=== PATIENT | male | born 1965 | race Hispanic/Latino ===

== ENCOUNTER 2025-08-20 17:27 | Inpatient (IN) | payer MEDICARE, MEDICAID ==
[~2025-08-20] VITALS: Ht 167.6 cm; Wt 106.0 kg
[2025-08-20 23:45] VITALS: O2SAT 98
[2025-08-21] VITALS (8 sets, daily range): BP systolic 117–151; BP diastolic 58–76; PULSE 69–84; RESP 18–20; TEMP 98–99.2; O2SAT 97–98
[2025-08-21] MEDS ORDERED: NIFE60TA5 PO (00:10)
[2025-08-21] MEDS ORDERED: CYCL10TA16 PO (00:10)
[2025-08-21] MEDS ORDERED: CARV3.1262 PO (00:10)
[2025-08-21] MEDS ORDERED: ASPI-1197 PO (00:10)
[2025-08-21] MEDS ORDERED: LIDO700A30 TP (00:10)
[2025-08-21] MEDS ORDERED: ATOR40TA69 PO ×2 (00:10)
[2025-08-21] MEDS ORDERED: SEVE800T7 PO (00:10)
[2025-08-21] MEDS ORDERED: HYDR-4060 PO (00:17)
[2025-08-21] MEDS ORDERED: FURO80TA87 IV (00:17)
[2025-08-21] MEDS ORDERED: PANT40TA IV (00:17)
[2025-08-21] MEDS ORDERED: HEPAR25KIV IV (00:19)
[2025-08-21] MEDS ORDERED: ONDA22I IV (00:23)
[2025-08-21] MEDS ORDERED: ACET-2247 PO (00:23)
--- NOTE | 2025-08-21 00:32 | HP ---
History of Present Illness Reason for Visit: chest pain History of Present Illness Mr. Yi is a 60-year-old male that was seen and examined today on 08/21/2025. Patient is a good historian of personal health Patient was transferred from [facility] for cardiovascular surgery Service. Patient was admitted to [facility] on 08/19/2025 with a chief complaint of chest pain. Patient was diagnosed with a NSTEMI after having troponins of 2.635 and 3.703. Patient had a left heart catheterization on 08/20/2025 that showed severe multivessel disease. 2D echo on 08/20/2025 showed diastolic dysfunction with LVEF 50-55%. Cardiology recommended transferring to a facility with the cardiovascular surgery service. Patient was accepted at this facility by Dr. Prince request was made for patient to be admitted under hospitalist service. Patient arrived on a heparin drip and we will continue heparin drip until further recommendations received from cardiovascular surgery Service. Past Medical History ADDITIONAL PAST MEDICAL HISTORY: [ESRD on HD, hyperlipidemia, hypertension, CHF with LVEF 50-55% and diastolic dysfunction by 2D echo on 08/20/2025] SOCIAL HISTORY: [Patient quit smoking in 2019. Patient drinks alcohol about once a month usually two beers that are 12 oz each. Patient denies drug use. Patient lives alone. Patient is unmarried. Patient is typically independent of his ADLs. Patient denies difficulty pain is bills.] SURGICAL HISTORY: [[place] [facility]] Review of Systems General: No Fever, No Chills, No Night Sweats, No Fatigue, No Malaise, No Appetite, No Other HEENT: No Head Aches, No Visual Changes, No Eye Pain, No Ear Pain, No Dysphasia, No Sinus Congestion, No Post Nasal Drip, No Sore Throat, No Other Pulmonary: No Dyspnea, No Cough, No Pleuritic Chest Pain, No Other Cardiovascular: Chest Pain; No: Palpitations, Orthopnea, Paroxysmal Noc. Dyspnea, Edema, Lt Headedness, Other Gastrointestinal: No: Nausea, Vomiting, Abdominal Pain, Diarrhea, Constipation, Melena, Hematochezia, Other Genitourinary: No Dysuria, No Frequency, No Incontinence, No Hematuria, No Retention, No Other Musculoskeletal: No: other, neck pain, shoulder pain, arm pain, back pain, hand pain, leg pain, foot pain Skin: No Urticaria, No Rash, No Other Neurological: No: Weakness, Numbness, Incoordination, Change in speech, Confusion, Seizures, Other Allergies: Coded Allergies: No Known Allergies (Unverified Allergy, Unknown, 08/21/25) Scheduled Aspirin (Aspirin), 81 MG PO DAILY, (Reported) Atorvastatin Calcium (Lipitor), 40 MG PO HS, (Reported) Carvedilol (Coreg), 3.125 MG PO BID, (Reported) Cyclobenzaprine HCl (Flexeril), 10 MG PO TID, (Reported) Furosemide (Lasix), 80 MG IV BID, (Reported) Heparin Sodium,Porcine/D5w (Heparin), 25,000 UNITS IV AD, (Reported) Lidocaine (Lidocaine), 1 PATCH TP DAILY, (Reported) Nifedipine (Procardia Xl), 60 MG PO DAILY, (Reported) Pantoprazole Sodium (Protonix), 40 MG IV DAILY, (Reported) Sevelamer Carbonate (Renvela), 3,200 MG PO TIDMEALS, (Reported) Scheduled PRN Acetaminophen (Tylenol), 650 MG PO Q6HPRN PRN for FEVER, (Reported) Hydralazine HCl (Hydralazine HCl), 10 MG IV ONCE PRN for IF SBP GREATER THAN 180, (Reported) Hydrocodone/Acetaminophen (Hydrocodon-Acetaminophen 5-325), 1 EACH PO Q6HPRN PRN for PAIN LEVEL 5 TO 10, (Reported) Ondansetron HCl (Zofran), 4 MG IV TID PRN for NAUSEA/VOMITING, (Reported) Exam Vital Signs Vital Signs Date Time Temp Pulse Resp B/P (MAP) Pulse Ox O2 Delivery O2 Flow Rate FiO2 08/21/25 00:01 98.2 84 18 151/72 100 Nasal Cannula General Appearance: Alert, Oriented X3, Cooperative, moderate distress HEENT: Atraumatic, EOMI Respiratory: Clear to auscultation, Normal air movement, NL respiratory effort Cardiovascular: Regular rate, Regular rhythm, Normal S1, Normal S2 Abdominal: Normal bowel sounds, Soft, No tenderness Extremities: No edema Skin: No significant lesion Neuro: Normal speech, Strength at 5/5 X4 ext, Sensation intact, Cranial nerves 3-12 NL Psych/Mental Status: Mental status NL, Mood NL, Thoughts/Content NL Assessment/Plan ASSESSMENT: [ Severe multivessel disease, POA NSTEMI, POA ESRD on HD Hyperlipidemia Hypertension CHF with LVEF 50-55% by 2D echo, diastolic dysfunction on 08/20/2025] PLAN: [ Admit patient to pccu as inpatient status. Patient will be followed by cardiovascular surgery Service. Continue heparin drip per previous orders. Continue previous medications aspirin 81 mg by mouth once daily Atorvastatin 40 mg daily Carvedilol 3.125 mg by mouth twice daily Flexeril 10 mg by mouth 3 times daily Lasix 80 mg IV twice daily As needed analgesia with hydrocodone/hydromorphone Nifedipine 60 mg by mouth once daily Sevelamer 3200 mg by mouth 3 times daily Monitor intake and output every shift Weight patient daily 1500 mL daily fluid restriction Keep patient NPO except for medications Advance diet as tolerated if no indicated procedures after cardiovascular surgery Service evaluation Patient will be followed by Nephrology Service for hemodialysis management Avoid nephrotoxic agents when possible Renally dose all medications when possible GI prophylaxis, Protonix DVT prophylaxis, patient is on heparin drip as stated above ADVANCED CARE PLANNING 1. Which of the following were discussed? Hospice Care - Yes Therapeutic options - yes Advance Directives - Yes - patient states he does not have any advance directives in place at this time, however his sister, Addie Yi can make decisions for him if he becomes unable. Other discussions - patient wishes to remain a full code at this time 2. Discussed with who? Patient 3. Voluntary nature of this service was explained to the patient? Yes 4. Amount of time spent - ___16 minutes____ 5. Reviewed by Physician? (if this service was performed by NPP) Yes This document was generated in part using voice recognition software, occasional wrong word or sound alike substitutions may have occurred due to the inherent limitations of voice recognition software. Read the chart carefully and recognize using context, where the substitutions have occurred. Although every effort was made to edit the content, silk printer and typing errors may occur ATTESTATION BY PHYSICIAN I have seen and examined the patient. I reviewed the documentation, medical decision making, and treatment plan as noted by the mid-level provider above. I agree with the findings and plan of care.] FARIBA DAVIDSON COTTON FARMER Aug 21, 2025 00:32
[2025-08-21] MEDS ORDERED: HYDR20VI16 IV (00:42)
[2025-08-21 02:53] LABS: IMMATURE GRANULOCYTE ABSOLUTE 0.02 K/uL (0-1); NUCLEATED RED BLOOD CELLS 0.0 % (0.0-0.19); PLATELET COUNT (AUTO) 191 K/uL (130-400); RED BLOOD CELL COUNT(AUTO) 3.05 MIL/uL (4.50-6.20); RED CELL DISTRIBUTION WIDTH 13.4 % (11.0-15.5); WHITE BLOOD COUNT (AUTO) 5.6 K/uL (4.8-10.8)
[2025-08-21 03:02] LABS: CREATININE 7.1 mg/dL (0.5-1.3); GLOMERULAR FILTR. RATE CALC 8.0 mL/min (>90); GLUCOSE,RANDOM 95.0 mg/dL (70-105); PHOSPHORUS 6.0 mg/dL (2.5-4.9); SODIUM SERUM 136.0 mmol/L (136-145); UREA NITROGEN, BLOOD 44.0 mg/dL (7-18)
[2025-08-21 03:03] LABS: INR 1.08 (0.85-1.15)
[2025-08-21] MEDS: furoSEMIDE 100MG VIAL 10 MG/ML VIAL IV SCH (09:00)
--- NOTE | 2025-08-21 09:27 | CONS ---
[facility] CARDIOLOGY CONSULTATION NOTE Date Patient Seen: Aug 21, 2025 Time of Visit: 09:06 Reason for Consultation: [Severe multivessel CAD ] History of Present Illness: [Patient is a 60-year-old male with a past medical history of hypertension, hyperlipidemia, ESRD on hemodialysis, who presented to [facility] on 08/19/2025 endorsing ongoing and progressive chest pain, per referral report his troponin was elevated at 0125-2352, 2D echocardiogram (08/20/2025) LVEF 50-55%, diastolic dysfunction, (per report), patient underwent coronary angiogram on 08/20/2025, revealing severe multivessel CAD. At that time the decision was made to transfer to [facility] for higher level of care, and CABG evaluation by CV surgery. Hemoglobin 10.2, creatinine 7.1 , patient was assessed at his bedside, currently denies any chest pain, palpitations, dyspnea or any other anginal equivalents. Pending CV surgery evaluation] Past Medical History: [Refer to chart] Past Surgical History: [Refer to HPI ] Family History: [Refer to HPI ] Social History: [Refer to HPI] Habits: [Never] smoker. [Denies] alcohol consumption. [Denies] illicit drug use Review of Systems: A review of12 point system was negative set per HPI Physical Examination: GENERAL: [No acute distress.] HEAD: [Normal with no signs of head trauma.] EYES: [PERRLA, EOMI, conjunctiva and sclera normal.] ENT: [Hearing grossly intact, normal oropharynx.] NECK: [Supple without JVD. There is no tenderness, lymphadenopathy, or masses. No thyromegaly. Normal carotid upstrokes without bruits.] LUNGS: [Clear breath sounds bilaterally.. No wheezes, or rhonchi.] HEART: [Normal rate and rhythm. Normal S1 and S2 without murmurs, gallop or rub.] VASC: [Peripheral pulses +2 bilaterally.] ABD: [Bowel sounds normal, soft, nontender, no masses, no organomegaly. No audible bruits.] : [Not examined] LYMPH: [No lymphadenopathy noted.] EXT: [No clubbing, cyanosis or edema.] SKIN: [examination of left groin access site appears to be clean with no evidence of hematoma or active bleeding.] NEURO: [Awake, alert, and oriented x3. No focal sensory or strength deficits noted.] Vital Signs (last 8hr) Date Time Temp Pulse Resp B/P (MAP) Pulse Ox O2 Delivery O2 Flow Rate FiO2 08/21/25 07:00 98.1 76 20 149/76 99 Room Air 08/21/25 04:29 98.6 72 18 125/60 97 Room Air Laboratory: [ ] Hematology Labs: Test 08/21/25 02:41 Range/Units White Blood Count 5.6 4.8-10.8 K/uL Red Blood Count 3.05 L 4.50-6.20 MIL/uL Hemoglobin 10.2 L 14.0-18.0 g/dL Hematocrit 29.8 L 42-54 % Mean Corpuscular Volume 97.7 79-99 fL Mean Corpuscular Hemoglobin 33.4 H 27.0-33.0 pg Mean Corpuscular Hemoglobin Concent 34.2 32.0-36.0 g/dL Red Cell Distribution Width 13.4 11.0-15.5 % Platelet Count 191 130-400 K/uL Mean Platelet Volume 9.3 7.5-10.5 fL Immature Granulocyte % (Auto) 0.4 0-1 % Neutrophils (%) (Auto) 54.7 40.0-77.0 % Lymphocytes (%) (Auto) 24.0 21.0-51.0 % Monocytes (%) (Auto) 13.1 H 3.0-13.0 % Eosinophils (%) (Auto) 6.7 0.0-8.0 % Basophils (%) (Auto) 1.1 0.0-5.0 % Neutrophils # (Auto) 3.1 1.8-7.7 K/uL Lymphocytes # (Auto) 1.4 1.0-4.8 K/uL Monocytes # (Auto) 0.7 0.1-1.0 K/uL Eosinophils # (Auto) 0.38 0.00-0.70 K/uL Basophils # (Auto) 0.06 0.00-0.20 K/uL Absolute Immature Granulocyte (auto 0.02 0-1 K/uL Nucleated Red Blood Cells 0.0 0.0-0.19 % Chemistry Labs: Test 08/21/25 02:41 Range/Units Sodium Level 136 136-145 mmol/L Potassium Level 4.5 3.5-5.1 mmol/L Chloride Level 95 L 101-111 mmol/L Carbon Dioxide Level 30 21-32 mmol/L Blood Urea Nitrogen 44 H 7-18 mg/dL Creatinine 7.1 H 0.5-1.3 mg/dL Glomerular Filtration Rate Calc 8 >90 mL/min Random Glucose 95 70-105 mg/dL Total Calcium 8.0 L 8.5-10.1 mg/dL Phosphorus Level 6.0 H 2.5-4.9 mg/dL Magnesium Level 2.20 1.80-2.40 mg/dL Coagulation Labs: Test 08/21/25 02:41 Range/Units Prothrombin Time 11.4 9.6-11.6 SEC Prothromb Time International Ratio 1.08 0.85-1.15 Activated Partial Thromboplast Time 91.1 *H 26.3-35.5 SEC Diagnostics / Radiology: [Copy/Paste Echos/Imaging Report here] Assessment: [Multivessel CAD Hyperlipidemia ESRD on hemodialysis Hypertension ] Plan: [# NSTEMI-multivessel CAD Admitted [facility] on 08/19/2025 for chest pain Troponin peaked at 3703 2D echocardiogram (08/20/2025) LVEF 50-55%, per report Coronary angiogram (08/20/2025) revealing severe multivessel CAD (per report), examination of left groin access site appears to be clean with no evidence of hematoma or active bleeding. Patient was transferred from [facility] for CABG evaluation Patient currently denies any cardiac symptoms or anginal equivalents. Hemodynamically stable Pending CV surgery recommendations Hemoglobin 10.2, creatinine 7.1. Nephrology is following along We will continue Lipitor 40 mg q.h.s., Coreg 3.125 Mg every12 hours, [id number] mg daily Defer the use of P2Y12 inhibitors due to possible CABG Continue heparin infusion per protocol ] Thank you for this consult cardiology will continue along, pending CV surgery formal recommendations Chucho montanez MD ATTESTATION BY PHYSICIAN I have seen and examined the patient, reviewed the above documentation, participated in medical decision making, made necessary modifications, and agree with the treatment plan as documented by my mid-level provider above. MD SARINA Cuba JAMES R MD Aug 21, 2025 09:27
[2025-08-21 10:03] LABS: ABG BASE EXCESS 3.4 mmol/L (-2.0-3.0); ABG HCO3 26.8 mmol/L (21.0-28.0); ABG OXYGEN SATURATION 95.6 % (94.0-98.0); ABG PCO2 37 mmHg (35-48); ABG PH 7.479 (7.350-7.450); PO2, ARTERIAL BG 72.2 mmHg (83.0-108.0); TEMPERATURE, CELSIUS BG 37.0 CELSIUS (35.5-37.0); VENT MODE, BG RA (ROOM AIR)
[2025-08-21] MEDS: LIDOCAINE 5% TOPICAL PATCH TP SCH (10:07)
[2025-08-21] MEDS: CYCLOBENZAPRINE HCL 10 MG TABLET PO SCH (10:08)
[2025-08-21] MEDS: ASPIRIN 81MG CHEW TAB PO SCH (10:08)
--- NOTE | 2025-08-21 10:09 | NUR ---
DCP: HOME Pt states he was transferred from [facility]. Pt lives in [facility] in [place], alone. Pt goes to [facility] at 7am, by [employer] Transportation. Last treatment was yesterday. Pt states he requires assist with ADLS, home management and meal prep. Pt has a provider daily/ 30+hrs a week. Pt uses a cane, no HH. PCP is Ede Souza and uses [facility] for rx needs. Pt states he will return home at or. SISTER JOSÉ MIGUEL SALAZAR [phone] [address] GREGORY DUKE [phone]
[2025-08-21] MEDS: HYDROcodone/APAP 5/325 1 TAB TABLET PO PRN (10:16)
--- NOTE | 2025-08-21 15:35 | CONS ---
NEPHROLOGY CONSULTATION NOTE Date/Time Patient Seen: Aug 21, 2025 HISTORY OF PRESENT ILLNESS: Patient was transferred from [facility] for cardiovascular surgery Service. Patient was admitted to on 08/19/2025 with a chief complaint of chest pain. Patient was diagnosed with a NSTEMI Patient had a left heart catheterization on 08/20/2025 that showed severe multivessel disease. 2D echo on 08/20/2025 showed diastolic dysfunction with LVEF 50-55%. Cardiology recommended transferring to a facility with the cardiovascular surger y service Dialysis was done yesterday. Pending further CV surgeon recommendations He was seen in the medical floor, in no acute distress REVIEW OF SYSTEMS: GENERAL: Negative for any nausea, vomiting, fevers, chills, or weight loss. NEUROLOGIC: Negative for any blurry vision, blind spots, double vision, facial asymmetry, dysphagia, dysarthria, hemiparesis, hemisensory deficits, vertigo, ataxia. HEENT: Negative for any head trauma, neck trauma, neck stiffness, photophobia, phonophobia, sinusitis, rhinitis. CARDIAC: Negative for any chest pain, dyspnea on exertion, paroxysmal nocturnal dyspnea, peripheral edema. PULMONARY: Negative for any shortness of breath, wheezing, COPD, or TB exposure. GASTROINTESTINAL: Negative for any abdominal pain, nausea, vomiting, bright red blood per rectum, melena. GENITOURINARY: Negative for any dysuria, hematuria, incontinence. INTEGUMENTARY: Negative for any rashes, cuts, insect bites. RHEUMATOLOGIC: Negative for any joint pains, photosensitive rashes, history of vasculitis or kidney problems. HEMATOLOGIC: Negative for any abnormal bruising, frequent infections or bleeding. PAST MEDICAL HISTORY: ESRD on HD, hyperlipidemia, hypertension, CHF with LVEF 50-55% and diastolic dysfunction by 2D echo on 08/20/2025 PAST SURGICAL HISTORY: AV access PAST SOCIAL HISTORY: Former smoker. Patient drinks alcohol about once a month usually two beers that are 12 oz each. Patient denies drug use. FAMILY HISTORY: Noncontributory PHYSICAL EXAM: GENERAL: Alert and oriented x 3. No acute distress. Well-nourished. EYES: EOMI. Anicteric. HENT: Moist mucous membranes. No scleral icterus. No cervical lymphadenopathy. LUNGS: Clear to auscultation bilaterally. No accessory muscle use. CARDIOVASCULAR: Regular rate and rhythm. No murmur. No JVD. ABDOMEN: Soft, non-tender and non-distended. No palpable masses. EXTREMITIES: No edema. Non-tender. SKIN: No rashes or lesions. Warm. NEUROLOGIC: No focal neurological deficits. CN II-XII grossly intact, but not individually tested. PSYCHIATRIC: Cooperative. Appropriate mood and affect. MEDICATIONS: [ ] Current Medications Medications (Trade) Dose Ordered Sig/Flavio Route PRN Reason Start Time Stop Time Status Last Admin Dose Admin Acetaminophen (TYLenol 325MG TAB) 650 mg Q4HPRN PRN PO FEVER 08/21/25 01:00 09/20/25 00:59 Acetaminophen/ Hydrocodone Bitart (NORco 5/325MG) 1 tab Q6H PRN PO PAIN 5-10 08/21/25 01:00 08/26/25 00:59 08/21/25 10:16 1 TAB Aspirin (Aspirin 81mg Chew Tab) 81 mg DAILY PO 08/21/25 09:00 09/20/25 08:59 08/21/25 10:08 81 MG Atorvastatin Calcium (LIPItor 40MG) 40 mg HS PO 08/21/25 21:00 09/20/25 20:59 Carvedilol (Coreg 3.125MG) 3.125 mg BID PO 08/21/25 09:00 09/20/25 08:59 08/21/25 10:08 3.125 MG Cyclobenzaprine HCl (Cyclobenzaprine HCl) 10 mg TID PO 08/21/25 09:00 09/20/25 08:59 08/21/25 10:08 10 MG Furosemide (LASix 100MG VIAL) 80 mg BID IV 08/21/25 09:00 09/20/25 08:59 Heparin Sodium/ Dextrose 250 ml @ 0 mls/hr Q6H IV 08/21/25 02:00 09/20/25 01:59 Heparin Sodium/ Dextrose (HEParin 25,000 UNITS/250ML D5W) 25,000 units AD IV 08/21/25 01:00 08/21/25 01:07 DC Hydralazine HCl (APRESOLine 20MG INJ) 10 mg ONCE PRN IV IF SBP GREATER THAN 180 08/21/25 01:30 09/20/25 01:29 Hydralazine HCl (APRESOLine 20MG INJ) 10 mg Q6H PRN IV For:SBP above 160;DBP above 90 08/21/25 01:30 09/20/25 01:29 Hydromorphone HCl (DiLAUDid 0.5MG INJ) 0.25 mg Q4H PRN IVP SEVERE PAIN (7-10) 08/21/25 01:30 08/26/25 01:29 Lidocaine (Lidoderm Patch 5%) 1 patch DAILY TP 08/21/25 09:00 09/20/25 08:59 08/21/25 10:07 1 PATCH Nifedipine (adALAT 30MG) 60 mg DAILY PO 08/21/25 09:00 09/20/25 08:59 08/21/25 10:08 60 MG Ondansetron HCl (zoFRAN 4MG INJ) 4 mg Q6H PRN IV NAUSEA/VOMITING 08/21/25 01:30 09/20/25 01:29 Ondansetron HCl (zoFRAN 4MG INJ) 4 mg TID PRN IV NAUSEA/VOMITING 08/21/25 01:00 08/21/25 01:14 DC Pantoprazole Sodium (PROTonix 40MG INJ) 40 mg DAILY IVP 08/21/25 09:00 09/20/25 08:59 08/21/25 10:08 40 MG Sevelamer HCl (RENAgel 800 MG TAB) 3,200 mg TIDMEALS PO 08/21/25 08:00 09/20/25 07:59 08/21/25 10:16 3,200 MG Vital Signs (last 8hr) Date Time Temp Pulse Resp B/P (MAP) Pulse Ox O2 Delivery O2 Flow Rate FiO2 08/21/25 11:00 99.1 79 20 132/73 99 Room Air 08/21/25 10:08 149/76 DIAGNOSTICS / RADIOLOGY: [ Copy/paste Image report here. If no images then delete ] LABORATORY: [ ] Hematology Labs: Test 08/21/25 02:41 Range/Units White Blood Count 5.6 4.8-10.8 K/uL Red Blood Count 3.05 L 4.50-6.20 MIL/uL Hemoglobin 10.2 L 14.0-18.0 g/dL Hematocrit 29.8 L 42-54 % Mean Corpuscular Volume 97.7 79-99 fL Mean Corpuscular Hemoglobin 33.4 H 27.0-33.0 pg Mean Corpuscular Hemoglobin Concent 34.2 32.0-36.0 g/dL Red Cell Distribution Width 13.4 11.0-15.5 % Platelet Count 191 130-400 K/uL Mean Platelet Volume 9.3 7.5-10.5 fL Immature Granulocyte % (Auto) 0.4 0-1 % Neutrophils (%) (Auto) 54.7 40.0-77.0 % Lymphocytes (%) (Auto) 24.0 21.0-51.0 % Monocytes (%) (Auto) 13.1 H 3.0-13.0 % Eosinophils (%) (Auto) 6.7 0.0-8.0 % Basophils (%) (Auto) 1.1 0.0-5.0 % Neutrophils # (Auto) 3.1 1.8-7.7 K/uL Lymphocytes # (Auto) 1.4 1.0-4.8 K/uL Monocytes # (Auto) 0.7 0.1-1.0 K/uL Eosinophils # (Auto) 0.38 0.00-0.70 K/uL Basophils # (Auto) 0.06 0.00-0.20 K/uL Absolute Immature Granulocyte (auto 0.02 0-1 K/uL Nucleated Red Blood Cells 0.0 0.0-0.19 % Chemistry Labs: Test 08/21/25 02:41 Range/Units Sodium Level 136 136-145 mmol/L Potassium Level 4.5 3.5-5.1 mmol/L Chloride Level 95 L 101-111 mmol/L Carbon Dioxide Level 30 21-32 mmol/L Blood Urea Nitrogen 44 H 7-18 mg/dL Creatinine 7.1 H 0.5-1.3 mg/dL Glomerular Filtration Rate Calc 8 >90 mL/min Random Glucose 95 70-105 mg/dL Total Calcium 8.0 L 8.5-10.1 mg/dL Phosphorus Level 6.0 H 2.5-4.9 mg/dL Magnesium Level 2.20 1.80-2.40 mg/dL Coagulation Labs: Test 08/21/25 09:01 08/21/25 02:41 Range/Units Activated Partial Thromboplast Time 50.9 #H 26.3-35.5 SEC Prothrombin Time 11.4 9.6-11.6 SEC Prothromb Time International Ratio 1.08 0.85-1.15 ASSESSMENT: Severe multivessel disease, POA patient has anemia patient has underlying acute on chronic diastolic heart failure and multiple other comorbidities NSTEMI, POA ESRD on HD Hyperlipidemia Hypertension CHF with LVEF 50-55% by 2D echo, diastolic dysfunction on 08/20/2025 PLAN: Labs and Diagnostics/ Radiology personally reviewed and interpreted by myself and supervising physician We have reviewed dialysis and external records in detail Continue dialysis schedule, subject to change based on surgery schedule 1.5 L fluid restriction Continue to monitor H&H Epogen on dialysis days, as needed Continue with frequent monitoring of renal function, anemia, and electrolytes Order CBC, BMP, and electrolytes in the morning May use Dilaudid 0.5 mg IV every 6 hours as needed for severe pain Monitor blood pressure adjust medication doses as needed Maintain normotensive state Strict intake, output, and daily weight should be monitored Please renally adjust medications. Avoid nephrotoxics and nonsteroidal drugs. We will continue to monitor the patient closely We have discussed with the other team physicians in detail about the care plan ATTESTATION BY PHYSICIAN I have seen and examined the patient. I reviewed the documentation, medical decision making, and treatment plan as noted by the mid-level provider above. I agree with the findings and plan of care. GERRI MIGUEL MD, ELIZABETH FNP Aug 21, 2025 15:35 GERRI MIGUEL MD Aug 21, 2025 21:55
[2025-08-21 17:22] LABS: INR 1.04 (0.85-1.15)
--- NOTE | 2025-08-21 18:54 | HMCSR ---
APPROVED REPORT EXAM: Two-dimensional and M-mode echocardiogram with Doppler and color Doppler. INDICATION ICD: pre-op CABG 2D Dimensions RVDd 4.7 cm LVEF(%) 41.0 (>50%) LVED Vol(simp.) 173.9 mL IVSd 0.9 (0.7-1.1cm) FS(%) 20 % LVES Vol(simp.) 92.2 mL LVDd 4.9 (3.8-5.6cm) LA (2D) 4.5 (1.6-4.0cm) LVEF(%, simp.) 47 % PWd 1.2 (0.7-1.1cm) Ao Root(2D) 3.3 (2.0-3.7cm) LA ESV INDEX (BP) 38.01 mL/m2 LVDs 3.9 (2.5-4.0cm) LVOT diam 2.4 (1.8-2.4cm) Deformation Strain Apical 4 -15.4 % Apical 2 -14.0 % Apical 3 -14.4 % Global Strain -14.6 % M-Mode Dimensions EPSS 1.2 cm LA (MM) 4.2 (1.6-4.0cm) Ao Root(MM) 3.5 (2.0-3.7cm) Aortic Valve AoV Vmax 1.9 m/s Ao Peak GR 14.1 mmHg LVOT Vmax 1.1 m/s AoV VTI 0.4 m Ao Mean GR 8.6 mmHg LVOT VTI 0.26 m KRISTEN (VMAX) 2.87 cm2 Al P1/2T 392 ms KRISTEN (VTI) 3.1 cm2 Mitral Valve MV E Vmax 117.9 cm/s DECEL Time 220 ms MV A Vmax 115.4 cm/s P 1/2 T 65 ms E/A ratio 1.0 MVA (PHT) 3.4 cm2 TDI E/E' Medial 21.2 E/E' Lateral 12.7 Medial E' Peak V 5.56 cm/s Lateral E' Peak V 9.27 cm/s Pulmonary Valve PV Vmax 1.1 m/s PV VTI 0.25 m PV Mean GR 2.9 mmHg PV Peak GR 5.0 mmHg Tricuspid Valve TR Vmax 2.3 m/s RVSP 21.9 mmHg TR Peak GR 21.9 mmHg Left Ventricle Left ventricular cavity size is normal. There is global hypokinesis of the left ventricle. There is normal left ventricular wall thickness. LVEF is 45-50%. Stage II diastolic dysfunction. Right Ventricle The right ventricle is normal size. The right ventricular systolic function is normal. Atria The left atrium is mildly dilated. The right atrium size is normal. Aortic Valve The aortic valve is normal in structure. Trace aortic regurgitation. There is no aortic valvular stenosis. Mitral Valve The mitral valve is normal in structure. Posterior leaflet is mildly thickened. Mitral regurgitation is mild. There is no mitral valve stenosis. Tricuspid Valve The tricuspid valve is normal in structure. There is trace tricuspid valve regurgitation noted. Pulmonic Valve Pulmonic valve is not well visualized. There is no pulmonic valvular regurgitation. Great Vessels The aortic root is normal in size. The IVC is normal in size and collapses >50% with inspiration. Pericardium There is no pericardial effusion. Other Information Quality : Average Conclusion Left ventricular cavity size is normal. LVEF is 45-50% with global hypokinesis of the left ventricle. Stage II diastolic dysfunction. The right ventricular systolic function is normal. The left atrium is mildly dilated. No hemodynamically significant valvular abnormalities. There is no pericardial effusion.
--- NOTE | 2025-08-21 22:30 | PN ---
SUBJECTIVE: The patient is a 60-year-old male with hypertension, hyperlipidemia, past tobacco abuse, and end-stage renal disease requiring hemodialysis. The patient presented to [facility] with shortness of breath and ruled in for pyp-[id number] NM. He was evaluated by Cardiology. He had an echocardiogram which revealed an ejection fraction of 50-55% with evidence of diastolic dysfunction. The patient underwent a heart catheterization which reportedly showed multivessel coronary artery disease. (These films have not been downloaded to our system). He was transferred here for surgical evaluation for coronary artery bypass grafting. OBJECTIVE: GENERAL: The patient is a strong, vibrant male sitting on the edge of the bed, watching videos on his phone. HEENT: Normocephalic, atraumatic. Extraocular movements intact. CHEST: He is on room air. HEART: S1, S2 and regular. LUNGS: His lungs are unlabored at rest on room air. ABDOMEN: His abdomen reveals mild obesity with positive bowel sounds. EXTREMITIES: He has a left upper extremity AV fistula with a good thrill and no signs of infection. LABORATORY DATA: His white cell count is 5600, hemoglobin is 10.2, BUN is 44, and creatinine is 7.1. ASSESSMENT AND PLAN: Coronary artery disease. We will need to examine his heart catheterization; however, I did discuss the possibilities of coronary artery bypass grafting including complications of , stroke, bleeding, transfusion, arrhythmias and infection, etc. He is willing to undergo surgery if he is deemed a surgical candidate. TID: [id number] RECEIPT: [id number]
[2025-08-22] VITALS (22 sets, daily range): BP systolic 114–167; BP diastolic 58–93; PULSE 69–86; RESP 16–21; TEMP 97.7–98.7; O2SAT 99–100
[2025-08-22 04:17] LABS: IMMATURE GRANULOCYTE ABSOLUTE 0.01 K/uL (0-1); NUCLEATED RED BLOOD CELLS 0.0 % (0.0-0.19); PLATELET COUNT (AUTO) 175 K/uL (130-400); RED BLOOD CELL COUNT(AUTO) 3.03 MIL/uL (4.50-6.20); RED CELL DISTRIBUTION WIDTH 13.2 % (11.0-15.5); WHITE BLOOD COUNT (AUTO) 6.1 K/uL (4.8-10.8)
[2025-08-22 04:55] LABS: PHOSPHORUS 7.3 mg/dL (2.5-4.9)
--- NOTE | 2025-08-22 13:33 | PN ---
[facility] PROGRESS NOTE Date of Service: Aug 22, 2025 Time of Service: 13:31 SUBJECTIVE: 08/22 patient remains admitted to the PCU, comfortably in bed, alert and oriented x3, on heparin drip. Denies chest pain, shortness shortness for breath, no nausea, no vomiting, no abdominal discomfort. He remains hemodynamically stable, afebrile, saturating normal on room air. Mild drop in hemoglobin to 9.8 with a hematocrit 29.6, no signs of GI bleed. Patient evaluated by Cardiothoracic surgeon, pending further recommendations in terms of CABG. Follow CBC in a.m. and transfuse as needed. Discussed with the patient, in agreement, all questions answered. REVIEW OF SYSTEMS CONSTITUTIONAL: Denies fevers, chills, or night sweats. No unintentional weight loss reported. NEUROLOGICAL: Denies headache, amaurosis fugax, motor weakness, sensory deficit, vertigo/spinning sensation, gait abnormalities, or tremors. ENT: No hearing loss, otalgia, otorrhea, rhinitis, rhinorrhea, hoarseness, or sore throat. CARDIOVASCULAR: Denies any exertional angina, dyspnea on exertion, orthopnea, paroxysmal nocturnal dyspnea, palpitations, life-threatening arrhythmias, claudication. PULMONARY: Denies any shortness of breath, cough, phlegm/sputum, hemoptysis, pleuritic chest pain. SLEEP: Denies morning headaches, daytime somnolence or napping. Denies difficulty falling asleep, staying asleep, waking from sleep. Denies knowledge of snoring. GASTROINTESTINAL: Denies any type of dysphagia to either liquids or solids. Denies nausea, vomiting, pyrosis, early satiety, abdominal pain, diarrhea, constipation, or changes in stool consistency or caliber. Denies coffee-ground emesis, hematemesis, hematochezia, or melanotic stools. GENITOURINARY: Denies frequency, urgency, nocturia, hematuria or incontinence (Storage/Irritative symptoms.) Low urinary stream, straining to void, urinary intermittency or hesitancy, splitting of the voiding stream, terminal dribbling. ENDOCRINOLOGIC: Denies polyuria, polydipsia, polyphagia or heat/cold intolerances. HEMATOLOGIC: Denies thrombophilia/previous clots, or coagulopathy/bleeding disorders. ONCOLOGIC: Denies personal history of malignancy. DERMATOLOGIC: Denies rashes or pruritus. PSYCHIATRIC: Denies any suicidal or homicidal ideation. Denies hallucinations. PHYSICAL EXAM GENERAL APPEARANCE: The patient is awake, alert, and oriented, in no acute cardiopulmonary distress. NEUROLOGICAL: Cranial nerves II-XII grossly intact. Motor is 5/5 in bilateral upper and lower extremities proximal to distal. No sensory deficits. HEENT: Face is symmetric. Pupils are equal and reactive. Extraocular movements are intact. NECK: Supple. No JVD. No thyromegaly. No submental, submandibular, pre- /postauricular, occipital or supraclavicular lymphadenopathy. CHEST: Normal chest expansion. No Telemetry. LUNGS: Absence of any rales, rhonchi or any wheezing. CARDIOVASCULAR: Regular. S1 and S2 normal. No appreciable rubs, murmurs or gallops. ABDOMEN: Soft, nontender, and nondistended. There is no rebound, voluntary guarding, or rigidity. : Deferred. No Soliz. EXTREMITIES: Non-edematous and not cyanotic. No clubbing. Good capillary refill. SKIN: No skin breakdown. Vital Signs (last 8hr) Date Time Temp Pulse Resp B/P (MAP) Pulse Ox O2 Delivery O2 Flow Rate FiO2 08/22/25 11:00 98.1 77 20 143/74 99 Room Air 08/22/25 09:19 134/72 08/22/25 07:00 97.9 75 20 134/72 100 Room Air LABS: Laboratory: Test 08/22/25 04:06 08/21/25 17:05 08/21/25 10:00 08/21/25 02:41 Range/Units White Blood Count 6.1 4.8-10.8 K/uL Red Blood Count 3.03 L 4.50-6.20 MIL/uL Hemoglobin 9.8 L 14.0-18.0 g/dL Hematocrit 29.6 L 42-54 % Mean Corpuscular Volume 97.7 79-99 fL Mean Corpuscular Hemoglobin 32.3 27.0-33.0 pg Mean Corpuscular Hemoglobin Concent 33.1 32.0-36.0 g/dL Red Cell Distribution Width 13.2 11.0-15.5 % Platelet Count 175 130-400 K/uL Mean Platelet Volume 9.6 7.5-10.5 fL Immature Granulocyte % (Auto) 0.2 0-1 % Neutrophils (%) (Auto) 53.4 40.0-77.0 % Lymphocytes (%) (Auto) 22.3 21.0-51.0 % Monocytes (%) (Auto) 14.9 H 3.0-13.0 % Eosinophils (%) (Auto) 8.4 H 0.0-8.0 % Basophils (%) (Auto) 0.8 0.0-5.0 % Neutrophils # (Auto) 3.3 1.8-7.7 K/uL Lymphocytes # (Auto) 1.4 1.0-4.8 K/uL Monocytes # (Auto) 0.9 0.1-1.0 K/uL Eosinophils # (Auto) 0.51 0.00-0.70 K/uL Basophils # (Auto) 0.05 0.00-0.20 K/uL Absolute Immature Granulocyte (auto 0.01 0-1 K/uL Nucleated Red Blood Cells 0.0 0.0-0.19 % Phosphorus Level 7.3 H 2.5-4.9 mg/dL Magnesium Level 2.30 1.80-2.40 mg/dL Prothrombin Time 11.0 9.6-11.6 SEC Prothromb Time International Ratio 1.04 0.85-1.15 Activated Partial Thromboplast Time 49.3 H 26.3-35.5 SEC Blood Gas Specimen Type Arterial Arterial Blood pH 7.479 H 7.350-7.450 Arterial Blood Partial Pressure CO2 37 35-48 mmHg Arterial Blood Partial Pressure O2 72.2 L 83.0-108.0 mmHg Arterial Blood HCO3 26.8 21.0-28.0 mmol/L Arterial Blood Oxygen Saturation 95.6 94.0-98.0 % Arterial Blood Base Excess 3.4 H -2.0-3.0 mmol/L Blood Gas Temperature 37.0 35.5-37.0 CELSIUS Blood Gas Vent Mode RA ROOM AIR FiO2 21.0 % Blood Gas Specimen Comment RR, VERN,RN Sodium Level 136 136-145 mmol/L Potassium Level 4.5 3.5-5.1 mmol/L Chloride Level 95 L 101-111 mmol/L Carbon Dioxide Level 30 21-32 mmol/L Blood Urea Nitrogen 44 H 7-18 mg/dL Creatinine 7.1 H 0.5-1.3 mg/dL Glomerular Filtration Rate Calc 8 >90 mL/min Random Glucose 95 70-105 mg/dL Total Calcium 8.0 L 8.5-10.1 mg/dL Current Medications Medications (Trade) Dose Ordered Sig/Flavio Route PRN Reason Start Time Stop Time Status Last Admin Dose Admin Acetaminophen (TYLenol 325MG TAB) 650 mg Q4HPRN PRN PO FEVER 08/21/25 01:00 09/20/25 00:59 Acetaminophen/ Hydrocodone Bitart (NORco 5/325MG) 1 tab Q6H PRN PO PAIN 5-10 08/21/25 01:00 08/26/25 00:59 08/21/25 10:16 1 TAB Aspirin (Aspirin 81mg Chew Tab) 81 mg DAILY PO 08/21/25 09:00 09/20/25 08:59 08/22/25 09:19 81 MG Atorvastatin Calcium (LIPItor 40MG) 40 mg HS PO 08/21/25 21:00 09/20/25 20:59 08/21/25 21:06 40 MG Carvedilol (Coreg 3.125MG) 3.125 mg BID PO 08/21/25 09:00 09/20/25 08:59 08/22/25 09:19 3.125 MG Cyclobenzaprine HCl (Cyclobenzaprine HCl) 10 mg TID PO 08/21/25 09:00 09/20/25 08:59 08/22/25 09:19 10 MG Furosemide (LASix 100MG VIAL) 80 mg BID IV 08/21/25 09:00 08/21/25 18:47 DC Heparin Sodium/ Dextrose 250 ml @ 0 mls/hr Q6H IV 08/21/25 02:00 09/20/25 01:59 08/21/25 23:18 10.04 MLS/HR Heparin Sodium/ Dextrose (HEParin 25,000 UNITS/250ML D5W) 25,000 units AD IV 08/21/25 01:00 08/21/25 01:07 DC Hydralazine HCl (APRESOLine 20MG INJ) 10 mg ONCE PRN IV IF SBP GREATER THAN 180 08/21/25 01:30 09/20/25 01:29 Hydralazine HCl (APRESOLine 20MG INJ) 10 mg Q6H PRN IV For:SBP above 160;DBP above 90 08/21/25 01:30 09/20/25 01:29 Hydromorphone HCl (DiLAUDid 0.5MG INJ) 0.25 mg Q4H PRN IVP SEVERE PAIN (7-10) 08/21/25 01:30 08/26/25 01:29 Lidocaine (Lidoderm Patch 5%) 1 patch DAILY TP 08/21/25 09:00 09/20/25 08:59 08/22/25 09:18 1 PATCH Nifedipine (adALAT 30MG) 60 mg DAILY PO 08/21/25 09:00 09/20/25 08:59 08/22/25 09:19 60 MG Ondansetron HCl (zoFRAN 4MG INJ) 4 mg Q6H PRN IV NAUSEA/VOMITING 08/21/25 01:30 09/20/25 01:29 Ondansetron HCl (zoFRAN 4MG INJ) 4 mg TID PRN IV NAUSEA/VOMITING 08/21/25 01:00 08/21/25 01:14 DC Pantoprazole Sodium (PROTonix 40MG INJ) 40 mg DAILY IVP 08/21/25 09:00 09/20/25 08:59 08/22/25 09:18 40 MG Sevelamer HCl (RENAgel 800 MG TAB) 3,200 mg TIDMEALS PO 08/21/25 08:00 09/20/25 07:59 08/22/25 11:46 3,200 MG DIAGNOSTICS / RADIOLOGY: [ ] ASSESSMENT: Severe multivessel disease, POA NSTEMI, POA ESRD on HD Hyperlipidemia Hypertension CHF with LVEF 50-55% by 2D echo, diastolic dysfunction on 08/20/2025 PLAN: patient remains admitted to the PCU, comfortably in bed, alert and oriented x3, on heparin drip. Denies chest pain, shortness shortness for breath, no nausea, no vomiting, no abdominal discomfort. He remains hemodynamically stable, afebrile, saturating normal on room air. Mild drop in hemoglobin to 9.8 with a hematocrit 29.6, no signs of GI bleed. Patient evaluated by Cardiothoracic surgeon, pending further recommendations in terms of CABG. Follow CBC in a.m. a nd transfuse as needed. Discussed with the patient, in agreement, all questions answered. NEURO: Minimize central acting medications as possible. Fall Precautions. Well lighted room through the day and minimize interruptions through the night to prevent acute delirium. PULMONARY: Supplemental 02 as needed BiPAP as necessary, for respiratory distress Titrate Fio2 to keep Spo2 > or = 90% DuoNebs and CPT as needed IS hourly while awake for pulmonary hygiene prn Out of bed to chair as tolerated Maintain aspiration precautions at all times CARDIOVASCULAR: Follow hemodynamics. Vital signs per facility protocol GI & NUTRITION: Continue nutritional support Aspirations precautions Prokinetic agents and laxatives as needed KIDNEYS & ELECTROLYTES: Strict monitoring of intake and output Daily weights Avoid nephrotoxic agents Monitor electrolytes and replace as needed Goal urine output of 30mL/hr or 0.5mL/kg/hr Medications to be dosed according to renal function. Avoid contrast if possible ENDOCRINE: Maintain blood glucose between 100-180 at all times. Insulin sliding scale for blood glucose management Hypoglycemia and hyperglycemia protocol in place INFECTIOUS DISEASE: Trend temperature, WBC and procalcitonin level Follow cultures, deescalate antibiotics as soon as possible. Panculture if new onset fever HEMATOLOGY & COAGULATION: Monitor H&H. Keep Hgb > 7 Transfuse 1 unit of PRBC for Hgb < 7 Transfuse 1 pack of platelets of platelets < 20, 000 Watch for any signs and symptoms of bleeding SKIN: Pressure ulcer prevention per facility protocol Specialty mattress as needed ORTHO/REHAB Continue PT/OT PRN: MEDICATIONS Tylenol 650 mg po every 4 hrs for fever zofran 4 mg IV every 6 hrs for n/v Hydralazine 5 mg IV every 4 hrs systolic pressure > 160 bowel regiment: lactulose 20 gm PO BID PRN constipation Supportive measures: Continue GI and DVT prophylaxis Disposition: Pending improvement in clinical condition All questions answered time spent: > 35 min MICHAEL INTERIANO MD Aug 22, 2025 13:33
[2025-08-22 17:07] LABS: INR 1.03 (0.85-1.15)
[2025-08-22] MEDS: 0.9%NACL 1000ML 1,000 ML IV SCH (17:40)
[2025-08-23] VITALS (56 sets, daily range): BP systolic 93–147; BP diastolic 42–91; PULSE 71–91; RESP 10–22; TEMP 97–98.5; O2SAT 99–100
[2025-08-23 00:06] LABS: INR 1.02 (0.85-1.15)
--- NOTE | 2025-08-23 01:00 | HMCIMG ---
STUDY: CAROTID DUPLEX ULTRASOUND CLINICAL INFORMATION: Preoperative evaluation prior to coronary artery bypass grafting (CABG). TECHNIQUE: Grayscale, color Doppler, and spectral Doppler ultrasound of the bilateral carotid and vertebral arteries was performed, including peak systolic velocity measurements. COMPARISON: None provided. FINDINGS: RIGHT CAROTID SYSTEM: Peak systolic velocity (PSV) in the right common carotid artery (CCA) measures approximately 99 cm/s. Peak systolic velocity in the right internal carotid artery (ICA) measures approximately 90 cm/s, with a right ICA/CCA PSV ratio of 0.9. Peak systolic velocity in the right external carotid artery (ECA) is approximately 86 cm/s. Calcified plaques are present in the distal right CCA and carotid bulb. No hemodynamically significant elevation of ICA velocity is demonstrated to suggest high-grade right ICA stenosis. LEFT CAROTID SYSTEM: Peak systolic velocity in the left CCA measures approximately 81 cm/s. Peak systolic velocity in the left ICA measures approximately 95 cm/s, with a left ICA/CCA PSV ratio of 1.2. Peak systolic velocity in the left ECA is approximately 86 cm/s. Calcified plaques are present in the distal left CCA and carotid bulb. No hemodynamically significant elevation of ICA velocity is demonstrated to suggest high-grade left ICA stenosis. VERTEBRAL ARTERIES: Right vertebral artery demonstrates antegrade flow with peak systolic velocity of approximately 71 cm/s. Left vertebral artery demonstrates antegrade flow with peak systolic velocity of approximately 39 cm/s. No evidence of vertebral artery flow reversal is identified. IMPRESSION: * Calcified atherosclerotic plaques in the bilateral distal common carotid arteries and carotid bulbs, with internal carotid artery peak systolic velocities and ICA/CCA ratios consistent with no hemodynamically significant carotid stenosis by duplex criteria. * Bilateral vertebral arteries with antegrade flow, without sonographic evidence of subclavian steal or vertebral artery occlusion. * From a carotid duplex perspective, no high-grade carotid stenosis is identified that would typically preclude or delay CABG; continued medical optimization of atherosclerotic risk factors is recommended in coordination with cardiology and vascular teams. /[place]
--- NOTE | 2025-08-23 03:13 | NUR ---
STOPPED HEPARIN IV DRIP AT 0300AM PER MD ORDERS. ORDERS TO STOP HEPARIN DRIP SIX HOURS BEFORE CABG PROCEDURE. CABG SCHEDULED FOR 0900AM.
--- NOTE | 2025-08-23 04:27 | PN ---
SUBJECTIVE: The patient has 3 system coronary artery disease. I was waiting for his films to be downloaded from [facility]. They have been downloaded and I have been able to review them along with his echocardiogram. The patient has 3 system multivessel coronary artery disease with reasonable targets for bypass. His ejection fraction is 45% to 50% with no significant valvulopathy. I think the patient would be a good candidate for coronary artery bypass grafting. We will plan to do this tomorrow. TID: [id number] RECEIPT: [id number]
--- NOTE | 2025-08-23 04:38 | PN ---
NEPHROLOGY NOTE SUBJECTIVE: The patient has been seen and seen for dialysis and seen several times. The patient has no fever, chills, or rigors. No cough, expectoration, or hemoptysis. No other associated findings. No other aggravating or alleviating factors. No other associated findings. PHYSICAL EXAMINATION: GENERAL: Pale, no other distress or deformity. Lying in bed. VITAL SIGNS: Blood pressure is 118/70. The patient has pulse of 88, respirations 18. NECK: Supple. No masses or bruits. Thyroid is palpable. Neck has no bruits. CHEST: Shows equal thoracic percussion note being resonant in all areas. CARDIAC: Regular rhythm. No rub. No S3, S4. No parasternal heaves. ABDOMEN: With no guarding, tenderness. Bowel sounds present. BACK: No tenderness or back deformity. LYMPHATIC: No lymph node swelling. LABORATORY DATA: Labs have been reviewed and old records reviewed. IMAGING STUDIES: Imaging studies are personally reviewed. PROBLEMS: * Renal failure. * Anemia. PLAN: The patient's plan is to continue monitoring. Follow up on renal function. Intake, output, weight to be monitored. Nonsteroidal drugs to be avoided. Dose of medicine to be adjusted and continued followup. The patient was evaluated and seen for dialysis and seen several times. I have discussed with other team members in detail. Thank you for this patient. TID: [id number] RECEIPT: [id number]
--- NOTE | 2025-08-23 05:05 | PN ---
NEPHROLOGY NOTE SUBJECTIVE: Nephrology note for hemodialysis. Seen several times. No other associated findings. No other aggravating or relieving factors. The patient is critically ill with multiple problems. PLAN: Plan is to continue dialysis support, continue monitoring of renal function, continued monitoring of electrolytes. Intake, output, weight will be monitored. Nonsteroidal drugs will be avoided. The patient was followed and the patient was seen for dialysis and seen multiple times. I will continue to monitor and follow the patient. I discussed with the team members. The patient is being considered for CABG, which may be considered for tomorrow. I will discuss with the vascular surgeon, cardiovascular surgeon. We will follow closely. Seen several times. TID: [id number] RECEIPT: [id number]
[2025-08-23 05:43] LABS: NUCLEATED RED BLOOD CELLS 0.0 % (0.0-0.19); PLATELET COUNT (AUTO) 189.0 K/uL (130-400); RED BLOOD CELL COUNT(AUTO) 3.07 MIL/uL (4.50-6.20); RED CELL DISTRIBUTION WIDTH 13.1 % (11.0-15.5); WHITE BLOOD COUNT (AUTO) 5.1 K/uL (4.8-10.8)
[2025-08-23 05:51] LABS: INR 1.0 (0.85-1.15)
[2025-08-23 06:18] LABS: ASPARTATE AMINOTRANSFERASE 21.0 U/L (10-37); GLOMERULAR FILTR. RATE CALC 7.0 mL/min (>90); GLUCOSE,RANDOM 93.0 mg/dL (70-105); LDL DIRECT 46.0 mg/dL (0-99); PHOSPHORUS 6.3 mg/dL (2.5-4.9); SODIUM SERUM 137.0 mmol/L (136-145); TOTAL PROTEIN, SERUM 7.6 g/dL (6.0-8.3); UREA NITROGEN, BLOOD 51.0 mg/dL (7-18)
[2025-08-23 06:20] LABS: CREATININE 8.3 mg/dL (0.5-1.3)
--- NOTE | 2025-08-23 07:10 | EKG ---
[facility] Test Date: 2025-08-23 Test Time: 07:09:47 Pat Name: KHLOE SALAZAR Department: 2A Room: 213 Gender: M Environmental Service Aide: STEPHAN : 1965 Requested By: PALAK FULLER Order Number: [id number] Reading MD: Dylon Ortega Measurements Intervals [place] Rate: 81 P: 9 MO: 134 QRS: -1 QRSD: 96 T: -23 QT: 398 QTc: 462 Interpretive Statements Normal sinus rhythm Low voltage QRS No previous ECG available for comparison Electronically Signed On 08-24-2025 09:31:15 HYDRAULIC ELEVATOR CONSTRUCTOR by Dylon Ortega Please click the below link to view image of tracing.
[2025-08-23] MEDS ORDERED: LIDOCAINE 2G/250ML 250 ML IV ONE (08:54)
[2025-08-23] MEDS ORDERED: NITROGLYCERIN 50MG/D5W 250ML 1 BOT ONE (08:54)
--- NOTE | 2025-08-23 09:03 | PN ---
This is a 60-year-old male with a history of hypertension, hyperlipidemia, end- stage renal disease on hemodialysis. He was transferred from [facility] 08/20/2025 for bypass consideration after presenting with a non-STEMI. He underwent left heart catheterization 08/20/2025 which showed severe multivessel coronary artery disease. Echocardiogram 08/20/2025 showed LVEF of 50-55%. He is currently in sinus rhythm with heart rates in the 70s. White blood count 5.1, hemoglobin 10.0, hematocrit 29.7, platelets 189, creatinine 8.3, potassium 4.6, magnesium 2.20. His most recent blood pressure is 130/70. He offers up no new cardiac complaints. On exam he is in no acute distress, regular rate and rhythm. Assessment: 1. Non-STEMI. 2. Multivessel coronary disease. 3. Hypertension. 4. Hyperlipidemia. 5. End-stage renal disease on hemodialysis. Plan: 1. He is pending CABG this morning. 2. Continue aspirin 81 mg once daily, carvedilol 3.125 mg twice daily, atorvastatin 40 mg once daily and nifedipine 60 mg once daily. 3. We will follow the patient. Vitals/Labs Vital Signs Date Time Temp Pulse Resp B/P (MAP) Pulse Ox O2 Delivery O2 Flow Rate FiO2 08/23/25 08:10 130/70 08/23/25 07:23 97.9 74 18 97 Room Air 08/22/25 20:30 0 21 Laboratory Tests 08/23/25 05:34 ALLIE MORGAN Aug 23, 2025 09:03
--- NOTE | 2025-08-23 09:24 | EKG ---
[facility] Test Date: 2025-08-23 Test Time: 13:05:32 Pat Name: KHLOE SALAZAR Department: [facility] Room: 213 Gender: M Cobbler Upper: елена : 1965 Requested By: PALAK FULLER Order Number: [id number] Reading MD: Dylon Ortega Measurements Intervals [place] Rate: 72 P: 67 NC: 142 QRS: 87 QRSD: 135 T: 17 QT: 441 QTc: 482 Interpretive Statements Sinus rhythm Right bundle branch block Compared to ECG 08/23/2025 07:09:47 Right bundle-branch block now present Electronically Signed On 08-24-2025 09:33:15 SHERIFF DETECTIVE by Dylon Ortega Please click the below link to view image of tracing.
[2025-08-23] MEDS: PAPAVERINE HCL 30 MG/ML 2ML VIAL IRRIG ONE (09:30)
[2025-08-23] MEDS ORDERED: NOREPINEPHRINE BITARTRATE 8 MG in DEXTROSE 5%-WATER 250 ML IV PRN (09:30)
[2025-08-23] MEDS ORDERED: MAGNESIUM HYDROXIDE 30 ML/UDCUP PO PRN (09:30)
[2025-08-23] MEDS ORDERED: GLUCAGON 1MG KIT 1 MG ML IM PRN (09:30)
[2025-08-23] MEDS ORDERED: NITROGLYCERIN 50MG/D5W 250ML 250 BOT IV SCH (09:30)
[2025-08-23] MEDS ORDERED: 0.9%NACL 10ML VIAL IVP PRN (09:30)
[2025-08-23] MEDS ORDERED: LACTULOSE 20 GM/30 ML UDCUP PO PRN (09:30)
--- NOTE | 2025-08-23 09:30 | NUR ---
PATIENT TAKEN TO OR AT THIS TIME.
[2025-08-23] MEDS ORDERED: PROTamine SULFate 10 MG/ML 25ML VIAL IV ONE ×2 (09:32→12:18)
[2025-08-23] MEDS ORDERED: NOREPINEPHRINE BITARTRATE 1 MG/1 ML ML IV ONE (09:32)
[2025-08-23] MEDS ORDERED: LIDOCAINE PF 100MG/5ML (2%) SYRINGE 5ML ONE ×2 (09:32→10:40)
[2025-08-23] MEDS ORDERED: SODIUM BICARB 50MEQ 50ML VIAL 200 ML ONE (09:32)
[2025-08-23] MEDS ORDERED: ETOMIDATE 20MG VIAL ONE (09:33)
[2025-08-23] MEDS ORDERED: MIDAZOLAM HCL 1 MG/ML 2ML VIAL ONE (09:33)
[2025-08-23] MEDS ORDERED: COMPOUND IV REFRIGERATED 1 EACH IVSOLN MISC PRN (10:00)
[2025-08-23] MEDS ORDERED: COMPOUND IV MISC 1 EACH IVSOLN MISC PRN (10:00)
[2025-08-23] MEDS ORDERED: PAPAVERINE HCL 30 MG/ML 2ML VIAL ONE (10:02)
[2025-08-23] MEDS ORDERED: HEParin-NS 1,000 UNIT/500 ML 500 ML IV ONE (10:02)
[2025-08-23 10:26] LABS: ABG BASE EXCESS -0.6 mmol/L (-2.0-3.0); ABG HCO3 24.6 mmol/L (21.0-28.0); ABG OXYGEN SATURATION 99.6 % (94.0-98.0); ABG PCO2 43 mmHg (35-48); ABG PH 7.375 (7.350-7.450); CARBON MONOXIDE 0.2 % (0.5-1.5); DEVICE COMMENT 1; PO2, ARTERIAL BG 430.8 mmHg (83.0-108.0); TEMPERATURE, CELSIUS BG 37.0 CELSIUS (35.5-37.0)
[2025-08-23] MEDS ORDERED: AMIOdarone 150MG/100ML BAG 100 ML ONE (10:37)
--- NOTE | 2025-08-23 10:42 | PN ---
[facility] PROGRESS NOTE Date of Service: Aug 23, 2025 Time of Service: 10:41 SUBJECTIVE: 08/22 patient remains admitted to the PCU, comfortably in bed, alert and oriented x3, on heparin drip. Denies chest pain, shortness shortness for breath, no nausea, no vomiting, no abdominal discomfort. He remains hemodynamically stable, afebrile, saturating normal on room air. Mild drop in hemoglobin to 9.8 with a hematocrit 29.6, no signs of GI bleed. Patient evaluated by Cardiothoracic surgeon, pending further recommendations in terms of CABG. Follow CBC in a.m. and transfuse as needed. Discussed with the patient, in agreement, all questions answered. 08/23 patient remains admitted to the PCU, comfortably in bed, alert and oriented x3, denies chest pain, shortness shortness for breath, no nausea, no vomiting, no abdominal discomfort. He remains hemodynamically stable, afebrile, saturating normal on room air. Patient evaluated by Cardiothoracic surgeon, case discussed, plan for CABG today. REVIEW OF SYSTEMS CONSTITUTIONAL: Denies fevers, chills, or night sweats. No unintentional weight loss reported. NEUROLOGICAL: Denies headache, amaurosis fugax, motor weakness, sensory deficit, vertigo/spinning sensation, gait abnormalities, or tremors. ENT: No hearing loss, otalgia, otorrhea, rhinitis, rhinorrhea, hoarseness, or sore throat. CARDIOVASCULAR: Denies any exertional angina, dyspnea on exertion, orthopnea, paroxysmal nocturnal dyspnea, palpitations, life-threatening arrhythmias, claudication. PULMONARY: Denies any shortness of breath, cough, phlegm/sputum, hemoptysis, pleuritic chest pain. SLEEP: Denies morning headaches, daytime somnolence or napping. Denies difficulty falling asleep, staying asleep, waking from sleep. Denies knowledge of snoring. GASTROINTESTINAL: Denies any type of dysphagia to either liquids or solids. Denies nausea, vomiting, pyrosis, early satiety, abdominal pain, diarrhea, constipation, or changes in stool consistency or caliber. Denies coffee-ground emesis, hematemesis, hematochezia, or melanotic stools. GENITOURINARY: Denies frequency, urgency, nocturia, hematuria or incontinence (Storage/Irritative symptoms.) Low urinary stream, straining to void, urinary intermittency or hesitancy, splitting of the voiding stream, terminal dribbling. ENDOCRINOLOGIC: Denies polyuria, polydipsia, polyphagia or heat/cold intolerances. HEMATOLOGIC: Denies thrombophilia/previous clots, or coagulopathy/bleeding disorders. ONCOLOGIC: Denies personal history of malignancy. DERMATOLOGIC: Denies rashes or pruritus. PSYCHIATRIC: Denies any suicidal or homicidal ideation. Denies hallucinations. PHYSICAL EXAM GENERAL APPEARANCE: The patient is awake, alert, and oriented, in no acute cardiopulmonary distress. NEUROLOGICAL: Cranial nerves II-XII grossly intact. Motor is 5/5 in bilateral upper and lower extremities proximal to distal. No sensory deficits. HEENT: Face is symmetric. Pupils are equal and reactive. Extraocular movements are intact. NECK: Supple. No JVD. No thyromegaly. No submental, submandibular, pre- /postauricular, occipital or supraclavicular lymphadenopathy. CHEST: Normal chest expansion. No Telemetry. LUNGS: Absence of any rales, rhonchi or any wheezing. CARDIOVASCULAR: Regular. S1 and S2 normal. No appreciable rubs, murmurs or ga llops. ABDOMEN: Soft, nontender, and nondistended. There is no rebound, voluntary guarding, or rigidity. : Deferred. No Soliz. EXTREMITIES: Non-edematous and not cyanotic. No clubbing. Good capillary refill. SKIN: No skin breakdown. Vital Signs (last 8hr) Date Time Temp Pulse Resp B/P (MAP) Pulse Ox O2 Delivery O2 Flow Rate FiO2 08/23/25 08:10 130/70 08/23/25 07:23 97.9 74 18 130/70 97 Room Air 08/23/25 04:00 97.9 77 21 141/71 98 Room Air LABS: Laboratory: Test 08/23/25 10:24 08/23/25 05:34 08/22/25 04:06 Range/Units Blood Gas Specimen Type Arterial Arterial Blood pH 7.375 7.350-7.450 Arterial Blood Partial Pressure CO2 43 35-48 mmHg Arterial Blood Partial Pressure O2 430.8 *H 83.0-108.0 mmHg Arterial Blood HCO3 24.6 21.0-28.0 mmol/L Arterial Blood Oxygen Saturation 99.6 H 94.0-98.0 % Arterial Blood Base Excess -0.6 -2.0-3.0 mmol/L Hemoglobin (Blood Gas) 8.7 L 13.5-17.5 g/dL Sodium (Blood Gas) 136 136-145 MMOL/L Bedside Potassium (Blood Gas) 4.2 3.4-4.5 MMOL/L Bedside Chloride (Blood Gas) 101 98-107 MMOL/L Bedside Glucose (Blood Gas) 79 65-95 MG/DL Bedside Ionized Calcium (Blood Gas) 0.93 L 1.15-1.33 MMOL/L Bedside Lactic Acid (Blood Gas) 0.63 0.36-0.75 MMOL/L Blood Gas Temperature 37.0 35.5-37.0 CELSIUS FiO2 100.0 % Blood Gas Specimen Comment 1 White Blood Count 5.1 4.8-10.8 K/uL Red Blood Count 3.07 L 4.50-6.20 MIL/uL Hemoglobin 10.0 L 14.0-18.0 g/dL Hematocrit 29.7 L 42-54 % Mean Corpuscular Volume 96.7 79-99 fL Mean Corpuscular Hemoglobin 32.6 27.0-33.0 pg Mean Corpuscular Hemoglobin Concent 33.7 32.0-36.0 g/dL Red Cell Distribution Width 13.1 11.0-15.5 % Platelet Count 189 130-400 K/uL Mean Platelet Volume 9.2 7.5-10.5 fL Nucleated Red Blood Cells 0.0 0.0-0.19 % Prothrombin Time 10.6 9.6-11.6 SEC Prothromb Time International Ratio 1.00 0.85-1.15 Activated Partial Thromboplast Time 34.0 # 26.3-35.5 SEC Sodium Level 137 136-145 mmol/L Potassium Level 4.6 3.5-5.1 mmol/L Chloride Level 94 L 101-111 mmol/L Carbon Dioxide Level 32 21-32 mmol/L Blood Urea Nitrogen 51 H 7-18 mg/dL Creatinine 8.3 *H 0.5-1.3 mg/dL Glomerular Filtration Rate Calc 7 >90 mL/min Random Glucose 93 70-105 mg/dL Total Calcium 8.4 L 8.5-10.1 mg/dL Phosphorus Level 6.3 H 2.5-4.9 mg/dL Magnesium Level 2.20 1.80-2.40 mg/dL Total Bilirubin 0.6 0.2-1.0 mg/dL Aspartate Amino Transf (AST/SGOT) 21 10-37 U/L Alanine Aminotransferase (ALT/SGPT) 22 12-78 U/L Alkaline Phosphatase 87 50-136 U/L Total Protein 7.6 6.0-8.3 g/dL Albumin 3.7 3.5-5.0 g/dL Triglycerides Level 84 30-200 mg/dL Cholesterol Level 111 <200 mg/dL LDL Cholesterol 46 0-99 mg/dL HDL Cholesterol 54 29-71 mg/dL Immature Granulocyte % (Auto) 0.2 0-1 % Neutrophils (%) (Auto) 53.4 40.0-77.0 % Lymphocytes (%) (Auto) 22.3 21.0-51.0 % Monocytes (%) (Auto) 14.9 H 3.0-13.0 % Eosinophils (%) (Auto) 8.4 H 0.0-8.0 % Basophils (%) (Auto) 0.8 0.0-5.0 % Neutrophils # (Auto) 3.3 1.8-7.7 K/uL Lymphocytes # (Auto) 1.4 1.0-4.8 K/uL Monocytes # (Auto) 0.9 0.1-1.0 K/uL Eosinophils # (Auto) 0.51 0.00-0.70 K/uL Basophils # (Auto) 0.05 0.00-0.20 K/uL Absolute Immature Granulocyte (auto 0.01 0-1 K/uL Hemoglobin A1c 5.0 4.0-6.0 % Estimated Average Glucose (eAG) 97 70-126 mg/dL Current Medications Medications (Trade) Dose Ordered Sig/Flavio Route PRN Reason Start Time Stop Time Status Last Admin Dose Admin Acetaminophen (TYLenol 325MG TAB) 650 mg Q4H PRN PO Temp >38.3C(AFTER EXTUBATION) 08/23/25 09:30 09/22/25 09:29 Acetaminophen (TYLenol 325MG TAB) 650 mg Q4HPRN PRN PO FEVER 08/21/25 01:00 08/23/25 09:31 DC 08/23/25 00:01 650 MG Acetaminophen (TYLenol 325MG TAB) 650 mg Q6H PRN PO MILD PAIN (1-3) 08/23/25 09:30 09/22/25 09:29 Acetaminophen (TYLenol 650MG SUPPOSITORY) 650 mg Q4H PRN RC Temp >38.3C WHILE INTUBATED 08/23/25 09:30 09/22/25 09:29 Acetaminophen (acetaMINOPHEN 1,000MG/100ML) 1,000 mg Q6H6 IV 08/23/25 12:00 08/24/25 11:59 Acetaminophen/ Hydrocodone Bitart (NORco 5/325MG) 1 tab Q6H PRN PO PAIN 5-10 08/21/25 01:00 08/23/25 09:17 DC 08/22/25 20:29 1 TAB Albumin Human 250 ml @ 0 mls/hr AD PRN IV IF HEMODYNAMICALLY UNSTABLE 08/23/25 09:30 Aminocaproic Acid 45643 mg/Sodium Chloride 310 ml @ 25 mls/hr AD IV 08/23/25 09:30 08/23/25 09:34 DC Aminocaproic Acid 71059 mg/Sodium Chloride 480 ml @ 0 mls/hr AD PRN IV BLEEDING CONTROL 08/23/25 09:00 09/22/25 08:59 Aspirin (Aspirin 81mg Chew Tab) 81 mg DAILY PO 08/21/25 09:00 09/20/25 08:59 08/22/25 09:19 81 MG Atorvastatin Calcium (LIPItor 40MG) 40 mg HS PO 08/21/25 21:00 09/20/25 20:59 08/22/25 21:39 40 MG Calcium Gluconate 1 gm/Sodium Chloride 60 ml @ 200 mls/hr AD PRN IV HYPOCALCEMIA 08/23/25 09:30 09/22/25 09:29 Carvedilol (Coreg 3.125MG) 3.125 mg BID PO 08/21/25 09:00 08/23/25 09:17 DC 08/23/25 08:10 3.125 MG Cefazolin Sodium (ANCEF 1 gm vial) 2 gm ONCALL IVP 08/22/25 15:30 08/23/25 09:04 DC Cefazolin Sodium (Ancef) 2 gm ONCALL IVP 08/23/25 09:30 08/25/25 09:29 Cefazolin Sodium (Ancef) 2 gm Q8H IVPB 08/23/25 14:30 08/24/25 06:31 Cyclobenzaprine HCl (Cyclobenzaprine HCl) 10 mg TID PO 08/21/25 09:00 08/23/25 09:17 DC 08/22/25 21:39 10 MG Dexmedetomidine/ Sodium Chloride (PRECEdex 400MCG/ 100ML-NS) 400 mcg PROTOCOL IV 08/23/25 09:30 08/24/25 09:29 Dextrose (D50w) 50 ml AD PRN IV HYPOGLYCEMIA PROTOCOL 08/23/25 09:30 09/22/25 09:29 Docusate Sodium (COLace 100MG CAP) 100 mg BID PO 08/23/25 21:00 09/22/25 20:59 Enoxaparin Sodium (Lovenox) 30 mg DAILY SQ 08/26/25 09:00 09/25/25 08:59 Epinephrine HCl 10 mg/Sodium Chloride 250 ml @ 0 mls/hr AD PRN IV TITRATE 08/23/25 09:00 09/22/25 08:59 Epinephrine HCl 10 mg/Sodium Chloride 250 ml @ 0 mls/hr AD PRN IV POST-OP CARDIOVASCULAR ORDERS 08/23/25 09:30 08/23/25 09:33 DC Famotidine (Pepcid 20mg Vial) 20 mg Q48H IV 08/23/25 21:00 09/22/25 20:59 Furosemide (LASix 100MG VIAL) 80 mg BID IV 08/21/25 09:00 08/21/25 18:47 DC Furosemide (LASix 20MG TAB) 20 mg Q12H PO 08/25/25 09:30 09/24/25 09:29 Furosemide (LASix 20MG VIAL) 20 mg Q12H IV 08/24/25 09:30 08/25/25 09:29 Glucagon (Glucagon 1mg Kit) 1 mg AD PRN IM HYPOGLYCEMIA PROTOCOL 08/23/25 09:30 09/22/25 09:29 Heparin Sodium/ Dextrose 250 ml @ 0 mls/hr Q6H IV 08/21/25 02:00 08/23/25 09:17 DC 08/21/25 23:18 10.04 MLS/HR Heparin Sodium/ Dextrose (HEParin 25,000 UNITS/250ML D5W) 25,000 units AD IV 08/21/25 01:00 08/21/25 01:07 DC Hydralazine HCl (APRESOLine 20MG INJ) 10 mg ONCE PRN IV IF SBP GREATER THAN 180 08/21/25 01:30 08/23/25 09:17 DC Hydralazine HCl (APRESOLine 20MG INJ) 10 mg Q6H PRN IV For:SBP above 160;DBP above 90 08/21/25 01:30 08/23/25 09:17 DC Hydromorphone HCl (DiLAUDid 0.5MG INJ) 0.25 mg Q4H PRN IVP SEVERE PAIN (7-10) 08/21/25 01:30 08/23/25 09:17 DC 08/23/25 07:13 0.25 MG Insulin Human Regular 100 unit/ Sodium Chloride 100 ml @ 0 mls/hr AD IV 08/23/25 09:30 08/25/25 09:29 Lactulose (Constulose 20gm/ 30ml Udcup) 20 gm BID PRN PO CONSTIPATION 08/23/25 09:30 09/22/25 09:29 Lidocaine (Lidoderm Patch 5%) 1 patch DAILY TP 08/21/25 09:00 09/20/25 08:59 08/22/25 09:18 1 PATCH Magnesium Hydroxide (Milk Of Magnesium 30ml) 30 ml DAILY PRN PO CONSTIPATION 08/23/25 09:30 09/22/25 09:29 Magnesium Sulfate 50 ml @ 12.5 mls/hr AD PRN IV MAG LEVEL LESS THAN 2.0 08/23/25 09:30 09/22/25 09:29 Metoprolol Tartrate (loprESSOR) 12.5 mg BID PO 08/25/25 09:00 09/24/25 08:59 Morphine Sulfate (morPHINE 4MG SYG) 0.5 mg Q2H PRN IV MODERATE PAIN (4-6) 08/23/25 10:00 08/30/25 09:59 Morphine Sulfate (morPHINE 4MG SYG) 1 mg Q2H PRN IV SEVERE PAIN (7-10) 08/23/25 09:30 08/24/25 09:29 Nifedipine (adALAT 30MG) 60 mg DAILY PO 08/21/25 09:00 08/23/25 09:17 DC 08/22/25 09:19 60 MG Nitroglycerin/ Dextrose 0 ml @ 0 mls/hr AD IV 08/23/25 09:30 08/26/25 09:29 Norepinephrine Bitartrate 250 ml @ 0 mls/hr AD PRN IV TITRATE 08/23/25 09:00 09/22/25 08:59 Norepinephrine Bitartrate 8 mg/ Dextrose 250 ml @ 0 mls/hr AD PRN IV POST-OP CARDIOVASCULAR ORDERS 08/23/25 09:30 08/23/25 09:33 DC Ondansetron HCl (zoFRAN 4MG INJ) 4 mg Q6H PRN IV NAUSEA/VOMITING 08/21/25 01:30 08/23/25 09:17 DC Ondansetron HCl (zoFRAN 4MG INJ) 4 mg Q6H PRN IV NAUSEA/VOMITING 08/23/25 09:30 09/22/25 09:29 Ondansetron HCl (zoFRAN 4MG INJ) 4 mg TID PRN IV NAUSEA/VOMITING 08/21/25 01:00 08/21/25 01:14 DC Pantoprazole Sodium (PROTonix 40MG INJ) 40 mg DAILY IVP 08/21/25 09:00 08/23/25 09:17 DC 08/23/25 08:10 40 MG Potassium Phosphate 250 ml @ 42 mls/hr AD PRN IV LOW PHOS LEVEL 08/23/25 09:30 09/22/25 09:29 Potassium Chloride 100 ml @ 100 mls/hr AD PRN IV HYPOKALEMIA 08/23/25 09:30 09/22/25 09:29 Propofol 100 ml @ 0 mls/hr AD PRN IV SEDATION 08/23/25 09:30 08/27/25 09:29 Sevelamer HCl (RENAgel 800 MG TAB) 3,200 mg TIDMEALS PO 08/21/25 08:00 09/20/25 07:59 08/22/25 16:51 3,200 MG Sodium Bicarbonate (Sodium Bicarb 50meq 50ml Vial) 50 meq AD PRN IV OTHER[SEE DOSING INSTRUCTIONS] 08/23/25 09:30 08/26/25 09:29 Sodium Chloride 500 ml @ 0 mls/hr AD IV 08/23/25 09:30 09/22/25 09:29 Sodium Chloride 1,000 ml @ 0 mls/hr ONCE IV 08/22/25 17:30 08/22/25 21:30 DC 08/22/25 17:40 1,000 MLS/HR Sodium Chloride 1,000 ml @ 10 mls/hr ONCE IV 08/23/25 09:30 08/24/25 09:29 Sodium Chloride (NS Flush 10ml) 10 ml Q8H PRN IVP IV LINE FLUSH 08/23/25 09:30 09/22/25 09:29 Tramadol HCl (UltRAM) 25 mg Q6H PRN PO MODERATE PAIN (4-6) 08/23/25 09:30 08/28/25 09:29 Tramadol HCl (UltRAM) 50 mg Q6H PRN PO SEVERE PAIN (7-10) 08/23/25 09:30 08/28/25 09:29 DIAGNOSTICS / RADIOLOGY: [ ] ASSESSMENT: Severe multivessel disease, POA NSTEMI, POA ESRD on HD Hyperlipidemia Hypertension CHF with LVEF 50-55% by 2D echo, diastolic dysfunction on 08/20/2025 PLAN: patient remains admitted to the PCU, comfortably in bed, alert and oriented x3, denies chest pain, shortness shortness for breath, no nausea, no vomiting, no abdominal discomfort. He remains hemodynamically stable, afebrile, saturating normal on room air. Patient evaluated by Cardiothoracic surgeon, case discussed, plan for CABG today. NEURO: Minimize central acting medications as possible. Fall Precautions. Well lighted room through the day and minimize interruptions through the night to prevent acute delirium. PULMONARY: Supplemental 02 as needed BiPAP as necessary, for respiratory distress Titrate Fio2 to keep Spo2 > or = 90% DuoNebs and CPT as needed IS hourly while awake for pulmonary hygiene prn Out of bed to chair as tolerated Maintain aspiration precautions at all times CARDIOVASCULAR: Follow hemodynamics. Vital signs per facility protocol GI & NUTRITION: Continue nutritional support Aspirations precautions Prokinetic agents and laxatives as needed KIDNEYS & ELECTROLYTES: Strict monitoring of intake and output Daily weights Avoid nephrotoxic agents Monitor electrolytes and replace as needed Goal urine output of 30mL/hr or 0.5mL/kg/hr Medications to be dosed according to renal function. Avoid contrast if possible ENDOCRINE: Maintain blood glucose between 100-180 at all times. Insulin sliding scale for blood glucose management Hypoglycemia and hyperglycemia protocol in place INFECTIOUS DISEASE: Trend temperature, WBC and procalcitonin level Follow cultures, deescalate antibiotics as soon as possible. Panculture if new onset fever HEMATOLOGY & COAGULATION: Monitor H&H. Keep Hgb > 7 Transfuse 1 unit of PRBC for Hgb < 7 Transfuse 1 pack of platelets of platelets < 20, 000 Watch for any signs and symptoms of bleeding SKIN: Pressure ulcer prevention per facility protocol Specialty mattress as needed ORTHO/REHAB Continue PT/OT PRN: MEDICATIONS Tylenol 650 mg po every 4 hrs for fever zofran 4 mg IV every 6 hrs for n/v Hydralazine 5 mg IV every 4 hrs systolic pressure > 160 bowel regiment: lactulose 20 gm PO BID PRN constipation Supportive measures: Continue GI and DVT prophylaxis Disposition: Pending improvement in clinical condition All questions answered time spent: > 35 min MICHAEL INTERIANO MD Aug 23, 2025 10:42
[2025-08-23 10:48] LABS: ABG BASE EXCESS 0.2 mmol/L (-2.0-3.0); ABG HCO3 24.9 mmol/L (21.0-28.0); ABG OXYGEN SATURATION 99.6 % (94.0-98.0); ABG PCO2 41 mmHg (35-48); ABG PH 7.405 (7.350-7.450); CARBON MONOXIDE 0.3 % (0.5-1.5); DEVICE COMMENT 2; PO2, ARTERIAL BG 460.2 mmHg (83.0-108.0); TEMPERATURE, CELSIUS BG 37.0 CELSIUS (35.5-37.0)
[2025-08-23 11:23] LABS: ABG BASE EXCESS 2.0 mmol/L (-2.0-3.0); ABG HCO3 26.1 mmol/L (21.0-28.0); ABG OXYGEN SATURATION 99.5 % (94.0-98.0); ABG PCO2 38 mmHg (35-48); ABG PH 7.450 (7.350-7.450); CARBON MONOXIDE 0.3 % (0.5-1.5); DEVICE COMMENT 4; PO2, ARTERIAL BG 415.2 mmHg (83.0-108.0); TEMPERATURE, CELSIUS BG 37.0 CELSIUS (35.5-37.0)
[2025-08-23] MEDS: ASPIRIN 81MG CHEW TAB NG ONE (12:00)
[2025-08-23 12:12] LABS: ABG BASE EXCESS 1.4 mmol/L (-2.0-3.0); ABG HCO3 25.8 mmol/L (21.0-28.0); ABG OXYGEN SATURATION 99.6 % (94.0-98.0); ABG PCO2 40 mmHg (35-48); ABG PH 7.426 (7.350-7.450); CARBON MONOXIDE 0.3 % (0.5-1.5); DEVICE COMMENT 5; PO2, ARTERIAL BG 469.2 mmHg (83.0-108.0); TEMPERATURE, CELSIUS BG 37.0 CELSIUS (35.5-37.0)
[2025-08-23 12:33] LABS: ABG BASE EXCESS -1.5 mmol/L (-2.0-3.0); ABG HCO3 22.8 mmol/L (21.0-28.0); ABG OXYGEN SATURATION 99.5 % (94.0-98.0); ABG PCO2 36 mmHg (35-48); ABG PH 7.417 (7.350-7.450); CARBON MONOXIDE 0.3 % (0.5-1.5); DEVICE COMMENT 6; PO2, ARTERIAL BG 431.5 mmHg (83.0-108.0); TEMPERATURE, CELSIUS BG 37.0 CELSIUS (35.5-37.0)
--- NOTE | 2025-08-23 13:00 | NUR ---
PT ARRIVED TO UNIT AT THIS TIME. PT INTUBATED WITH ET TUBE 7.5, LIP AT 21, LEFT IJ CENTRAL LINE AND SWAN AT 60CM LINE , 3 CHEST TUBES TO 2 CHEST TUBE CHAMBERS PRESENT , [address], RIGHT RADIAL LINE, RUNNING LEVOPHED AT 5MCG/MIN, EPINEPHRINE AT 0.03MCG/KG/MIN, AMICAR AT 75CC.
[2025-08-23 13:09] LABS: ABG BASE EXCESS 3.7 mmol/L (-2.0-3.0); ABG HCO3 27.7 mmol/L (21.0-28.0); ABG OXYGEN SATURATION 98.9 % (94.0-98.0); ABG PCO2 39 mmHg (35-48); ABG PH 7.468 (7.350-7.450); CARBON MONOXIDE 0.3 % (0.5-1.5); PO2, ARTERIAL BG 225.8 mmHg (83.0-108.0); TEMPERATURE, CELSIUS BG 37.0 CELSIUS (35.5-37.0); VENT MODE, BG SIMV PS 10 (ROOM AIR)
[2025-08-23 13:24] LABS: NUCLEATED RED BLOOD CELLS 0.0 % (0.0-0.19); PLATELET COUNT (AUTO) 150.0 K/uL (130-400); RED BLOOD CELL COUNT(AUTO) 2.48 MIL/uL (4.50-6.20); RED CELL DISTRIBUTION WIDTH 14.5 % (11.0-15.5); WHITE BLOOD COUNT (AUTO) 14.7 K/uL (4.8-10.8)
[2025-08-23 13:27] LABS: CREATININE 7.6 mg/dL (0.5-1.3); GLOMERULAR FILTR. RATE CALC 8.0 mL/min (>90); GLUCOSE,RANDOM 124.0 mg/dL (70-105); PHOSPHORUS 6.8 mg/dL (2.5-4.9); SODIUM SERUM 140.0 mmol/L (136-145); UREA NITROGEN, BLOOD 49.0 mg/dL (7-18)
[2025-08-23 13:39] LABS: INR 1.28 (0.85-1.15)
--- NOTE | 2025-08-23 13:39 | NUR ---
DR. FLORES MADE AWARE OF ALL LABS INCLUDING HGB OF :8.2, PER MD NO NEED FOR TRANSFUSION.
[2025-08-23 14:13] LABS: ABG BASE EXCESS 0.9 mmol/L (-2.0-3.0); ABG HCO3 24.1 mmol/L (21.0-28.0); ABG OXYGEN SATURATION 98.6 % (94.0-98.0); ABG PCO2 33 mmHg (35-48); ABG PH 7.478 (7.350-7.450); CARBON MONOXIDE 0.4 % (0.5-1.5); DEVICE COMMENT A-LINE CARLA; PO2, ARTERIAL BG 158.6 mmHg (83.0-108.0); TEMPERATURE, CELSIUS BG 37.0 CELSIUS (35.5-37.0); VENT MODE, BG SIMV-VC PS10 (ROOM AIR)
--- NOTE | 2025-08-23 14:21 | HMCIMG ---
EXAM: CR Chest, 2 View. CLINICAL HISTORY: s/p CABG COMPARISON: None provided. FINDINGS: LUNGS: Endotracheal tube midline above zarina at the mid clavicle level W[place]-Hiren catheter right pulmonary artery PLEURAL SPACES: No pleural effusion or pneumothorax. MEDIASTINUM: The cardiomediastinal silhouette is within normal limits. BONES: No acute osseous abnormality. MISCELLANEOUS: Nasogastric tube below diaphragm Patchy bilateral infiltrates IMPRESSION: 1. Endotracheal tube midline above zarina at the mid clavicle level 2. Nasogastric tube below diaphragm 3. Winfall-Hiren catheter right pulmonary artery 4. Patchy bilateral infiltrates /[place]
--- NOTE | 2025-08-23 14:21 | HMCIMG ---
EXAM: CR Chest, 1 View. CLINICAL HISTORY: S/P REPOSITIONING OF ET TUBE COMPARISON: None provided. FINDINGS: LUNGS: Endotracheal tube midline above zarina. [place]-Hiren catheter right pulmonary artery PLEURAL SPACES: No evidence of pleural effusion or pneumothorax. MEDIASTINUM: Cardiac size and mediastinal contours within normal limits. BONES: No acute osseous abnormality. MISCELLANEOUS: Nasogastric tube below diaphragm IMPRESSION: 1. Endotracheal tube midline above zarina. 2. [place]-Hiren catheter right pulmonary artery 3. Nasogastric tube below diaphragm /[place]
[2025-08-23] MEDS: 0.9%NACL 1000ML 1,000 ML IV SCH (14:25)
[2025-08-23] MEDS: MAGNESIUM 2GM PREMIX 50ML 50 ML IV PRN (14:27)
[2025-08-23] MEDS: INSULIN REGULAR, HUMAN 3ML 100 UNIT in 0.9%NACL 100ML 99 ML IV SCH (14:27)
[2025-08-23 15:15] LABS: ABG BASE EXCESS 0.2 mmol/L (-2.0-3.0); ABG HCO3 25.9 mmol/L (21.0-28.0); ABG OXYGEN SATURATION 98.2 % (94.0-98.0); ABG PCO2 47 mmHg (35-48); ABG PH 7.356 (7.350-7.450); CARBON MONOXIDE 0.3 % (0.5-1.5); PO2, ARTERIAL BG 149.3 mmHg (83.0-108.0); TEMPERATURE, CELSIUS BG 37.0 CELSIUS (35.5-37.0)
--- NOTE | 2025-08-23 15:30 | OP ---
DATE OF PROCEDURE: 08/23/2025 PREOPERATIVE DIAGNOSIS: Multivessel coronary artery disease. POSTOPERATIVE DIAGNOSIS: Multivessel coronary artery disease. PROCEDURES PERFORMED: * Off-pump coronary artery bypass grafting x3 vessels (left internal mammary artery to the LAD, reverse saphenous vein graft from the aorta to the second obtuse marginal artery, reverse saphenous vein graft from the aorta to the posterior descending artery). * Ligation of left atrial appendage with a 25 mm AtriCure clip. The patient's CHADS score was greater than 2 and the clip was justified to reduce the need for postoperative anticoagulation. * Rigid sternal fixation with the CAIO sternal plating system. OPERATING SURGEON: Kyle Hackett MD THREAD SINGER: Jae Colindres. ANESTHESIOLOGIST: Reji Carrillo MD TYPE OF ANESTHESIA: General endotracheal anesthesia. BRIEF HISTORY: The patient is a 60-year-old male with end-stage renal disease, hypertension, hyperlipidemia, and past tobacco abuse, who was transferred from [facility] after suffering a non-ST elevation [place]. The patient underwent heart catheterization, which revealed multivessel coronary artery disease. The patient had an ejection fraction of 45-50%. He presents now for surgical revascularization. FINDINGS: The patient had large coronary arteries and large coronary artery conduits. On intraoperative YOSSI, there was no left atrial appendage clot and therefore the left atrial appendage was ligated. Overall, the patient tolerated the procedure well. DESCRIPTION OF PROCEDURE: The patient was brought to the operating room and placed on the operating room table in the supine position. He was given general endotracheal anesthesia. After placement of lines and catheters, his chest, abdomen, and legs were prepped and draped in the usual sterile fashion. His greater saphenous vein was harvested from the right lower extremity after looking at the vein on the left side. Simultaneously, a median sternotomy was performed and the left internal mammary artery was taken down. The left pleural space was not entered as it was most likely from a previous infection. The patient was given a total of 25,000 units of IV heparin. The left internal mammary artery was clamped and bulldogged proximally and divided distally. The pericardium was opened in the midline and the LAD was stabilized in its midsection with an Acrobat epicardial retractor. A 5-0 Prolene snares placed proximal to target site, which was opened longitudinally. The distal end of left internal mammary artery was anastomosed inside the LAD over a 1 mm shunt using a running 7-0 Prolene suture and its pedicle was tacked to the epicardium with two 6-0 Prolene sutures. The bulldog clamp and snares released and the LAD was reperfused for remainder of the procedure. The next target was the second obtuse marginal coronary artery to receive the distal end of a reverse saphenous vein graft. An end-to-side anastomosis was performed over a 1 mm shunt using running 7-0 Prolene suture and this was draped under the left internal mammary artery and cut to appropriate length to reach the aorta. The final target was the posterior descending artery. This received the distal end of the third segment of the saphenous vein graft. An end-to-side anastomosis was performed over a 1 mm shunt using a running 7-0 Prolene suture and this vein graft was draped along the right side of the heart and cut to appropriate length to reach the aorta. A partial occlusion clamp was placed on the ascending aorta and two 4.0 mm aortotomy holes were made in the proximal ends of vein grafts anastomosed to the side of aorta using running 6-0 Prolene sutures. The vein grafts de-aired. Partial occlusion clamp removed and all 3 systems were revascularized. A 45 mm AtriCure clip was then placed at the base of the left atrial appendage. The mediastinum and the right pleural space were then drained with a total of three 24-[place] Elmer drains. The pericardium was loosely approximated over the heart and graft with several separate Ethibond sutures. The sternum was reapproximated with combination of stainless steel wires and the CAIO sternal plating system. In the presternal fashion, subcutaneous tissues were closed with running layers of Vicryl suture. The skin was closed using a running intracuticular Monocryl stitch. The wounds were cleaned and dried, covered with bandage. The patient was undraped and taken intubated to the ICU in critical, but stable condition. TID: [id number] RECEIPT: [id number]
--- NOTE | 2025-08-23 15:41 | PN ---
NEPHROLOGY PROGRESS NOTE Date/Time Patient Seen: Aug 23, 2025 SUBJECTIVE: Patient was transferred from [facility] for cardiovascular surgery Service. Patient was admitted to [facility] on 08/19/2025 with a chief complaint of chest pain. Patient was diagnosed with a NSTEMI Patient had a left heart catheterization on 08/20/2025 that showed severe multivessel disease. 2D echo on 08/20/2025 showed diastolic dysfunction with LVEF 50-55%. Cardiology recommended transferring to a facility with the cardiovascular surgery service Dialysis was done yesterday. S/P Off-pump coronary artery bypass grafting x3 vessels on 08/23 He was seen in the medical floor, in no acute distress REVIEW OF SYSTEMS: Difficult to obtain given status of the patient who remains intubated mechanically ventilated PHYSICAL EXAM: General: acutely ill, sedated, intubated, and mechanically ventilated HEENT: head is atraumatic, pupils equal and reactive, ET tube in place Neck: supple, no masses, no lymphadenopathy, no thyromegaly, no JVD Lungs: decreased breath sounds bilaterally, symmetrical chest movement Cardio: regular rate, S1 and S2 normal, no rub or gallop Abdomen: soft, non tender, no distension, no organomegaly Extremities: trace edema bilateral lower extremities, no cyanosis or clubbing Skin: no rashes or suspicious lesions Neuro: sedated LABORATORY: [ ] Hematology Labs: Test 08/23/25 13:05 08/22/25 04:06 Range/Units White Blood Count 14.7 #H 4.8-10.8 K/uL Red Blood Count 2.48 L 4.50-6.20 MIL/uL Hemoglobin 8.2 L 14.0-18.0 g/dL Hematocrit 23.4 #L 42-54 % Mean Corpuscular Volume 94.4 79-99 fL Mean Corpuscular Hemoglobin 33.1 H 27.0-33.0 pg Mean Corpuscular Hemoglobin Concent 35.0 32.0-36.0 g/dL Red Cell Distribution Width 14.5 11.0-15.5 % Platelet Count 150 130-400 K/uL Mean Platelet Volume 9.3 7.5-10.5 fL Nucleated Red Blood Cells 0.0 0.0-0.19 % Immature Granulocyte % (Auto) 0.2 0-1 % Neutrophils (%) (Auto) 53.4 40.0-77.0 % Lymphocytes (%) (Auto) 22.3 21.0-51.0 % Monocytes (%) (Auto) 14.9 H 3.0-13.0 % Eosinophils (%) (Auto) 8.4 H 0.0-8.0 % Basophils (%) (Auto) 0.8 0.0-5.0 % Neutrophils # (Auto) 3.3 1.8-7.7 K/uL Lymphocytes # (Auto) 1.4 1.0-4.8 K/uL Monocytes # (Auto) 0.9 0.1-1.0 K/uL Eosinophils # (Auto) 0.51 0.00-0.70 K/uL Basophils # (Auto) 0.05 0.00-0.20 K/uL Absolute Immature Granulocyte (auto 0.01 0-1 K/uL Chemistry Labs: Test 08/23/25 13:05 08/23/25 05:34 08/22/25 04:06 Range/Units Sodium Level 140 136-145 mmol/L Potassium Level 5.0 3.5-5.1 mmol/L Chloride Level 103 101-111 mmol/L Carbon Dioxide Level 28 21-32 mmol/L Blood Urea Nitrogen 49 H 7-18 mg/dL Creatinine 7.6 H 0.5-1.3 mg/dL Glomerular Filtration Rate Calc 8 >90 mL/min Random Glucose 124 H 70-105 mg/dL Total Calcium 9.5 8.5-10.1 mg/dL Phosphorus Level 6.8 H 2.5-4.9 mg/dL Magnesium Level 1.80 1.80-2.40 mg/dL Total Bilirubin 0.6 0.2-1.0 mg/dL Aspartate Amino Transf (AST/SGOT) 21 10-37 U/L Alanine Aminotransferase (ALT/SGPT) 22 12-78 U/L Alkaline Phosphatase 87 50-136 U/L Total Protein 7.6 6.0-8.3 g/dL Albumin 3.7 3.5-5.0 g/dL Triglycerides Level 84 30-200 mg/dL Cholesterol Level 111 <200 mg/dL LDL Cholesterol 46 0-99 mg/dL HDL Cholesterol 54 29-71 mg/dL Hemoglobin A1c 5.0 4.0-6.0 % Estimated Average Glucose (eAG) 97 70-126 mg/dL Coagulation Labs: Test 08/23/25 13:05 Range/Units Prothrombin Time 13.2 #H 9.6-11.6 SEC Prothromb Time International Ratio 1.28 H 0.85-1.15 Activated Partial Thromboplast Time 31.0 26.3-35.5 SEC DIAGNOSTICS / RADIOLOGY: [place] [address] [place] [address] IMAGING REPORT Signed PATIENT: KHLOE SALAZAR MR#: [id number] : 1965 SEX: M AGE: 60 LOCATION: 2CV ORDER [id number] STATUS: ADM IN REPORT#: [id number] SERVICE 22 REASON: S/P REPOSITIONING OF ET TUBE ORDERING PHYSICIAN: PALAK FULLER MD PROCEDURE: CXR1VW - CHEST 1VW EXAM: CR Chest, 1 View. CLINICAL HISTORY: S/P REPOSITIONING OF ET TUBE COMPARISON: None provided. FINDINGS: LUNGS: Endotracheal tube midline above zarina. [place]-Hiren catheter right pulmonary artery PLEURAL SPACES: No evidence of pleural effusion or pneumothorax. MEDIASTINUM: Cardiac size and mediastinal contours within normal limits. BONES: No acute osseous abnormality. MISCELLANEOUS: Nasogastric tube below diaphragm IMPRESSION: 1. Endotracheal tube midline above zarina. 2. [place]-Hiren catheter right pulmonary artery 3. Nasogastric tube below diaphragm /[place] DICTATED BY: DAVEY LU MD DATE: 08/23/251519 ELECTRONICALLY SIGNED BY: DAVEY LU MD DATE: 08/23/251519 PATIENT: KHLOE SALAZAR MR#: [id number] : 1965 SEX: M AGE: 60 LOCATION: 2CV ORDER 0924 STATUS: ADM IN REPORT#: [id number] SERVICE 1200 REASON: s/p CABG ORDERING PHYSICIAN: PALAK FULLER MD PROCEDURE: CXR1VW - CHEST 1VW EXAM: CR Chest, 2 View. CLINICAL HISTORY: s/p CABG COMPARISON: None provided. FINDINGS: LUNGS: Endotracheal tube midline above zarina at the mid clavicle level [place]-Hiren catheter right pulmonary artery PLEURAL SPACES: No pleural effusion or pneumothorax. MEDIASTINUM: The cardiomediastinal silhouette is within normal limits. BONES: No acute osseous abnormality. MISCELLANEOUS: Nasogastric tube below diaphragm Patchy bilateral infiltrates IMPRESSION: 1. Endotracheal tube midline above zarina at the mid clavicle level 2. Nasogastric tube below diaphragm 3. [place]Hiren catheter right pulmonary artery 4. Patchy bilateral infiltrates /[place] DICTATED BY: DAVEY LU MD DATE: 08/23/251519 ELECTRONICALLY SIGNED BY: DAVEY LU MD DATE: 08/23/251519 PATIENT: KHLOE SALAZAR MR#: [id number] : 1965 SEX: M AGE: 60 LOCATION: [facility] ORDER 3 STATUS: ADM IN REPORT#: [id number] SERVICE 2 REASON: preop CABG ORDERING PHYSICIAN: PALAK FULLER MD PROCEDURE: ECHO CMP - ECHO 2-D COMPLETE APPROVED REPORT EXAM: Two-dimensional and M-mode echocardiogram with Doppler and color Doppler. INDICATION ICD: pre-op CABG 2D Dimensions RVDd 4.7 cm LVEF(%) 41.0 (>50%) LVED Vol(simp.) 173.9 mL IVSd 0.9 (0.7-1.1cm) FS(%) 20 % LVES Vol(simp.) 92.2 mL LVDd 4.9 (3.8-5.6cm) LA (2D) 4.5 (1.6-4.0cm) LVEF(%, simp.) 47 % PWd 1.2 (0.7-1.1cm) Ao Root(2D) 3.3 (2.0-3.7cm) LA ESV INDEX (BP) 38.01 mL/m2 LVDs 3.9 (2.5-4.0cm) LVOT diam 2.4 (1.8-2.4cm) Deformation Strain Apical 4 -15.4 % Apical 2 -14.0 % Apical 3 -14.4 % Global Strain -14.6 % M-Mode Dimensions EPSS 1.2 cm LA (MM) 4.2 (1.6-4.0cm) Ao Root(MM) 3.5 (2.0-3.7cm) Aortic Valve AoV Vmax 1.9 m/s Ao Peak GR 14.1 mmHg LVOT Vmax 1.1 m/s AoV VTI 0.4 m Ao Mean GR 8.6 mmHg LVOT VTI 0.26 m KRISTEN (VMAX) 2.87 cm2 Al P1/2T 392 ms KRISTEN (VTI) 3.1 cm2 Mitral Valve MV E Vmax 117.9 cm/s DECEL Time 220 ms MV A Vmax 115.4 cm/s P 1/2 T 65 ms E/A ratio 1.0 MVA (PHT) 3.4 cm2 TDI E/E' Medial 21.2 E/E' Lateral 12.7 Medial E' Peak V 5.56 cm/s Lateral E' Peak V 9.27 cm/s Pulmonary Valve PV Vmax 1.1 m/s PV VTI 0.25 m PV Mean GR 2.9 mmHg PV Peak GR 5.0 mmHg Tricuspid Valve TR Vmax 2.3 m/s RVSP 21.9 mmHg TR Peak GR 21.9 mmHg Left Ventricle Left ventricular cavity size is normal. There is global hypokinesis of the left ventricle. There is normal left ventricular wall thickness. LVEF is 45-50%. Stage II diastolic dysfunction. Right Ventricle The right ventricle is normal size. The right ventricular systolic function is normal. Atria The left atrium is mildly dilated. The right atrium size is normal. Aortic Valve The aortic valve is normal in structure. Trace aortic regurgitation. There is no aortic valvular stenosis. Mitral Valve The mitral valve is normal in structure. Posterior leaflet is mildly thickened. Mitral regurgitation is mild. There is no mitral valve stenosis. Tricuspid Valve The tricuspid valve is normal in structure. There is trace tricuspid valve regurgitation noted. Pulmonic Valve Pulmonic valve is not well visualized. There is no pulmonic valvular regurgitation. Great Vessels The aortic root is normal in size. The IVC is normal in size and collapses >50% with inspiration. Pericardium There is no pericardial effusion. Other Information Quality : Average Conclusion Left ventricular cavity size is normal. LVEF is 45-50% with global hypokinesis of the left ventricle. Stage II diastolic dysfunction. The right ventricular systolic function is normal. The left atrium is mildly dilated. No hemodynamically significant valvular abnormalities. There is no pericardial effusion. DICTATED BY: DAVEY BRANCH MD DATE: 08/21/25951 ELECTRONICALLY SIGNED BY: DAVEY BRANCH MD DATE: 08/21/25 1854PATIENT: KHLOE SALAZAR MR#: [id number] : 1965 SEX: M AGE: 60 LOCATION: 2A ORDER 3 [facility] REPORT#: [id number] SERVICE 2 REASON: preop CABG ORDERING PHYSICIAN: PALAK FULLER MD PROCEDURE: CAROTID - US CAROTID DUPLEX STUDY: CAROTID DUPLEX ULTRASOUND CLINICAL INFORMATION: Preoperative evaluation prior to coronary artery bypass grafting (CABG). TECHNIQUE: Grayscale, color Doppler, and spectral Doppler ultrasound of the bilateral carotid and vertebral arteries was performed, including peak systolic velocity measurements. COMPARISON: None provided. FINDINGS: RIGHT CAROTID SYSTEM: Peak systolic velocity (PSV) in the right common carotid artery (CCA) measures approximately 99 cm/s. Peak systolic velocity in the right internal carotid artery (ICA) measures approximately 90 cm/s, with a right ICA/CCA PSV ratio of 0.9. Peak systolic velocity in the right external carotid artery (ECA) is approximately 86 cm/s. Calcified plaques are present in the distal right CCA and carotid bulb. No hemodynamically significant elevation of ICA velocity is demonstrated to suggest high-grade right ICA stenosis. LEFT CAROTID SYSTEM: Peak systolic velocity in the left CCA measures approximately 81 cm/s. Peak systolic velocity in the left ICA measures approximately 95 cm/s, with a left ICA/CCA PSV ratio of 1.2. Peak systolic velocity in the left ECA is approximately 86 cm/s. Calcified plaques are present in the distal left CCA and carotid bulb. No hemodynamically significant elevation of ICA velocity is demonstrated to suggest high-grade left ICA stenosis. VERTEBRAL ARTERIES: Right vertebral artery demonstrates antegrade flow with peak systolic velocity of approximately 71 cm/s. Left vertebral artery demonstrates antegrade flow with peak systolic velocity of approximately 39 cm/s. No evidence of vertebral artery flow reversal is identified. IMPRESSION: * Calcified atherosclerotic plaques in the bilateral distal common carotid arteries and carotid bulbs, with internal carotid artery peak systolic velocities and ICA/CCA ratios consistent with no hemodynamically significant carotid stenosis by duplex criteria. * Bilateral vertebral arteries with antegrade flow, without sonographic evidence of subclavian steal or vertebral artery occlusion. * From a carotid duplex perspective, no high-grade carotid stenosis is identified that would typically preclude or delay CABG; continued medical optimization of atherosclerotic risk factors is recommended in coordination with cardiology and vascular teams. /[place] DICTATED BY: OFELIA SHARIF MD DATE: 08/23/25158 ELECTRONICALLY SIGNED BY: OFELIA SHARIF MD DATE: 08/23/25158 ASSESSMENT: Severe multivessel disease Anemia Acute on chronic diastolic heart failure NSTEMI, POA ESRD on HD Hyperlipidemia Hypertension CHF with LVEF 50-55% by 2D echo, diastolic dysfunction on 08/20/2025 PLAN: Labs and Diagnostics/ Radiology personally reviewed and interpreted by myself and supervising physician We have reviewed dialysis and external records in detail Continue dialysis schedule 1.5 L fluid restriction Continue to monitor H&H IV pressors, as needed Continue mechanical ventilation and sedation Epogen on dialysis days, as needed Continue with frequent monitoring of renal function, anemia, and electrolytes Order CBC, BMP, and electrolytes in the morning May use Dilaudid 0.5 mg IV every 6 hours as needed for severe pain Monitor blood pressure adjust medication doses as needed Maintain normotensive state Strict intake, output, and daily weight should be monitored Please renally adjust medications. Avoid nephrotoxics and nonsteroidal drugs. We will continue to monitor the patient closely We have discussed with the other team physicians in detail about the care plan Total critical care time spent with patient, nursing staff, critical care team over 35 minutes ATTESTATION BY PHYSICIAN I have seen and examined the patient. I reviewed the documentation, medical decision making, and treatment plan as noted by the mid-level provider above. I agree with the findings and plan of care. GERRI MIGUEL MD, [facility] Aug 23, 2025 15:41
[2025-08-23] MEDS: ALBUMIN (HUMAN) 5% 250 ML IV PRN (15:43)
[2025-08-23 16:16] LABS: HEPATITIS B SURFACE ANTIBODY Positive (Reactive)
[2025-08-23 16:17] LABS: HEPATITIS B CORE AB TOTAL Non-Reactive (Nonreactive)
[2025-08-23 16:20] LABS: ABG BASE EXCESS -0.6 mmol/L (-2.0-3.0); ABG HCO3 25.0 mmol/L (21.0-28.0); ABG OXYGEN SATURATION 98.4 % (94.0-98.0); ABG PCO2 45 mmHg (35-48); ABG PH 7.360 (7.350-7.450); CARBON MONOXIDE 0.8 % (0.5-1.5); PO2, ARTERIAL BG 161.6 mmHg (83.0-108.0); TEMPERATURE, CELSIUS BG 37.0 CELSIUS (35.5-37.0); VENT MODE, BG SIMV PS 10 (ROOM AIR)
[2025-08-23] MEDS: SODIUM BICARB 50MEQ 50ML VIAL IV PRN (16:21)
[2025-08-23 17:13] LABS: ABG BASE EXCESS 1.1 mmol/L (-2.0-3.0); ABG HCO3 26.6 mmol/L (21.0-28.0); ABG OXYGEN SATURATION 98.1 % (94.0-98.0); ABG PCO2 47 mmHg (35-48); ABG PH 7.372 (7.350-7.450); CARBON MONOXIDE 0.7 % (0.5-1.5); PO2, ARTERIAL BG 144.4 mmHg (83.0-108.0); TEMPERATURE, CELSIUS BG 37.0 CELSIUS (35.5-37.0); VENT MODE, BG SIMV PS 10 (ROOM AIR)
[2025-08-23] MEDS: CALCIUM GLUC 1GM 1 GM in 0.9%NACL 50ML 50 ML IV PRN (17:14)
[2025-08-23] MEDS: DEXTROSE 50%-WATER 50 ML DISP.SYRIN IV PRN (17:51)
[2025-08-23 18:28] LABS: ABG BASE EXCESS 2.2 mmol/L (-2.0-3.0); ABG HCO3 27.3 mmol/L (21.0-28.0); ABG OXYGEN SATURATION 98.3 % (94.0-98.0); ABG PCO2 45 mmHg (35-48); ABG PH 7.397 (7.350-7.450); CARBON MONOXIDE 0.7 % (0.5-1.5); PO2, ARTERIAL BG 153.0 mmHg (83.0-108.0); TEMPERATURE, CELSIUS BG 37.0 CELSIUS (35.5-37.0); VENT MODE, BG SIMV PS 10 (ROOM AIR)
[2025-08-23] MEDS: 0.9% NACL 500ML IV.SOLN 500 ML IV SCH (19:39)
[2025-08-23 19:40] LABS: ABG BASE EXCESS 1.9 mmol/L (-2.0-3.0); ABG HCO3 26.8 mmol/L (21.0-28.0); ABG OXYGEN SATURATION 98.4 % (94.0-98.0); ABG PCO2 44 mmHg (35-48); ABG PH 7.404 (7.350-7.450); CARBON MONOXIDE 0.7 % (0.5-1.5); PO2, ARTERIAL BG 158.4 mmHg (83.0-108.0); TEMPERATURE, CELSIUS BG 37.0 CELSIUS (35.5-37.0); VENT MODE, BG SIMV PS 10 (ROOM AIR)
[2025-08-23] MEDS: FAMOTIDINE 20MG VIAL IV SCH (20:02)
[2025-08-23] MEDS: ASPIRIN 81MG CHEW TAB PO SCH (20:02)
[2025-08-23 20:32] LABS: ABG BASE EXCESS 0.2 mmol/L (-2.0-3.0); ABG HCO3 25.0 mmol/L (21.0-28.0); ABG OXYGEN SATURATION 98.4 % (94.0-98.0); ABG PCO2 41 mmHg (35-48); ABG PH 7.402 (7.350-7.450); CARBON MONOXIDE 0.9 % (0.5-1.5); PO2, ARTERIAL BG 156.4 mmHg (83.0-108.0); TEMPERATURE, CELSIUS BG 37.0 CELSIUS (35.5-37.0); VENT MODE, BG SIMV PS 10 (ROOM AIR)
--- NOTE | 2025-08-23 21:00 | NUR ---
Dr. Roxann Hackett called updated on pt status latest k 5.5 and abg results. pt unable to do NIF due to pain when taking deep breath. abg is within parameters and pt awake with good hand automobile drivers able to lift head and hold. Orders received to forgo NIF and extubate and give lokelma 2hrs after.
--- NOTE | 2025-08-23 21:05 | NUR ---
extubation Pt extubated and placed on 40% cafm at this time. Pt encouraged to take slow deep breaths. Will continue to monitor.
--- NOTE | 2025-08-23 21:33 | NUR ---
Patient was exubated without NIF parameters results as per
[2025-08-23 22:39] LABS: ABG BASE EXCESS 0.8 mmol/L (-2.0-3.0); ABG HCO3 25.5 mmol/L (21.0-28.0); ABG OXYGEN SATURATION 98.2 % (94.0-98.0); ABG PCO2 42 mmHg (35-48); ABG PH 7.406 (7.350-7.450); CARBON MONOXIDE 0.3 % (0.5-1.5); PO2, ARTERIAL BG 147.9 mmHg (83.0-108.0); TEMPERATURE, CELSIUS BG 37.0 CELSIUS (35.5-37.0); VENT MODE, BG CAFM (ROOM AIR)
[2025-08-23] MEDS: NA ZIRCON CYCLOSIL(LOKELMA 10GM) PO ONE (22:56)
[2025-08-23 23:12] LABS: GLOMERULAR FILTR. RATE CALC 6.0 mL/min (>90); GLUCOSE,RANDOM 91.0 mg/dL (70-105); SODIUM SERUM 141.0 mmol/L (136-145); UREA NITROGEN, BLOOD 55.0 mg/dL (7-18)
[2025-08-23 23:24] LABS: CREATININE 9.0 mg/dL (0.5-1.3)
[2025-08-24] VITALS (98 sets, daily range): BP systolic 94–155; BP diastolic 33–74; PULSE 75–98; RESP 10–23; TEMP 97–98.8; O2SAT 98–100
--- NOTE | 2025-08-24 | HMCIMG ---
STUDY: X-RAY OF THE CHEST, 1 VIEW HISTORY: Preoperative evaluation for coronary artery bypass grafting (CABG); history of coronary artery disease. TECHNIQUE: A single frontal view of the chest is submitted for interpretation. COMPARISON: None provided. FINDINGS: Pulmonary chase: Lung volumes are within normal limits with symmetric aeration. Mild prominence of central pulmonary vasculature is noted, without overt alveolar pulmonary edema, focal consolidation, or discrete pulmonary nodule. Cardiac silhouette: Cardiac silhouette is mildly enlarged, compatible with mild cardiomegaly. Contours are otherwise smooth without pericardial effusion suggested on this projection. Mediastinum and neha: Mediastinal contours are within normal limits without widening or mass. Hilar structures are mildly prominent in keeping with vascular congestion but without discrete mass. Osseous structures: Visualized ribs, clavicles, and thoracic spine demonstrate no acute fracture or destructive osseous lesion. Sternum is grossly unremarkable on this view. Miscellaneous: No pleural effusion or pneumothorax is identified. Costophrenic angles are grossly preserved. No free subdiaphragmatic air is seen. IMPRESSION: * Mild cardiomegaly with mild pulmonary vascular congestion, compatible with compensated heart failure or volume overload in the appropriate clinical context. Recommend correlation with clinical examination, natriuretic peptide levels, and echocardiography as per preoperative CABG protocol to assess cardiac function and volume status. * No radiographic evidence of focal pneumonia, significant pleural effusion, or pneumothorax on this single-view chest radiograph. /[place]
[2025-08-24 03:06] LABS: ABG BASE EXCESS -0.2 mmol/L (-2.0-3.0); ABG HCO3 24.2 mmol/L (21.0-28.0); ABG OXYGEN SATURATION 97.6 % (94.0-98.0); ABG PCO2 38 mmHg (35-48); ABG PH 7.420 (7.350-7.450); CARBON MONOXIDE 0.7 % (0.5-1.5); PO2, ARTERIAL BG 114.4 mmHg (83.0-108.0); TEMPERATURE, CELSIUS BG 37.0 CELSIUS (35.5-37.0); VENT MODE, BG CAFM (ROOM AIR)
[2025-08-24 05:14] LABS: NUCLEATED RED BLOOD CELLS 0.0 % (0.0-0.19); PLATELET COUNT (AUTO) 151.0 K/uL (130-400); RED BLOOD CELL COUNT(AUTO) 2.23 MIL/uL (4.50-6.20); RED CELL DISTRIBUTION WIDTH 15.3 % (11.0-15.5); WHITE BLOOD COUNT (AUTO) 13.1 K/uL (4.8-10.8)
[2025-08-24 05:28] LABS: INR 1.11 (0.85-1.15)
[2025-08-24 05:34] LABS: GLOMERULAR FILTR. RATE CALC 6.0 mL/min (>90); GLUCOSE,RANDOM 118.0 mg/dL (70-105); PHOSPHORUS 7.0 mg/dL (2.5-4.9); SODIUM SERUM 140.0 mmol/L (136-145); UREA NITROGEN, BLOOD 60.0 mg/dL (7-18)
[2025-08-24 05:42] LABS: CREATININE 9.5 mg/dL (0.5-1.3)
[2025-08-24] MEDS: NA ZIRCON CYCLOSIL(LOKELMA 10GM) PO ONE (06:09)
[2025-08-24] MEDS: NOREPINEPHRIN 8MG/250ML NS 250 ML IV PRN (07:24)
[2025-08-24 07:53] LABS: ABG BASE EXCESS -0.9 mmol/L (-2.0-3.0); ABG HCO3 23.5 mmol/L (21.0-28.0); ABG OXYGEN SATURATION 97.8 % (94.0-98.0); ABG PCO2 38 mmHg (35-48); ABG PH 7.414 (7.350-7.450); CARBON MONOXIDE 0.7 % (0.5-1.5); PO2, ARTERIAL BG 119.4 mmHg (83.0-108.0); TEMPERATURE, CELSIUS BG 37.0 CELSIUS (35.5-37.0); VENT MODE, BG NC (ROOM AIR)
--- NOTE | 2025-08-24 10:11 | PN ---
This is a 60-year-old male with a history of hypertension, hyperlipidemia, end- stage renal disease on hemodialysis. He was transferred from [facility] 08/20/2025 for bypass consideration after presenting with a non-STEMI. He underwent left heart catheterization 08/20/2025 which showed severe multivessel coronary artery disease. Echocardiogram 08/20/2025 showed LVEF of 50-55%. He is status post CABG x3 with AtriClip 08/23/2025. He was transfused 1 unit of PRBCs intraoperatively. He has been extubated. He is currently in sinus rhythm with heart rates in the 80s. His most recent blood pressure is 116/54. White blood count 13.1, hemoglobin 7.2, hematocrit 21.4, platelets 151, creatinine 9.5, potassium 6.0, magnesium 2.40. Chest tube drainage at 250 cc. He offers up no new cardiac complaints. On exam he is in no acute distress, regular rate and rhythm. Assessment: 1. Non-STEMI. 2. Multivessel coronary disease. 3. Hypertension. 4. Hyperlipidemia. 5. End-stage renal disease on hemodialysis. 6. Hyperkalemia. Plan: 1. He is status post CABG x3 with the AtriClip 08/23/2025. He has been extubated. He remains on low-dose epinephrine. 2. Continue aspirin 81 mg once daily, atorvastatin 40 mg once daily, IV furosemide 20 mg every 12 hours. 3. Continue recommendations per CT surgery. We will follow the patient. Vitals/Labs Vital Signs Date Time Temp Pulse Resp B/P (MAP) Pulse Ox O2 Delivery O2 Flow Rate FiO2 08/24/25 09:00 81 17 132/45 (74) 100 08/24/25 08:15 97.0 08/24/25 08:02 N/Cannula Low lpm 08/24/25 08:00 3 32 Laboratory Tests 08/23/25 13:05 08/23/25 22:55 08/24/25 05:02 ALLIE MORGAN Aug 24, 2025 10:11
--- NOTE | 2025-08-24 10:30 | NUR ---
dr. blake at bedside, aware of pt status, all labs and current hemodynamics, no new orders.
--- NOTE | 2025-08-24 10:54 | PN ---
SUBJECTIVE: The patient is postop day #1 from a coronary artery bypass grafting. The patient is extubated and on Levophed and epinephrine drips. OBJECTIVE: VITAL SIGNS: His vital signs reveal temperature 97.0, blood pressure 118/47, pulse 82, respirations 17, and oxygen saturation 99% on nasal cannula oxygen. HEENT: Normocephalic and atraumatic. His nasal cannula oxygen prongs to his nose. He has a left cervical [place]-Hiren catheter reading a cardiac index of 4.9 liters per minute per meter squared. He is on an epinephrine drip at 0.03 mcg per kilo per minute and a Levophed drip at 0.01 mcg per minute. CHEST: His sternal wound is bandaged. His chest tubes are in place with the pleural tubes putting out a total of 250 mL and the mediastinal drain putting out 190 mL of output total since the time of surgery yesterday. HEART: His heart S1 and S2 are regular. LUNGS: His lungs reveal mild rhonchi. ABDOMEN: His abdomen reveals mild obesity with positive bowel sounds. GENITOURINARY: He has a Soliz catheter in his bladder. EXTREMITIES: He has SCDs and RAMYA stockings on his lower extremities. He has a right radial arterial line. LABORATORY DATA: His white cell count is 13,100, hemoglobin 7.2, BUN is , creatinine 9.5, and his potassium this morning was 6.0. His chest x-ray shows mild bibasilar atelectasis. ASSESSMENT AND PLAN: * Status post coronary artery bypass grafting. Begin aspirin. Consult Nephrology as to whether to resume his preoperative Lasix. Keep chest tubes in place and on suction. Wean epinephrine and Levophed drips to off. Get the patient up into bedside chair. * Hypercholesterolemia. Lipitor at bedtime and low cholesterol, cardiac diet. Begin Lipitor 40 mg p.o. at bedtime and a low cholesterol, cardiac diet in addition to his renal diet. * Postoperative acute pulmonary insufficiency. Teach incentive spirometry. Wean nasal cannula oxygen; maintain oxygen saturation greater than 90%. * End-stage renal disease with hyperkalemia. I have given the patient a second dose of Lokelma. The patient is to have hemodialysis today per Nephrology. * Deep venous thrombosis prophylaxis, SCDs to lower extremities. Time spent 30 minutes. The patient is critically ill in the ICU. TID: [id number] RECEIPT: [id number]
--- NOTE | 2025-08-24 10:58 | PN ---
[facility] PROGRESS NOTE Date of Service: Aug 24, 2025 Time of Service: 10:55 SUBJECTIVE: 08/22 patient remains admitted to the PCU, comfortably in bed, alert and oriented x3, on heparin drip. Denies chest pain, shortness shortness for breath, no nausea, no vomiting, no abdominal discomfort. He remains hemodynamically stable, afebrile, saturating normal on room air. Mild drop in hemoglobin to 9.8 with a hematocrit 29.6, no signs of GI bleed. Patient evaluated by Cardiothoracic surgeon, pending further recommendations in terms of CABG. Follow CBC in a.m. and transfuse as needed. Discussed with the patient, in agreement, all questions answered. 08/23 patient remains admitted to the PCU, comfortably in bed, alert and oriented x3, denies chest pain, shortness shortness for breath, no nausea, no vomiting, no abdominal discomfort. He remains hemodynamically stable, afebrile, saturating normal on room air. Patient evaluated by Cardiothoracic surgeon, case discussed, plan for CABG today. 08/24 patient remains admitted to the ICU, status post CABG, 08/23/2025, postoperative day 1. Patient is successfully extubated, Awake, following comman ds, on insulin and epinephrine drip, chest tube in place. BP 118/47, afebrile, WBC 13.1, hemoglobin 7.2, hematocrit 21.4, platelet count of 151, sodium 140, potassium 6.0, BUN of 60, creatinine 9.5, carbon dioxide 24. ABG pH 7.41, PO2 119.4, pCO2 38, bicarbonate of 23.5. Continue to follow Cardiothoracic input recommendation, continue aspirin 81 mg p.o. daily, atorvastatin 40 mg p.o. daily, furosemide 20 mg IV q.12 hours. Follow a.m. labs.Continue hemodialysis per Nephrology recommendation. REVIEW OF SYSTEMS CONSTITUTIONAL: Denies fevers, chills, or night sweats. No unintentional weight loss reported. NEUROLOGICAL: Denies headache, amaurosis fugax, motor weakness, sensory deficit, vertigo/spinning sensation, gait abnormalities, or tremors. ENT: No hearing loss, otalgia, otorrhea, rhinitis, rhinorrhea, hoarseness, or sore throat. CARDIOVASCULAR: Denies any exertional angina, dyspnea on exertion, orthopnea, paroxysmal nocturnal dyspnea, palpitations, life-threatening arrhythmias, claudication. PULMONARY: Denies any shortness of breath, cough, phlegm/sputum, hemoptysis, pleuritic chest pain. SLEEP: Denies morning headaches, daytime somnolence or napping. Denies difficulty falling asleep, staying asleep, waking from sleep. Denies knowledge of snoring. GASTROINTESTINAL: Denies any type of dysphagia to either liquids or solids. Denies nausea, vomiting, pyrosis, early satiety, abdominal pain, diarrhea, constipation, or changes in stool consistency or caliber. Denies coffee-ground emesis, hematemesis, hematochezia, or melanotic stools. GENITOURINARY: Denies frequency, urgency, nocturia, hematuria or incontinence (Storage/Irritative symptoms.) Low urinary stream, straining to void, urinary intermittency or hesitancy, splitting of the voiding stream, terminal dribbling. ENDOCRINOLOGIC: Denies polyuria, polydipsia, polyphagia or heat/cold intolerances. HEMATOLOGIC: Denies thrombophilia/previous clots, or coagulopathy/bleeding disorders. ONCOLOGIC: Denies personal history of malignancy. DERMATOLOGIC: Denies rashes or pruritus. PSYCHIATRIC: Denies any suicidal or homicidal ideation. Denies hallucinations. PHYSICAL EXAM GENERAL APPEARANCE: The patient is awake, alert, and oriented, in no acute cardiopulmonary distress. NEUROLOGICAL: Cranial nerves II-XII grossly intact. Motor is 5/5 in bilateral upper and lower extremities proximal to distal. No sensory deficits. HEENT: Face is symmetric. Pupils are equal and reactive. Extraocular movements are intact. NECK: Supple. No JVD. No thyromegaly. No submental, submandibular, pre- /postauricular, occipital or supraclavicular lymphadenopathy. CHEST: Normal chest expansion. No Telemetry. LUNGS: Absence of any rales, rhonchi or any wheezing. CARDIOVASCULAR: Regular. S1 and S2 normal. No appreciable rubs, murmurs or gallops. ABDOMEN: Soft, nontender, and nondistended. There is no rebound, voluntary guarding, or rigidity. : Deferred. No Soliz. EXTREMITIES: Non-edematous and not cyanotic. No clubbing. Good capillary refill. SKIN: No skin breakdown. Vital Signs (last 8hr) Date Time Temp Pulse Resp B/P (MAP) Pulse Ox O2 Delivery O2 Flow Rate FiO2 08/24/25 10:15 82 17 118/47 (70) 99 08/24/25 10:00 83 18 121/37 (65) 100 117/48 (71) 08/24/25 09:45 82 17 118/47 (70) 99 08/24/25 09:30 81 18 114/45 (68) 100 08/24/25 09:15 81 17 128/42 (70) 100 113/49 (70) 08/24/25 09:00 81 17 132/45 (74) 100 08/24/25 08:45 83 19 128/43 (71) 100 116/54 (74) 08/24/25 08:30 79 14 132/44 (73) 100 08/24/25 08:15 85 19 138/46 (76) 100 115/51 (72) 08/24/25 08:15 97.0 08/24/25 08:02 N/Cannula Low lpm 08/24/25 08:00 100 Nasal Cannula* 3 32 08/24/25 08:00 82 18 138/48 (78) 100 08/24/25 07:45 89 17 143/54 (83) 100 119/61 (80) 08/24/25 07:30 86 17 126/45 (72) 100 08/24/25 07:24 136/45 08/24/25 07:15 78 19 N/Cannula Low lpm 4.0 36 08/24/25 07:15 96 12 134/55 (81) 100 08/24/25 07:00 90 17 120/42 (68) 100 36 105/60 (75) 08/24/25 06:45 87 12 134/43 (73) 100 08/24/25 06:30 96 23 125/57 (79) 100 126/57 (80) 08/24/25 06:15 93 19 151/49 (83) 100 08/24/25 06:00 84 19 153/49 (83) 100 36 141/61 (87) 08/24/25 05:45 87 15 139/42 (74) 100 08/24/25 05:30 84 14 140/46 (77) 100 130/57 (81) 08/24/25 05:15 83 15 141/47 (78) 100 08/24/25 05:00 85 20 130/53 (78) 100 36 127/63 (84) 08/24/25 04:45 85 14 134/46 (75) 100 08/24/25 04:30 83 10 134/45 (74) 100 130/65 (86) 08/24/25 04:15 86 18 133/47 (75) 100 08/24/25 04:06 100 Nasal Cannula* 4 36 08/24/25 04:00 98.8 84 14 131/45 (73) 100 36 119/60 (79) 08/24/25 03:45 85 16 135/46 (75) 100 08/24/25 03:30 86 16 140/46 (77) 100 131/65 (87) 08/24/25 03:15 88 18 122/43 (69) 100 08/24/25 03:00 86 15 137/45 (75) 100 35 119/57 (77) LABS: Laboratory: Test 08/24/25 10:06 08/24/25 07:51 08/24/25 05:02 08/23/25 20:31 Range/Units Whole Blood Glucose 129 H 70-110 MG/DL Blood Gas Specimen Type Arterial Arterial Blood pH 7.414 7.350-7.450 Arterial Blood Partial Pressure CO2 38 35-48 mmHg Arterial Blood Partial Pressure O2 119.4 H 83.0-108.0 mmHg Arterial Blood HCO3 23.5 21.0-28.0 mmol/L Arterial Blood Oxygen Saturation 97.8 94.0-98.0 % Arterial Blood Base Excess -0.9 -2.0-3.0 mmol/L Hemoglobin (Blood Gas) 7.5 L 13.5-17.5 g/dL Sodium (Blood Gas) 137 136-145 MMOL/L Bedside Potassium (Blood Gas) 5.0 H 3.4-4.5 MMOL/L Bedside Chloride (Blood Gas) 101 98-107 MMOL/L Bedside Glucose (Blood Gas) 114 H 65-95 MG/DL Bedside Ionized Calcium (Blood Gas) 1.15 1.15-1.33 MMOL/L Bedside Lactic Acid (Blood Gas) 2.49 H 0.36-0.75 MMOL/L Blood Gas Temperature 37.0 35.5-37.0 CELSIUS Blood Gas Flow-by 4.00 0.00-15.00 L/min Blood Gas Vent Mode NC ROOM AIR FiO2 36.0 % Blood Gas Specimen Comment RN MOJGAN White Blood Count 13.1 H 4.8-10.8 K/uL Red Blood Count 2.23 L 4.50-6.20 MIL/uL Hemoglobin 7.2 L 14.0-18.0 g/dL Hematocrit 21.4 L 42-54 % Mean Corpuscular Volume 96.0 79-99 fL Mean Corpuscular Hemoglobin 32.3 27.0-33.0 pg Mean Corpuscular Hemoglobin Concent 33.6 32.0-36.0 g/dL Red Cell Distribution Width 15.3 11.0-15.5 % Platelet Count 151 130-400 K/uL Mean Platelet Volume 10.2 7.5-10.5 fL Nucleated Red Blood Cells 0.0 0.0-0.19 % Prothrombin Time 11.6 9.6-11.6 SEC Prothromb Time International Ratio 1.11 0.85-1.15 Activated Partial Thromboplast Time 30.4 26.3-35.5 SEC Sodium Level 140 136-145 mmol/L Potassium Level 6.0 *H 3.5-5.1 mmol/L Chloride Level 101 101-111 mmol/L Carbon Dioxide Level 24 21-32 mmol/L Blood Urea Nitrogen 60 H 7-18 mg/dL Creatinine 9.5 *H 0.5-1.3 mg/dL Glomerular Filtration Rate Calc 6 >90 mL/min Random Glucose 118 H 70-105 mg/dL Total Calcium 8.9 8.5-10.1 mg/dL Ionized Calcium 1.10 L 1.15-1.33 MMOL/L Phosphorus Level 7.0 H 2.5-4.9 mg/dL Magnesium Level 2.40 1.80-2.40 mg/dL Blood Gas Respiration Rate 4.0 min. Blood Gas Tidal Volume 700 ml Blood Gas PEEP 5 cm H2O Test 08/23/25 05:34 08/22/25 16:52 Range/Units Total Bilirubin 0.6 0.2-1.0 mg/dL Aspartate Amino Transf (AST/SGOT) 21 10-37 U/L Alanine Aminotransferase (ALT/SGPT) 22 12-78 U/L Alkaline Phosphatase 87 50-136 U/L Total Protein 7.6 6.0-8.3 g/dL Albumin 3.7 3.5-5.0 g/dL Triglycerides Level 84 30-200 mg/dL Cholesterol Level 111 <200 mg/dL LDL Cholesterol 46 0-99 mg/dL HDL Cholesterol 54 29-71 mg/dL Hepatitis B Surface Antigen. Non-Reactive Nonreactive Hepatitis B Surface Antibody. Positive Reactive Hepatitis B Core Total Antibody. Non-Reactive Nonreactive Current Medications Medications (Trade) Dose Ordered Sig/Flavio Route PRN Reason Start Time Stop Time Status Last Admin Dose Admin Acetaminophen (TYLenol 325MG TAB) 650 mg Q4H PRN PO Temp >38.3C(AFTER EXTUBATION) 08/23/25 09:30 09/22/25 09:29 Acetaminophen (TYLenol 325MG TAB) 650 mg Q4HPRN PRN PO FEVER 08/21/25 01:00 08/23/25 09:31 DC 08/23/25 00:01 650 MG Acetaminophen (TYLenol 325MG TAB) 650 mg Q6H PRN PO MILD PAIN (1-3) 08/23/25 09:30 09/22/25 09:29 Acetaminophen (TYLenol 650MG SUPPOSITORY) 650 mg Q4H PRN RC Temp >38.3C WHILE INTUBATED 08/23/25 09:30 09/22/25 09:29 Acetaminophen (acetaMINOPHEN 1,000MG/100ML) 1,000 mg ONCE IV 08/23/25 21:00 08/23/25 23:00 DC 08/23/25 20:54 1,000 MG Acetaminophen (acetaMINOPHEN 1,000MG/100ML) 1,000 mg Q6H6 IV 08/23/25 12:00 08/23/25 18:39 DC 08/23/25 14:24 1,000 MG Acetaminophen (acetaMINOPHEN 1,000MG/100ML) 1,000 mg Q6H6 IV 08/24/25 06:00 09/23/25 05:59 08/24/25 05:51 1,000 MG Acetaminophen/ Hydrocodone Bitart (NORco 5/325MG) 1 tab Q6H PRN PO PAIN 5-10 08/21/25 01:00 08/23/25 09:17 DC 08/22/25 20:29 1 TAB Albumin Human 250 ml @ 0 mls/hr AD PRN IV IF HEMODYNAMICALLY UNSTABLE 08/23/25 09:30 08/23/25 15:43 DC 08/23/25 15:43 2,520 MLS/HR Aminocaproic Acid 79728 mg/Sodium Chloride 310 ml @ 25 mls/hr AD IV 08/23/25 09:30 08/23/25 09:34 DC Aminocaproic Acid 73934 mg/Sodium Chloride 480 ml @ 0 mls/hr AD PRN IV BLEEDING CONTROL 08/23/25 09:00 09/22/25 08:59 Aspirin (Aspirin 81mg Chew Tab) 81 mg DAILY PO 08/21/25 09:00 08/23/25 14:27 DC 08/22/25 09:19 81 MG Aspirin (Aspirin 81mg Chew Tab) 81 mg HS PO 08/23/25 21:00 09/22/25 20:59 08/23/25 20:02 81 MG Atorvastatin Calcium (LIPItor 40MG) 40 mg HS PO 08/21/25 21:00 09/20/25 20:59 08/23/25 20:02 40 MG Calcium Gluconate 1 gm/Sodium Chloride 60 ml @ 200 mls/hr AD PRN IV HYPOCALCEMIA 08/23/25 09:30 09/22/25 09:29 08/24/25 08:08 200 MLS/HR Carvedilol (Coreg 3.125MG) 3.125 mg BID PO 08/21/25 09:00 08/23/25 09:17 DC 08/23/25 08:10 3.125 MG Cefazolin Sodium (ANCEF 1 gm vial) 2 gm ONCALL IVP 08/22/25 15:30 08/23/25 09:04 DC Cefazolin Sodium (Ancef) 2 gm ONCALL IVP 08/23/25 09:30 08/24/25 09:16 DC Cefazolin Sodium (Ancef) 2 gm Q8H IVPB 08/23/25 14:30 08/23/25 14:37 DC Cefazolin Sodium (Ancef) 2 gm Q8H IVPB 08/23/25 18:00 08/24/25 10:01 DC 08/24/25 09:13 2 GM Cyclobenzaprine HCl (Cyclobenzaprine HCl) 10 mg TID PO 08/21/25 09:00 08/23/25 09:17 DC 08/22/25 21:39 10 MG Dexmedetomidine/ Sodium Chloride (PRECEdex 400MCG/ 100ML-NS) 400 mcg PROTOCOL IV 08/23/25 09:30 08/24/25 09:29 DC Dextrose (D50w) 50 ml AD PRN IV HYPOGLYCEMIA PROTOCOL 08/23/25 09:30 09/22/25 09:29 08/24/25 05:59 50 ML Docusate Sodium (COLace 100MG CAP) 100 mg BID PO 08/23/25 21:00 09/22/25 20:59 08/24/25 08:08 100 MG Enoxaparin Sodium (Lovenox) 30 mg DAILY SQ 08/26/25 09:00 09/25/25 08:59 Epinephrine HCl 10 mg/Sodium Chloride 250 ml @ 0 mls/hr AD PRN IV TITRATE 08/23/25 09:00 09/22/25 08:59 Epinephrine HCl 10 mg/Sodium Chloride 250 ml @ 0 mls/hr AD PRN IV POST-OP CARDIOVASCULAR ORDERS 08/23/25 09:30 08/23/25 09:33 DC Famotidine (Pepcid 20mg Vial) 20 mg Q48H IV 08/23/25 21:00 09/22/25 20:59 08/23/25 20:02 20 MG Furosemide (LASix 100MG VIAL) 80 mg BID IV 08/21/25 09:00 08/21/25 18:47 DC Furosemide (LASix 20MG TAB) 20 mg Q12H PO 08/25/25 09:30 09/24/25 09:29 Furosemide (LASix 20MG VIAL) 20 mg Q12H IV 08/24/25 09:30 08/25/25 09:29 08/24/25 08:08 20 MG Glucagon (Glucagon 1mg Kit) 1 mg AD PRN IM HYPOGLYCEMIA PROTOCOL 08/23/25 09:30 09/22/25 09:29 Heparin Sodium/ Dextrose 250 ml @ 0 mls/hr Q6H IV 08/21/25 02:00 08/23/25 09:17 DC 08/21/25 23:18 10.04 MLS/HR Heparin Sodium/ Dextrose (HEParin 25,000 UNITS/250ML D5W) 25,000 units AD IV 08/21/25 01:00 08/21/25 01:07 DC Hydralazine HCl (APRESOLine 20MG INJ) 10 mg ONCE PRN IV IF SBP GREATER THAN 180 08/21/25 01:30 08/23/25 09:17 DC Hydralazine HCl (APRESOLine 20MG INJ) 10 mg Q6H PRN IV For:SBP above 160;DBP above 90 08/21/25 01:30 08/23/25 09:17 DC Hydromorphone HCl (DiLAUDid 0.5MG INJ) 0.25 mg Q4H PRN IVP SEVERE PAIN (7-10) 08/21/25 01:30 08/23/25 09:17 DC 08/23/25 07:13 0.25 MG Insulin Human Regular 100 unit/ Sodium Chloride 100 ml @ 0 mls/hr AD IV 08/23/25 09:30 08/25/25 09:29 08/23/25 14:27 1.5 MLS/HR Lactulose (Constulose 20gm/ 30ml Udcup) 20 gm BID PRN PO CONSTIPATION 08/23/25 09:30 09/22/25 09:29 Lidocaine (Lidoderm Patch 5%) 1 patch DAILY TP 08/21/25 09:00 09/20/25 08:59 08/22/25 09:18 1 PATCH Magnesium Hydroxide (Milk Of Magnesium 30ml) 30 ml DAILY PRN PO CONSTIPATION 08/23/25 09:30 09/22/25 09:29 Magnesium Sulfate 50 ml @ 12.5 mls/hr AD PRN IV MAG LEVEL LESS THAN 2.0 08/23/25 09:30 09/22/25 09:29 08/23/25 14:27 12.5 MLS/HR Metoprolol Tartrate (loprESSOR) 12.5 mg BID PO 08/25/25 09:00 09/24/25 08:59 Morphine Sulfate (morPHINE 4MG SYG) 0.5 mg Q2H PRN IV MODERATE PAIN (4-6) 08/23/25 10:00 08/30/25 09:59 Morphine Sulfate (morPHINE 4MG SYG) 1 mg Q2H PRN IV SEVERE PAIN (7-10) 08/23/25 09:30 08/24/25 09:29 DC Nifedipine (adALAT 30MG) 60 mg DAILY PO 08/21/25 09:00 08/23/25 09:17 DC 08/22/25 09:19 60 MG Nitroglycerin/ Dextrose 0 ml @ 0 mls/hr AD IV 08/23/25 09:30 08/26/25 09:29 Norepinephrine Bitartrate 250 ml @ 0 mls/hr AD PRN IV TITRATE 08/23/25 09:00 09/22/25 08:59 08/24/25 07:24 2.9 MLS/HR Norepinephrine Bitartrate 8 mg/ Dextrose 250 ml @ 0 mls/hr AD PRN IV POST-OP CARDIOVASCULAR ORDERS 08/23/25 09:30 08/23/25 09:33 DC Ondansetron HCl (zoFRAN 4MG INJ) 4 mg Q6H PRN IV NAUSEA/VOMITING 08/21/25 01:30 08/23/25 09:17 DC Ondansetron HCl (zoFRAN 4MG INJ) 4 mg Q6H PRN IV NAUSEA/VOMITING 08/23/25 09:30 09/22/25 09:29 08/23/25 15:43 4 MG Ondansetron HCl (zoFRAN 4MG INJ) 4 mg TID PRN IV NAUSEA/VOMITING 08/21/25 01:00 08/21/25 01:14 DC Pantoprazole Sodium (PROTonix 40MG INJ) 40 mg DAILY IVP 08/21/25 09:00 08/23/25 09:17 DC 08/23/25 08:10 40 MG Potassium Phosphate 250 ml @ 42 mls/hr AD PRN IV LOW PHOS LEVEL 08/23/25 09:30 09/22/25 09:29 Potassium Chloride 100 ml @ 100 mls/hr AD PRN IV HYPOKALEMIA 08/23/25 09:30 09/22/25 09:29 Propofol 100 ml @ 0 mls/hr AD PRN IV SEDATION 08/23/25 09:30 08/27/25 09:29 Sevelamer HCl (RENAgel 800 MG TAB) 3,200 mg TIDMEALS PO 08/21/25 08:00 09/20/25 07:59 08/24/25 08:08 3,200 MG Sodium Bicarbonate (Sodium Bicarb 50meq 50ml Vial) 50 meq AD PRN IV OTHER[SEE DOSING INSTRUCTIONS] 08/23/25 09:30 08/26/25 09:29 08/23/25 16:21 50 MEQ Sodium Chloride 500 ml @ 0 mls/hr AD IV 08/23/25 09:30 09/22/25 09:29 08/23/25 19:39 3 MLS/HR Sodium Chloride 1,000 ml @ 0 mls/hr ONCE IV 08/22/25 17:30 08/22/25 21:30 DC 08/22/25 17:40 1,000 MLS/HR Sodium Chloride 1,000 ml @ 10 mls/hr ONCE IV 08/23/25 09:30 08/24/25 09:29 DC 08/23/25 14:25 10 MLS/HR Sodium Chloride (NS Flush 10ml) 10 ml Q8H PRN IVP IV LINE FLUSH 08/23/25 09:30 09/22/25 09:29 Tramadol HCl (UltRAM) 25 mg Q6H PRN PO MODERATE PAIN (4-6) 08/23/25 09:30 08/28/25 09:29 08/24/25 08:09 25 MG Tramadol HCl (UltRAM) 50 mg Q6H PRN PO SEVERE PAIN (7-10) 08/23/25 09:30 08/28/25 09:29 DIAGNOSTICS / RADIOLOGY: [ ] ASSESSMENT: Severe multivessel disease, POA NSTEMI, POA status post CABG x3 with the AtriClip 08/23/2025. ESRD on HD Hyperlipidemia Hypertension CHF with LVEF 50-55% by 2D echo, diastolic dysfunction on 08/20/2025 PLAN: patient remains admitted to the ICU, status post CABG, 08/23/2025, postoperative day 1. Patient is successfully extubated, Awake, following commands, on insulin and epinephrine drip, chest tube in place. BP 118/47, afebrile, WBC 13.1, hemoglobin 7.2, hematocrit 21.4, platelet count of 151, sodium 140, potassium 6.0, BUN of 60, creatinine 9.5, carbon dioxide 24. ABG pH 7.41, PO2 119.4, pCO2 38, bicarbonate of 23.5. Continue to follow Cardiothoracic input recommendation, continue aspirin 81 mg p.o. daily, atorvastatin 40 mg p.o. daily, furosemide 20 mg IV q.12 hours. Follow a.m. labs. Continue hemodialysis per Nephrology recommendation. NEURO: Minimize central acting medications as possible. Fall Precautions. Well lighted room through the day and minimize interruptions through the night to prevent acute delirium. PULMONARY: Supplemental 02 as needed BiPAP as necessary, for respiratory distress Titrate Fio2 to keep Spo2 > or = 90% DuoNebs and CPT as needed IS hourly while awake for pulmonary hygiene prn Out of bed to chair as tolerated Maintain aspiration precautions at all times CARDIOVASCULAR: Follow hemodynamics. Vital signs per facility protocol GI & NUTRITION: Continue nutritional support Aspirations precautions Prokinetic agents and laxatives as needed KIDNEYS & ELECTROLYTES: Strict monitoring of intake and output Daily weights Avoid nephrotoxic agents Monitor electrolytes and replace as needed Goal urine output of 30mL/hr or 0.5mL/kg/hr Medications to be dosed according to renal function. Avoid contrast if possible ENDOCRINE: Maintain blood glucose between 100-180 at all times. Insulin sliding scale for blood glucose management Hypoglycemia and hyperglycemia protocol in place INFECTIOUS DISEASE: Trend temperature, WBC and procalcitonin level Follow cultures, deescalate antibiotics as soon as possible. Panculture if new onset fever HEMATOLOGY & COAGULATION: Monitor H&H. Keep Hgb > 7 Transfuse 1 unit of PRBC for Hgb < 7 Transfuse 1 pack of platelets of platelets < 20, 000 Watch for any signs and symptoms of bleeding SKIN: Pressure ulcer prevention per facility protocol Specialty mattress as needed ORTHO/REHAB Continue PT/OT PRN: MEDICATIONS Tylenol 650 mg po every 4 hrs for fever zofran 4 mg IV every 6 hrs for n/v Hydralazine 5 mg IV every 4 hrs systolic pressure > 160 bowel regiment: lactulose 20 gm PO BID PRN constipation Supportive measures: Continue GI and DVT prophylaxis Disposition: Pending improvement in clinical condition All questions answered time spent: > 35 min MICHAEL INTERIANO MD Aug 24, 2025 10:57
[2025-08-24] MEDS: ALBUMIN HUMAN 25% 100 ML IV.SOLN IV ONE (14:52)
--- NOTE | 2025-08-24 15:02 | HMCIMG ---
EXAM: CR CHEST, 1 VIEW CLINICAL HISTORY: chest x-ray dated 08/23/2025 COMPARISON: CABG TECHNIQUE: Single frontal radiograph of the chest was obtained. FINDINGS: Lines/Devices:Foster-Hiren catheter is seen with its tip at the right pulmonary artery. Lungs: Left lower lobar faint opacity, mostly congestion. No consolidation or ground-glass opacities are observed. There is no pleural effusion. There is no pneumothorax. Mediastinum and cardiovascular structures:The cardiac silhouette is not enlarged. The central airway and mediastinal contours are unremarkable.Bones and soft tissues: Evidence of sternotomy suture is present.Radiodense surgical prosthesis at the retrocardiac region, mostly representing dorsal spine internal fixation. IMPRESSION: 1. Left lower lobar faint opacity, mostly congestion 2. Evidence of sternotomy sutures. 3. Foster-Hiren catheter with tip at the right pulmonary artery 4. As compared to the previous chest x-ray dated 08/23/2025, the current study reveals no time interval changes as regards the Foster Hiren catheter with its tip at the right pulmonary artery.The previously noted nasogastric tube as well as the endotracheal tube are not visualized in today's study mostly removed.Left lower lobar faint opacity is noted again mostly representing congestion. /[place]
--- NOTE | 2025-08-24 18:44 | CONS ---
[facility] CONSULTATION NOTE Date Patient Seen: Aug 24, 2025 Time of Visit: 18:35 Supervising Physician: GILBERTO OSEGUERA MD Reason for Consultation: status post CABG Primary Care Physician: [ ] Outpatient Specialists: [ ] Inpatient Consults: [ ] PROBLEM LIST: Acute non STEMI Status post CABG ESRD on HD T2DM HTN Atherosclerosis Morbid obesity, BMI 36 Hyperlipidemia Acute on chronic diastolic heart failure HPI: Patient seen in the surgical ICU Status post CABG Has chest tube in place patient is on 2 liters O2 awake, alert and no acute distress denies chest pain denies cough denies congestion no fevers PAST MEDICAL HX: see above PAST SURGICAL HX: noncontributory SOCIAL HISTORY: No tobacco, ETOH, or illicit drug use Coded Allergies: No Known Allergies (Unverified Allergy, Unknown, 08/21/25) REVIEW OF SYSTEMS: 12 point ROS reviewed with patient. Pertinent positives mentioned above. Otherwise negative. PHYSICAL EXAM: GENERAL: alert, weak, awake oriented x 3 HEENT: EOMI, Sclera non icteric, moist mucosa NECK: Supple, no JVD, trachea midline LUNGS: Clear breath sounds bilaterally. No wheezes HEART: Regular rate and rhythm. Normal S1 and S2, without murmurs ABD: Abdomen soft, nontender. Bowel sounds present EXT: No clubbing cyanosis or edema NEURO: Alert and oriented to person, follows commands Vital Signs (last 8hr) Date Time Temp Pulse Resp B/P (MAP) Pulse Ox O2 Delivery O2 Flow Rate FiO2 08/24/25 18:00 89 19 140/44 (76) 98 08/24/25 17:45 87 19 130/41 (70) 100 95/55 (68) 08/24/25 17:30 81 15 121/37 (65) 100 08/24/25 17:15 87 15 133/42 (72) 100 120/55 (76) 08/24/25 17:00 81 14 98/56 (70) 100 08/24/25 16:50 97.7 78 16 111/43 100 Nasal Cannula 3.0 08/24/25 16:47 97.2 08/24/25 16:45 80 18 112/47 (68) 100 08/24/25 16:35 97.7 78 16 102/42 100 Nasal Cannula 3.0 08/24/25 16:30 79 16 106/45 100 Nasal Cannula 3.0 08/24/25 16:30 84 16 118/43 (68) 100 108/64 (79) 08/24/25 16:15 81 17 114/47 (69) 100 08/24/25 16:15 80 16 112/38 100 Nasal Cannula 3.0 08/24/25 16:00 78 16 115/48 100 Nasal Cannula 3.0 08/24/25 16:00 100 Nasal Cannula* 3 32 08/24/25 16:00 78 18 121/42 (68) 100 08/24/25 15:45 79 16 111/39 100 Nasal Cannula 3.0 08/24/25 15:45 80 18 112/42 (65) 100 94/54 (67) 08/24/25 15:30 77 16 125/40 100 Nasal Cannula 3.0 08/24/25 15:30 80 18 123/44 (70) 100 08/24/25 15:15 79 14 118/39 (65) 100 106/54 (71) 08/24/25 15:15 78 16 123/40 100 Nasal Cannula 3.0 08/24/25 15:00 76 16 118/38 100 Nasal Cannula 3.0 08/24/25 15:00 75 18 118/48 (71) 100 08/24/25 14:45 76 15 116/47 (70) 100 98/53 (68) 08/24/25 14:45 80 16 115/40 100 Nasal Cannula 3.0 08/24/25 14:30 78 16 132/42 100 Nasal Cannula 3.0 08/24/25 14:30 80 17 125/42 (69) 100 08/24/25 14:15 81 16 140/45 (76) 100 121/55 (77) 08/24/25 14:15 98.1 82 16 133/44 100 Nasal Cannula 3.0 08/24/25 14:00 77 18 140/43 (75) 100 08/24/25 13:45 84 19 140/46 (77) 100 122/64 (83) 08/24/25 13:30 85 18 143/50 (81) 100 08/24/25 13:30 98.1 84 16 137/51 100 Nasal Cannula 3.0 08/24/25 13:15 82 16 144/45 (78) 100 125/56 (79) 08/24/25 13:00 80 12 131/41 (71) 100 08/24/25 12:45 81 18 139/44 (75) 100 118/55 (76) 08/24/25 12:30 79 17 134/42 (72) 100 08/24/25 12:15 83 17 133/43 (73) 100 118/58 (78) 08/24/25 12:04 97.0 08/24/25 12:00 100 Nasal Cannula* 3 32 08/24/25 12:00 89 16 148/49 (82) 100 124/61 (82) 08/24/25 11:45 90 17 108/44 (65) 75 08/24/25 11:30 81 17 116/44 (68) 100 08/24/25 11:15 82 17 121/45 (70) 100 112/47 (68) 08/24/25 11:00 83 15 117/45 (69) 100 08/24/25 10:45 81 15 119/45 (69) 100 LABS: Hematology Labs: Test 08/24/25 05:02 Range/Units White Blood Count 13.1 H 4.8-10.8 K/uL Red Blood Count 2.23 L 4.50-6.20 MIL/uL Hemoglobin 7.2 L 14.0-18.0 g/dL Hematocrit 21.4 L 42-54 % Mean Corpuscular Volume 96.0 79-99 fL Mean Corpuscular Hemoglobin 32.3 27.0-33.0 pg Mean Corpuscular Hemoglobin Concent 33.6 32.0-36.0 g/dL Red Cell Distribution Width 15.3 11.0-15.5 % Platelet Count 151 130-400 K/uL Mean Platelet Volume 10.2 7.5-10.5 fL Nucleated Red Blood Cells 0.0 0.0-0.19 % Chemistry Labs: Test 08/24/25 17:08 08/24/25 05:02 08/23/25 05:34 Range/Units Whole Blood Glucose 96 70-110 MG/DL Sodium Level 140 136-145 mmol/L Potassium Level 6.0 *H 3.5-5.1 mmol/L Chloride Level 101 101-111 mmol/L Carbon Dioxide Level 24 21-32 mmol/L Blood Urea Nitrogen 60 H 7-18 mg/dL Creatinine 9.5 *H 0.5-1.3 mg/dL Glomerular Filtration Rate Calc 6 >90 mL/min Random Glucose 118 H 70-105 mg/dL Total Calcium 8.9 8.5-10.1 mg/dL Ionized Calcium 1.10 L 1.15-1.33 MMOL/L Phosphorus Level 7.0 H 2.5-4.9 mg/dL Magnesium Level 2.40 1.80-2.40 mg/dL Total Bilirubin 0.6 0.2-1.0 mg/dL Aspartate Amino Transf (AST/SGOT) 21 10-37 U/L Alanine Aminotransferase (ALT/SGPT) 22 12-78 U/L Alkaline Phosphatase 87 50-136 U/L Total Protein 7.6 6.0-8.3 g/dL Albumin 3.7 3.5-5.0 g/dL Triglycerides Level 84 30-200 mg/dL Cholesterol Level 111 <200 mg/dL LDL Cholesterol 46 0-99 mg/dL HDL Cholesterol 54 29-71 mg/dL Coagulation Labs: Test 08/24/25 05:02 Range/Units Prothrombin Time 11.6 9.6-11.6 SEC Prothromb Time International Ratio 1.11 0.85-1.15 Activated Partial Thromboplast Time 30.4 26.3-35.5 SEC DIAGNOSTICS / RADIOLOGY RESULTS: [ ] PLAN Incentive spirometry Chest x-ray Beta graeme Statin aspirin wound care follow cardiovascular recommendations NEURO: Minimize central acting medications as possible. Fall Precautions. Well lighted room through the day and minimize interruptions through the night to prevent acute delirium. PULMONARY: Supplemental 02 as needed Titrate Fio2 to keep Spo2 > or = 90% DuoNebs and CPT as needed IS hourly while awake for pulmonary hygiene Out of bed to chair as tolerated VAP Bundle Vent/BIPAP Settings: [ ] Driving pressure: [ ] P Plat: [ ] Static C: [ ] Static R: [ ] P/F Ratio: [ ] CARDIOVASCULAR: Follow hemodynamics. Titrate vasopressor to keep MAP >65 or systolic blood pressure >95mmHg DIPS: [ ] LINES: [ ] GI & NUTRITION: Continue nutritional support Aspirations precautions Prokinetic agents and laxatives as needed KIDNEYS & ELECTROLYTES: Strict monitoring of intake and output Daily weights Avoid nephrotoxic agents Monitor electrolytes and replace as needed Goal urine output of 30mL/hr or 0.5mL/kg/hr Urine output: [ ] Fluid Balance: [ ] ENDOCRINE: Maintain blood glucose between 100-180 at all times. Insulin sliding scale for blood glucose management INFECTIOUS DISEASE: Trend temperature. Mary-culture if febrile. Micro: [ ] Antibiotics: [ ] HEMATOLOGY & COAGULATION: Monitor H&H. Keep Hgb > 7 Transfuse 1 unit of PRBC for Hgb < 7 Transfuse 1 pack of platelets of platelets < 20, 000 Watch for any signs and symptoms of bleeding SKIN: Pressure ulcer prevention per facility protocol Rehab: PT/OT Prophylaxis: GI: [ ] DVT: [ ] Code Status: Full Resuscitation Disposition: [ ] Other: Total patient care time 35 minutes I personally scribed for GILBERTO OSEGUERA MD ([email or web address]) on 08/24/25 at 18:43. Electronically submitted by Keon Arshad ([email or web address]). GILBERTO OSEGUERA MD Aug 24, 2025 18:43
[2025-08-25] VITALS (138 sets, daily range): BP systolic 61–170; BP diastolic 29–74; PULSE 74–147; RESP 4–26; TEMP 98.3–99.1; O2SAT 98–100
[2025-08-25 04:36] LABS: NUCLEATED RED BLOOD CELLS 0.0 % (0.0-0.19); PLATELET COUNT (AUTO) 162.0 K/uL (130-400); RED BLOOD CELL COUNT(AUTO) 1.83 MIL/uL (4.50-6.20); RED CELL DISTRIBUTION WIDTH 15.3 % (11.0-15.5); WHITE BLOOD COUNT (AUTO) 13.0 K/uL (4.8-10.8)
[2025-08-25 05:04] LABS: ASPARTATE AMINOTRANSFERASE 57.0 U/L (10-37); GLOMERULAR FILTR. RATE CALC 6.0 mL/min (>90); GLUCOSE,RANDOM 124.0 mg/dL (70-105); SODIUM SERUM 140.0 mmol/L (136-145); TOTAL PROTEIN, SERUM 5.5 g/dL (6.0-8.3); UREA NITROGEN, BLOOD 46.0 mg/dL (7-18)
--- NOTE | 2025-08-25 05:14 | PN ---
NEPHROLOGY NOTE SUBJECTIVE: The patient has been evaluated, seen for dialysis, seen several times. PHYSICAL EXAMINATION: CHEST: Shows crackle. EXTREMITIES: With no edema. NEUROLOGIC: Unchanged. PROBLEMS: Renal failure. Anemia. Multiple other comorbidities. The patient has hyperkalemia. End-stage renal disease. Status post coronary artery bypass graft. PLAN: The patient has been evaluated and seen for dialysis and seen several times. We will be monitoring closely in ICU. The patient is status post CABG yesterday. Epogen as needed will be given. Continued monitoring of renal function, electrolytes and overall status. The patient was evaluated and seen several times for dialysis and condition remained guarded. TID: [id number] RECEIPT: [id number]
[2025-08-25 05:26] LABS: NUCLEATED RED BLOOD CELLS 0.0 % (0.0-0.19); PLATELET COUNT (AUTO) 153.0 K/uL (130-400); RED BLOOD CELL COUNT(AUTO) 1.79 MIL/uL (4.50-6.20); RED CELL DISTRIBUTION WIDTH 15.4 % (11.0-15.5); WHITE BLOOD COUNT (AUTO) 12.6 K/uL (4.8-10.8)
[2025-08-25 05:31] LABS: CREATININE 8.7 mg/dL (0.5-1.3)
--- NOTE | 2025-08-25 05:43 | PN ---
DATE OF SERVICE: 08/24/2025 SUBJECTIVE: The patient has been evaluated and seen for dialysis in. The patient is status post CABG and has developed hyperkalemia intermittently. The patient has mild fluid overload. No fevers, chills or rigors. They have discussed with the surgical team. No abdominal pain. No nausea or vomiting. No chest pain. No orthopnea or PND. No other associated findings. Other systemic review is unchanged. PHYSICAL EXAMINATION: GENERAL: The patient is in ICU, critically ill, status post CABG. VITAL SIGNS: Blood pressure is around 133/42, pulse 87, respiratory rate is 15. HEENT: Head is atraumatic, normocephalic. Pupils are round and reactive. Sclerae are anicteric. Conjunctivae not pale. Oral mucosa is not dry. NECK: Supple. No mass or bruits. Thyroid is palpable. Neck has no bruits. CHEST: Shows equal thoracic percussion, note being resonant in all areas. LABORATORY DATA: We have reviewed available labs in detail. Hemoglobin has been low. PROBLEMS: * Renal failure. * Anemia. * Status post CABG. * Hyperkalemia. PLAN: To continue monitoring, followup renal function, monitor electrolyte. Dialysis support to continue because of hyperkalemia. Potassium level and electrolytes will be monitored. I have discussed with other team members. The patient was evaluated and seen for dialysis multiple times. TID: [id number] RECEIPT: [id number]
[2025-08-25] MEDS: AMIOdarone 150MG/100ML BAG 100 ML IV ONE (07:33)
[2025-08-25] MEDS: AMIODARONE 360MG/200ML BAG 200 ML IV ONE (07:58)
--- NOTE | 2025-08-25 09:59 | PN ---
[facility] PROGRESS NOTE Date Patient Seen: Aug 25, 2025 Time of Visit: 09:55 Supervising Physician: [Dr. Norris ] Primary Care Physician: [ ] Outpatient Specialists: [ ] Inpatient Consults: [ ] PROBLEM LIST: Acute non STEMI Status post CABG X 3 with ligation of Atrial Appendage (08/23) ESRD on HD T2DM HTN Atherosclerosis Obesity, BMI 36 Hyperlipidemia Acute on chronic diastolic heart failure INTERVAL HISTORY: Patient seen an examined all labs reviewed. Patient sitting up in chair comfortably. Chest Tube (1) 54cc in 24 hours Chest Tube (2) 270cc in 24 hours Patient continues on Levo and Epi. Hemoglobin drop to 5.8 PLAN: Patient currently being transfused. We will follow Hemoglobin closely. Monitor CT output. Encourage IS Chest x-ray in am Continue Beta graeme, Statin Follow CVT recommendations Minimize central acting medications as possible. Fall Precautions. Total critical care time spent 45 minutes, this excludes any procedures performed or any time spent in educational or teaching. REVIEW OF SYSTEMS: 12 point ROS reviewed with patient. Pertinent positives mentioned above. Otherwise negative. PHYSICAL EXAM: GENERAL: alert, weak, awake oriented x 3 HEENT: EOMI, Sclera non icteric, moist mucosa NECK: Supple, no JVD, trachea midline LUNGS: Clear breath sounds bilaterally. No wheezes CT X2 in place HEART: Regular rate and rhythm. Normal S1 and S2, without murmurs. sternotomy noted intact. ABD: Abdomen soft, nontender. Bowel sounds present EXT: No clubbing cyanosis or edema NEURO: Alert and oriented to person, follows commands Vital Signs (last 8hr) Date Time Temp Pulse Resp B/P (MAP) Pulse Ox O2 Delivery O2 Flow Rate FiO2 08/25/25 06:45 143 19 112/41 (64) 100 109/51 (70) 08/25/25 06:30 139 22 96/45 (62) 99 08/25/25 06:15 146 13 128/44 (72) 97 111/64 (80) 08/25/25 06:00 112 17 125/44 (71) 98 28 08/25/25 05:45 95 19 133/43 (73) 96 114/57 (76) 08/25/25 05:30 94 18 147/44 (78) 98 08/25/25 05:15 94 18 140/43 (75) 98 121/60 (80) 08/25/25 05:00 97 19 138/44 (75) 99 28 08/25/25 04:45 92 18 121/37 (65) 98 129/57 (81) 08/25/25 04:30 92 18 141/42 (75) 98 08/25/25 04:15 95 22 146/45 (78) 99 125/62 (83) 08/25/25 04:00 98.4 Nasal Cannula 3.0 32 08/25/25 04:00 98 Nasal Cannula* 2 28 08/25/25 04:00 98.4 92 20 143/45 (77) 99 28 08/25/25 03:45 93 22 151/45 (80) 98 122/60 (80) 08/25/25 03:30 93 22 141/44 (76) 98 08/25/25 03:15 90 16 137/40 (72) 99 121/59 (79) 08/25/25 03:00 90 18 130/39 (69) 98 28 08/25/25 02:45 92 13 133/45 (74) 99 121/58 (79) 08/25/25 02:38 90 19 N/Cannula Low lpm 2.0 28 08/25/25 02:30 90 17 131/38 (69) 98 08/25/25 02:15 92 18 132/39 (70) 99 120/57 (78) 08/25/25 02:00 92 16 128/37 (67) 99 28 LABS: Hematology Labs: Test 08/25/25 05:15 Range/Units White Blood Count 12.6 H 4.8-10.8 K/uL Red Blood Count 1.79 L 4.50-6.20 MIL/uL Hemoglobin 5.8 *L 14.0-18.0 g/dL Hematocrit 17.6 *L 42-54 % Mean Corpuscular Volume 98.3 79-99 fL Mean Corpuscular Hemoglobin 32.4 27.0-33.0 pg Mean Corpuscular Hemoglobin Concent 33.0 32.0-36.0 g/dL Red Cell Distribution Width 15.4 11.0-15.5 % Platelet Count 153 130-400 K/uL Mean Platelet Volume 10.1 7.5-10.5 fL Nucleated Red Blood Cells 0.0 0.0-0.19 % Chemistry Labs: Test 08/25/25 09:02 08/25/25 04:29 08/24/25 05:02 Range/Units Whole Blood Glucose 133 H 70-110 MG/DL Sodium Level 140 136-145 mmol/L Potassium Level 4.7 3.5-5.1 mmol/L Chloride Level 99 L 101-111 mmol/L Carbon Dioxide Level 29 21-32 mmol/L Blood Urea Nitrogen 46 H 7-18 mg/dL Creatinine 8.7 *H 0.5-1.3 mg/dL Glomerular Filtration Rate Calc 6 >90 mL/min Random Glucose 124 H 70-105 mg/dL Total Calcium 8.4 L 8.5-10.1 mg/dL Magnesium Level 2.10 1.80-2.40 mg/dL Total Bilirubin 0.5 0.2-1.0 mg/dL Aspartate Amino Transf (AST/SGOT) 57 H 10-37 U/L Alanine Aminotransferase (ALT/SGPT) 16 12-78 U/L Alkaline Phosphatase 55 50-136 U/L Total Protein 5.5 L 6.0-8.3 g/dL Albumin 2.8 L 3.5-5.0 g/dL Ionized Calcium 1.10 L 1.15-1.33 MMOL/L Phosphorus Level 7.0 H 2.5-4.9 mg/dL Coagulation Labs: Test 08/24/25 05:02 Range/Units Prothrombin Time 11.6 9.6-11.6 SEC Prothromb Time International Ratio 1.11 0.85-1.15 Activated Partial Thromboplast Time 30.4 26.3-35.5 SEC DIAGNOSTICS / RADIOLOGY RESULTS: [ ] PLAN Incentive spirometry Chest x-ray Beta graeme Statin aspirin wound care follow cardiovascular recommendations NEURO: Minimize central acting medications as possible. Fall Precautions. Well lighted room through the day and minimize interruptions through the night to prevent acute delirium. PULMONARY: Supplemental 02 as needed Titrate Fio2 to keep Spo2 > or = 90% DuoNebs and CPT as needed IS hourly while awake for pulmonary hygiene Out of bed to chair as tolerated VAP Bundle Vent/BIPAP Settings: [ ] Driving pressure: [ ] P Plat: [ ] Static C: [ ] Static R: [ ] P/F Ratio: [ ] CARDIOVASCULAR: Follow hemodynamics. Titrate vasopressor to keep MAP >65 or systolic blood pressure >95mmHg DIPS: [ ] LINES: [ ] GI & NUTRITION: Continue nutritional support Aspirations precautions Prokinetic agents and laxatives as needed KIDNEYS & ELECTROLYTES: Strict monitoring of intake and output Daily weights Avoid nephrotoxic agents Monitor electrolytes and replace as needed Goal urine output of 30mL/hr or 0.5mL/kg/hr Urine output: [ ] Fluid Balance: [ ] ENDOCRINE: Maintain blood glucose between 100-180 at all times. Insulin sliding scale for blood glucose management INFECTIOUS DISEASE: Trend temperature. Mary-culture if febrile. Micro: [ ] Antibiotics: [ ] HEMATOLOGY & COAGULATION: Monitor H&H. Keep Hgb > 7 Transfuse 1 unit of PRBC for Hgb < 7 Transfuse 1 pack of platelets of platelets < 20, 000 Watch for any signs and symptoms of bleeding SKIN: Pressure ulcer prevention per facility protocol Rehab: PT/OT Prophylaxis: GI: [ ] DVT: [ ] Code Status: Full Resuscitation Disposition: [ ] [facility] Aug 25, 2025 09:59
--- NOTE | 2025-08-25 11:30 | NUR ---
Patient on hold as he is receiving blood with low HgB. PT team to follow.
--- NOTE | 2025-08-25 13:03 | PN ---
[facility] PROGRESS NOTE Date of Service: Aug 25, 2025 Time of Service: 12:59 SUBJECTIVE: 08/22 patient remains admitted to the PCU, comfortably in bed, alert and oriented x3, on heparin drip. Denies chest pain, shortness shortness for breath, no nausea, no vomiting, no abdominal discomfort. He remains hemodynamically stable, afebrile, saturating normal on room air. Mild drop in hemoglobin to 9.8 with a hematocrit 29.6, no signs of GI bleed. Patient evaluated by Cardiothoracic surgeon, pending further recommendations in terms of CABG. Follow CBC in a.m. and transfuse as needed. Discussed with the patient, in agreement, all questions answered. 08/23 patient remains admitted to the PCU, comfortably in bed, alert and oriented x3, denies chest pain, shortness shortness for breath, no nausea, no vomiting, no abdominal discomfort. He remains hemodynamically stable, afebrile, saturating normal on room air. Patient evaluated by Cardiothoracic surgeon, case discussed, plan for CABG today. 08/24 patient remains admitted to the ICU, status post CABG, 08/23/2025, postoperative day 1. Patient is successfully extubated, Awake, following comman ds, on insulin and epinephrine drip, chest tube in place. BP 118/47, afebrile, WBC 13.1, hemoglobin 7.2, hematocrit 21.4, platelet count of 151, sodium 140, potassium 6.0, BUN of 60, creatinine 9.5, carbon dioxide 24. ABG pH 7.41, PO2 119.4, pCO2 38, bicarbonate of 23.5. Continue to follow Cardiothoracic input recommendation, continue aspirin 81 mg p.o. daily, atorvastatin 40 mg p.o. daily, furosemide 20 mg IV q.12 hours. Follow a.m. labs.Continue hemodialysis per Nephrology recommendation. 08/25 patient remains admitted to the ICU, awake, following commands, getting 1 unit of PRBC during my visit, BP 143/48, heart rate of 125, saturating 99% 2 L nasal cannula. CBC shows hemoglobin 5.8, hematocrit 70.6, WBC of 12.6, platelet count of 153. CMP with sodium 140, potassium 4.7, BUN 46, creatinine 8.7. Chest x-ray 08/24/2025 showing left lower lobe opacity, mostly congestion, shanthi dence of sternotomy sutures, [place]-Hiren catheter with tip by right pulmonary artery, as compared to prior x-ray, currently study reveals no interval change as regards to psoas CAD catheter. Chest x-ray today pending. Continue to follow CT surgery input recommendation critical care input recommendation. Follow CBC post transfusion. REVIEW OF SYSTEMS CONSTITUTIONAL: Denies fevers, chills, or night sweats. No unintentional weight loss reported. NEUROLOGICAL: Denies headache, amaurosis fugax, motor weakness, sensory deficit, vertigo/spinning sensation, gait abnormalities, or tremors. ENT: No hearing loss, otalgia, otorrhea, rhinitis, rhinorrhea, hoarseness, or sore throat. CARDIOVASCULAR: Denies any exertional angina, dyspnea on exertion, orthopnea, paroxysmal nocturnal dyspnea, palpitations, life-threatening arrhythmias, claudication. PULMONARY: Denies any shortness of breath, cough, phlegm/sputum, hemoptysis, pleuritic chest pain. SLEEP: Denies morning headaches, daytime somnolence or napping. Denies difficulty falling asleep, staying asleep, waking from sleep. Denies knowledge of snoring. GASTROINTESTINAL: Denies any type of dysphagia to either liquids or solids. Denies nausea, vomiting, pyrosis, early satiety, abdominal pain, diarrhea, constipation, or changes in stool consistency or caliber. Denies coffee-ground emesis, hematemesis, hematochezia, or melanotic stools. GENITOURINARY: Denies frequency, urgency, nocturia, hematuria or incontinence (Storage/Irritative symptoms.) Low urinary stream, straining to void, urinary intermittency or hesitancy, splitting of the voiding stream, terminal dribbling. ENDOCRINOLOGIC: Denies polyuria, polydipsia, polyphagia or heat/cold intolerances. HEMATOLOGIC: Denies thrombophilia/previous clots, or coagulopathy/bleeding disorders. ONCOLOGIC: Denies personal history of malignancy. DERMATOLOGIC: Denies rashes or pruritus. PSYCHIATRIC: Denies any suicidal or homicidal ideation. Denies hallucinations. PHYSICAL EXAM GENERAL APPEARANCE: The patient is awake, alert, and oriented, in no acute cardiopulmonary distress. NEUROLOGICAL: Cranial nerves II-XII grossly intact. Motor is 5/5 in bilateral upper and lower extremities proximal to distal. No sensory deficits. HEENT: Face is symmetric. Pupils are equal and reactive. Extraocular movements are intact. NECK: Supple. No JVD. No thyromegaly. No submental, submandibular, pre- /postauricular, occipital or supraclavicular lymphadenopathy. CHEST: Normal chest expansion. No Telemetry. LUNGS: Absence of any rales, rhonchi or any wheezing. CARDIOVASCULAR: Regular. S1 and S2 normal. No appreciable rubs, murmurs or gallops. ABDOMEN: Soft, nontender, and nondistended. There is no rebound, voluntary guarding, or rigidity. : Deferred. No Soliz. EXTREMITIES: Non-edematous and not cyanotic. No clubbing. Good capillary refill. SKIN: No skin breakdown. Vital Signs (last 8hr) Date Time Temp Pulse Resp B/P (MAP) Pulse Ox O2 Delivery O2 Flow Rate FiO2 08/25/25 11:00 98.2 Nasal Cannula 2.0 08/25/25 10:45 125 19 143/48 (79) 99 28 08/25/25 10:30 111 18 147/49 (81) 98 28 08/25/25 10:22 127 23 139/45 (76) 97 28 132/64 (86) 08/25/25 10:15 122 26 133/47 (75) 97 28 08/25/25 10:07 115 19 152/47 (82) 100 28 142/73 (96) 08/25/25 10:00 117 18 153/49 (83) 99 28 08/25/25 09:52 125 24 132/45 (74) 99 28 119/72 (88) 08/25/25 09:45 127 18 154/48 (83) 100 28 08/25/25 09:37 117 17 143/47 (79) 100 28 144/65 (91) 08/25/25 09:30 125 18 152/46 (81) 100 28 08/25/25 09:22 119 24 150/47 (81) 100 28 133/68 (89) 08/25/25 09:15 118 17 153/47 (82) 100 28 08/25/25 09:00 121 16 143/42 (75) 100 28 08/25/25 08:52 127 18 138/44 (75) 100 28 119/71 (87) 08/25/25 08:45 115 18 145/41 (75) 100 28 08/25/25 08:38 138 25 116/50 (72) 73 28 117/60 (79) 08/25/25 08:30 118 17 145/43 (77) 100 28 08/25/25 08:22 120 17 137/41 (73) 100 28 127/63 (84) 08/25/25 08:15 127 20 139/40 (73) 100 28 08/25/25 08:07 122 20 136/40 (72) 100 28 118/62 (80) 08/25/25 08:00 98.4 Nasal Cannula 2.0 08/25/25 08:00 120 22 131/39 (69) 100 28 08/25/25 07:52 122 22 118/39 (65) 100 28 113/58 (76) 08/25/25 07:45 116 17 114/34 (60) 100 28 08/25/25 07:37 123 18 102/37 (58) 100 28 115/53 (73) 08/25/25 07:30 136 23 170/49 (89) 100 28 08/25/25 07:27 124 16 126/43 (70) 100 28 119/52 (74) 08/25/25 07:22 133 17 61/29 (40) 100 28 83/45 (58) 08/25/25 07:15 138 14 96/33 (54) 100 28 08/25/25 07:07 142 15 103/34 (57) 99 28 106/55 (72) 08/25/25 07:02 147 15 140/45 (76) 100 28 120/65 (83) 08/25/25 07:00 131 19 140/47 (78) 99 28 95/65 (75) 08/25/25 06:45 143 19 112/41 (64) 100 109/51 (70) 08/25/25 06:30 139 22 96/45 (62) 99 08/25/25 06:15 146 13 128/44 (72) 97 111/64 (80) 08/25/25 06:00 112 17 125/44 (71) 98 28 08/25/25 05:45 95 19 133/43 (73) 96 114/57 (76) 08/25/25 05:30 94 18 147/44 (78) 98 08/25/25 05:15 94 18 140/43 (75) 98 121/60 (80) 08/25/25 05:00 97 19 138/44 (75) 99 28 LABS: Laboratory: Test 08/25/25 11:33 08/25/25 05:15 08/25/25 04:29 08/24/25 07:51 Range/Units Whole Blood Glucose 135 H 70-110 MG/DL White Blood Count 12.6 H 4.8-10.8 K/uL Red Blood Count 1.79 L 4.50-6.20 MIL/uL Hemoglobin 5.8 *L 14.0-18.0 g/dL Hematocrit 17.6 *L 42-54 % Mean Corpuscular Volume 98.3 79-99 fL Mean Corpuscular Hemoglobin 32.4 27.0-33.0 pg Mean Corpuscular Hemoglobin Concent 33.0 32.0-36.0 g/dL Red Cell Distribution Width 15.4 11.0-15.5 % Platelet Count 153 130-400 K/uL Mean Platelet Volume 10.1 7.5-10.5 fL Nucleated Red Blood Cells 0.0 0.0-0.19 % Sodium Level 140 136-145 mmol/L Potassium Level 4.7 3.5-5.1 mmol/L Chloride Level 99 L 101-111 mmol/L Carbon Dioxide Level 29 21-32 mmol/L Blood Urea Nitrogen 46 H 7-18 mg/dL Creatinine 8.7 *H 0.5-1.3 mg/dL Glomerular Filtration Rate Calc 6 >90 mL/min Random Glucose 124 H 70-105 mg/dL Total Calcium 8.4 L 8.5-10.1 mg/dL Magnesium Level 2.10 1.80-2.40 mg/dL Total Bilirubin 0.5 0.2-1.0 mg/dL Aspartate Amino Transf (AST/SGOT) 57 H 10-37 U/L Alanine Aminotransferase (ALT/SGPT) 16 12-78 U/L Alkaline Phosphatase 55 50-136 U/L Total Protein 5.5 L 6.0-8.3 g/dL Albumin 2.8 L 3.5-5.0 g/dL Blood Gas Specimen Type Arterial Arterial Blood pH 7.414 7.350-7.450 Arterial Blood Partial Pressure CO2 38 35-48 mmHg Arterial Blood Partial Pressure O2 119.4 H 83.0-108.0 mmHg Arterial Blood HCO3 23.5 21.0-28.0 mmol/L Arterial Blood Oxygen Saturation 97.8 94.0-98.0 % Arterial Blood Base Excess -0.9 -2.0-3.0 mmol/L Hemoglobin (Blood Gas) 7.5 L 13.5-17.5 g/dL Sodium (Blood Gas) 137 136-145 MMOL/L Bedside Potassium (Blood Gas) 5.0 H 3.4-4.5 MMOL/L Bedside Chloride (Blood Gas) 101 98-107 MMOL/L Bedside Glucose (Blood Gas) 114 H 65-95 MG/DL Bedside Ionized Calcium (Blood Gas) 1.15 1.15-1.33 MMOL/L Bedside Lactic Acid (Blood Gas) 2.49 H 0.36-0.75 MMOL/L Blood Gas Temperature 37.0 35.5-37.0 CELSIUS Blood Gas Flow-by 4.00 0.00-15.00 L/min Blood Gas Vent Mode NC ROOM AIR FiO2 36.0 % Blood Gas Specimen Comment RN MOJGAN Test 08/24/25 05:02 08/23/25 20:31 Range/Units Prothrombin Time 11.6 9.6-11.6 SEC Prothromb Time International Ratio 1.11 0.85-1.15 Activated Partial Thromboplast Time 30.4 26.3-35.5 SEC Ionized Calcium 1.10 L 1.15-1.33 MMOL/L Phosphorus Level 7.0 H 2.5-4.9 mg/dL Blood Gas Respiration Rate 4.0 min. Blood Gas Tidal Volume 700 ml Blood Gas PEEP 5 cm H2O Current Medications Medications (Trade) Dose Ordered Sig/Flavio Route PRN Reason Start Time Stop Time Status Last Admin Dose Admin Acetaminophen (TYLenol 325MG TAB) 650 mg Q4H PRN PO Temp >38.3C(AFTER EXTUBATION) 08/23/25 09:30 09/22/25 09:29 Acetaminophen (TYLenol 325MG TAB) 650 mg Q4HPRN PRN PO FEVER 08/21/25 01:00 08/23/25 09:31 DC 08/23/25 00:01 650 MG Acetaminophen (TYLenol 325MG TAB) 650 mg Q6H PRN PO MILD PAIN (1-3) 08/23/25 09:30 09/22/25 09:29 Acetaminophen (TYLenol 650MG SUPPOSITORY) 650 mg Q4H PRN RC Temp >38.3C WHILE INTUBATED 08/23/25 09:30 09/22/25 09:29 Acetaminophen (acetaMINOPHEN 1,000MG/100ML) 1,000 mg ONCE IV 08/23/25 21:00 08/23/25 23:00 DC 08/23/25 20:54 1,000 MG Acetaminophen (acetaMINOPHEN 1,000MG/100ML) 1,000 mg Q6H6 IV 08/23/25 12:00 08/23/25 18:39 DC 08/23/25 14:24 1,000 MG Acetaminophen (acetaMINOPHEN 1,000MG/100ML) 1,000 mg Q6H6 IV 08/24/25 06:00 09/23/25 05:59 08/25/25 12:43 1,000 MG Acetaminophen/ Hydrocodone Bitart (NORco 5/325MG) 1 tab Q6H PRN PO PAIN 5-10 08/21/25 01:00 08/23/25 09:17 DC 08/22/25 20:29 1 TAB Albumin Human 250 ml @ 0 mls/hr AD PRN IV IF HEMODYNAMICALLY UNSTABLE 08/23/25 09:30 08/23/25 15:43 DC 08/23/25 15:43 2,520 MLS/HR Aminocaproic Acid 82075 mg/Sodium Chloride 310 ml @ 25 mls/hr AD IV 08/23/25 09:30 08/23/25 09:34 DC Aminocaproic Acid 34274 mg/Sodium Chloride 480 ml @ 0 mls/hr AD PRN IV BLEEDING CONTROL 08/23/25 09:00 09/22/25 08:59 Amiodarone HCl 150 mg/Dextrose 103 ml @ 618 mls/hr ONCE IV 08/25/25 07:30 08/25/25 07:20 DC Amiodarone HCl 360 mg/Dextrose 207.2 ml @ 33.3 mls/hr AD IV 08/25/25 07:30 08/25/25 07:20 DC Amiodarone HCl 540 mg/Dextrose 310.8 ml @ 16.7 mls/hr [id number] STAT IV 08/25/25 07:18 08/26/25 01:54 Aspirin (Aspirin 81mg Chew Tab) 81 mg DAILY PO 08/21/25 09:00 08/23/25 14:27 DC 08/22/25 09:19 81 MG Aspirin (Aspirin 81mg Chew Tab) 81 mg HS PO 08/23/25 21:00 09/22/25 20:59 08/24/25 19:40 81 MG Atorvastatin Calcium (LIPItor 40MG) 40 mg HS PO 08/21/25 21:00 09/20/25 20:59 08/24/25 19:40 40 MG Calcium Gluconate 1 gm/Sodium Chloride 60 ml @ 200 mls/hr AD PRN IV HYPOCALCEMIA 08/23/25 09:30 09/22/25 09:29 08/24/25 08:08 200 MLS/HR Carvedilol (Coreg 3.125MG) 3.125 mg BID PO 08/21/25 09:00 08/23/25 09:17 DC 08/23/25 08:10 3.125 MG Cefazolin Sodium (ANCEF 1 gm vial) 2 gm ONCALL IVP 08/22/25 15:30 08/23/25 09:04 DC Cefazolin Sodium (Ancef) 2 gm ONCALL IVP 08/23/25 09:30 08/24/25 09:16 DC Cefazolin Sodium (Ancef) 2 gm Q8H IVPB 08/23/25 14:30 08/23/25 14:37 DC Cefazolin Sodium (Ancef) 2 gm Q8H IVPB 08/23/25 18:00 08/24/25 10:01 DC 08/24/25 09:13 2 GM Cyclobenzaprine HCl (Cyclobenzaprine HCl) 10 mg TID PO 08/21/25 09:00 08/23/25 09:17 DC 08/22/25 21:39 10 MG Dexmedetomidine/ Sodium Chloride (PRECEdex 400MCG/ 100ML-NS) 400 mcg PROTOCOL IV 08/23/25 09:30 08/24/25 09:29 DC Dextrose (D50w) 50 ml AD PRN IV HYPOGLYCEMIA PROTOCOL 08/23/25 09:30 09/22/25 09:29 08/24/25 05:59 50 ML Docusate Sodium (COLace 100MG CAP) 100 mg BID PO 08/23/25 21:00 09/22/25 20:59 08/25/25 10:40 100 MG Enoxaparin Sodium (Lovenox) 30 mg DAILY SQ 08/26/25 09:00 09/25/25 08:59 Epinephrine HCl 10 mg/Sodium Chloride 250 ml @ 0 mls/hr AD PRN IV TITRATE 08/23/25 09:00 09/22/25 08:59 08/25/25 05:09 11.8 MLS/HR Epinephrine HCl 10 mg/Sodium Chloride 250 ml @ 0 mls/hr AD PRN IV POST-OP CARDIOVASCULAR ORDERS 08/23/25 09:30 08/23/25 09:33 DC Famotidine (Pepcid 20mg Vial) 20 mg Q48H IV 08/23/25 21:00 09/22/25 20:59 08/23/25 20:02 20 MG Furosemide (LASix 100MG VIAL) 80 mg BID IV 08/21/25 09:00 08/21/25 18:47 DC Furosemide (LASix 20MG TAB) 20 mg Q12H PO 08/25/25 09:30 09/24/25 09:29 08/25/25 10:40 20 MG Furosemide (LASix 20MG VIAL) 20 mg Q12H IV 08/24/25 09:30 08/25/25 09:29 DC 08/24/25 19:41 20 MG Glucagon (Glucagon 1mg Kit) 1 mg AD PRN IM HYPOGLYCEMIA PROTOCOL 08/23/25 09:30 09/22/25 09:29 Heparin Sodium/ Dextrose 250 ml @ 0 mls/hr Q6H IV 08/21/25 02:00 08/23/25 09:17 DC 08/21/25 23:18 10.04 MLS/HR Heparin Sodium/ Dextrose (HEParin 25,000 UNITS/250ML D5W) 25,000 units AD IV 08/21/25 01:00 08/21/25 01:07 DC Hydralazine HCl (APRESOLine 20MG INJ) 10 mg ONCE PRN IV IF SBP GREATER THAN 180 08/21/25 01:30 08/23/25 09:17 DC Hydralazine HCl (APRESOLine 20MG INJ) 10 mg Q6H PRN IV For:SBP above 160;DBP above 90 08/21/25 01:30 08/23/25 09:17 DC Hydromorphone HCl (DiLAUDid 0.5MG INJ) 0.25 mg Q4H PRN IVP SEVERE PAIN (7-10) 08/21/25 01:30 08/23/25 09:17 DC 08/23/25 07:13 0.25 MG Insulin Human Regular 100 unit/ Sodium Chloride 100 ml @ 0 mls/hr AD IV 08/23/25 09:30 08/25/25 09:29 DC 08/23/25 14:27 1.5 MLS/HR Lactulose (Constulose 20gm/ 30ml Udcup) 20 gm BID PRN PO CONSTIPATION 08/23/25 09:30 09/22/25 09:29 Lidocaine (Lidoderm Patch 5%) 1 patch DAILY TP 08/21/25 09:00 09/20/25 08:59 08/22/25 09:18 1 PATCH Magnesium Hydroxide (Milk Of Magnesium 30ml) 30 ml DAILY PRN PO CONSTIPATION 08/23/25 09:30 09/22/25 09:29 Magnesium Sulfate 50 ml @ 12.5 mls/hr AD PRN IV MAG LEVEL LESS THAN 2.0 08/23/25 09:30 09/22/25 09:29 08/23/25 14:27 12.5 MLS/HR Metoprolol Tartrate (loprESSOR) 12.5 mg BID PO 08/25/25 09:00 09/24/25 08:59 Morphine Sulfate (morPHINE 4MG SYG) 0.5 mg Q2H PRN IV MODERATE PAIN (4-6) 08/23/25 10:00 08/30/25 09:59 Morphine Sulfate (morPHINE 4MG SYG) 1 mg Q2H PRN IV SEVERE PAIN (7-10) 08/23/25 09:30 08/24/25 09:29 DC Nifedipine (adALAT 30MG) 60 mg DAILY PO 08/21/25 09:00 08/23/25 09:17 DC 08/22/25 09:19 60 MG Nitroglycerin/ Dextrose 0 ml @ 0 mls/hr AD IV 08/23/25 09:30 08/26/25 09:29 Norepinephrine Bitartrate 250 ml @ 0 mls/hr AD PRN IV TITRATE 08/23/25 09:00 09/22/25 08:59 08/24/25 07:24 2.9 MLS/HR Norepinephrine Bitartrate 8 mg/ Dextrose 250 ml @ 0 mls/hr AD PRN IV POST-OP CARDIOVASCULAR ORDERS 08/23/25 09:30 08/23/25 09:33 DC Ondansetron HCl (zoFRAN 4MG INJ) 4 mg Q6H PRN IV NAUSEA/VOMITING 08/21/25 01:30 08/23/25 09:17 DC Ondansetron HCl (zoFRAN 4MG INJ) 4 mg Q6H PRN IV NAUSEA/VOMITING 08/23/25 09:30 09/22/25 09:29 08/24/25 19:49 4 MG Ondansetron HCl (zoFRAN 4MG INJ) 4 mg TID PRN IV NAUSEA/VOMITING 08/21/25 01:00 08/21/25 01:14 DC Pantoprazole Sodium (PROTonix 40MG INJ) 40 mg DAILY IVP 08/21/25 09:00 08/23/25 09:17 DC 08/23/25 08:10 40 MG Potassium Phosphate 250 ml @ 42 mls/hr AD PRN IV LOW PHOS LEVEL 08/23/25 09:30 09/22/25 09:29 Potassium Chloride 100 ml @ 100 mls/hr AD PRN IV HYPOKALEMIA 08/23/25 09:30 09/22/25 09:29 Propofol 100 ml @ 0 mls/hr AD PRN IV SEDATION 08/23/25 09:30 08/27/25 09:29 Sevelamer HCl (RENAgel 800 MG TAB) 3,200 mg TIDMEALS PO 08/21/25 08:00 09/20/25 07:59 08/25/25 10:40 3,200 MG Sodium Bicarbonate (Sodium Bicarb 50meq 50ml Vial) 50 meq AD PRN IV OTHER[SEE DOSING INSTRUCTIONS] 08/23/25 09:30 08/26/25 09:29 08/23/25 16:21 50 MEQ Sodium Chloride 500 ml @ 0 mls/hr AD IV 08/23/25 09:30 09/22/25 09:29 08/23/25 19:39 3 MLS/HR Sodium Chloride 1,000 ml @ 0 mls/hr ONCE IV 08/22/25 17:30 08/22/25 21:30 DC 08/22/25 17:40 1,000 MLS/HR Sodium Chloride 1,000 ml @ 10 mls/hr ONCE IV 08/23/25 09:30 08/24/25 09:29 DC 08/23/25 14:25 10 MLS/HR Sodium Chloride (NS Flush 10ml) 10 ml Q8H PRN IVP IV LINE FLUSH 08/23/25 09:30 09/22/25 09:29 Tramadol HCl (UltRAM) 25 mg Q6H PRN PO MODERATE PAIN (4-6) 08/23/25 09:30 08/28/25 09:29 08/24/25 08:09 25 MG Tramadol HCl (UltRAM) 50 mg Q6H PRN PO SEVERE PAIN (7-10) 08/23/25 09:30 08/28/25 09:29 08/25/25 10:46 50 MG DIAGNOSTICS / RADIOLOGY: [ ] ASSESSMENT: Severe multivessel disease, POA NSTEMI, POA status post CABG x3 with the AtriClip 08/23/2025. ESRD on HD Hyperlipidemia Hypertension CHF with LVEF 50-55% by 2D echo, diastolic dysfunction on 08/20/2025 PLAN: patient remains admitted to the ICU, awake, following commands, getting 1 unit of PRBC during my visit, BP 143/48, heart rate of 125, saturating 99% 2 L nasal cannula. CBC shows hemoglobin 5.8, hematocrit 70.6, WBC of 12.6, platelet count of 153. CMP with sodium 140, potassium 4.7, BUN 46, creatinine 8.7. Chest x- ray 08/24/2025 showing left lower lobe opacity, mostly congestion, evidence of sternotomy sutures, [place]Hiren catheter with tip by right pulmonary artery, as compared to prior x-ray, currently study reveals no interval change as regards to psoas CAD catheter. Chest x-ray today pending. Continue to follow CT surgery input recommendation critical care input recommendation. Follow CBC po st transfusion. NEURO: Minimize central acting medications as possible. Fall Precautions. Well lighted room through the day and minimize interruptions through the night to prevent acute delirium. PULMONARY: Supplemental 02 as needed BiPAP as necessary, for respiratory distress Titrate Fio2 to keep Spo2 > or = 90% DuoNebs and CPT as needed IS hourly while awake for pulmonary hygiene prn Out of bed to chair as tolerated Maintain aspiration precautions at all times CARDIOVASCULAR: Follow hemodynamics. Vital signs per facility protocol GI & NUTRITION: Continue nutritional support Aspirations precautions Prokinetic agents and laxatives as needed KIDNEYS & ELECTROLYTES: Strict monitoring of intake and output Daily weights Avoid nephrotoxic agents Monitor electrolytes and replace as needed Goal urine output of 30mL/hr or 0.5mL/kg/hr Medications to be dosed according to renal function. Avoid contrast if possible ENDOCRINE: Maintain blood glucose between 100-180 at all times. Insulin sliding scale for blood glucose management Hypoglycemia and hyperglycemia protocol in place INFECTIOUS DISEASE: Trend temperature, WBC and procalcitonin level Follow cultures, deescalate antibiotics as soon as possible. Panculture if new onset fever HEMATOLOGY & COAGULATION: Monitor H&H. Keep Hgb > 7 Transfuse 1 unit of PRBC for Hgb < 7 Transfuse 1 pack of platelets of platelets < 20, 000 Watch for any signs and symptoms of bleeding SKIN: Pressure ulcer prevention per facility protocol Specialty mattress as needed ORTHO/REHAB Continue PT/OT PRN: MEDICATIONS Tylenol 650 mg po every 4 hrs for fever zofran 4 mg IV every 6 hrs for n/v Hydralazine 5 mg IV every 4 hrs systolic pressure > 160 bowel regiment: lactulose 20 gm PO BID PRN constipation Supportive measures: Continue GI and DVT prophylaxis Disposition: Pending improvement in clinical condition All questions answered time spent: > 35 min MICHAEL INTERIANO MD Aug 25, 2025 13:03
--- NOTE | 2025-08-25 14:37 | HMCIMG ---
EXAM: CR Chest, 1 View. CLINICAL HISTORY: s/p CABG COMPARISON: 08/24/2025 FINDINGS: The [place]-Hiren catheter tip is in the right pulmonary artery. LUNGS: Persistent left lower lobar opacities, mostly due to congestion. PLEURAL SPACES: No pneumothorax. Questionable bilateral small pleural effusion. MEDIASTINUM: Cardiac size is stable. Status post CABG changes. BONES: No aggressive appearing osseous lesion seen. IMPRESSION: 1. Persistent left lower lobar opacities, likely due to congestion. 2. Questionable bilateral small pleural effusion. 3. [place]Hiren catheter tip in the right pulmonary artery. /[facility]
--- NOTE | 2025-08-25 15:22 | PN ---
NEPHROLOGY PROGRESS NOTE Date/Time Patient Seen: Aug 25, 2025 Reason for Consultation: 15:19 SUBJECTIVE: Patient was transferred from [facility] for cardiovascular surgery Service. Patient was admitted to [facility] on 08/19/2025 with a chief complaint of chest pain. Patient was diagnosed with a NSTEMI Patient had a left heart catheterization on 08/20/2025 that showed severe multivessel disease. 2D echo on 08/20/2025 showed diastolic dysfunction with LVEF 50-55%. Cardiology recommended transferring to a facility with the cardiovascular surgery service S/P Off-pump coronary artery bypass grafting x3 vessels on 08/23 Hemoglobin was noted, S/p PRBC transfusion. He continues to require vasopressors to maintain blood pressure. Tolerated dialysis without difficulty yesterday. Dialysis planned for tomorrow. He has been extubated Chest tubes in place He was seen in the ICU, in no acute distress REVIEW OF SYSTEMS: GENERAL: Positive for generalized weakness NEUROLOGIC: Negative for any blurry vision, blind spots, double vision, facial asymmetry, dysphagia, dysarthria, hemiparesis, hemisensory deficits, vertigo, ataxia. HEENT: Negative for any head trauma, neck trauma, neck stiffness, photophobia, phonophobia, sinusitis, rhinitis. CARDIAC: Negative for any chest pain, dyspnea on exertion, paroxysmal nocturnal dyspnea, peripheral edema. PULMONARY: Negative for any shortness of breath, wheezing, COPD, or TB exposure. GASTROINTESTINAL: Negative for any abdominal pain, nausea, vomiting, bright red blood per rectum, melena. GENITOURINARY: Negative for any dysuria, hematuria, incontinence. INTEGUMENTARY: Negative for any rashes, cuts, insect bites. RHEUMATOLOGIC: Negative for any joint pains, photosensitive rashes, history of vasculitis or kidney problems. HEMATOLOGIC: Negative for any abnormal bruising, frequent infections or bleeding. PHYSICAL EXAM: GENERAL: Pale, acutely ill male, lethargic, no acute distress. Well-nourished. EYES: EOMI. Anicteric. HENT: Moist mucous membranes. No scleral icterus. No cervical lymphadenopathy. LUNGS: Clear to auscultation bilaterally. No accessory muscle use. CARDIOVASCULAR: Regular rate and rhythm. No murmur. No JVD. ABDOMEN: Soft, non-tender and non-distended. No palpable masses. EXTREMITIES: No edema. Non-tender. SKIN: No rashes or lesions. Warm. NEUROLOGIC: No focal neurological deficits. CN II-XII grossly intact, but not individually tested. PSYCHIATRIC: Cooperative. Appropriate mood and affect. LABORATORY: [ ] Hematology Labs: Test 08/25/25 05:15 Range/Units White Blood Count 12.6 H 4.8-10.8 K/uL Red Blood Count 1.79 L 4.50-6.20 MIL/uL Hemoglobin 5.8 *L 14.0-18.0 g/dL Hematocrit 17.6 *L 42-54 % Mean Corpuscular Volume 98.3 79-99 fL Mean Corpuscular Hemoglobin 32.4 27.0-33.0 pg Mean Corpuscular Hemoglobin Concent 33.0 32.0-36.0 g/dL Red Cell Distribution Width 15.4 11.0-15.5 % Platelet Count 153 130-400 K/uL Mean Platelet Volume 10.1 7.5-10.5 fL Nucleated Red Blood Cells 0.0 0.0-0.19 % Chemistry Labs: Test 08/25/25 13:47 08/25/25 04:29 08/24/25 05:02 Range/Units Whole Blood Glucose 105 70-110 MG/DL Sodium Level 140 136-145 mmol/L Potassium Level 4.7 3.5-5.1 mmol/L Chloride Level 99 L 101-111 mmol/L Carbon Dioxide Level 29 21-32 mmol/L Blood Urea Nitrogen 46 H 7-18 mg/dL Creatinine 8.7 *H 0.5-1.3 mg/dL Glomerular Filtration Rate Calc 6 >90 mL/min Random Glucose 124 H 70-105 mg/dL Total Calcium 8.4 L 8.5-10.1 mg/dL Magnesium Level 2.10 1.80-2.40 mg/dL Total Bilirubin 0.5 0.2-1.0 mg/dL Aspartate Amino Transf (AST/SGOT) 57 H 10-37 U/L Alanine Aminotransferase (ALT/SGPT) 16 12-78 U/L Alkaline Phosphatase 55 50-136 U/L Total Protein 5.5 L 6.0-8.3 g/dL Albumin 2.8 L 3.5-5.0 g/dL Ionized Calcium 1.10 L 1.15-1.33 MMOL/L Phosphorus Level 7.0 H 2.5-4.9 mg/dL Coagulation Labs: Test 08/24/25 05:02 Range/Units Prothrombin Time 11.6 9.6-11.6 SEC Prothromb Time International Ratio 1.11 0.85-1.15 Activated Partial Thromboplast Time 30.4 26.3-35.5 SEC DIAGNOSTICS / RADIOLOGY: [facility] [address] [place] [address] IMAGING REPORT Signed PATIENT: KHLOE SALAZAR MR#: [id number] : 1965 SEX: M AGE: 60 LOCATION: 2CV ORDER 99 STATUS: ADM IN REPORT#: [id number] SERVICE 9 REASON: s/p CABG ORDERING PHYSICIAN: PALAK FULLER MD PROCEDURE: CXR1VW - CHEST 1VW EXAM: CR Chest, 1 View. CLINICAL HISTORY: s/p CABG COMPARISON: 08/24/2025 FINDINGS: The [place]-Hiren catheter tip is in the right pulmonary artery. LUNGS: Persistent left lower lobar opacities, mostly due to congestion. PLEURAL SPACES: No pneumothorax. Questionable bilateral small pleural effusion. MEDIASTINUM: Cardiac size is stable. Status post CABG changes. BONES: No aggressive appearing osseous lesion seen. IMPRESSION: 1. Persistent left lower lobar opacities, likely due to congestion. 2. Questionable bilateral small pleural effusion. 3. [place]-Hiren catheter tip in the right pulmonary artery. /[place] DICTATED BY: JACK ARCHER Jr., MD DATE: 08/25/251535 ELECTRONICALLY SIGNED BY: JACK ARCHER Jr., MD DATE: 08/25/251535 PATIENT: KHLOE SALAZAR MR#: [id number] : 1965 SEX: M AGE: 60 LOCATION: 2CV ORDER 99 STATUS: ADM IN REPORT#: [id number] SERVICE 9 REASON: s/p CABG ORDERING PHYSICIAN: PALAK FULLER MD PROCEDURE: CXR1VW - CHEST 1VW EXAM: CR CHEST, 1 VIEW CLINICAL HISTORY: chest x-ray dated 08/23/2025 COMPARISON: CABG TECHNIQUE: Single frontal radiograph of the chest was obtained. FINDINGS: Lines/Devices:[place]-Hiren catheter is seen with its tip at the right pulmonary artery. Lungs: Left lower lobar faint opacity, mostly congestion. No consolidation or ground-glass opacities are observed. There is no pleural effusion. There is no pneumothorax. Mediastinum and cardiovascular structures:The cardiac silhouette is not enlarged. The central airway and mediastinal contours are unremarkable.Bones and soft tissues: Evidence of sternotomy suture is present.Radiodense surgical prosthesis at the retrocardiac region, mostly representing dorsal spine internal fixation. IMPRESSION: 1. Left lower lobar faint opacity, mostly congestion 2. Evidence of sternotomy sutures. 3. [place]-Hiren catheter with tip at the right pulmonary artery 4. As compared to the previous chest x-ray dated 08/23/2025, the current study reveals no time interval changes as regards the [place] Hiren catheter with its tip at the right pulmonary artery.The previously noted nasogastric tube as well as the endotracheal tube are not visualized in today's study mostly removed.Left lower lobar faint opacity is noted again mostly representing congestion. /[place] DICTATED BY: OFELIA SHARIF MD DATE: 08/24/25 160 ELECTRONICALLY SIGNED BY: OFELIA SHARIF MD DATE: 08/24/25 160 PATIENT: KHLOE SALAZAR MR#: [id number] : 1965 SEX: M AGE: 60 LOCATION: 2CV ORDER 1324 STATUS: ADM IN REPORT#: [id number] SERVICE 1323 REASON: S/P REPOSITIONING OF ET TUBE ORDERING PHYSICIAN: PALAK FULLER MD PROCEDURE: CXR1VW - CHEST 1VW EXAM: CR Chest, 1 View. CLINICAL HISTORY: S/P REPOSITIONING OF ET TUBE COMPARISON: None provided. FINDINGS: LUNGS: Endotracheal tube midline above zarina. [place]-Hiren catheter right pulmonary artery PLEURAL SPACES: No evidence of pleural effusion or pneumothorax. MEDIASTINUM: Cardiac size and mediastinal contours within normal limits. BONES: No acute osseous abnormality. MISCELLANEOUS: Nasogastric tube below diaphragm IMPRESSION: 1. Endotracheal tube midline above zarina. 2. [place]-Hiren catheter right pulmonary artery 3. Nasogastric tube below diaphragm /[place] DICTATED BY: DAVEY LU MD DATE: 08/23/251519 ELECTRONICALLY SIGNED BY: DAVEY LU MD DATE: 08/23/251519 PATIENT: KHLOE SALAZAR MR#: [id number] : 1965 SEX: M AGE: 60 LOCATION: 2CV ORDER 3 STATUS: ADM IN REPORT#: [id number] SERVICE 99 REASON: s/p CABG ORDERING PHYSICIAN: PALAK FULLER MD PROCEDURE: CXR1VW - CHEST 1VW EXAM: CR Chest, 2 View. CLINICAL HISTORY: s/p CABG COMPARISON: None provided. FINDINGS: LUNGS: Endotracheal tube midline above zarina at the mid clavicle level Rush [place]-Hiren catheter right pulmonary artery PLEURAL SPACES: No pleural effusion or pneumothorax. MEDIASTINUM: The cardiomediastinal silhouette is within normal limits. BONES: No acute osseous abnormality. MISCELLANEOUS: Nasogastric tube below diaphragm Patchy bilateral infiltrates IMPRESSION: 1. Endotracheal tube midline above zarina at the mid clavicle level 2. Nasogastric tube below diaphragm 3. [place]-Hiren catheter right pulmonary artery 4. Patchy bilateral infiltrates /[place] DICTATED BY: DAVEY LU MD DATE: 08/23/251519 ELECTRONICALLY SIGNED BY: DAVEY LU MD DATE: 08/23/251519 PATIENT: KHLOE SALAZAR MR#: [id number] : 1965 SEX: M AGE: 60 LOCATION: 2AH ORDER STATUS: ADM IN REPORT#: [id number] SERVICE 2 REASON: preop CABG ORDERING PHYSICIAN: PALAK FULLER MD PROCEDURE: ECHO [facility] - ECHO 2-D COMPLETE APPROVED REPORT EXAM: Two-dimensional and M-mode echocardiogram with Doppler and color Doppler. INDICATION ICD: pre-op CABG 2D Dimensions RVDd 4.7 cm LVEF(%) 41.0 (>50%) LVED Vol(simp.) 173.9 mL IVSd 0.9 (0.7-1.1cm) FS(%) 20 % LVES Vol(simp.) 92.2 mL LVDd 4.9 (3.8-5.6cm) LA (2D) 4.5 (1.6-4.0cm) LVEF(%, simp.) 47 % PWd 1.2 (0.7-1.1cm) Ao Root(2D) 3.3 (2.0-3.7cm) LA ESV INDEX (BP) 38.01 mL/m2 LVDs 3.9 (2.5-4.0cm) LVOT diam 2.4 (1.8-2.4cm) Deformation Strain Apical 4 -15.4 % Apical 2 -14.0 % Apical 3 -14.4 % Global Strain -14.6 % M-Mode Dimensions EPSS 1.2 cm LA (MM) 4.2 (1.6-4.0cm) Ao Root(MM) 3.5 (2.0-3.7cm) Aortic Valve AoV Vmax 1.9 m/s Ao Peak GR 14.1 mmHg LVOT Vmax 1.1 m/s AoV VTI 0.4 m Ao Mean GR 8.6 mmHg LVOT VTI 0.26 m KRISTEN (VMAX) 2.87 cm2 Al P1/2T 392 ms KRISTEN (VTI) 3.1 cm2 Mitral Valve MV E Vmax 117.9 cm/s DECEL Time 220 ms MV A Vmax 115.4 cm/s P 1/2 T 65 ms E/A ratio 1.0 MVA (PHT) 3.4 cm2 TDI E/E' Medial 21.2 E/E' Lateral 12.7 Medial E' Peak V 5.56 cm/s Lateral E' Peak V 9.27 cm/s Pulmonary Valve PV Vmax 1.1 m/s PV VTI 0.25 m PV Mean GR 2.9 mmHg PV Peak GR 5.0 mmHg Tricuspid Valve TR Vmax 2.3 m/s RVSP 21.9 mmHg TR Peak GR 21.9 mmHg Left Ventricle Left ventricular cavity size is normal. There is global hypokinesis of the left ventricle. There is normal left ventricular wall thickness. LVEF is 45-50%. Stage II diastolic dysfunction. Right Ventricle The right ventricle is normal size. The right ventricular systolic function is normal. Atria The left atrium is mildly dilated. The right atrium size is normal. Aortic Valve The aortic valve is normal in structure. Trace aortic regurgitation. There is no aortic valvular stenosis. Mitral Valve The mitral valve is normal in structure. Posterior leaflet is mildly thickened. Mitral regurgitation is mild. There is no mitral valve stenosis. Tricuspid Valve The tricuspid valve is normal in structure. There is trace tricuspid valve regurgitation noted. Pulmonic Valve Pulmonic valve is not well visualized. There is no pulmonic valvular regurgitation. Great Vessels The aortic root is normal in size. The IVC is normal in size and collapses >50% with inspiration. Pericardium There is no pericardial effusion. Other Information Quality : Average Conclusion Left ventricular cavity size is normal. LVEF is 45-50% with global hypokinesis of the left ventricle. Stage II diastolic dysfunction. The right ventricular systolic function is normal. The left atrium is mildly dilated. No hemodynamically significant valvular abnormalities. There is no pericardial effusion. DICTATED BY: DAVEY BRANCH MD DATE: 08/21/25951 ELECTRONICALLY SIGNED BY: DAVEY BRANCH MD DATE: 08/21/25 1854PATIENT: KHLOE SALAZAR MR#: [id number] : 1965 SEX: M AGE: 60 LOCATION: 2AH ORDER 3 [facility]: [facility]#: [id number] SERVICE 2 REASON: preop CABG ORDERING PHYSICIAN: PALAK FULLER MD PROCEDURE: CAROTID - US CAROTID DUPLEX STUDY: CAROTID DUPLEX ULTRASOUND CLINICAL INFORMATION: Preoperative evaluation prior to coronary artery bypass grafting (CABG). TECHNIQUE: Grayscale, color Doppler, and spectral Doppler ultrasound of the bilateral carotid and vertebral arteries was performed, including peak systolic velocity measurements. COMPARISON: None provided. FINDINGS: RIGHT CAROTID SYSTEM: Peak systolic velocity (PSV) in the right common carotid artery (CCA) measures approximately 99 cm/s. Peak systolic velocity in the right internal carotid artery (ICA) measures approximately 90 cm/s, with a right ICA/CCA PSV ratio of 0.9. Peak systolic velocity in the right external carotid artery (ECA) is approximately 86 cm/s. Calcified plaques are present in the distal right CCA and carotid bulb. No hemodynamically significant elevation of ICA velocity is demonstrated to suggest high-grade right ICA stenosis. LEFT CAROTID SYSTEM: Peak systolic velocity in the left CCA measures approximately 81 cm/s. Peak systolic velocity in the left ICA measures approximately 95 cm/s, with a left ICA/CCA PSV ratio of 1.2. Peak systolic velocity in the left ECA is approximately 86 cm/s. Calcified plaques are present in the distal left CCA and carotid bulb. No hemodynamically significant elevation of ICA velocity is demonstrated to suggest high-grade left ICA stenosis. VERTEBRAL ARTERIES: Right vertebral artery demonstrates antegrade flow with peak systolic velocity of approximately 71 cm/s. Left vertebral artery demonstrates antegrade flow with peak systolic velocity of approximately 39 cm/s. No evidence of vertebral artery flow reversal is identified. IMPRESSION: * Calcified atherosclerotic plaques in the bilateral distal common carotid arteries and carotid bulbs, with internal carotid artery peak systolic velocities and ICA/CCA ratios consistent with no hemodynamically significant carotid stenosis by duplex criteria. * Bilateral vertebral arteries with antegrade flow, without sonographic evidence of subclavian steal or vertebral artery occlusion. * From a carotid duplex perspective, no high-grade carotid stenosis is identified that would typically preclude or delay CABG; continued medical optimization of atherosclerotic risk factors is recommended in coordination with cardiology and vascular teams. /[place] DICTATED BY: OFELIA SHARIF MD DATE: 08/23/25158 ELECTRONICALLY SIGNED BY: OFELIA SHARIF MD DATE: 08/23/25158 ASSESSMENT: Severe multivessel disease Anemia Acute on chronic diastolic heart failure NSTEMI, POA ESRD on HD Hyperlipidemia Hypertension CHF with LVEF 50-55% by 2D echo, diastolic dysfunction on 08/20/2025 PLAN: Labs and Diagnostics/ Radiology personally reviewed and interpreted by myself and supervising physician We have reviewed dialysis and external records in detail Continue dialysis schedule Monday Collect labs in pediatric tubes. Chest tubes as per CV surgery 1.5 L fluid restriction Continue to monitor H&H Continue with IV pressors BiPAP, for respiratory distress Epogen on dialysis days, as needed Continue with frequent monitoring of renal function, anemia, and electrolytes Order CBC, BMP, complete iron panel, ferritin and electrolytes in the morning IV iron as needed May use Dilaudid 0.5 mg IV every 6 hours as needed for severe pain Monitor blood pressure adjust medication doses as needed Maintain normotensive state Strict intake, output, and daily weight should be monitored Please renally adjust medications. Avoid nephrotoxics and nonsteroidal drugs. We will continue to monitor the patient closely We have discussed with the other team physicians in detail about the care plan Total critical care time spent with patient, nursing staff, critical care team over 35 minutes ATTESTATION BY PHYSICIAN I have seen and examined the patient. I reviewed the documentation, medical decision making, and treatment plan as noted by the mid-level provider above. I agree with the findings and plan of care. GERRI MIGUEL MD, [facility] [facility] Aug 25, 2025 15:22
--- NOTE | 2025-08-25 18:11 | PN ---
[facility] CARDIOLOGY PROGRESS NOTE Date Patient Seen: Aug 25, 2025 Time of Visit: 18:04 Interval History: [ No acute events overnight. Patient has been successfully extubated, currently on minimal pressor support, blood pressure 132/45 (arterial line). Hemoglobin has dropped to 5.8, received1 unit of PRBC, currently denies any cardiac symptoms or anginal equivalents. Overnight the patient experienced atrial fibrillation with RVR, current review of telemetry sinus rhythm with a heart rate in the 80s] Physical Examination: GENERAL: [No acute distress.] HEAD: [Normal with no signs of head trauma.] EYES: [PERRLA, EOMI, conjunctiva and sclera normal.] ENT: [Hearing grossly intact, normal oropharynx.] NECK: [Supple without JVD. There is no tenderness, lymphadenopathy, or masses. No thyromegaly. Normal carotid upstrokes without bruits.] LUNGS: [Clear breath sounds bilaterally.. No wheezes, or rhonchi. Chest tubes in and functional] HEART: [Normal rate and rhythm. Normal S1 and S2 without murmurs, gallop or rub.] VASC: [Peripheral pulses +2 bilaterally.] ABD: [Bowel sounds normal, soft, nontender, no masses, no organomegaly. No audible bruits.] : [Not examined] LYMPH: [No lymphadenopathy noted.] EXT: [No clubbing, cyanosis or edema.] SKIN: [examination of left groin access site appears to be clean with no evidence of hematoma or active bleeding.] NEURO: [Awake, alert, and oriented x3. No focal sensory or strength deficits noted.] Laboratory: [ ] Hematology Labs: Test 08/25/25 05:15 Range/Units White Blood Count 12.6 H 4.8-10.8 K/uL Red Blood Count 1.79 L 4.50-6.20 MIL/uL Hemoglobin 5.8 *L 14.0-18.0 g/dL Hematocrit 17.6 *L 42-54 % Mean Corpuscular Volume 98.3 79-99 fL Mean Corpuscular Hemoglobin 32.4 27.0-33.0 pg Mean Corpuscular Hemoglobin Concent 33.0 32.0-36.0 g/dL Red Cell Distribution Width 15.4 11.0-15.5 % Platelet Count 153 130-400 K/uL Mean Platelet Volume 10.1 7.5-10.5 fL Nucleated Red Blood Cells 0.0 0.0-0.19 % Chemistry Labs: Test 08/25/25 15:59 08/25/25 04:29 08/24/25 05:02 Range/Units Whole Blood Glucose 126 H 70-110 MG/DL Sodium Level 140 136-145 mmol/L Potassium Level 4.7 3.5-5.1 mmol/L Chloride Level 99 L 101-111 mmol/L Carbon Dioxide Level 29 21-32 mmol/L Blood Urea Nitrogen 46 H 7-18 mg/dL Creatinine 8.7 *H 0.5-1.3 mg/dL Glomerular Filtration Rate Calc 6 >90 mL/min Random Glucose 124 H 70-105 mg/dL Total Calcium 8.4 L 8.5-10.1 mg/dL Magnesium Level 2.10 1.80-2.40 mg/dL Total Bilirubin 0.5 0.2-1.0 mg/dL Aspartate Amino Transf (AST/SGOT) 57 H 10-37 U/L Alanine Aminotransferase (ALT/SGPT) 16 12-78 U/L Alkaline Phosphatase 55 50-136 U/L Total Protein 5.5 L 6.0-8.3 g/dL Albumin 2.8 L 3.5-5.0 g/dL Ionized Calcium 1.10 L 1.15-1.33 MMOL/L Phosphorus Level 7.0 H 2.5-4.9 mg/dL Coagulation Labs: Test 08/24/25 05:02 Range/Units Prothrombin Time 11.6 9.6-11.6 SEC Prothromb Time International Ratio 1.11 0.85-1.15 Activated Partial Thromboplast Time 30.4 26.3-35.5 SEC Diagnostics / Radiology: [Copy/Paste Echos/Imaging Report here] Impression and Plan: [1. Non-STEMI. 2. Multivessel coronary disease. 3. Hypertension. 4. Hyperlipidemia. 5. End-stage renal disease on hemodialysis. 6. Hyperkalemia. #CAD s/p 3v CABG ( PORTILLO-LAD, SVG- OM2, SVG-PDA ) on 08-23-[address] Hackett Admitted [facility] on 08/19/2025 for chest pain Troponin peaked at 3703 2D echocardiogram (08/20/2025) LVEF 50-55%, per report Coronary angiogram (08/20/2025) revealing severe multivessel CAD (per report), examination of left groin access site appears to be clean with no evidence of hematoma or active bleeding. Patient was transferred from [facility] for CABG evaluation Patient has been successfully extubated without complications. Currently on minimal pressor support Hemoglobin dropped 5.8, patient received1 unit of PRBCs No urine output due to ESRD. Minimal chest tube output; continue Lasix 20 mg every 12 hours Continue Lopressor 12.5 mg every 12 hours, [id number] mg daily, and atorvastatin 40 mg daily Once chest tubes are out recommend initiating [id number] mg daily ] #atrial fibrillation Patient developed atrial fibrillation with RVR overnight. Patient was initiated on amiodarone bolus and infusion Current review of telemetry sinus rhythm with a heart rate of the 80s Please keep on telemetry, monitor/replace electrolytes as needed Continue Lopressor 12.5 mg every 12 hours Thank you for this consult cardiology will continue to follow along postoperatively Chucho montanez MD ATTESTATION BY PHYSICIAN I have seen and examined the patient, reviewed the above documentation, participated in medical decision making, made necessary modifications, and agree with the treatment plan as documented by my mid-level provider above. MD SARINA Cuba JAMES R MD Aug 25, 2025 18:11
[2025-08-26] VITALS (100 sets, daily range): BP systolic 79–156; BP diastolic 33–75; PULSE 74–121; RESP 5–22; TEMP 97.8–100; O2SAT 99–100
[2025-08-26 05:07] LABS: NUCLEATED RED BLOOD CELLS 0.0 % (0.0-0.19); PLATELET COUNT (AUTO) 162 K/uL (130-400); RED BLOOD CELL COUNT(AUTO) 2.59 MIL/uL (4.50-6.20); RED CELL DISTRIBUTION WIDTH 18.2 % (11.0-15.5); WHITE BLOOD COUNT (AUTO) 10.1 K/uL (4.8-10.8)
[2025-08-26 05:22] LABS: % IRON SATURATION 18.3 % (30-44); IRON, SERUM 24.0 mcg/dL (65-175)
[2025-08-26 05:58] LABS: ASPARTATE AMINOTRANSFERASE 41.0 U/L (10-37); GLOMERULAR FILTR. RATE CALC 5.0 mL/min (>90); GLUCOSE,RANDOM 132.0 mg/dL (70-105); PHOSPHORUS 7.0 mg/dL (2.5-4.9); SODIUM SERUM 136.0 mmol/L (136-145); TOTAL PROTEIN, SERUM 5.8 g/dL (6.0-8.3); UREA NITROGEN, BLOOD 61.0 mg/dL (7-18)
[2025-08-26 06:06] LABS: CREATININE 10.4 mg/dL (0.5-1.3)
--- NOTE | 2025-08-26 08:54 | PN ---
[facility] PROGRESS NOTE Date Patient Seen: Aug 26, 2025 Time of Visit: 08:51 Supervising Physician: Dr. Norris ] Primary Care Physician: [Dr. Prince ] Outpatient Specialists: [ ] Inpatient Consults: [ ] PROBLEM LIST: Acute non STEMI Status post CABG X 3 with ligation of Atrial Appendage (08/23) ESRD on HD Acute on chronic diastolic heart failure T2DM HTN Atherosclerosis Obesity, BMI 36 Hyperlipidemia INTERVAL HISTORY: Patient seen an examined all labs reviewed. Patient being dialyzed this morning. Tolerating well. Chest Tube 50cc in 24 hours Pleural tube 240cc in 24 hours Patient on epi Hemoglobin up to 8.1 from 5.8 PLAN: Wean off Epi Monitor CT output. Chest x-ray in am Continue Beta graeme, Statin Follow CVT recommendations Minimize central acting medications as possible. Encourage IS Fall Precautions. Total critical care time spent 45 minutes, this excludes any procedures performed or any time spent in educational or teaching. REVIEW OF SYSTEMS: 12 point ROS reviewed with patient. Pertinent positives mentioned above. Otherwise negative. PHYSICAL EXAM: GENERAL: alert, weak, awake oriented x 3 HEENT: EOMI, Sclera non icteric, moist mucosa NECK: Supple, no JVD, trachea midline LUNGS: Clear breath sounds bilaterally. No wheezes CT X2 in place HEART: Regular rate and rhythm. Normal S1 and S2, without murmurs. sternotomy noted intact. ABD: Abdomen soft, nontender. Bowel sounds present EXT: No clubbing cyanosis or edema NEURO: Alert and oriented to person, follows commands Vital Signs (last 8hr) Date Time Temp Pulse Resp B/P (MAP) Pulse Ox O2 Delivery O2 Flow Rate FiO2 08/26/25 06:30 80 12 108/53 (71) 98 08/26/25 06:15 81 17 119/44 (69) 99 08/26/25 06:00 82 16 124/44 (70) 98 08/26/25 05:45 95 16 136/50 (78) 98 08/26/25 05:30 82 15 152/52 (85) 98 08/26/25 05:15 86 15 147/59 (88) 98 08/26/25 05:00 75 15 119/56 (77) 99 109/58 (75) 08/26/25 04:45 77 15 124/43 (70) 99 08/26/25 04:30 75 13 131/45 (73) 100 08/26/25 04:15 75 9 127/45 (72) 100 08/26/25 04:06 98.2 Nasal Cannula 2.0 28 08/26/25 04:00 99 Nasal Cannula* 2 28 08/26/25 04:00 77 14 124/42 (69) 100 114/58 (76) 08/26/25 03:45 79 16 113/43 (66) 99 08/26/25 03:30 79 15 131/46 (74) 96 08/26/25 03:15 81 14 126/49 (74) 100 08/26/25 03:00 75 13 127/43 (71) 100 116/59 (78) 08/26/25 02:45 75 122/41 (68) 100 08/26/25 02:30 74 14 118/41 (66) 100 08/26/25 02:15 75 14 128/43 (71) 99 08/26/25 02:00 76 14 118/40 (66) 99 113/53 (73) 08/26/25 01:45 75 14 119/41 (67) 99 08/26/25 01:30 77 14 127/43 (71) 100 08/26/25 01:15 75 6 127/43 (71) 99 08/26/25 01:00 75 16 122/42 (68) 99 113/59 (77) LABS: Hematology Labs: Test 08/26/25 04:45 Range/Units White Blood Count 10.1 4.8-10.8 K/uL Red Blood Count 2.59 #L 4.50-6.20 MIL/uL Hemoglobin 8.1 L 14.0-18.0 g/dL Hematocrit 23.9 L 42-54 % Mean Corpuscular Volume 92.3 79-99 fL Mean Corpuscular Hemoglobin 31.3 27.0-33.0 pg Mean Corpuscular Hemoglobin Concent 33.9 32.0-36.0 g/dL Red Cell Distribution Width 18.2 H 11.0-15.5 % Platelet Count 162 130-400 K/uL Mean Platelet Volume 10.3 7.5-10.5 fL Nucleated Red Blood Cells 0.0 0.0-0.19 % Red Blood Cell Morphology ANISO 1+ Chemistry Labs: Test 08/26/25 04:45 08/26/25 01:29 Range/Units Sodium Level 136 136-145 mmol/L Potassium Level 5.0 3.5-5.1 mmol/L Chloride Level 97 L 101-111 mmol/L Carbon Dioxide Level 24 21-32 mmol/L Blood Urea Nitrogen 61 H 7-18 mg/dL Creatinine 10.4 *H 0.5-1.3 mg/dL Glomerular Filtration Rate Calc 5 >90 mL/min Random Glucose 132 H 70-105 mg/dL Total Calcium 8.5 8.5-10.1 mg/dL Phosphorus Level 7.0 H 2.5-4.9 mg/dL Magnesium Level 2.30 1.80-2.40 mg/dL Iron Level 24 L 65-175 mcg/dL Total Iron Binding Capacity 131 L 250-450 mcg/dL Percent Iron Saturation 18.3 L 30-44 % Ferritin 4174 H 30-400 ng/mL Total Bilirubin 0.4 0.2-1.0 mg/dL Aspartate Amino Transf (AST/SGOT) 41 H 10-37 U/L Alanine Aminotransferase (ALT/SGPT) 10 L 12-78 U/L Alkaline Phosphatase 62 50-136 U/L Total Protein 5.8 L 6.0-8.3 g/dL Albumin 2.5 L 3.5-5.0 g/dL Whole Blood Glucose 135 H 70-110 MG/DL DIAGNOSTICS / RADIOLOGY RESULTS: [ ] PLAN Incentive spirometry Chest x-ray Beta graeme Statin aspirin wound care follow cardiovascular recommendations NEURO: Minimize central acting medications as possible. Fall Precautions. Well lighted room through the day and minimize interruptions through the night to prevent acute delirium. PULMONARY: Supplemental 02 as needed Titrate Fio2 to keep Spo2 > or = 90% DuoNebs and CPT as needed IS hourly while awake for pulmonary hygiene Out of bed to chair as tolerated VAP Bundle Vent/BIPAP Settings: [ ] Driving pressure: [ ] P Plat: [ ] Static C: [ ] Static R: [ ] P/F Ratio: [ ] CARDIOVASCULAR: Follow hemodynamics. Titrate vasopressor to keep MAP >65 or systolic blood pressure >95mmHg DIPS: [ ] LINES: [ ] GI & NUTRITION: Continue nutritional support Aspirations precautions Prokinetic agents and laxatives as needed KIDNEYS & ELECTROLYTES: Strict monitoring of intake and output Daily weights Avoid nephrotoxic agents Monitor electrolytes and replace as needed Goal urine output of 30mL/hr or 0.5mL/kg/hr Urine output: [ ] Fluid Balance: [ ] ENDOCRINE: Maintain blood glucose between 100-180 at all times. Insulin sliding scale for blood glucose management INFECTIOUS DISEASE: Trend temperature. Mary-culture if febrile. Micro: [ ] Antibiotics: [ ] HEMATOLOGY & COAGULATION: Monitor H&H. Keep Hgb > 7 Transfuse 1 unit of PRBC for Hgb < 7 Transfuse 1 pack of platelets of platelets < 20, 000 Watch for any signs and symptoms of bleeding SKIN: Pressure ulcer prevention per facility protocol Rehab: PT/OT Prophylaxis: GI: [ ] DVT: [ ] Code Status: Full Resuscitation Disposition: [ ] [facility] Aug 26, 2025 08:54
[2025-08-26] MEDS: ENOXAPARIN SODIUM 30 MG/0.3 ML SQ SCH (09:00)
[2025-08-26] MEDS: 0.9%NACL 1000ML 1,000 ML IV ONE (09:42)
--- NOTE | 2025-08-26 11:13 | PN ---
[facility] PROGRESS NOTE Date of Service: Aug 26, 2025 Time of Service: 11:11 SUBJECTIVE: 08/22 patient remains admitted to the PCU, comfortably in bed, alert and oriented x3, on heparin drip. Denies chest pain, shortness shortness for breath, no nausea, no vomiting, no abdominal discomfort. He remains hemodynamically stable, afebrile, saturating normal on room air. Mild drop in hemoglobin to 9.8 with a hematocrit 29.6, no signs of GI bleed. Patient evaluated by Cardiothoracic surgeon, pending further recommendations in terms of CABG. Follow CBC in a.m. and transfuse as needed. Discussed with the patient, in agreement, all questions answered. 08/23 patient remains admitted to the PCU, comfortably in bed, alert and oriented x3, denies chest pain, shortness shortness for breath, no nausea, no vomiting, no abdominal discomfort. He remains hemodynamically stable, afebrile, saturating normal on room air. Patient evaluated by Cardiothoracic surgeon, case discussed, plan for CABG today. 08/24 patient remains admitted to the ICU, status post CABG, 08/23/2025, postoperative day 1. Patient is successfully extubated, Awake, following comman ds, on insulin and epinephrine drip, chest tube in place. BP 118/47, afebrile, WBC 13.1, hemoglobin 7.2, hematocrit 21.4, platelet count of 151, sodium 140, potassium 6.0, BUN of 60, creatinine 9.5, carbon dioxide 24. ABG pH 7.41, PO2 119.4, pCO2 38, bicarbonate of 23.5. Continue to follow Cardiothoracic input recommendation, continue aspirin 81 mg p.o. daily, atorvastatin 40 mg p.o. daily, furosemide 20 mg IV q.12 hours. Follow a.m. labs.Continue hemodialysis per Nephrology recommendation. 08/25 patient remains admitted to the ICU, awake, following commands, getting 1 unit of PRBC during my visit, BP 143/48, heart rate of 125, saturating 99% 2 L nasal cannula. CBC shows hemoglobin 5.8, hematocrit 70.6, WBC of 12.6, platelet count of 153. CMP with sodium 140, potassium 4.7, BUN 46, creatinine 8.7. Chest x-ray 08/24/2025 showing left lower lobe opacity, mostly congestion, shanthi dence of sternotomy sutures, Jaroso-Hiren catheter with tip by right pulmonary artery, as compared to prior x-ray, currently study reveals no interval change as regards to psoas CAD catheter. Chest x-ray today pending. Continue to follow CT surgery input recommendation critical care input recommendation. Follow CBC post transfusion. 08/26 patient remains admitted to the ICU, comfortably bed, hemodynamically stable, afebrile, saturating normal on room air, he is getting hemodialysis during my visit. Chest tube in place. The patient on epinephrine drip, to be weaned off today. Blood pressure 141/50, afebrile, hemoglobin improved to 8.1, hematocrit 23.9 after transfusion of 1 unit of PRBC. Continue to follow hemodialysis per Nephrology recommendation, continue to follow Cardiothoracic input recommendation, follow a.m. labs. REVIEW OF SYSTEMS CONSTITUTIONAL: Denies fevers, chills, or night sweats. No unintentional weight loss reported. NEUROLOGICAL: Denies headache, amaurosis fugax, motor weakness, sensory deficit, vertigo/spinning sensation, gait abnormalities, or tremors. ENT: No hearing loss, otalgia, otorrhea, rhinitis, rhinorrhea, hoarseness, or sore throat. CARDIOVASCULAR: Denies any exertional angina, dyspnea on exertion, orthopnea, paroxysmal nocturnal dyspnea, palpitations, life-threatening arrhythmias, claudication. PULMONARY: Denies any shortness of breath, cough, phlegm/sputum, hemoptysis, pleuritic chest pain. SLEEP: Denies morning headaches, daytime somnolence or napping. Denies difficulty falling asleep, staying asleep, waking from sleep. Denies knowledge of snoring. GASTROINTESTINAL: Denies any type of dysphagia to either liquids or solids. Denies nausea, vomiting, pyrosis, early satiety, abdominal pain, diarrhea, constipation, or changes in stool consistency or caliber. Denies coffee-ground emesis, hematemesis, hematochezia, or melanotic stools. GENITOURINARY: Denies frequency, urgency, nocturia, hematuria or incontinence (Storage/Irritative symptoms.) Low urinary stream, straining to void, urinary intermittency or hesitancy, splitting of the voiding stream, terminal dribbling. ENDOCRINOLOGIC: Denies polyuria, polydipsia, polyphagia or heat/cold intolerances. HEMATOLOGIC: Denies thrombophilia/previous clots, or coagulopathy/bleeding disorders. ONCOLOGIC: Denies personal history of malignancy. DERMATOLOGIC: Denies rashes or pruritus. PSYCHIATRIC: Denies any suicidal or homicidal ideation. Denies hallucinations. PHYSICAL EXAM GENERAL APPEARANCE: The patient is awake, alert, and oriented, in no acute cardiopulmonary distress. NEUROLOGICAL: Cranial nerves II-XII grossly intact. Motor is 5/5 in bilateral upper and lower extremities proximal to distal. No sensory deficits. HEENT: Face is symmetric. Pupils are equal and reactive. Extraocular movements are intact. NECK: Supple. No JVD. No thyromegaly. No submental, submandibular, pre-/postauricular, occipital or supraclavicular lymphadenopathy. CHEST: Normal chest expansion. No Telemetry. LUNGS: Absence of any rales, rhonchi or any wheezing. CARDIOVASCULAR: Regular. S1 and S2 normal. No appreciable rubs, murmurs or gallops. ABDOMEN: Soft, nontender, and nondistended. There is no rebound, voluntary guarding, or rigidity. : Deferred. No Soliz. EXTREMITIES: Non-edematous and not cyanotic. No clubbing. Good capillary refill. SKIN: No skin breakdown. Vital Signs (last 8hr) Date Time Temp Pulse Resp B/P (MAP) Pulse Ox O2 Delivery O2 Flow Rate FiO2 08/26/25 10:22 81 18 141/50 (80) 100 28 133/65 (87) 08/26/25 10:07 84 12 154/54 (87) 100 28 123/75 (91) 08/26/25 09:52 82 10 151/54 (86) 100 28 134/63 (86) 08/26/25 09:37 82 14 147/54 (85) 100 28 123/63 (83) 08/26/25 09:30 82 20 143/53 (83) 100 28 08/26/25 09:22 80 15 148/55 (86) 100 28 130/65 (86) 08/26/25 09:07 81 153/56 (88) 129/66 (87) 08/26/25 09:05 88 20 N/Cannula Low lpm 2.0 28 08/26/25 09:00 83 22 142/49 (80) 100 28 123/60 (81) 08/26/25 08:45 83 8 148/48 (81) 97 28 130/63 (85) 08/26/25 08:40 98.8 81 18 156/50 Nasal Cannula 2.0 08/26/25 08:37 87 18 100 28 119/60 (79) 08/26/25 08:35 87 20 99 28 120/58 (78) 08/26/25 08:30 98.6 Nasal Cannula 2.0 28 08/26/25 08:30 08/26/25 08:30 99 Nasal Cannula* 2 28 08/26/25 07:37 83 12 146/47 (80) 100 28 126/67 (86) 08/26/25 07:30 75 17 124/42 (69) 91 28 08/26/25 06:37 82 16 110/36 (60) 98 28 99/52 (68) 08/26/25 06:30 80 12 108/53 (71) 98 08/26/25 06:15 81 17 119/44 (69) 99 08/26/25 06:00 82 16 124/44 (70) 98 08/26/25 05:45 95 16 136/50 (78) 98 08/26/25 05:30 82 15 152/52 (85) 98 08/26/25 05:15 86 15 147/59 (88) 98 08/26/25 05:00 75 15 119/56 (77) 99 109/58 (75) 08/26/25 04:45 77 15 124/43 (70) 99 08/26/25 04:30 75 13 131/45 (73) 100 08/26/25 04:15 75 9 127/45 (72) 100 08/26/25 04:06 98.2 Nasal Cannula 2.0 28 08/26/25 04:00 99 Nasal Cannula* 2 28 08/26/25 04:00 77 14 124/42 (69) 100 114/58 (76) 08/26/25 03:45 79 16 113/43 (66) 99 08/26/25 03:30 79 15 131/46 (74) 96 08/26/25 03:15 81 14 126/49 (74) 100 LABS: Laboratory: Test 08/26/25 04:45 08/26/25 01:29 Range/Units White Blood Count 10.1 4.8-10.8 K/uL Red Blood Count 2.59 #L 4.50-6.20 MIL/uL Hemoglobin 8.1 L 14.0-18.0 g/dL Hematocrit 23.9 L 42-54 % Mean Corpuscular Volume 92.3 79-99 fL Mean Corpuscular Hemoglobin 31.3 27.0-33.0 pg Mean Corpuscular Hemoglobin Concent 33.9 32.0-36.0 g/dL Red Cell Distribution Width 18.2 H 11.0-15.5 % Platelet Count 162 130-400 K/uL Mean Platelet Volume 10.3 7.5-10.5 fL Nucleated Red Blood Cells 0.0 0.0-0.19 % Red Blood Cell Morphology ANISO 1+ Sodium Level 136 136-145 mmol/L Potassium Level 5.0 3.5-5.1 mmol/L Chloride Level 97 L 101-111 mmol/L Carbon Dioxide Level 24 21-32 mmol/L Blood Urea Nitrogen 61 H 7-18 mg/dL Creatinine 10.4 *H 0.5-1.3 mg/dL Glomerular Filtration Rate Calc 5 >90 mL/min Random Glucose 132 H 70-105 mg/dL Total Calcium 8.5 8.5-10.1 mg/dL Phosphorus Level 7.0 H 2.5-4.9 mg/dL Magnesium Level 2.30 1.80-2.40 mg/dL Iron Level 24 L 65-175 mcg/dL Total Iron Binding Capacity 131 L 250-450 mcg/dL Percent Iron Saturation 18.3 L 30-44 % Ferritin 4174 H 30-400 ng/mL Total Bilirubin 0.4 0.2-1.0 mg/dL Aspartate Amino Transf (AST/SGOT) 41 H 10-37 U/L Alanine Aminotransferase (ALT/SGPT) 10 L 12-78 U/L Alkaline Phosphatase 62 50-136 U/L Total Protein 5.8 L 6.0-8.3 g/dL Albumin 2.5 L 3.5-5.0 g/dL Whole Blood Glucose 135 H 70-110 MG/DL Current Medications Medications (Trade) Dose Ordered Sig/Flavio Route PRN Reason Start Time Stop Time Status Last Admin Dose Admin Acetaminophen (TYLenol 325MG TAB) 650 mg Q4H PRN PO Temp >38.3C(AFTER EXTUBATION) 08/23/25 09:30 09/22/25 09:29 Acetaminophen (TYLenol 325MG TAB) 650 mg Q4HPRN PRN PO FEVER 08/21/25 01:00 08/23/25 09:31 DC 08/23/25 00:01 650 MG Acetaminophen (TYLenol 325MG TAB) 650 mg Q6H PRN PO MILD PAIN (1-3) 08/23/25 09:30 09/22/25 09:29 Acetaminophen (TYLenol 650MG SUPPOSITORY) 650 mg Q4H PRN RC Temp >38.3C WHILE INTUBATED 08/23/25 09:30 09/22/25 09:29 Acetaminophen (acetaMINOPHEN 1,000MG/100ML) 1,000 mg ONCE IV 08/23/25 21:00 08/23/25 23:00 DC 08/23/25 20:54 1,000 MG Acetaminophen (acetaMINOPHEN 1,000MG/100ML) 1,000 mg Q6H6 IV 08/23/25 12:00 08/23/25 18:39 DC 08/23/25 14:24 1,000 MG Acetaminophen (acetaMINOPHEN 1,000MG/100ML) 1,000 mg Q6H6 IV 08/24/25 06:00 09/23/25 05:59 08/26/25 06:41 1,000 MG Acetaminophen/ Hydrocodone Bitart (NORco 5/325MG) 1 tab Q6H PRN PO PAIN 5-10 08/21/25 01:00 08/23/25 09:17 DC 08/22/25 20:29 1 TAB Albumin Human 250 ml @ 0 mls/hr AD PRN IV IF HEMODYNAMICALLY UNSTABLE 08/23/25 09:30 08/23/25 15:43 DC 08/23/25 15:43 2,520 MLS/HR Aminocaproic Acid 93973 mg/Sodium Chloride 310 ml @ 25 mls/hr AD IV 08/23/25 09:30 08/23/25 09:34 DC Aminocaproic Acid 86857 mg/Sodium Chloride 480 ml @ 0 mls/hr AD PRN IV BLEEDING CONTROL 08/23/25 09:00 09/22/25 08:59 Amiodarone HCl 150 mg/Dextrose 103 ml @ 618 mls/hr ONCE IV 08/25/25 07:30 08/25/25 07:20 DC Amiodarone HCl 360 mg/Dextrose 207.2 ml @ 33.3 mls/hr AD IV 08/25/25 07:30 08/25/25 07:20 DC Amiodarone HCl 540 mg/Dextrose 310.8 ml @ 16.7 mls/hr [id number] STAT IV 08/25/25 07:18 08/26/25 01:54 DC 08/25/25 14:04 16.7 MLS/HR Aspirin (Aspirin 81mg Chew Tab) 81 mg DAILY PO 08/21/25 09:00 08/23/25 14:27 DC 08/22/25 09:19 81 MG Aspirin (Aspirin 81mg Chew Tab) 81 mg HS PO 08/23/25 21:00 09/22/25 20:59 08/25/25 20:41 81 MG Atorvastatin Calcium (LIPItor 40MG) 40 mg HS PO 08/21/25 21:00 09/20/25 20:59 08/25/25 20:40 40 MG Calcium Gluconate 1 gm/Sodium Chloride 60 ml @ 200 mls/hr AD PRN IV HYPOCALCEMIA 08/23/25 09:30 09/22/25 09:29 08/24/25 08:08 200 MLS/HR Carvedilol (Coreg 3.125MG) 3.125 mg BID PO 08/21/25 09:00 08/23/25 09:17 DC 08/23/25 08:10 3.125 MG Cefazolin Sodium (ANCEF 1 gm vial) 2 gm ONCALL IVP 08/22/25 15:30 08/23/25 09:04 DC Cefazolin Sodium (Ancef) 2 gm ONCALL IVP 08/23/25 09:30 08/24/25 09:16 DC Cefazolin Sodium (Ancef) 2 gm Q8H IVPB 08/23/25 14:30 08/23/25 14:37 DC Cefazolin Sodium (Ancef) 2 gm Q8H IVPB 08/23/25 18:00 08/24/25 10:01 DC 08/24/25 09:13 2 GM Cyclobenzaprine HCl (Cyclobenzaprine HCl) 10 mg TID PO 08/21/25 09:00 08/23/25 09:17 DC 08/22/25 21:39 10 MG Dexmedetomidine/ Sodium Chloride (PRECEdex 400MCG/ 100ML-NS) 400 mcg PROTOCOL IV 08/23/25 09:30 08/24/25 09:29 DC Dextrose (D50w) 50 ml AD PRN IV HYPOGLYCEMIA PROTOCOL 08/23/25 09:30 09/22/25 09:29 08/24/25 05:59 50 ML Docusate Sodium (COLace 100MG CAP) 100 mg BID PO 08/23/25 21:00 09/22/25 20:59 08/26/25 09:24 100 MG Enoxaparin Sodium (Lovenox) 30 mg DAILY SQ 08/26/25 09:00 09/25/25 08:59 Epinephrine HCl 10 mg/Sodium Chloride 250 ml @ 0 mls/hr AD PRN IV TITRATE 08/23/25 09:00 09/22/25 08:59 08/25/25 21:53 0 MLS/HR Epinephrine HCl 10 mg/Sodium Chloride 250 ml @ 0 mls/hr AD PRN IV POST-OP CARDIOVASCULAR ORDERS 08/23/25 09:30 08/23/25 09:33 DC Famotidine (Pepcid 20mg Vial) 20 mg Q48H IV 08/23/25 21:00 09/22/25 20:59 08/25/25 20:40 20 MG Furosemide (LASix 100MG VIAL) 80 mg BID IV 08/21/25 09:00 08/21/25 18:47 DC Furosemide (LASix 20MG TAB) 20 mg Q12H PO 08/25/25 09:30 09/24/25 09:29 08/26/25 09:25 20 MG Furosemide (LASix 20MG VIAL) 20 mg Q12H IV 08/24/25 09:30 08/25/25 09:29 DC 08/24/25 19:41 20 MG Glucagon (Glucagon 1mg Kit) 1 mg AD PRN IM HYPOGLYCEMIA PROTOCOL 08/23/25 09:30 09/22/25 09:29 Heparin Sodium/ Dextrose 250 ml @ 0 mls/hr Q6H IV 08/21/25 02:00 08/23/25 09:17 DC 08/21/25 23:18 10.04 MLS/HR Heparin Sodium/ Dextrose (HEParin 25,000 UNITS/250ML D5W) 25,000 units AD IV 08/21/25 01:00 08/21/25 01:07 DC Hydralazine HCl (APRESOLine 20MG INJ) 10 mg ONCE PRN IV IF SBP GREATER THAN 180 08/21/25 01:30 08/23/25 09:17 DC Hydralazine HCl (APRESOLine 20MG INJ) 10 mg Q6H PRN IV For:SBP above 160;DBP above 90 08/21/25 01:30 08/23/25 09:17 DC Hydromorphone HCl (DiLAUDid 0.5MG INJ) 0.25 mg Q4H PRN IVP SEVERE PAIN (7-10) 08/21/25 01:30 08/23/25 09:17 DC 08/23/25 07:13 0.25 MG Insulin Human Regular 100 unit/ Sodium Chloride 100 ml @ 0 mls/hr AD IV 08/23/25 09:30 08/25/25 09:29 DC 08/23/25 14:27 1.5 MLS/HR Lactulose (Constulose 20gm/ 30ml Udcup) 20 gm BID PRN PO CONSTIPATION 08/23/25 09:30 09/22/25 09:29 Lidocaine (Lidoderm Patch 5%) 1 patch DAILY TP 08/21/25 09:00 09/20/25 08:59 08/26/25 09:24 1 PATCH Magnesium Hydroxide (Milk Of Magnesium 30ml) 30 ml DAILY PRN PO CONSTIPATION 08/23/25 09:30 09/22/25 09:29 Magnesium Sulfate 50 ml @ 12.5 mls/hr AD PRN IV MAG LEVEL LESS THAN 2.0 08/23/25 09:30 09/22/25 09:29 08/23/25 14:27 12.5 MLS/HR Metoprolol Tartrate (loprESSOR) 12.5 mg BID PO 08/25/25 09:00 09/24/25 08:59 Morphine Sulfate (morPHINE 4MG SYG) 0.5 mg Q2H PRN IV MODERATE PAIN (4-6) 08/23/25 10:00 08/30/25 09:59 Morphine Sulfate (morPHINE 4MG SYG) 1 mg Q2H PRN IV SEVERE PAIN (7-10) 08/23/25 09:30 08/24/25 09:29 DC Nifedipine (adALAT 30MG) 60 mg DAILY PO 08/21/25 09:00 08/23/25 09:17 DC 08/22/25 09:19 60 MG Nitroglycerin/ Dextrose 0 ml @ 0 mls/hr AD IV 08/23/25 09:30 08/26/25 09:29 DC Norepinephrine Bitartrate 250 ml @ 0 mls/hr AD PRN IV TITRATE 08/23/25 09:00 09/22/25 08:59 08/24/25 07:24 2.9 MLS/HR Norepinephrine Bitartrate 8 mg/ Dextrose 250 ml @ 0 mls/hr AD PRN IV POST-OP CARDIOVASCULAR ORDERS 08/23/25 09:30 08/23/25 09:33 DC Ondansetron HCl (zoFRAN 4MG INJ) 4 mg Q6H PRN IV NAUSEA/VOMITING 08/21/25 01:30 08/23/25 09:17 DC Ondansetron HCl (zoFRAN 4MG INJ) 4 mg Q6H PRN IV NAUSEA/VOMITING 08/23/25 09:30 09/22/25 09:29 08/24/25 19:49 4 MG Ondansetron HCl (zoFRAN 4MG INJ) 4 mg TID PRN IV NAUSEA/VOMITING 08/21/25 01:00 08/21/25 01:14 DC Pantoprazole Sodium (PROTonix 40MG INJ) 40 mg DAILY IVP 08/21/25 09:00 08/23/25 09:17 DC 08/23/25 08:10 40 MG Potassium Phosphate 250 ml @ 42 mls/hr AD PRN IV LOW PHOS LEVEL 08/23/25 09:30 09/22/25 09:29 Potassium Chloride 100 ml @ 100 mls/hr AD PRN IV HYPOKALEMIA 08/23/25 09:30 09/22/25 09:29 Propofol 100 ml @ 0 mls/hr AD PRN IV SEDATION 08/23/25 09:30 08/27/25 09:29 Sevelamer HCl (RENAgel 800 MG TAB) 3,200 mg TIDMEALS PO 08/21/25 08:00 09/20/25 07:59 08/25/25 18:38 3,200 MG Sodium Bicarbonate (Sodium Bicarb 50meq 50ml Vial) 50 meq AD PRN IV OTHER[SEE DOSING INSTRUCTIONS] 08/23/25 09:30 08/26/25 09:29 DC 08/23/25 16:21 50 MEQ Sodium Chloride 500 ml @ 0 mls/hr AD IV 08/23/25 09:30 09/22/25 09:29 08/23/25 19:39 3 MLS/HR Sodium Chloride 1,000 ml @ 0 mls/hr ONCE IV 08/22/25 17:30 08/22/25 21:30 DC 08/22/25 17:40 1,000 MLS/HR Sodium Chloride 1,000 ml @ 10 mls/hr ONCE IV 08/23/25 09:30 08/24/25 09:29 DC 08/23/25 14:25 10 MLS/HR Sodium Chloride (NS Flush 10ml) 10 ml Q8H PRN IVP IV LINE FLUSH 08/23/25 09:30 09/22/25 09:29 Tramadol HCl (UltRAM) 25 mg Q6H PRN PO MODERATE PAIN (4-6) 08/23/25 09:30 08/28/25 09:29 08/24/25 08:09 25 MG Tramadol HCl (UltRAM) 50 mg Q6H PRN PO SEVERE PAIN (7-10) 08/23/25 09:30 08/28/25 09:29 08/25/25 10:46 50 MG DIAGNOSTICS / RADIOLOGY: [ ] ASSESSMENT: Severe multivessel disease, POA NSTEMI, POA status post CABG x3 with the AtriClip 08/23/2025. ESRD on HD Hyperlipidemia Hypertension CHF with LVEF 50-55% by 2D echo, diastolic dysfunction on 08/20/2025 PLAN: patient remains admitted to the ICU, comfortably bed, hemodynamically stable, afebrile, saturating normal on room air, he is getting hemodialysis during my visit. Chest tube in place. The patient on epinephrine drip, to be weaned off today. Blood pressure 141/50, afebrile, hemoglobin improved to 8.1, hematocrit 23.9 after transfusion of 1 unit of PRBC. Continue to follow hemodialysis per Nephrology recommendation, continue to follow Cardiothoracic input recommendation, follow a.m. labs. NEURO: Minimize central acting medications as possible. Fall Precautions. Well lighted room through the day and minimize interruptions through the night to prevent acute delirium. PULMONARY: Supplemental 02 as needed BiPAP as necessary, for respiratory distress Titrate Fio2 to keep Spo2 > or = 90% DuoNebs and CPT as needed IS hourly while awake for pulmonary hygiene prn Out of bed to chair as tolerated Maintain aspiration precautions at all times CARDIOVASCULAR: Follow hemodynamics. Vital signs per facility protocol GI & NUTRITION: Continue nutritional support Aspirations precautions Prokinetic agents and laxatives as needed KIDNEYS & ELECTROLYTES: Strict monitoring of intake and output Daily weights Avoid nephrotoxic agents Monitor electrolytes and replace as needed Goal urine output of 30mL/hr or 0.5mL/kg/hr Medications to be dosed according to renal function. Avoid contrast if possible ENDOCRINE: Maintain blood glucose between 100-180 at all times. Insulin sliding scale for blood glucose management Hypoglycemia and hyperglycemia protocol in place INFECTIOUS DISEASE: Trend temperature, WBC and procalcitonin level Follow cultures, deescalate antibiotics as soon as possible. Panculture if new onset fever HEMATOLOGY & COAGULATION: Monitor H&H. Keep Hgb > 7 Transfuse 1 unit of PRBC for Hgb < 7 Transfuse 1 pack of platelets of platelets < 20, 000 Watch for any signs and symptoms of bleeding SKIN: Pressure ulcer prevention per facility protocol Specialty mattress as needed ORTHO/REHAB Continue PT/OT PRN: MEDICATIONS Tylenol 650 mg po every 4 hrs for fever zofran 4 mg IV every 6 hrs for n/v Hydralazine 5 mg IV every 4 hrs systolic pressure > 160 bowel regiment: lactulose 20 gm PO BID PRN constipation Supportive measures: Continue GI and DVT prophylaxis Disposition: Pending improvement in clinical condition All questions answered time spent: > 35 min MICHAEL INTERIANO MD Aug 26, 2025 11:13
--- NOTE | 2025-08-26 13:30 | NUR ---
Unable to see patient today as he was on dialysis in am and as per Yonatan nurse, he is tachcardic this pm. PT team to follow.
[2025-08-26] MEDS: EPOETIN ALFA-EPBX (NON-ESRD) 10,000 UNIT/ML VIAL SQ SCH (14:11)
--- NOTE | 2025-08-26 14:20 | HMCIMG ---
EXAM: CR Chest, 1 View. CLINICAL HISTORY: s/p CABG COMPARISON: 08/25/2025 FINDINGS: The Verona-Hiren catheter tip overlies the right pulmonary artery. LUNGS: Small bilateral pleural effusions with adjacent lung atelectasis, slightly increased on the left. PLEURAL SPACES: No pneumothorax. MEDIASTINUM: The cardiac size is stable. Median sternotomy status. BONES: No acute osseous abnormality. IMPRESSION: 1. Small bilateral pleural effusions with adjacent lung atelectasis, slightly increased on the left. 2. Verona-Hiren catheter tip overlies the right pulmonary artery. /Hemet
--- NOTE | 2025-08-26 17:29 | PN ---
[facility] CARDIOLOGY PROGRESS NOTE Date Patient Seen: Aug 26, 2025 Time of Visit: 17:24 Interval History: [ No acute events overnight. The patient has completed amiodarone infusion, currently on p.o. amiodarone, review of telemetry shows atrial fibrillation with a ventricular rate in the low 100s, currently denying any cardiac symptoms or anginal equivalents. Repeat hemoglobin 8.1 g Physical Examination: GENERAL: [No acute distress.] HEAD: [Normal with no signs of head trauma.] EYES: [PERRLA, EOMI, conjunctiva and sclera normal.] ENT: [Hearing grossly intact, normal oropharynx.] NECK: [Supple without JVD. There is no tenderness, lymphadenopathy, or masses. No thyromegaly. Normal carotid upstrokes without bruits.] LUNGS: [Clear breath sounds bilaterally.. No wheezes, or rhonchi. Chest tubes in and functional] HEART: [Normal rate and rhythm. Normal S1 and S2 without murmurs, gallop or rub.] VASC: [Peripheral pulses +2 bilaterally.] ABD: [Bowel sounds normal, soft, nontender, no masses, no organomegaly. No audible bruits.] : [Not examined] LYMPH: [No lymphadenopathy noted.] EXT: [No clubbing, cyanosis or edema.] SKIN: [examination of left groin access site appears to be clean with no evidence of hematoma or active bleeding.] NEURO: [Awake, alert, and oriented x3. No focal sensory or strength deficits noted.] Laboratory: [ ] Hematology Labs: Test 08/26/25 04:45 Range/Units White Blood Count 10.1 4.8-10.8 K/uL Red Blood Count 2.59 #L 4.50-6.20 MIL/uL Hemoglobin 8.1 L 14.0-18.0 g/dL Hematocrit 23.9 L 42-54 % Mean Corpuscular Volume 92.3 79-99 fL Mean Corpuscular Hemoglobin 31.3 27.0-33.0 pg Mean Corpuscular Hemoglobin Concent 33.9 32.0-36.0 g/dL Red Cell Distribution Width 18.2 H 11.0-15.5 % Platelet Count 162 130-400 K/uL Mean Platelet Volume 10.3 7.5-10.5 fL Nucleated Red Blood Cells 0.0 0.0-0.19 % Red Blood Cell Morphology ANISO 1+ Chemistry Labs: Test 08/26/25 04:45 08/26/25 01:29 Range/Units Sodium Level 136 136-145 mmol/L Potassium Level 5.0 3.5-5.1 mmol/L Chloride Level 97 L 101-111 mmol/L Carbon Dioxide Level 24 21-32 mmol/L Blood Urea Nitrogen 61 H 7-18 mg/dL Creatinine 10.4 *H 0.5-1.3 mg/dL Glomerular Filtration Rate Calc 5 >90 mL/min Random Glucose 132 H 70-105 mg/dL Total Calcium 8.5 8.5-10.1 mg/dL Phosphorus Level 7.0 H 2.5-4.9 mg/dL Magnesium Level 2.30 1.80-2.40 mg/dL Iron Level 24 L 65-175 mcg/dL Total Iron Binding Capacity 131 L 250-450 mcg/dL Percent Iron Saturation 18.3 L 30-44 % Ferritin 4174 H 30-400 ng/mL Total Bilirubin 0.4 0.2-1.0 mg/dL Aspartate Amino Transf (AST/SGOT) 41 H 10-37 U/L Alanine Aminotransferase (ALT/SGPT) 10 L 12-78 U/L Alkaline Phosphatase 62 50-136 U/L Total Protein 5.8 L 6.0-8.3 g/dL Albumin 2.5 L 3.5-5.0 g/dL Whole Blood Glucose 135 H 70-110 MG/DL Diagnostics / Radiology: [Copy/Paste Echos/Imaging Report here] Impression and Plan: [1. Non-STEMI. 2. Multivessel coronary disease. 3. Hypertension. 4. Hyperlipidemia. 5. End-stage renal disease on hemodialysis. 6. Hyperkalemia. #CAD s/p 3v CABG ( PORTILLO-LAD, SVG- OM2, SVG-PDA ) on 08-23-[address] Hackett Admitted [facility] on 08/19/2025 for chest pain Troponin peaked at 3703 2D echocardiogram (08/20/2025) LVEF 50-55%, per report Coronary angiogram (08/20/2025) revealing severe multivessel CAD (per report), examination of left groin access site appears to be clean with no evidence of hematoma or active bleeding. Patient was transferred from [facility] for CABG evaluation Patient has been successfully extubated without complications. Currently on minimal pressor support Hemoglobin dropped 5.8, patient received1 unit of PRBCs repeat hemoglobin 8.1 g No urine output due to ESRD. Minimal chest tube output; continue Lasix 20 mg every 12 hours Continue Lopressor 12.5 mg every 12 hours, [id number] mg daily, and atorvastatin 40 mg daily Once chest tubes are out recommend initiating [id number] mg daily ] #atrial fibrillation Patient developed atrial fibrillation with RVR overnight. Patient completed amiodarone bolus and infusion We will continue with the amiodarone 200 mg every12 hours for seven days, and then we will continue amiodarone 200 mg daily after that Current review of telemetry atrial fibrillation with a RVR, heart rate in the 1 10s Please keep on telemetry, monitor/replace electrolytes as needed Start [id number] mg every 12 hours for rate control Continue heparin infusion per PPX Prior to discharge we will transition to Eliquis 5 mg every 12 hours Thank you for this consult cardiology will continue to follow along postoperatively Chucho montanez MD ATTESTATION BY PHYSICIAN I have seen and examined the patient, reviewed the above documentation, participated in medical decision making, made necessary modifications, and agree with the treatment plan as documented by my mid-level provider above. MD SARINA Cuba JAMES R MD Aug 26, 2025 17:29
[2025-08-26] MEDS ORDERED: AMIODARONE 360MG/200ML BAG 200 ML IV SCH (18:30)
[2025-08-27] VITALS (57 sets, daily range): BP systolic 75–161; BP diastolic 34–78; PULSE 67–96; RESP 5–21; TEMP 96.8–98.6; O2SAT 92–100
[2025-08-27 05:14] LABS: NUCLEATED RED BLOOD CELLS 0.0 % (0.0-0.19); PLATELET COUNT (AUTO) 139.0 K/uL (130-400); RED BLOOD CELL COUNT(AUTO) 2.4 MIL/uL (4.50-6.20); RED CELL DISTRIBUTION WIDTH 17.2 % (11.0-15.5); WHITE BLOOD COUNT (AUTO) 6.3 K/uL (4.8-10.8)
[2025-08-27 05:26] LABS: GLOMERULAR FILTR. RATE CALC 6.0 mL/min (>90); GLUCOSE,RANDOM 99.0 mg/dL (70-105); SODIUM SERUM 136.0 mmol/L (136-145); UREA NITROGEN, BLOOD 56.0 mg/dL (7-18)
--- NOTE | 2025-08-27 05:47 | PN ---
NEPHROLOGY NOTE DATE OF SERVICE: 08/26/2025 SUBJECTIVE: The patient is seen in ICU, seen for dialysis and seen several times today. The patient has no fevers, chills, or rigors. No other associated findings. No other aggravating or relieving factors. No other associated symptoms. The patient was seen and seen for dialysis and seen several times today. TID: [id number] RECEIPT: [id number]
[2025-08-27 06:00] LABS: CREATININE 8.7 mg/dL (0.5-1.3)
--- NOTE | 2025-08-27 06:02 | PN ---
NEPHROLOGY NOTE SUBJECTIVE: The patient has been evaluated and seen for dialysis and seen multiple times in ICU. The patient is generally weak status post CABG. No fevers, chills, or rigors. Multivessel coronary artery disease. PHYSICAL EXAMINATION: GENERAL: Pale, in no other distress or deformity. Lying in bed. VITAL SIGNS: Blood pressure is 127/40, pulse is 110, and respiratory rate is 20. HEENT: Head is atraumatic, normocephalic. Pupils are round and reactive to light. Sclerae are anicteric. Conjunctivae not pale. Oral mucosa is not dry. NECK: Supple. No masses or bruits. Thyroid is palpable. Neck has no bruits. CHEST: Shows equal thoracic percussion note being resonant in all areas. CARDIAC: Regular rhythm. No rubs. No S3, S4. No parasternal heaves. ABDOMEN: No guarding, tenderness. LABORATORY DATA: We have reviewed available labs in detail. Low hemoglobin as low as 5.8. PROBLEMS: * Advanced renal failure. * Anemia. * Status post coronary artery bypass graft. PLAN: Epogen as needed. Continue monitoring of anemia, renal function, and overall status. Intake, output, and weight will be monitored. The patient was seen several times today on and off dialysis and I have discussed with the team physician. Condition remains guarded. Thank you for this patient. TID: [id number] RECEIPT: [id number]
[2025-08-27] MEDS: AMIOdarone 150MG/100ML BAG 100 ML IV ONE (08:10)
--- NOTE | 2025-08-27 09:11 | PN ---
[facility] PROGRESS NOTE Date Patient Seen: Aug 27, 2025 Time of Visit: 09:09 Supervising Physician: Dr Colton Norris Primary Care Physician: [Dr. Prince ] Outpatient Specialists: [ ] Inpatient Consults: [ ] PROBLEM LIST: Acute non STEMI Status post CABG X 3 with ligation of Atrial Appendage (08/23) ESRD on HD Acute on chronic diastolic heart failure T2DM HTN Atherosclerosis Obesity, BMI 36 Hyperlipidemia INTERVAL HISTORY: Patient was seen and examined all labs and imaging have been reviewed Patient is sitting comfortably at bedside chair, no family members at bedside Nursing reports no acute events overnight, patient afebrile Good saturations nasal cannula 2 L Patient tolerating hemodialysis yesterday with removal of 1.8 His hemoglobin is stable at 7.5 Chest tube 30/80/12 Urine output 0 Off all pressors He is awake alert and oriented reporting min surgical pain PLAN: Off pressors Continue follow I&Os CV surgeon recommendations Cardiology recs IS Total critical care time spent 45 minutes, this excludes any procedures performed or any time spent in educational or teaching. REVIEW OF SYSTEMS: 12 point ROS reviewed with patient. Pertinent positives mentioned above. Otherwise negative. PHYSICAL EXAM: GENERAL: alert, weak, awake oriented x 3 HEENT: EOMI, Sclera non icteric, moist mucosa NECK: Supple, no JVD, trachea midline LUNGS: Clear breath sounds bilaterally. No wheezes CT X2 in place HEART: Regular rate and rhythm. Normal S1 and S2, without murmurs. sternotomy noted intact. ABD: Abdomen soft, nontender. Bowel sounds present EXT: No clubbing cyanosis or edema NEURO: Alert and oriented to person, follows commands Vital Signs (last 8hr) Date Time Temp Pulse Resp B/P (MAP) Pulse Ox O2 Delivery O2 Flow Rate FiO2 08/27/25 08:45 77 15 126/53 (77) 100 105/63 (77) 08/27/25 08:30 77 17 116/50 (72) 99 08/27/25 08:15 75 17 115/47 (69) 99 130/51 (77) 08/27/25 08:00 97.9 08/27/25 08:00 96.8 75 17 135/51 (79) 99 128/66 (86) 08/27/25 08:00 96 Nasal Cannula* 4 36 08/27/25 07:45 73 12 119/40 (66) 99 107/54 (71) 08/27/25 07:30 76 13 113/44 (67) 92 107/52 (70) 08/27/25 07:15 71 11 119/37 (64) 92 110/56 (74) 08/27/25 07:12 70 20 N/Cannula Low lpm 5.0 40 08/27/25 07:00 73 12 116/38 (64) 92 90/48 (62) 08/27/25 06:45 73 13 115/38 (63) 92 98/50 (66) 08/27/25 06:00 73 13 117/37 (63) 92 111/51 (71) 08/27/25 05:45 74 13 102/34 (56) 92 98/48 (65) 08/27/25 05:30 74 15 111/38 (62) 92 104/55 (71) 08/27/25 05:15 79 13 131/44 (73) 92 112/57 (75) 08/27/25 05:00 74 14 114/38 (63) 92 107/55 (72) 08/27/25 04:45 74 13 106/38 (60) 92 119/52 (74) 08/27/25 04:30 73 14 117/38 (64) 92 109/54 (72) 08/27/25 04:15 74 13 119/40 (66) 92 109/55 (73) 08/27/25 04:00 99 Nasal Cannula* 2 28 08/27/25 04:00 98.1 74 14 114/37 (62) 83 99/51 (67) 08/27/25 03:45 74 14 114/37 (62) 83 99/51 (67) 08/27/25 03:30 73 12 109/36 (60) 87 92/49 (63) 08/27/25 03:15 74 13 113/37 (62) 91 100/54 (69) 08/27/25 03:00 75 17 113/38 (63) 94 100/49 (66) 08/27/25 02:45 77 10 125/42 (69) 88 111/56 (74) 08/27/25 02:30 67 15 105/36 (59) 92 97/50 (66) 08/27/25 02:15 79 14 104/42 (62) 97 103/63 (76) 08/27/25 02:00 77 18 130/55 (80) 80 104/68 (80) 08/27/25 01:30 76 14 96/37 (56) 91 122/62 (82) 08/27/25 01:15 77 12 93/36 (55) 94 101/57 (72) LABS: Hematology Labs: Test 08/27/25 04:29 08/26/25 04:45 Range/Units White Blood Count 6.3 # 4.8-10.8 K/uL Red Blood Count 2.40 L 4.50-6.20 MIL/uL Hemoglobin 7.5 L 14.0-18.0 g/dL Hematocrit 22.0 L 42-54 % Mean Corpuscular Volume 91.7 79-99 fL Mean Corpuscular Hemoglobin 31.3 27.0-33.0 pg Mean Corpuscular Hemoglobin Concent 34.1 32.0-36.0 g/dL Red Cell Distribution Width 17.2 H 11.0-15.5 % Platelet Count 139 130-400 K/uL Mean Platelet Volume 10.6 H 7.5-10.5 fL Nucleated Red Blood Cells 0.0 0.0-0.19 % Red Blood Cell Morphology ANISO 1+ Chemistry Labs: Test 08/27/25 04:29 08/26/25 04:45 08/26/25 01:29 Range/Units Sodium Level 136 136-145 mmol/L Potassium Level 4.3 3.5-5.1 mmol/L Chloride Level 95 L 101-111 mmol/L Carbon Dioxide Level 26 21-32 mmol/L Blood Urea Nitrogen 56 H 7-18 mg/dL Creatinine 8.7 *H 0.5-1.3 mg/dL Glomerular Filtration Rate Calc 6 >90 mL/min Random Glucose 99 70-105 mg/dL Total Calcium 8.2 L 8.5-10.1 mg/dL Phosphorus Level 7.0 H 2.5-4.9 mg/dL Magnesium Level 2.30 1.80-2.40 mg/dL Iron Level 24 L 65-175 mcg/dL Total Iron Binding Capacity 131 L 250-450 mcg/dL Percent Iron Saturation 18.3 L 30-44 % Ferritin 4174 H 30-400 ng/mL Total Bilirubin 0.4 0.2-1.0 mg/dL Aspartate Amino Transf (AST/SGOT) 41 H 10-37 U/L Alanine Aminotransferase (ALT/SGPT) 10 L 12-78 U/L Alkaline Phosphatase 62 50-136 U/L Total Protein 5.8 L 6.0-8.3 g/dL Albumin 2.5 L 3.5-5.0 g/dL Whole Blood Glucose 135 H 70-110 MG/DL DIAGNOSTICS / RADIOLOGY RESULTS: [ ] PLAN NEURO: Minimize central acting medications as possible. Fall Precautions. Well lighted room through the day and minimize interruptions through the night to prevent acute delirium. PULMONARY: Supplemental 02 as needed Titrate Fio2 to keep Spo2 > or = 90% DuoNebs and CPT as needed IS hourly while awake for pulmonary hygiene Out of bed to chair as tolerated VAP Bundle Vent/BIPAP Settings: [ ] Driving pressure: [ ] P Plat: [ ] Static C: [ ] Static R: [ ] P/F Ratio: [ ] CARDIOVASCULAR: Follow hemodynamics. Titrate vasopressor to keep MAP >65 or systolic blood pressure >95mmHg DIPS: [ ] LINES: [ ] GI & NUTRITION: Continue nutritional support Aspirations precautions Prokinetic agents and laxatives as needed KIDNEYS & ELECTROLYTES: Strict monitoring of intake and output Daily weights Avoid nephrotoxic agents Monitor electrolytes and replace as needed Goal urine output of 30mL/hr or 0.5mL/kg/hr Urine output: [ ] Fluid Balance: [ ] ENDOCRINE: Maintain blood glucose between 100-180 at all times. Insulin sliding scale for blood glucose management INFECTIOUS DISEASE: Trend temperature. Mary-culture if febrile. Micro: [ ] Antibiotics: [ ] HEMATOLOGY & COAGULATION: Monitor H&H. Keep Hgb > 7 Transfuse 1 unit of PRBC for Hgb < 7 Transfuse 1 pack of platelets of platelets < 20, 000 Watch for any signs and symptoms of bleeding SKIN: Pressure ulcer prevention per facility protocol Rehab: PT/OT Prophylaxis: GI: [ ] DVT: [ ] Code Status: Full Resuscitation Disposition: [ ] PHILIPPE CHANEY PAC Aug 27, 2025 09:11
--- NOTE | 2025-08-27 12:30 | PN ---
[facility] PROGRESS NOTE Date of Service: Aug 27, 2025 Time of Service: 12:29 SUBJECTIVE: 08/22 patient remains admitted to the PCU, comfortably in bed, alert and oriented x3, on heparin drip. Denies chest pain, shortness shortness for breath, no nausea, no vomiting, no abdominal discomfort. He remains hemodynamically stable, afebrile, saturating normal on room air. Mild drop in hemoglobin to 9.8 with a hematocrit 29.6, no signs of GI bleed. Patient evaluated by Cardiothoracic surgeon, pending further recommendations in terms of CABG. Follow CBC in a.m. and transfuse as needed. Discussed with the patient, in agreement, all questions answered. 08/23 patient remains admitted to the PCU, comfortably in bed, alert and oriented x3, denies chest pain, shortness shortness for breath, no nausea, no vomiting, no abdominal discomfort. He remains hemodynamically stable, afebrile, saturating normal on room air. Patient evaluated by Cardiothoracic surgeon, case discussed, plan for CABG today. 08/24 patient remains admitted to the ICU, status post CABG, 08/23/2025, postoperative day 1. Patient is successfully extubated, Awake, following comman ds, on insulin and epinephrine drip, chest tube in place. BP 118/47, afebrile, WBC 13.1, hemoglobin 7.2, hematocrit 21.4, platelet count of 151, sodium 140, potassium 6.0, BUN of 60, creatinine 9.5, carbon dioxide 24. ABG pH 7.41, PO2 119.4, pCO2 38, bicarbonate of 23.5. Continue to follow Cardiothoracic input recommendation, continue aspirin 81 mg p.o. daily, atorvastatin 40 mg p.o. daily, furosemide 20 mg IV q.12 hours. Follow a.m. labs.Continue hemodialysis per Nephrology recommendation. 08/25 patient remains admitted to the ICU, awake, following commands, getting 1 unit of PRBC during my visit, BP 143/48, heart rate of 125, saturating 99% 2 L nasal cannula. CBC shows hemoglobin 5.8, hematocrit 70.6, WBC of 12.6, platelet count of 153. CMP with sodium 140, potassium 4.7, BUN 46, creatinine 8.7. Chest x-ray 08/24/2025 showing left lower lobe opacity, mostly congestion, shanthi dence of sternotomy sutures, Hancock-Hiren catheter with tip by right pulmonary artery, as compared to prior x-ray, currently study reveals no interval change as regards to psoas CAD catheter. Chest x-ray today pending. Continue to follow CT surgery input recommendation critical care input recommendation. Follow CBC post transfusion. 08/26 patient remains admitted to the ICU, comfortably bed, hemodynamically stable, afebrile, saturating normal on room air, he is getting hemodialysis during my visit. Chest tube in place. The patient on epinephrine drip, to be weaned off today. Blood pressure 141/50, afebrile, hemoglobin improved to 8.1, hematocrit 23.9 after transfusion of 1 unit of PRBC. Continue to follow hemodialysis per Nephrology recommendation, continue to follow Cardiothoracic input recommendation, follow a.m. labs. 08/27 patient remains admitted to the ICU, seen and examined at bedside, getting up from the chair with the help of the physical therapist, he remains alert and oriented x3, hemodynamically stable. Off epinephrine drip per discussion with the RN. Denies chest pain, shortness shortness for breath, no nausea, no vomiting, no abdominal discomfort. Chest tube in place. Further recommendations from Cardiothoracic surgeon. Possible downgraded to the PCU. Follow a.m. labs. Discussed with the patient. REVIEW OF SYSTEMS CONSTITUTIONAL: Denies fevers, chills, or night sweats. No unintentional weight loss reported. NEUROLOGICAL: Denies headache, amaurosis fugax, motor weakness, sensory deficit, vertigo/spinning sensation, gait abnormalities, or tremors. ENT: No hearing loss, otalgia, otorrhea, rhinitis, rhinorrhea, hoarseness, or sore throat. CARDIOVASCULAR: Denies any exertional angina, dyspnea on exertion, orthopnea, paroxysmal nocturnal dyspnea, palpitations, life-threatening arrhythmias, claudication. PULMONARY: Denies any shortness of breath, cough, phlegm/sputum, hemoptysis, pleuritic chest pain. SLEEP: Denies morning headaches, daytime somnolence or napping. Denies difficulty falling asleep, staying asleep, waking from sleep. Denies knowledge of snoring. GASTROINTESTINAL: Denies any type of dysphagia to either liquids or solids. Denies nausea, vomiting, pyrosis, early satiety, abdominal pain, diarrhea, constipation, or changes in stool consistency or caliber. Denies coffee-ground emesis, hematemesis, hematochezia, or melanotic stools. GENITOURINARY: Denies frequency, urgency, nocturia, hematuria or incontinence (Storage/Irritative symptoms.) Low urinary stream, straining to void, urinary intermittency or hesitancy, splitting of the voiding stream, terminal dribbling. ENDOCRINOLOGIC: Denies polyuria, polydipsia, polyphagia or heat/cold intolerances. HEMATOLOGIC: Denies thrombophilia/previous clots, or coagulopathy/bleeding disorders. ONCOLOGIC: Denies personal history of malignancy. DERMATOLOGIC: Denies rashes or pruritus. PSYCHIATRIC: Denies any suicidal or homicidal ideation. Denies hallucinations. PHYSICAL EXAM GENERAL APPEARANCE: The patient is awake, alert, and oriented, in no acute cardiopulmonary distress. NEUROLOGICAL: Cranial nerves II-XII grossly intact. Motor is 5/5 in bilateral upper and lower extremities proximal to distal. No sensory deficits. HEENT: Face is symmetric. Pupils are equal and reactive. Extraocular movements are intact. NECK: Supple. No JVD. No thyromegaly. No submental, submandibular, pre-/postauricular, occipital or supraclavicular lymphadenopathy. CHEST: Normal chest expansion. No Telemetry. LUNGS: Absence of any rales, rhonchi or any wheezing. CARDIOVASCULAR: Regular. S1 and S2 normal. No appreciable rubs, murmurs or gallops. ABDOMEN: Soft, nontender, and nondistended. There is no rebound, voluntary guarding, or rigidity. : Deferred. No Soliz. EXTREMITIES: Non-edematous and not cyanotic. No clubbing. Good capillary refill. SKIN: No skin breakdown. Vital Signs (last 8hr) Date Time Temp Pulse Resp B/P (MAP) Pulse Ox O2 Delivery O2 Flow Rate FiO2 08/27/25 11:08 78 20 N/Cannula Low lpm 5.0 40 08/27/25 10:15 79 19 100/45 (63) 87 135/50 (78) 08/27/25 10:00 75 14 130/45 (73) 99 129/57 (81) 08/27/25 09:45 70 19 105/45 (65) 97 107/49 (68) 08/27/25 09:30 73 10 94/36 (55) 100 75/36 (49) 08/27/25 09:15 76 10 97/37 (57) 100 76/42 (53) 08/27/25 09:00 79 10 99/39 (59) 100 87/44 (58) 08/27/25 08:45 77 15 126/53 (77) 100 105/63 (77) 08/27/25 08:30 77 17 116/50 (72) 99 08/27/25 08:15 75 17 115/47 (69) 99 130/51 (77) 08/27/25 08:00 97.9 08/27/25 08:00 96.8 75 17 135/51 (79) 99 128/66 (86) 08/27/25 08:00 96 Nasal Cannula* 4 36 08/27/25 07:45 73 12 119/40 (66) 99 107/54 (71) 08/27/25 07:30 76 13 113/44 (67) 92 107/52 (70) 08/27/25 07:15 71 11 119/37 (64) 92 110/56 (74) 08/27/25 07:12 70 20 N/Cannula Low lpm 5.0 40 08/27/25 07:00 73 12 116/38 (64) 92 90/48 (62) 08/27/25 06:45 73 13 115/38 (63) 92 98/50 (66) 08/27/25 06:00 73 13 117/37 (63) 92 111/51 (71) 08/27/25 05:45 74 13 102/34 (56) 92 98/48 (65) 08/27/25 05:30 74 15 111/38 (62) 92 104/55 (71) 08/27/25 05:15 79 13 131/44 (73) 92 112/57 (75) 08/27/25 05:00 74 14 114/38 (63) 92 107/55 (72) 08/27/25 04:45 74 13 106/38 (60) 92 119/52 (74) 08/27/25 04:30 73 14 117/38 (64) 92 109/54 (72) LABS: Laboratory: Test 08/27/25 04:29 08/26/25 04:45 08/26/25 01:29 Range/Units White Blood Count 6.3 # 4.8-10.8 K/uL Red Blood Count 2.40 L 4.50-6.20 MIL/uL Hemoglobin 7.5 L 14.0-18.0 g/dL Hematocrit 22.0 L 42-54 % Mean Corpuscular Volume 91.7 79-99 fL Mean Corpuscular Hemoglobin 31.3 27.0-33.0 pg Mean Corpuscular Hemoglobin Concent 34.1 32.0-36.0 g/dL Red Cell Distribution Width 17.2 H 11.0-15.5 % Platelet Count 139 130-400 K/uL Mean Platelet Volume 10.6 H 7.5-10.5 fL Nucleated Red Blood Cells 0.0 0.0-0.19 % Sodium Level 136 136-145 mmol/L Potassium Level 4.3 3.5-5.1 mmol/L Chloride Level 95 L 101-111 mmol/L Carbon Dioxide Level 26 21-32 mmol/L Blood Urea Nitrogen 56 H 7-18 mg/dL Creatinine 8.7 *H 0.5-1.3 mg/dL Glomerular Filtration Rate Calc 6 >90 mL/min Random Glucose 99 70-105 mg/dL Total Calcium 8.2 L 8.5-10.1 mg/dL Red Blood Cell Morphology ANISO 1+ Phosphorus Level 7.0 H 2.5-4.9 mg/dL Magnesium Level 2.30 1.80-2.40 mg/dL Iron Level 24 L 65-175 mcg/dL Total Iron Binding Capacity 131 L 250-450 mcg/dL Percent Iron Saturation 18.3 L 30-44 % Ferritin 4174 H 30-400 ng/mL Total Bilirubin 0.4 0.2-1.0 mg/dL Aspartate Amino Transf (AST/SGOT) 41 H 10-37 U/L Alanine Aminotransferase (ALT/SGPT) 10 L 12-78 U/L Alkaline Phosphatase 62 50-136 U/L Total Protein 5.8 L 6.0-8.3 g/dL Albumin 2.5 L 3.5-5.0 g/dL Whole Blood Glucose 135 H 70-110 MG/DL Current Medications Medications (Trade) Dose Ordered Sig/Flavio Route PRN Reason Start Time Stop Time Status Last Admin Dose Admin Acetaminophen (TYLenol 325MG TAB) 650 mg Q4H PRN PO Temp >38.3C(AFTER EXTUBATION) 08/23/25 09:30 09/22/25 09:29 Acetaminophen (TYLenol 325MG TAB) 650 mg Q4HPRN PRN PO FEVER 08/21/25 01:00 08/23/25 09:31 DC 08/23/25 00:01 650 MG Acetaminophen (TYLenol 325MG TAB) 650 mg Q6H PRN PO MILD PAIN (1-3) 08/23/25 09:30 09/22/25 09:29 Acetaminophen (TYLenol 650MG SUPPOSITORY) 650 mg Q4H PRN RC Temp >38.3C WHILE INTUBATED 08/23/25 09:30 09/22/25 09:29 Acetaminophen (acetaMINOPHEN 1,000MG/100ML) 1,000 mg ONCE IV 08/23/25 21:00 08/23/25 23:00 DC 08/23/25 20:54 1,000 MG Acetaminophen (acetaMINOPHEN 1,000MG/100ML) 1,000 mg Q6H6 IV 08/23/25 12:00 08/23/25 18:39 DC 08/23/25 14:24 1,000 MG Acetaminophen (acetaMINOPHEN 1,000MG/100ML) 1,000 mg Q6H6 IV 08/24/25 06:00 09/23/25 05:59 08/27/25 12:20 1,000 MG Acetaminophen/ Hydrocodone Bitart (NORco 5/325MG) 1 tab Q6H PRN PO PAIN 5-10 08/21/25 01:00 08/23/25 09:17 DC 08/22/25 20:29 1 TAB Albumin Human 250 ml @ 0 mls/hr AD PRN IV IF HEMODYNAMICALLY UNSTABLE 08/23/25 09:30 08/23/25 15:43 DC 08/23/25 15:43 2,520 MLS/HR Aminocaproic Acid 75245 mg/Sodium Chloride 310 ml @ 25 mls/hr AD IV 08/23/25 09:30 08/23/25 09:34 DC Aminocaproic Acid 82000 mg/Sodium Chloride 480 ml @ 0 mls/hr AD PRN IV BLEEDING CONTROL 08/23/25 09:00 09/22/25 08:59 Amiodarone HCl (pacERONE 200MG) 200 mg BID PO 08/26/25 14:00 09/25/25 13:59 08/27/25 08:09 200 MG Amiodarone HCl 150 mg/Dextrose 103 ml @ 618 mls/hr ONCE IV 08/25/25 07:30 08/25/25 07:20 DC Amiodarone HCl 360 mg/Dextrose 207.2 ml @ 33.3 mls/hr AD IV 08/25/25 07:30 08/25/25 07:20 DC Amiodarone HCl 540 mg/Dextrose 310.8 ml @ 16.7 mls/hr [id number] IV 08/27/25 01:30 09/26/25 01:29 Amiodarone HCl 540 mg/Dextrose 310.8 ml @ 16.7 mls/hr [id number] STAT IV 08/25/25 07:18 08/26/25 01:54 DC 08/25/25 14:04 16.7 MLS/HR Amiodarone HCL/ Dextrose 200 ml @ 33.333 mls/ hr AD IV 08/26/25 18:30 08/27/25 00:29 DC Aspirin (Aspirin 81mg Chew Tab) 81 mg DAILY PO 08/21/25 09:00 08/23/25 14:27 DC 08/22/25 09:19 81 MG Aspirin (Aspirin 81mg Chew Tab) 81 mg HS PO 08/23/25 21:00 09/22/25 20:59 08/26/25 20:40 81 MG Atorvastatin Calcium (LIPItor 40MG) 40 mg HS PO 08/21/25 21:00 09/20/25 20:59 08/26/25 20:39 40 MG Calcium Gluconate 1 gm/Sodium Chloride 60 ml @ 200 mls/hr AD PRN IV HYPOCALCEMIA 08/23/25 09:30 09/22/25 09:29 08/24/25 08:08 200 MLS/HR Carvedilol (Coreg 3.125MG) 3.125 mg BID PO 08/21/25 09:00 08/23/25 09:17 DC 08/23/25 08:10 3.125 MG Cefazolin Sodium (ANCEF 1 gm vial) 2 gm ONCALL IVP 08/22/25 15:30 08/23/25 09:04 DC Cefazolin Sodium (Ancef) 2 gm ONCALL IVP 08/23/25 09:30 08/24/25 09:16 DC Cefazolin Sodium (Ancef) 2 gm Q8H IVPB 08/23/25 14:30 08/23/25 14:37 DC Cefazolin Sodium (Ancef) 2 gm Q8H IVPB 08/23/25 18:00 08/24/25 10:01 DC 08/24/25 09:13 2 GM Cyclobenzaprine HCl (Cyclobenzaprine HCl) 10 mg TID PO 08/21/25 09:00 08/23/25 09:17 DC 08/22/25 21:39 10 MG Dexmedetomidine/ Sodium Chloride (PRECEdex 400MCG/ 100ML-NS) 400 mcg PROTOCOL IV 08/23/25 09:30 08/24/25 09:29 DC Dextrose (D50w) 50 ml AD PRN IV HYPOGLYCEMIA PROTOCOL 08/23/25 09:30 09/22/25 09:29 08/24/25 05:59 50 ML Docusate Sodium (COLace 100MG CAP) 100 mg BID PO 08/23/25 21:00 09/22/25 20:59 08/27/25 08:09 100 MG Enoxaparin Sodium (Lovenox) 30 mg DAILY SQ 08/26/25 09:00 09/25/25 08:59 Epinephrine HCl 10 mg/Sodium Chloride 250 ml @ 0 mls/hr AD PRN IV TITRATE 08/23/25 09:00 09/22/25 08:59 08/25/25 21:53 0 MLS/HR Epinephrine HCl 10 mg/Sodium Chloride 250 ml @ 0 mls/hr AD PRN IV POST-OP CARDIOVASCULAR ORDERS 08/23/25 09:30 08/23/25 09:33 DC Epoetin Melquiades-epbx (Retacrit) 10,000 unit QTUTHSA[DIALYSIS] SQ 08/26/25 14:00 09/25/25 13:59 08/26/25 14:11 10,000 UNIT Famotidine (Pepcid 20mg Vial) 20 mg Q48H IV 08/23/25 21:00 09/22/25 20:59 08/25/25 20:40 20 MG Furosemide (LASix 100MG VIAL) 80 mg BID IV 08/21/25 09:00 08/21/25 18:47 DC Furosemide (LASix 20MG TAB) 20 mg Q12H PO 08/25/25 09:30 09/24/25 09:29 08/26/25 20:39 20 MG Furosemide (LASix 20MG VIAL) 20 mg Q12H IV 08/24/25 09:30 08/25/25 09:29 DC 08/24/25 19:41 20 MG Glucagon (Glucagon 1mg Kit) 1 mg AD PRN IM HYPOGLYCEMIA PROTOCOL 08/23/25 09:30 09/22/25 09:29 Heparin Sodium/ Dextrose 250 ml @ 0 mls/hr Q6H IV 08/21/25 02:00 08/23/25 09:17 DC 08/21/25 23:18 10.04 MLS/HR Heparin Sodium/ Dextrose (HEParin 25,000 UNITS/250ML D5W) 25,000 units AD IV 08/21/25 01:00 08/21/25 01:07 DC Hydralazine HCl (APRESOLine 20MG INJ) 10 mg ONCE PRN IV IF SBP GREATER THAN 180 08/21/25 01:30 08/23/25 09:17 DC Hydralazine HCl (APRESOLine 20MG INJ) 10 mg Q6H PRN IV For:SBP above 160;DBP above 90 08/21/25 01:30 08/23/25 09:17 DC Hydromorphone HCl (DiLAUDid 0.5MG INJ) 0.25 mg Q4H PRN IVP SEVERE PAIN (7-10) 08/21/25 01:30 08/23/25 09:17 DC 08/23/25 07:13 0.25 MG Insulin Human Regular 100 unit/ Sodium Chloride 100 ml @ 0 mls/hr AD IV 08/23/25 09:30 08/25/25 09:29 DC 08/23/25 14:27 1.5 MLS/HR Lactulose (Constulose 20gm/ 30ml Udcup) 20 gm BID PRN PO CONSTIPATION 08/23/25 09:30 09/22/25 09:29 Lidocaine (Lidoderm Patch 5%) 1 patch DAILY TP 08/21/25 09:00 09/20/25 08:59 08/27/25 08:11 1 PATCH Magnesium Hydroxide (Milk Of Magnesium 30ml) 30 ml DAILY PRN PO CONSTIPATION 08/23/25 09:30 09/22/25 09:29 Magnesium Sulfate 50 ml @ 12.5 mls/hr AD PRN IV MAG LEVEL LESS THAN 2.0 08/23/25 09:30 09/22/25 09:29 08/23/25 14:27 12.5 MLS/HR Metoprolol Tartrate (loprESSOR) 12.5 mg BID PO 08/25/25 09:00 08/26/25 17:08 DC Metoprolol Tartrate (loprESSOR) 25 mg BID PO 08/26/25 17:30 09/25/25 17:29 08/26/25 20:39 25 MG Morphine Sulfate (morPHINE 4MG SYG) 0.5 mg Q2H PRN IV MODERATE PAIN (4-6) 08/23/25 10:00 08/30/25 09:59 Morphine Sulfate (morPHINE 4MG SYG) 1 mg Q2H PRN IV SEVERE PAIN (7-10) 08/23/25 09:30 08/24/25 09:29 DC Nifedipine (adALAT 30MG) 60 mg DAILY PO 08/21/25 09:00 08/23/25 09:17 DC 08/22/25 09:19 60 MG Nitroglycerin/ Dextrose 0 ml @ 0 mls/hr AD IV 08/23/25 09:30 08/26/25 09:29 DC Norepinephrine Bitartrate 250 ml @ 0 mls/hr AD PRN IV TITRATE 08/23/25 09:00 09/22/25 08:59 08/24/25 07:24 2.9 MLS/HR Norepinephrine Bitartrate 8 mg/ Dextrose 250 ml @ 0 mls/hr AD PRN IV POST-OP CARDIOVASCULAR ORDERS 08/23/25 09:30 08/23/25 09:33 DC Ondansetron HCl (zoFRAN 4MG INJ) 4 mg Q6H PRN IV NAUSEA/VOMITING 08/21/25 01:30 08/23/25 09:17 DC Ondansetron HCl (zoFRAN 4MG INJ) 4 mg Q6H PRN IV NAUSEA/VOMITING 08/23/25 09:30 09/22/25 09:29 08/24/25 19:49 4 MG Ondansetron HCl (zoFRAN 4MG INJ) 4 mg TID PRN IV NAUSEA/VOMITING 08/21/25 01:00 08/21/25 01:14 DC Pantoprazole Sodium (PROTonix 40MG INJ) 40 mg DAILY IVP 08/21/25 09:00 08/23/25 09:17 DC 08/23/25 08:10 40 MG Potassium Phosphate 250 ml @ 42 mls/hr AD PRN IV LOW PHOS LEVEL 08/23/25 09:30 09/22/25 09:29 Potassium Chloride 100 ml @ 100 mls/hr AD PRN IV HYPOKALEMIA 08/23/25 09:30 09/22/25 09:29 Propofol 100 ml @ 0 mls/hr AD PRN IV SEDATION 08/23/25 09:30 08/27/25 09:29 DC Sevelamer HCl (RENAgel 800 MG TAB) 3,200 mg TIDMEALS PO 08/21/25 08:00 09/20/25 07:59 08/27/25 08:09 3,200 MG Sodium Bicarbonate (Sodium Bicarb 50meq 50ml Vial) 50 meq AD PRN IV OTHER[SEE DOSING INSTRUCTIONS] 08/23/25 09:30 08/26/25 09:29 DC 08/23/25 16:21 50 MEQ Sodium Chloride 500 ml @ 0 mls/hr AD IV 08/23/25 09:30 09/22/25 09:29 08/23/25 19:39 3 MLS/HR Sodium Chloride 1,000 ml @ 0 mls/hr ONCE IV 08/22/25 17:30 08/22/25 21:30 DC 08/22/25 17:40 1,000 MLS/HR Sodium Chloride 1,000 ml @ 10 mls/hr ONCE IV 08/23/25 09:30 08/24/25 09:29 DC 08/23/25 14:25 10 MLS/HR Sodium Chloride (NS Flush 10ml) 10 ml Q8H PRN IVP IV LINE FLUSH 08/23/25 09:30 09/22/25 09:29 Tramadol HCl (UltRAM) 25 mg Q6H PRN PO MODERATE PAIN (4-6) 08/23/25 09:30 08/28/25 09:29 08/24/25 08:09 25 MG Tramadol HCl (UltRAM) 50 mg Q6H PRN PO SEVERE PAIN (7-10) 08/23/25 09:30 08/28/25 09:29 08/26/25 14:19 50 MG DIAGNOSTICS / RADIOLOGY: [ ] ASSESSMENT: Severe multivessel disease, POA NSTEMI, POA status post CABG x3 with the AtriClip 08/23/2025. ESRD on HD Hyperlipidemia Hypertension CHF with LVEF 50-55% by 2D echo, diastolic dysfunction on 08/20/2025 PLAN: patient remains admitted to the ICU, seen and examined at bedside, getting up from the chair with the help of the physical therapist, he remains alert and oriented x3, hemodynamically stable. Off epinephrine drip per discussion with the RN. Denies chest pain, shortness shortness for breath, no nausea, no vomiting, no abdominal discomfort. Chest tube in place. Further recommendations from Cardiothoracic surgeon. Possible downgraded to the PCU. Follow a.m. labs. Discussed with the patient. NEURO: Minimize central acting medications as possible. Fall Precautions. Well lighted room through the day and minimize interruptions through the night to prevent acute delirium. PULMONARY: Supplemental 02 as needed BiPAP as necessary, for respiratory distress Titrate Fio2 to keep Spo2 > or = 90% DuoNebs and CPT as needed IS hourly while awake for pulmonary hygiene prn Out of bed to chair as tolerated Maintain aspiration precautions at all times CARDIOVASCULAR: Follow hemodynamics. Vital signs per facility protocol GI & NUTRITION: Continue nutritional support Aspirations precautions Prokinetic agents and laxatives as needed KIDNEYS & ELECTROLYTES: Strict monitoring of intake and output Daily weights Avoid nephrotoxic agents Monitor electrolytes and replace as needed Goal urine output of 30mL/hr or 0.5mL/kg/hr Medications to be dosed according to renal function. Avoid contrast if possible ENDOCRINE: Maintain blood glucose between 100-180 at all times. Insulin sliding scale for blood glucose management Hypoglycemia and hyperglycemia protocol in place INFECTIOUS DISEASE: Trend temperature, WBC and procalcitonin level Follow cultures, deescalate antibiotics as soon as possible. Panculture if new onset fever HEMATOLOGY & COAGULATION: Monitor H&H. Keep Hgb > 7 Transfuse 1 unit of PRBC for Hgb < 7 Transfuse 1 pack of platelets of platelets < 20, 000 Watch for any signs and symptoms of bleeding SKIN: Pressure ulcer prevention per facility protocol Specialty mattress as needed ORTHO/REHAB Continue PT/OT PRN: MEDICATIONS Tylenol 650 mg po every 4 hrs for fever zofran 4 mg IV every 6 hrs for n/v Hydralazine 5 mg IV every 4 hrs systolic pressure > 160 bowel regiment: lactulose 20 gm PO BID PRN constipation Supportive measures: Continue GI and DVT prophylaxis Disposition: Pending improvement in clinical condition All questions answered time spent: > 35 min MICHAEL INTERIANO MD Aug 27, 2025 12:30
--- NOTE | 2025-08-27 14:42 | PN ---
NEPHROLOGY PROGRESS NOTE Date/Time Patient Seen: Aug 27, 2025 SUBJECTIVE: Patient was transferred from [facility] for cardiovascular surgery Service. Patient was admitted to [facility] on 08/19/2025 with a chief complaint of chest pain. Patient was diagnosed with a NSTEMI Patient had a left heart catheterization on 08/20/2025 that showed severe multivessel disease. 2D echo on 08/20/2025 showed diastolic dysfunction with LVEF 50-55%. Cardiology recommended transferring to a facility with the cardiovascular surgery service S/P Off-pump coronary artery bypass grafting x3 vessels on 08/23 Hemoglobin was noted, S/p PRBC transfusion. Tolerated dialysis without difficulty yesterday. Dialysis planned for tomorrow. He has been extubated Chest tubes in place He was seen in the ICU, in no acute distress REVIEW OF SYSTEMS: GENERAL: Positive for generalized weakness NEUROLOGIC: Negative for any blurry vision, blind spots, double vision, facial asymmetry, dysphagia, dysarthria, hemiparesis, hemisensory deficits, vertigo, ataxia. HEENT: Negative for any head trauma, neck trauma, neck stiffness, photophobia, phonophobia, sinusitis, rhinitis. CARDIAC: Negative for any chest pain, dyspnea on exertion, paroxysmal nocturnal dyspnea, peripheral edema. PULMONARY: Negative for any shortness of breath, wheezing, COPD, or TB exposure. GASTROINTESTINAL: Negative for any abdominal pain, nausea, vomiting, bright red blood per rectum, melena. GENITOURINARY: Negative for any dysuria, hematuria, incontinence. INTEGUMENTARY: Negative for any rashes, cuts, insect bites. RHEUMATOLOGIC: Negative for any joint pains, photosensitive rashes, history of vasculitis or kidney problems. HEMATOLOGIC: Negative for any abnormal bruising, frequent infections or bleeding. Vital Signs (last 8hr) Date Time Temp Pulse Resp B/P (MAP) Pulse Ox O2 Delivery O2 Flow Rate FiO2 08/27/25 12:00 98 Nasal Cannula* 4 36 08/27/25 12:00 97.3 08/27/25 11:08 78 20 N/Cannula Low lpm 5.0 40 08/27/25 10:15 79 19 100/45 (63) 87 135/50 (78) 08/27/25 10:00 75 14 130/45 (73) 99 129/57 (81) 08/27/25 09:45 70 19 105/45 (65) 97 107/49 (68) 08/27/25 09:30 73 10 94/36 (55) 100 75/36 (49) 08/27/25 09:15 76 10 97/37 (57) 100 76/42 (53) 08/27/25 09:00 79 10 99/39 (59) 100 87/44 (58) 08/27/25 08:45 77 15 126/53 (77) 100 105/63 (77) 08/27/25 08:30 77 17 116/50 (72) 99 08/27/25 08:15 75 17 115/47 (69) 99 130/51 (77) 08/27/25 08:00 97.9 08/27/25 08:00 96.8 75 17 135/51 (79) 99 128/66 (86) 08/27/25 08:00 96 Nasal Cannula* 4 36 08/27/25 07:45 73 12 119/40 (66) 99 107/54 (71) 08/27/25 07:30 76 13 113/44 (67) 92 107/52 (70) 08/27/25 07:15 71 11 119/37 (64) 92 110/56 (74) 08/27/25 07:12 70 20 N/Cannula Low lpm 5.0 40 08/27/25 07:00 73 12 116/38 (64) 92 90/48 (62) 08/27/25 06:45 73 13 115/38 (63) 92 98/50 (66) PHYSICAL EXAM: GENERAL: Pale, acutely ill male, lethargic, no acute distress. Well-nourished. EYES: EOMI. Anicteric. HENT: Moist mucous membranes. No scleral icterus. No cervical lymphadenopathy. LUNGS: Clear to auscultation bilaterally. No accessory muscle use. CARDIOVASCULAR: Regular rate and rhythm. No murmur. No JVD. ABDOMEN: Soft, non-tender and non-distended. No palpable masses. EXTREMITIES: No edema. Non-tender. SKIN: No rashes or lesions. Warm. NEUROLOGIC: No focal neurological deficits. CN II-XII grossly intact, but not individually tested. PSYCHIATRIC: Cooperative. Appropriate mood and affect. Current Medications Medications (Trade) Dose Ordered Sig/Flavio Route Start Time Stop Time Status Last Admin Dose Admin Acetaminophen (acetaMINOPHEN 1,000MG/100ML) 1,000 mg ONCE IV 08/23/25 21:00 08/23/25 23:00 DC 08/23/25 20:54 1,000 MG Acetaminophen (acetaMINOPHEN 1,000MG/100ML) 1,000 mg Q6H6 IV 08/23/25 12:00 08/23/25 18:39 DC 08/23/25 14:24 1,000 MG Acetaminophen (acetaMINOPHEN 1,000MG/100ML) 1,000 mg Q6H6 IV 08/24/25 06:00 09/23/25 05:59 08/27/25 12:20 1,000 MG Aminocaproic Acid 35566 mg/Sodium Chloride 310 ml @ 25 mls/hr AD IV 08/23/25 09:30 08/23/25 09:34 DC Amiodarone HCl (pacERONE 200MG) 200 mg BID PO 08/26/25 14:00 09/25/25 13:59 08/27/25 08:09 200 MG Amiodarone HCl 150 mg/Dextrose 103 ml @ 618 mls/hr ONCE IV 08/25/25 07:30 08/25/25 07:20 DC Amiodarone HCl 360 mg/Dextrose 207.2 ml @ 33.3 mls/hr AD IV 08/25/25 07:30 08/25/25 07:20 DC Amiodarone HCl 540 mg/Dextrose 310.8 ml @ 16.7 mls/hr [id number] IV 08/27/25 01:30 09/26/25 01:29 Amiodarone HCl 540 mg/Dextrose 310.8 ml @ 16.7 mls/hr [id number] STAT IV 08/25/25 07:18 08/26/25 01:54 DC 08/25/25 14:04 16.7 MLS/HR Amiodarone HCL/ Dextrose 200 ml @ 33.333 mls/ hr AD IV 08/26/25 18:30 08/27/25 00:29 DC Aspirin (Aspirin 81mg Chew Tab) 81 mg DAILY PO 08/21/25 09:00 08/23/25 14:27 DC 08/22/25 09:19 81 MG Aspirin (Aspirin 81mg Chew Tab) 81 mg HS PO 08/23/25 21:00 09/22/25 20:59 08/26/25 20:40 81 MG Atorvastatin Calcium (LIPItor 40MG) 40 mg HS PO 08/21/25 21:00 09/20/25 20:59 08/26/25 20:39 40 MG Carvedilol (Coreg 3.125MG) 3.125 mg BID PO 08/21/25 09:00 08/23/25 09:17 DC 08/23/25 08:10 3.125 MG Cefazolin Sodium (ANCEF 1 gm vial) 2 gm ONCALL IVP 08/22/25 15:30 08/23/25 09:04 DC Cefazolin Sodium (Ancef) 2 gm ONCALL IVP 08/23/25 09:30 08/24/25 09:16 DC Cefazolin Sodium (Ancef) 2 gm Q8H IVPB 08/23/25 14:30 08/23/25 14:37 DC Cefazolin Sodium (Ancef) 2 gm Q8H IVPB 08/23/25 18:00 08/24/25 10:01 DC 08/24/25 09:13 2 GM Cyclobenzaprine HCl (Cyclobenzaprine HCl) 10 mg TID PO 08/21/25 09:00 08/23/25 09:17 DC 08/22/25 21:39 10 MG Dexmedetomidine/ Sodium Chloride (PRECEdex 400MCG/ 100ML-NS) 400 mcg PROTOCOL IV 08/23/25 09:30 08/24/25 09:29 DC Docusate Sodium (COLace 100MG CAP) 100 mg BID PO 08/23/25 21:00 09/22/25 20:59 08/27/25 08:09 100 MG Enoxaparin Sodium (Lovenox) 30 mg DAILY SQ 08/26/25 09:00 09/25/25 08:59 Epoetin Melquiades-epbx (Retacrit) 10,000 unit QTUTHSA[DIALYSIS] SQ 08/26/25 14:00 09/25/25 13:59 08/26/25 14:11 10,000 UNIT Famotidine (Pepcid 20mg Vial) 20 mg Q48H IV 08/23/25 21:00 09/22/25 20:59 08/25/25 20:40 20 MG Furosemide (LASix 100MG VIAL) 80 mg BID IV 08/21/25 09:00 08/21/25 18:47 DC Furosemide (LASix 20MG TAB) 20 mg Q12H PO 08/25/25 09:30 09/24/25 09:29 08/26/25 20:39 20 MG Furosemide (LASix 20MG VIAL) 20 mg Q12H IV 08/24/25 09:30 08/25/25 09:29 DC 08/24/25 19:41 20 MG Heparin Sodium/ Dextrose 250 ml @ 0 mls/hr Q6H IV 08/21/25 02:00 08/23/25 09:17 DC 08/21/25 23:18 10.04 MLS/HR Heparin Sodium/ Dextrose (HEParin 25,000 UNITS/250ML D5W) 25,000 units AD IV 08/21/25 01:00 08/21/25 01:07 DC Insulin Human Regular 100 unit/ Sodium Chloride 100 ml @ 0 mls/hr AD IV 08/23/25 09:30 08/25/25 09:29 DC 08/23/25 14:27 1.5 MLS/HR Lidocaine (Lidoderm Patch 5%) 1 patch DAILY TP 08/21/25 09:00 09/20/25 08:59 08/27/25 08:11 1 PATCH Metoprolol Tartrate (loprESSOR) 12.5 mg BID PO 08/25/25 09:00 08/26/25 17:08 DC Metoprolol Tartrate (loprESSOR) 25 mg BID PO 08/26/25 17:30 09/25/25 17:29 08/26/25 20:39 25 MG Nifedipine (adALAT 30MG) 60 mg DAILY PO 08/21/25 09:00 08/23/25 09:17 DC 08/22/25 09:19 60 MG Nitroglycerin/ Dextrose 0 ml @ 0 mls/hr AD IV 08/23/25 09:30 08/26/25 09:29 DC Pantoprazole Sodium (PROTonix 40MG INJ) 40 mg DAILY IVP 08/21/25 09:00 08/23/25 09:17 DC 08/23/25 08:10 40 MG Sevelamer HCl (RENAgel 800 MG TAB) 3,200 mg TIDMEALS PO 08/21/25 08:00 09/20/25 07:59 08/27/25 08:09 3,200 MG Sodium Chloride 500 ml @ 0 mls/hr AD IV 08/23/25 09:30 09/22/25 09:29 08/23/25 19:39 3 MLS/HR Sodium Chloride 1,000 ml @ 0 mls/hr ONCE IV 08/22/25 17:30 08/22/25 21:30 DC 08/22/25 17:40 1,000 MLS/HR Sodium Chloride 1,000 ml @ 10 mls/hr ONCE IV 08/23/25 09:30 08/24/25 09:29 DC 08/23/25 14:25 10 MLS/HR LABORATORY: [ ] Hematology Labs: Test 08/27/25 04:29 08/26/25 04:45 Range/Units White Blood Count 6.3 # 4.8-10.8 K/uL Red Blood Count 2.40 L 4.50-6.20 MIL/uL Hemoglobin 7.5 L 14.0-18.0 g/dL Hematocrit 22.0 L 42-54 % Mean Corpuscular Volume 91.7 79-99 fL Mean Corpuscular Hemoglobin 31.3 27.0-33.0 pg Mean Corpuscular Hemoglobin Concent 34.1 32.0-36.0 g/dL Red Cell Distribution Width 17.2 H 11.0-15.5 % Platelet Count 139 130-400 K/uL Mean Platelet Volume 10.6 H 7.5-10.5 fL Nucleated Red Blood Cells 0.0 0.0-0.19 % Red Blood Cell Morphology ANISO 1+ Chemistry Labs: Test 08/27/25 04:29 08/26/25 04:45 08/26/25 01:29 Range/Units Sodium Level 136 136-145 mmol/L Potassium Level 4.3 3.5-5.1 mmol/L Chloride Level 95 L 101-111 mmol/L Carbon Dioxide Level 26 21-32 mmol/L Blood Urea Nitrogen 56 H 7-18 mg/dL Creatinine 8.7 *H 0.5-1.3 mg/dL Glomerular Filtration Rate Calc 6 >90 mL/min Random Glucose 99 70-105 mg/dL Total Calcium 8.2 L 8.5-10.1 mg/dL Phosphorus Level 7.0 H 2.5-4.9 mg/dL Magnesium Level 2.30 1.80-2.40 mg/dL Iron Level 24 L 65-175 mcg/dL Total Iron Binding Capacity 131 L 250-450 mcg/dL Percent Iron Saturation 18.3 L 30-44 % Ferritin 4174 H 30-400 ng/mL Total Bilirubin 0.4 0.2-1.0 mg/dL Aspartate Amino Transf (AST/SGOT) 41 H 10-37 U/L Alanine Aminotransferase (ALT/SGPT) 10 L 12-78 U/L Alkaline Phosphatase 62 50-136 U/L Total Protein 5.8 L 6.0-8.3 g/dL Albumin 2.5 L 3.5-5.0 g/dL Whole Blood Glucose 135 H 70-110 MG/DL DIAGNOSTICS / RADIOLOGY: [place] [id number] [address] IMAGING REPORT Signed PATIENT: KHLOE SALAZAR MR#: [id number] : 1965 SEX: M AGE: 60 LOCATION: 2B ORDER 2300 STATUS: ADM IN REPORT#: [id number] SERVICE 0400 REASON: s/p CABG ORDERING PHYSICIAN: PLAAK FULLER MD PROCEDURE: CXR1VW - CHEST 1VW EXAM: CR Chest, 1 View. CLINICAL HISTORY: s/p CABG COMPARISON: 08/25/2025 FINDINGS: The Otley-Hiren catheter tip overlies the right pulmonary artery. LUNGS: Small bilateral pleural effusions with adjacent lung atelectasis, slightly increased on the left. PLEURAL SPACES: No pneumothorax. MEDIASTINUM: The cardiac size is stable. Median sternotomy status. BONES: No acute osseous abnormality. IMPRESSION: 1. Small bilateral pleural effusions with adjacent lung atelectasis, slightly increased on the left. 2. Otley-Hiren catheter tip overlies the right pulmonary artery. /[place] DICTATED BY: JACK ARCHER Jr., MD DATE: 08/26/251518 ELECTRONICALLY SIGNED BY: JACK ARCHER Jr., MD DATE: 08/26/251518 PATIENT: KHLOE SALAZAR MR#: [id number] : 1965 SEX: M AGE: 60 LOCATION: 2CV ORDER 99 STATUS: ADM IN REPORT#: [id number] SERVICE 9 REASON: s/p CABG ORDERING PHYSICIAN: PALAK FULLER MD PROCEDURE: CXR1VW - CHEST 1VW EXAM: CR Chest, 1 View. CLINICAL HISTORY: s/p CABG COMPARISON: 08/24/2025 FINDINGS: The Otley-Hiren catheter tip is in the right pulmonary artery. LUNGS: Persistent left lower lobar opacities, mostly due to congestion. PLEURAL SPACES: No pneumothorax. Questionable bilateral small pleural effusion. MEDIASTINUM: Cardiac size is stable. Status post CABG changes. BONES: No aggressive appearing osseous lesion seen. IMPRESSION: 1. Persistent left lower lobar opacities, likely due to congestion. 2. Questionable bilateral small pleural effusion. 3. Otley-Hiren catheter tip in the right pulmonary artery. /[place] DICTATED BY: JACK ARCHER Jr., MD DATE: 08/25/251535 ELECTRONICALLY SIGNED BY: JACK ARCHER Jr., MD DATE: 08/25/251535 PATIENT: KHLOE SALAZAR MR#: [id number] : 1965 SEX: M AGE: 60 LOCATION: 2CV ORDER 99 STATUS: ADM IN REPORT#: [id number] SERVICE 9 REASON: s/p CABG ORDERING PHYSICIAN: PALAK FULLER MD PROCEDURE: CXR1VW - CHEST 1VW EXAM: CR CHEST, 1 VIEW CLINICAL HISTORY: chest x-ray dated 08/23/2025 COMPARISON: CABG TECHNIQUE: Single frontal radiograph of the chest was obtained. FINDINGS: Lines/Devices:Otley-Hiren catheter is seen with its tip at the right pulmonary artery. Lungs: Left lower lobar faint opacity, mostly congestion. No consolidation or ground-glass opacities are observed. There is no pleural effusion. There is no pneumothorax. Mediastinum and cardiovascular structures:The cardiac silhouette is not enlarged. The central airway and mediastinal contours are unremarkable.Bones and soft tissues: Evidence of sternotomy suture is present.Radiodense surgical prosthesis at the retrocardiac region, mostly representing dorsal spine internal fixation. IMPRESSION: 1. Left lower lobar faint opacity, mostly congestion 2. Evidence of sternotomy sutures. 3. Otley-Hiren catheter with tip at the right pulmonary artery 4. As compared to the previous chest x-ray dated 08/23/2025, the current study reveals no time interval changes as regards the Otley Hiren catheter with its tip at the right pulmonary artery.The previously noted nasogastric tube as well as the endotracheal tube are not visualized in today's study mostly removed.Left lower lobar faint opacity is noted again mostly representing congestion. /[place] DICTATED BY: OFELIA SHARIF MD DATE: 08/24/251600 ELECTRONICALLY SIGNED BY: OFELIA SHARIF MD DATE: 08/24/251600 PATIENT: KHLOE SALAZAR MR#: [id number] : 1965 SEX: M AGE: 60 LOCATION: 2CV ORDER 132 STATUS: ADM IN REPORT#: [id number] SERVICE 1323 REASON: S/P REPOSITIONING OF ET TUBE ORDERING PHYSICIAN: PALAK FULLER MD PROCEDURE: CXR1VW - CHEST 1VW EXAM: CR Chest, 1 View. CLINICAL HISTORY: S/P REPOSITIONING OF ET TUBE COMPARISON: None provided. FINDINGS: LUNGS: Endotracheal tube midline above zarina. Otley-Hiren catheter right pulmonary artery PLEURAL SPACES: No evidence of pleural effusion or pneumothorax. MEDIASTINUM: Cardiac size and mediastinal contours within normal limits. BONES: No acute osseous abnormality. MISCELLANEOUS: Nasogastric tube below diaphragm IMPRESSION: 1. Endotracheal tube midline above zarina. 2. Otley-Hiren catheter right pulmonary artery 3. Nasogastric tube below diaphragm /[place] DICTATED BY: DAVEY LU MD DATE: 08/23/251519 ELECTRONICALLY SIGNED BY: DAVEY LU MD DATE: 08/23/251519 PATIENT: KHLOE SALAZAR MR#: [id number] : 1965 SEX: M AGE: 60 LOCATION: 2CV ORDER 3 STATUS: ADM IN REPORT#: [id number] SERVICE 99 REASON: s/p CABG ORDERING PHYSICIAN: PALAK FULLER MD PROCEDURE: CXR1VW - CHEST 1VW EXAM: CR Chest, 2 View. CLINICAL HISTORY: s/p CABG COMPARISON: None provided. FINDINGS: LUNGS: Endotracheal tube midline above zarina at the mid clavicle level Otley-Hiren catheter right pulmonary artery PLEURAL SPACES: No pleural effusion or pneumothorax. MEDIASTINUM: The cardiomediastinal silhouette is within normal limits. BONES: No acute osseous abnormality. MISCELLANEOUS: Nasogastric tube below diaphragm Patchy bilateral infiltrates IMPRESSION: 1. Endotracheal tube midline above zarina at the mid clavicle level 2. Nasogastric tube below diaphragm 3. Otley-Hiren catheter right pulmonary artery 4. Patchy bilateral infiltrates /[place] DICTATED BY: DAVEY LU MD DATE: 08/23/251519 ELECTRONICALLY SIGNED BY: DAVEY LU MD DATE: 08/23/251519 PATIENT: KHLOE SALAZAR MR#: [id number] : 1965 SEX: M AGE: 60 LOCATION: 2AH ORDER 3 STATUS: ADM IN REPORT#: [id number] SERVICE 2 REASON: preop CABG ORDERING PHYSICIAN: PALAK FULLER MD PROCEDURE: ECHO CMP - ECHO 2-D COMPLETE APPROVED REPORT EXAM: Two-dimensional and M-mode echocardiogram with Doppler and color Doppler. INDICATION ICD: pre-op CABG 2D Dimensions RVDd 4.7 cm LVEF(%) 41.0 (>50%) LVED Vol(simp.) 173.9 mL IVSd 0.9 (0.7-1.1cm) FS(%) 20 % LVES Vol(simp.) 92.2 mL LVDd 4.9 (3.8-5.6cm) LA (2D) 4.5 (1.6-4.0cm) LVEF(%, simp.) 47 % PWd 1.2 (0.7-1.1cm) Ao Root(2D) 3.3 (2.0-3.7cm) LA ESV INDEX (BP) 38.01 mL/m2 LVDs 3.9 (2.5-4.0cm) LVOT diam 2.4 (1.8-2.4cm) Deformation Strain Apical 4 -15.4 % Apical 2 -14.0 % Apical 3 -14.4 % Global Strain -14.6 % M-Mode Dimensions EPSS 1.2 cm LA (MM) 4.2 (1.6-4.0cm) Ao Root(MM) 3.5 (2.0-3.7cm) Aortic Valve AoV Vmax 1.9 m/s Ao Peak GR 14.1 mmHg LVOT Vmax 1.1 m/s AoV VTI 0.4 m Ao Mean GR 8.6 mmHg LVOT VTI 0.26 m KRISTEN (VMAX) 2.87 cm2 Al P1/2T 392 ms KRISTEN (VTI) 3.1 cm2 Mitral Valve MV E Vmax 117.9 cm/s DECEL Time 220 ms MV A Vmax 115.4 cm/s P 1/2 T 65 ms E/A ratio 1.0 MVA (PHT) 3.4 cm2 TDI E/E' Medial 21.2 E/E' Lateral 12.7 Medial E' Peak V 5.56 cm/s Lateral E' Peak V 9.27 cm/s Pulmonary Valve PV Vmax 1.1 m/s PV VTI 0.25 m PV Mean GR 2.9 mmHg PV Peak GR 5.0 mmHg Tricuspid Valve TR Vmax 2.3 m/s RVSP 21.9 mmHg TR Peak GR 21.9 mmHg Left Ventricle Left ventricular cavity size is normal. There is global hypokinesis of the left ventricle. There is normal left ventricular wall thickness. LVEF is 45-50%. Stage II diastolic dysfunction. Right Ventricle The right ventricle is normal size. The right ventricular systolic function is normal. Atria The left atrium is mildly dilated. The right atrium size is normal. Aortic Valve The aortic valve is normal in structure. Trace aortic regurgitation. There is no aortic valvular stenosis. Mitral Valve The mitral valve is normal in structure. Posterior leaflet is mildly thickened. Mitral regurgitation is mild. There is no mitral valve stenosis. Tricuspid Valve The tricuspid valve is normal in structure. There is trace tricuspid valve regurgitation noted. Pulmonic Valve Pulmonic valve is not well visualized. There is no pulmonic valvular regurgitation. Great Vessels The aortic root is normal in size. The IVC is normal in size and collapses >50% with inspiration. Pericardium There is no pericardial effusion. Other Information Quality : Average Conclusion Left ventricular cavity size is normal. LVEF is 45-50% with global hypokinesis of the left ventricle. Stage II diastolic dysfunction. The right ventricular systolic function is normal. The left atrium is mildly dilated. No hemodynamically significant valvular abnormalities. There is no pericardial effusion. DICTATED BY: DAVEY BRANCH MD DATE: 08/21/25951 ELECTRONICALLY SIGNED BY: DAVEY BRANCH MD DATE: 08/21/25 1854PATIENT: KHLOE SALAZAR MR#: [id number] : 1965 SEX: M AGE: 60 LOCATION: 2A ORDER 3 [facility] REPORT#: [id number] SERVICE 2 REASON: preop CABG ORDERING PHYSICIAN: PALAK FULLER MD PROCEDURE: CAROTID - US CAROTID DUPLEX STUDY: CAROTID DUPLEX ULTRASOUND CLINICAL INFORMATION: Preoperative evaluation prior to coronary artery bypass grafting (CABG). TECHNIQUE: Grayscale, color Doppler, and spectral Doppler ultrasound of the bilateral carotid and vertebral arteries was performed, including peak systolic velocity measurements. COMPARISON: None provided. FINDINGS: RIGHT CAROTID SYSTEM: Peak systolic velocity (PSV) in the right common carotid artery (CCA) measures approximately 99 cm/s. Peak systolic velocity in the right internal carotid artery (ICA) measures approximately 90 cm/s, with a right ICA/CCA PSV ratio of 0.9. Peak systolic velocity in the right external carotid artery (ECA) is approximately 86 cm/s. Calcified plaques are present in the distal right CCA and carotid bulb. No hemodynamically significant elevation of ICA velocity is demonstrated to suggest high-grade right ICA stenosis. LEFT CAROTID SYSTEM: Peak systolic velocity in the left CCA measures approximately 81 cm/s. Peak systolic velocity in the left ICA measures approximately 95 cm/s, with a left ICA/CCA PSV ratio of 1.2. Peak systolic velocity in the left ECA is approximately 86 cm/s. Calcified plaques are present in the distal left CCA and carotid bulb. No hemodynamically significant elevation of ICA velocity is demonstrated to suggest high-grade left ICA stenosis. VERTEBRAL ARTERIES: Right vertebral artery demonstrates antegrade flow with peak systolic velocity of approximately 71 cm/s. Left vertebral artery demonstrates antegrade flow with peak systolic velocity of approximately 39 cm/s. No evidence of vertebral artery flow reversal is identified. IMPRESSION: * Calcified atherosclerotic plaques in the bilateral distal common carotid arteries and carotid bulbs, with internal carotid artery peak systolic velocities and ICA/CCA ratios consistent with no hemodynamically significant carotid stenosis by duplex criteria. * Bilateral vertebral arteries with antegrade flow, without sonographic evidence of subclavian steal or vertebral artery occlusion. * From a carotid duplex perspective, no high-grade carotid stenosis is identified that would typically preclude or delay CABG; continued medical optimization of atherosclerotic risk factors is recommended in coordination with cardiology and vascular teams. /[place] DICTATED BY: OFELIA SHARIF MD DATE: 08/23/25158 ELECTRONICALLY SIGNED BY: OFELIA SHARIF MD DATE: 08/23/25158 ASSESSMENT: Severe multivessel disease Anemia Acute on chronic diastolic heart failure NSTEMI, POA ESRD on HD Hyperlipidemia Hypertension CHF with LVEF 50-55% by 2D echo, diastolic dysfunction on 08/20/2025 PLAN: Labs and Diagnostics/ Radiology personally reviewed and interpreted by myself and supervising physician We have reviewed dialysis and external records in detail Continue dialysis schedule Monday 1.5 L fluid restriction Continue to monitor H&H Continue with IV pressors BiPAP, for respiratory distress Epogen on dialysis days, as needed Continue with frequent monitoring of renal function, anemia, and electrolytes Order CBC, CMP, and electrolytes in the morning May use Dilaudid 0.5 mg IV every 6 hours as needed for severe pain Monitor blood pressure adjust medication doses as needed Maintain normotensive state Strict intake, output, and daily weight should be monitored Please renally adjust medications. Avoid nephrotoxics and nonsteroidal drugs. We will continue to monitor the patient closely We have discussed with the other team physicians in detail about the care plan Total critical care time spent with patient, nursing staff, critical care team over 35 minutes ATTESTATION BY PHYSICIAN I have seen and examined the patient. I reviewed the documentation, medical decision making, and treatment plan as noted by the mid-level provider above. I agree with the findings and plan of care. GERRI MIGUEL MD, [facility] Aug 27, 2025 14:42
--- NOTE | 2025-08-27 15:21 | NUR ---
[facility] ICU Skin Assessment: Patient assessed by wound healing team. patient up in chair. Per primary nurse, patient with no wounds or skin breakdown noted. Assessment and recommendations provided to primary nurse. Education provided.
--- NOTE | 2025-08-27 15:54 | HMCIMG ---
EXAM: CR Chest, 1 View. CLINICAL HISTORY: s/p CABG. COMPARISON: CHEST 1VW dated on 08/26/2025. FINDINGS: LUNGS: Small bilateral pleural effusions and adjacent lung atelectasis are re-demonstrated. No consolidation. PLEURAL SPACES: No pneumothorax. HEART: The cardiac size is stable. There are two right side chest tubes seen. A left internal jugular central venous sheath is seen. BONES: Median sternotomy sutures. No acute osseous abnormality. IMPRESSION: 1.Small bilateral pleural effusions with adjacent subsegmental atelectasis. 2.Two right side chest tubes seen. 3.Postoperative changes consistent with prior CABG and median sternotomy, with stable cardiac silhouette. 4.No significant interval change compared to the prior CR: CHEST dated 08/26/2025. /[place]
--- NOTE | 2025-08-27 15:55 | PN ---
[facility] CARDIOLOGY PROGRESS NOTE Date Patient Seen: Aug 27, 2025 Time of Visit: 15:50 Interval History: [ No acute events overnight. Current review of telemetry sinus rhythm, with a heart rate in the 70s., denies any cardiac symptoms or anginal equivalents Physical Examination: GENERAL: [No acute distress.] HEAD: [Normal with no signs of head trauma.] EYES: [PERRLA, EOMI, conjunctiva and sclera normal.] ENT: [Hearing grossly intact, normal oropharynx.] NECK: [Supple without JVD. There is no tenderness, lymphadenopathy, or masses. No thyromegaly. Normal carotid upstrokes without bruits.] LUNGS: [Clear breath sounds bilaterally.. No wheezes, or rhonchi. Chest tubes in and functional] HEART: [Normal rate and rhythm. Normal S1 and S2 without murmurs, gallop or rub.] VASC: [Peripheral pulses +2 bilaterally.] ABD: [Bowel sounds normal, soft, nontender, no masses, no organomegaly. No audible bruits.] : [Not examined] LYMPH: [No lymphadenopathy noted.] EXT: [No clubbing, cyanosis or edema.] SKIN: [examination of left groin access site appears to be clean with no evidence of hematoma or active bleeding.] NEURO: [Awake, alert, and oriented x3. No focal sensory or strength deficits noted.] Laboratory: [ ] Hematology Labs: Test 08/27/25 04:29 08/26/25 04:45 Range/Units White Blood Count 6.3 # 4.8-10.8 K/uL Red Blood Count 2.40 L 4.50-6.20 MIL/uL Hemoglobin 7.5 L 14.0-18.0 g/dL Hematocrit 22.0 L 42-54 % Mean Corpuscular Volume 91.7 79-99 fL Mean Corpuscular Hemoglobin 31.3 27.0-33.0 pg Mean Corpuscular Hemoglobin Concent 34.1 32.0-36.0 g/dL Red Cell Distribution Width 17.2 H 11.0-15.5 % Platelet Count 139 130-400 K/uL Mean Platelet Volume 10.6 H 7.5-10.5 fL Nucleated Red Blood Cells 0.0 0.0-0.19 % Red Blood Cell Morphology ANISO 1+ Chemistry Labs: Test 08/27/25 04:29 08/26/25 04:45 08/26/25 01:29 Range/Units Sodium Level 136 136-145 mmol/L Potassium Level 4.3 3.5-5.1 mmol/L Chloride Level 95 L 101-111 mmol/L Carbon Dioxide Level 26 21-32 mmol/L Blood Urea Nitrogen 56 H 7-18 mg/dL Creatinine 8.7 *H 0.5-1.3 mg/dL Glomerular Filtration Rate Calc 6 >90 mL/min Random Glucose 99 70-105 mg/dL Total Calcium 8.2 L 8.5-10.1 mg/dL Phosphorus Level 7.0 H 2.5-4.9 mg/dL Magnesium Level 2.30 1.80-2.40 mg/dL Iron Level 24 L 65-175 mcg/dL Total Iron Binding Capacity 131 L 250-450 mcg/dL Percent Iron Saturation 18.3 L 30-44 % Ferritin 4174 H 30-400 ng/mL Total Bilirubin 0.4 0.2-1.0 mg/dL Aspartate Amino Transf (AST/SGOT) 41 H 10-37 U/L Alanine Aminotransferase (ALT/SGPT) 10 L 12-78 U/L Alkaline Phosphatase 62 50-136 U/L Total Protein 5.8 L 6.0-8.3 g/dL Albumin 2.5 L 3.5-5.0 g/dL Whole Blood Glucose 135 H 70-110 MG/DL Diagnostics / Radiology: [Copy/Paste Echos/Imaging Report here] Impression and Plan: [1. Non-STEMI. 2. Multivessel coronary disease. 3. Hypertension. 4. Hyperlipidemia. 5. End-stage renal disease on hemodialysis. 6. Hyperkalemia. #CAD s/p 3v CABG ( PORTILLO-LAD, SVG- OM2, SVG-PDA ) on 08-23-[address] Hackett Admitted [facility] on 08/19/2025 for chest pain Troponin peaked at 3703 2D echocardiogram (08/20/2025) LVEF 50-55%, per report Coronary angiogram (08/20/2025) revealing severe multivessel CAD (per report), examination of left groin access site appears to be clean with no evidence of hematoma or active bleeding. Patient was transferred from [facility] for CABG evaluation Hemoglobin dropped 5.8, patient received1 unit of PRBCs repeat hemoglobin 8.1 g No urine output due to ESRD. Minimal chest tube output; continue Lasix 20 mg every 12 hours Continue [id number] mg daily, and atorvastatin 40 mg daily Lopressor is being held due to soft blood pressures Once chest tubes are out recommend initiating [id number] mg daily ] #atrial fibrillation Patient developed atrial fibrillation with RVR postoperatively Patient completed amiodarone bolus and infusion We will continue with the amiodarone 200 mg every12 hours for seven days, and then we will continue amiodarone 200 mg daily after that Current review of telemetry sinus rhythm, with a heart rate in the 70s Please keep on telemetry, monitor/replace electrolytes as needed Lopressor is being held due to soft blood pressures Continue heparin infusion per PPX Prior to discharge we will transition to Eliquis 5 mg every 12 hours Thank you for this consult cardiology will continue to follow along postoperatively Chucho montanez MD ATTESTATION BY PHYSICIAN I have seen and examined the patient, reviewed the above documentation, participated in medical decision making, made necessary modifications, and agree with the treatment plan as documented by my mid-level provider above. MD SARINA Cuba JAMES R MD Aug 27, 2025 15:55
[2025-08-28] VITALS (35 sets, daily range): BP systolic 94–157; BP diastolic 42–87; PULSE 67–121; RESP 7–100; TEMP 97.6–99.2; O2SAT 95–100
[2025-08-28 04:22] LABS: NUCLEATED RED BLOOD CELLS 0.0 % (0.0-0.19); PLATELET COUNT (AUTO) 129.0 K/uL (130-400); RED BLOOD CELL COUNT(AUTO) 2.37 MIL/uL (4.50-6.20); RED CELL DISTRIBUTION WIDTH 16.7 % (11.0-15.5); WHITE BLOOD COUNT (AUTO) 5.8 K/uL (4.8-10.8)
[2025-08-28 04:56] LABS: ASPARTATE AMINOTRANSFERASE 30.0 U/L (10-37); GLOMERULAR FILTR. RATE CALC 5.0 mL/min (>90); GLUCOSE,RANDOM 94.0 mg/dL (70-105); SODIUM SERUM 136.0 mmol/L (136-145); TOTAL PROTEIN, SERUM 5.8 g/dL (6.0-8.3); UREA NITROGEN, BLOOD 74.0 mg/dL (7-18)
[2025-08-28 05:28] LABS: CREATININE 10.3 mg/dL (0.5-1.3)
--- NOTE | 2025-08-28 08:28 | PN ---
[facility] CARDIOLOGY PROGRESS NOTE Date Patient Seen: Aug 28, 2025 Time of Visit: 08:27 Interval History: [ No acute events overnight. Blood pressure is stable. Renal function stable, patient denies any anginal symptoms Physical Examination: GENERAL: [No acute distress.] HEAD: [Normal with no signs of head trauma.] EYES: [PERRLA, EOMI, conjunctiva and sclera normal.] ENT: [Hearing grossly intact, normal oropharynx.] NECK: [Supple without JVD. There is no tenderness, lymphadenopathy, or masses. No thyromegaly. Normal carotid upstrokes without bruits.] LUNGS: [Clear breath sounds bilaterally.. No wheezes, or rhonchi. Chest tubes in and functional] HEART: [Normal rate and rhythm. Normal S1 and S2 without murmurs, gallop or rub.] VASC: [Peripheral pulses +2 bilaterally.] ABD: [Bowel sounds normal, soft, nontender, no masses, no organomegaly. No audible bruits.] : [Not examined] LYMPH: [No lymphadenopathy noted.] EXT: [No clubbing, cyanosis or edema.] SKIN: [examination of left groin access site appears to be clean with no evidence of hematoma or active bleeding.] NEURO: [Awake, alert, and oriented x3. No focal sensory or strength deficits noted.] Laboratory: [ ] Hematology Labs: Test 08/28/25 04:14 Range/Units White Blood Count 5.8 4.8-10.8 K/uL Red Blood Count 2.37 L 4.50-6.20 MIL/uL Hemoglobin 7.5 L 14.0-18.0 g/dL Hematocrit 21.9 L 42-54 % Mean Corpuscular Volume 92.4 79-99 fL Mean Corpuscular Hemoglobin 31.6 27.0-33.0 pg Mean Corpuscular Hemoglobin Concent 34.2 32.0-36.0 g/dL Red Cell Distribution Width 16.7 H 11.0-15.5 % Platelet Count 129 L 130-400 K/uL Mean Platelet Volume 10.2 7.5-10.5 fL Nucleated Red Blood Cells 0.0 0.0-0.19 % Chemistry Labs: Test 08/28/25 04:14 Range/Units Sodium Level 136 136-145 mmol/L Potassium Level 3.9 3.5-5.1 mmol/L Chloride Level 96 L 101-111 mmol/L Carbon Dioxide Level 24 21-32 mmol/L Blood Urea Nitrogen 74 H 7-18 mg/dL Creatinine 10.3 *H 0.5-1.3 mg/dL Glomerular Filtration Rate Calc 5 >90 mL/min Random Glucose 94 70-105 mg/dL Total Calcium 8.0 L 8.5-10.1 mg/dL Magnesium Level 2.40 1.80-2.40 mg/dL Total Bilirubin 0.4 0.2-1.0 mg/dL Aspartate Amino Transf (AST/SGOT) 30 10-37 U/L Alanine Aminotransferase (ALT/SGPT) 6 L 12-78 U/L Alkaline Phosphatase 76 50-136 U/L Total Protein 5.8 L 6.0-8.3 g/dL Albumin 2.3 L 3.5-5.0 g/dL Diagnostics / Radiology: [Copy/Paste Echos/Imaging Report here] Impression and Plan: [1. Non-STEMI. 2. Multivessel coronary disease. 3. Hypertension. 4. Hyperlipidemia. 5. End-stage renal disease on hemodialysis. 6. Hyperkalemia. #CAD s/p 3v CABG ( PORTILLO-LAD, SVG- OM2, SVG-PDA ) on 08-23-[address] Hackett Admitted [facility] on 08/19/2025 for chest pain Troponin peaked at 3703 2D echocardiogram (08/20/2025) LVEF 50-55%, per report Coronary angiogram (08/20/2025) revealing severe multivessel CAD (per report), examination of left groin access site appears to be clean with no evidence of hematoma or active bleeding. Patient was transferred from [facility] for CABG evaluation Hemoglobin dropped 5.8, patient received1 unit of PRBCs repeat hemoglobin 7.5 g No urine output due to ESRD. Minimal chest tube output; continue Lasix 20 mg every 12 hours Continue [id number] mg daily, and atorvastatin 40 mg daily Lopressor is being held due to soft blood pressures Once chest tubes are out recommend initiating [id number] mg daily ] #atrial fibrillation Patient developed atrial fibrillation with RVR postoperatively Patient completed amiodarone bolus and infusion We will continue with the amiodarone 200 mg every12 hours for seven days, and then we will continue amiodarone 200 mg daily after that Current review of telemetry sinus rhythm, with a heart rate in the 70s Please keep on telemetry, monitor/replace electrolytes as needed Lopressor is being held due to soft blood pressures Continue heparin infusion per PPX Prior to discharge we will transition to Eliquis 5 mg every 12 hours Thank you for this consult cardiology will continue to follow along postoperatively Chucho montanez MD ATTESTATION BY PHYSICIAN I have seen and examined the patient, reviewed the above documentation, part icipated in medical decision making, made necessary modifications, and agree with the treatment plan as documented by my mid-level provider above. MD SARINA Cuba JAMES R MD Aug 28, 2025 08:28
--- NOTE | 2025-08-28 10:56 | HMCIMG ---
EXAM: CR Chest, 1 View. CLINICAL HISTORY: s/p CABG COMPARISON: 08/27/2025 FINDINGS: LUNGS: Persistent small bilateral pleural effusions and adjacent lung atelectasis. No new lung infiltrates. PLEURAL SPACES: No pneumothorax. MEDIASTINUM: Mild bilateral central pulmonary vascular congestion, new since the prior. The cardiac size is stable. Median sternotomy status. A left internal jugular central venous sheath is seen. Redemonstrated right chest drains. BONES: No aggressive appearing osseous lesion seen. IMPRESSION: 1. Small bilateral pleural effusions with adjacent atelectasis, unchanged. 2. New mild bilateral central pulmonary vascular congestion. /[place]
--- NOTE | 2025-08-28 11:13 | PN ---
[facility] PROGRESS NOTE Date Patient Seen: Aug 28, 2025 Time of Visit: 11:10 Supervising Physician: Dr Andrade Vang Primary Care Physician: [Dr. Prince ] Outpatient Specialists: [ ] Inpatient Consults: [ ] PROBLEM LIST: Acute non STEMI Status post CABG X 3 with ligation of Atrial Appendage (08/23) ESRD on HD Acute on chronic diastolic heart failure T2DM HTN Atherosclerosis Obesity, BMI 36 Hyperlipidemia INTERVAL HISTORY: Patient was seen and examined all labs and imaging have been reviewed Patient is sitting comfortably in bed, no acute events overnight Remains AFib, rate controlled, on oral amnio Currently in hemodialysis, goal is to pull about 2 L Patient on room air Chest x-ray improved Tolerating diet Plan: Follow nephrology recs, HD Following cardiology recs, oral amnio, metoprolol Aspirin, statin Follow Cardiothoracic postop protocol Total critical care time spent greater than 40 minutes, this excludes any procedures performed or any time spent in educational or teaching. PLAN: Off pressors Continue follow I&Os CV surgeon recommendations Cardiology recs IS Total critical care time spent 45 minutes, this excludes any procedures performed or any time spent in educational or teaching. REVIEW OF SYSTEMS: 12 point ROS reviewed with patient. Pertinent positives mentioned above. Otherwise negative. PHYSICAL EXAM: GENERAL: alert, weak, awake oriented x 3 HEENT: EOMI, Sclera non icteric, moist mucosa NECK: Supple, no JVD, trachea midline LUNGS: Clear breath sounds bilaterally. No wheezes CT X2 in place HEART: Regular rate and rhythm. Normal S1 and S2, without murmurs. sternotomy noted intact. ABD: Abdomen soft, nontender. Bowel sounds present EXT: No clubbing cyanosis or edema NEURO: Alert and oriented to person, follows commands Vital Signs (last 8hr) Date Time Temp Pulse Resp B/P (MAP) Pulse Ox O2 Delivery O2 Flow Rate FiO2 08/28/25 08:05 75 20 N/A Room Air 21 08/28/25 08:00 81 16 128/62 98 Room Air 08/28/25 08:00 96 Room Air* 0 21 08/28/25 07:20 98.1 08/28/25 07:00 77 18 155/87 99 Room Air 08/28/25 06:00 75 100 149/72 97 Room Air 08/28/25 05:55 Room Air* 0 21 08/28/25 05:00 71 16 142/51 (81) 97 150/66 (94) 08/28/25 04:00 97.9 80 17 125/44 (71) 100 126/59 (81) 08/28/25 04:00 100 Nasal Cannula* 4 36 LABS: Hematology Labs: Test 08/28/25 04:14 Range/Units White Blood Count 5.8 4.8-10.8 K/uL Red Blood Count 2.37 L 4.50-6.20 MIL/uL Hemoglobin 7.5 L 14.0-18.0 g/dL Hematocrit 21.9 L 42-54 % Mean Corpuscular Volume 92.4 79-99 fL Mean Corpuscular Hemoglobin 31.6 27.0-33.0 pg Mean Corpuscular Hemoglobin Concent 34.2 32.0-36.0 g/dL Red Cell Distribution Width 16.7 H 11.0-15.5 % Platelet Count 129 L 130-400 K/uL Mean Platelet Volume 10.2 7.5-10.5 fL Nucleated Red Blood Cells 0.0 0.0-0.19 % Chemistry Labs: Test 08/28/25 04:14 Range/Units Sodium Level 136 136-145 mmol/L Potassium Level 3.9 3.5-5.1 mmol/L Chloride Level 96 L 101-111 mmol/L Carbon Dioxide Level 24 21-32 mmol/L Blood Urea Nitrogen 74 H 7-18 mg/dL Creatinine 10.3 *H 0.5-1.3 mg/dL Glomerular Filtration Rate Calc 5 >90 mL/min Random Glucose 94 70-105 mg/dL Total Calcium 8.0 L 8.5-10.1 mg/dL Magnesium Level 2.40 1.80-2.40 mg/dL Total Bilirubin 0.4 0.2-1.0 mg/dL Aspartate Amino Transf (AST/SGOT) 30 10-37 U/L Alanine Aminotransferase (ALT/SGPT) 6 L 12-78 U/L Alkaline Phosphatase 76 50-136 U/L Total Protein 5.8 L 6.0-8.3 g/dL Albumin 2.3 L 3.5-5.0 g/dL DIAGNOSTICS / RADIOLOGY RESULTS: [ ] PLAN NEURO: Minimize central acting medications as possible. Fall Precautions. Well lighted room through the day and minimize interruptions through the night to prevent acute delirium. PULMONARY: Supplemental 02 as needed Titrate Fio2 to keep Spo2 > or = 90% DuoNebs and CPT as needed IS hourly while awake for pulmonary hygiene Out of bed to chair as tolerated VAP Bundle Vent/BIPAP Settings: [ ] Driving pressure: [ ] P Plat: [ ] Static C: [ ] Static R: [ ] P/F Ratio: [ ] CARDIOVASCULAR: Follow hemodynamics. Titrate vasopressor to keep MAP >65 or systolic blood pressure >95mmHg DIPS: [ ] LINES: [ ] GI & NUTRITION: Continue nutritional support Aspirations precautions Prokinetic agents and laxatives as needed KIDNEYS & ELECTROLYTES: Strict monitoring of intake and output Daily weights Avoid nephrotoxic agents Monitor electrolytes and replace as needed Goal urine output of 30mL/hr or 0.5mL/kg/hr Urine output: [ ] Fluid Balance: [ ] ENDOCRINE: Maintain blood glucose between 100-180 at all times. Insulin sliding scale for blood glucose management INFECTIOUS DISEASE: Trend temperature. Mary-culture if febrile. Micro: [ ] Antibiotics: [ ] HEMATOLOGY & COAGULATION: Monitor H&H. Keep Hgb > 7 Transfuse 1 unit of PRBC for Hgb < 7 Transfuse 1 pack of platelets of platelets < 20, 000 Watch for any signs and symptoms of bleeding SKIN: Pressure ulcer prevention per facility protocol Rehab: PT/OT Prophylaxis: GI: [ ] DVT: [ ] Code Status: Full Resuscitation Disposition: [ ] PHILIPPE CHANEY PAC Aug 28, 2025 11:13
[2025-08-28 11:58] LABS: NUCLEATED RED BLOOD CELLS 0.0 % (0.0-0.19); PLATELET COUNT (AUTO) 150.0 K/uL (130-400); RED BLOOD CELL COUNT(AUTO) 2.63 MIL/uL (4.50-6.20); RED CELL DISTRIBUTION WIDTH 16.5 % (11.0-15.5); WHITE BLOOD COUNT (AUTO) 6.3 K/uL (4.8-10.8)
--- NOTE | 2025-08-28 12:27 | PN ---
[facility] PROGRESS NOTE Date of Service: Aug 28, 2025 Time of Service: 12:23 SUBJECTIVE: 08/22 patient remains admitted to the PCU, comfortably in bed, alert and oriented x3, on heparin drip. Denies chest pain, shortness shortness for breath, no nausea, no vomiting, no abdominal discomfort. He remains hemodynamically stable, afebrile, saturating normal on room air. Mild drop in hemoglobin to 9.8 with a hematocrit 29.6, no signs of GI bleed. Patient evaluated by Cardiothoracic surgeon, pending further recommendations in terms of CABG. Follow CBC in a.m. and transfuse as needed. Discussed with the patient, in agreement, all questions answered. 08/23 patient remains admitted to the PCU, comfortably in bed, alert and oriented x3, denies chest pain, shortness shortness for breath, no nausea, no vomiting, no abdominal discomfort. He remains hemodynamically stable, afebrile, saturating normal on room air. Patient evaluated by Cardiothoracic surgeon, case discussed, plan for CABG today. 08/24 patient remains admitted to the ICU, status post CABG, 08/23/2025, postoperative day 1. Patient is successfully extubated, Awake, following comman ds, on insulin and epinephrine drip, chest tube in place. BP 118/47, afebrile, WBC 13.1, hemoglobin 7.2, hematocrit 21.4, platelet count of 151, sodium 140, potassium 6.0, BUN of 60, creatinine 9.5, carbon dioxide 24. ABG pH 7.41, PO2 119.4, pCO2 38, bicarbonate of 23.5. Continue to follow Cardiothoracic input recommendation, continue aspirin 81 mg p.o. daily, atorvastatin 40 mg p.o. daily, furosemide 20 mg IV q.12 hours. Follow a.m. labs.Continue hemodialysis per Nephrology recommendation. 08/25 patient remains admitted to the ICU, awake, following commands, getting 1 unit of PRBC during my visit, BP 143/48, heart rate of 125, saturating 99% 2 L nasal cannula. CBC shows hemoglobin 5.8, hematocrit 70.6, WBC of 12.6, platelet count of 153. CMP with sodium 140, potassium 4.7, BUN 46, creatinine 8.7. Chest x-ray 08/24/2025 showing left lower lobe opacity, mostly congestion, shanthi dence of sternotomy sutures, [place]-Hiren catheter with tip by right pulmonary artery, as compared to prior x-ray, currently study reveals no interval change as regards to psoas CAD catheter. Chest x-ray today pending. Continue to follow CT surgery input recommendation critical care input recommendation. Follow CBC post transfusion. 08/26 patient remains admitted to the ICU, comfortably bed, hemodynamically stable, afebrile, saturating normal on room air, he is getting hemodialysis during my visit. Chest tube in place. The patient on epinephrine drip, to be weaned off today. Blood pressure 141/50, afebrile, hemoglobin improved to 8.1, hematocrit 23.9 after transfusion of 1 unit of PRBC. Continue to follow hemodialysis per Nephrology recommendation, continue to follow Cardiothoracic input recommendation, follow a.m. labs. 08/27 patient remains admitted to the ICU, seen and examined at bedside, getting up from the chair with the help of the physical therapist, he remains alert and oriented x3, hemodynamically stable. Off epinephrine drip per discussion with the RN. Denies chest pain, shortness shortness for breath, no nausea, no vomiting, no abdominal discomfort. Chest tube in place. Further recommendations from Cardiothoracic surgeon. Possible downgraded to the PCU. Follow a.m. labs. Discussed with the patient. 08/28 patient remains admitted to the ICU, seen and examined at bedside, continue hemodialysis, tolerating well, he remains alert and oriented x3, hemodynamically stable. Off epinephrine drip per discussion with the RN. Denies chest pain, shortness shortness for breath, no nausea, no vomiting, no abdominal discomfort. Chest tube in place. Further recommendations from Cardiothoracic surgeon. Possible downgraded to the PCU. Follow a.m. labs. Discussed with the patient. REVIEW OF SYSTEMS CONSTITUTIONAL: Denies fevers, chills, or night sweats. No unintentional weight loss reported. NEUROLOGICAL: Denies headache, amaurosis fugax, motor weakness, sensory deficit, vertigo/spinning sensation, gait abnormalities, or tremors. ENT: No hearing loss, otalgia, otorrhea, rhinitis, rhinorrhea, hoarseness, or sore throat. CARDIOVASCULAR: Denies any exertional angina, dyspnea on exertion, orthopnea, paroxysmal nocturnal dyspnea, palpitations, life-threatening arrhythmias, claudication. PULMONARY: Denies any shortness of breath, cough, phlegm/sputum, hemoptysis, pleuritic chest pain. SLEEP: Denies morning headaches, daytime somnolence or napping. Denies diffic ulty falling asleep, staying asleep, waking from sleep. Denies knowledge of snoring. GASTROINTESTINAL: Denies any type of dysphagia to either liquids or solids. Denies nausea, vomiting, pyrosis, early satiety, abdominal pain, diarrhea, constipation, or changes in stool consistency or caliber. Denies coffee-ground emesis, hematemesis, hematochezia, or melanotic stools. GENITOURINARY: Denies frequency, urgency, nocturia, hematuria or incontinence (Storage/Irritative symptoms.) Low urinary stream, straining to void, urinary intermittency or hesitancy, splitting of the voiding stream, terminal dribbling. ENDOCRINOLOGIC: Denies polyuria, polydipsia, polyphagia or heat/cold into lerances. HEMATOLOGIC: Denies thrombophilia/previous clots, or coagulopathy/bleeding disorders. ONCOLOGIC: Denies personal history of malignancy. DERMATOLOGIC: Denies rashes or pruritus. PSYCHIATRIC: Denies any suicidal or homicidal ideation. Denies hallucinations. PHYSICAL EXAM GENERAL APPEARANCE: The patient is awake, alert, and oriented, in no acute cardiopulmonary distress. NEUROLOGICAL: Cranial nerves II-XII grossly intact. Motor is 5/5 in bilateral upper and lower extremities proximal to distal. No sensory deficits. HEENT: Face is symmetric. Pupils are equal and reactive. Extraocular movements are intact. NECK: Supple. No JVD. No thyromegaly. No submental, submandibular, pre- /postauricular, occipital or supraclavicular lymphadenopathy. CHEST: Normal chest expansion. No Telemetry. LUNGS: Absence of any rales, rhonchi or any wheezing. CARDIOVASCULAR: Regular. S1 and S2 normal. No appreciable rubs, murmurs or gallops. ABDOMEN: Soft, nontender, and nondistended. There is no rebound, voluntary guarding, or rigidity. : Deferred. No Soliz. EXTREMITIES: Non-edematous and not cyanotic. No clubbing. Good capillary refill. SKIN: No skin breakdown. Vital Signs (last 8hr) Date Time Temp Pulse Resp B/P (MAP) Pulse Ox O2 Delivery O2 Flow Rate FiO2 08/28/25 12:00 109 17 140/66 98 Room Air 08/28/25 11:37 99.0 121 18 118/77 96 Room Air 08/28/25 11:00 82 13 141/71 98 Room Air 08/28/25 10:15 99.0 94 12 137/67 Room Air 2.0 08/28/25 10:00 78 14 116/59 99 Room Air 08/28/25 09:00 82 24 115/54 97 Room Air 08/28/25 08:05 75 20 N/A Room Air 08/28/25 08:00 81 16 128/62 98 Room Air 08/28/25 08:00 96 Room Air* 0 08/28/25 07:20 98.1 08/28/25 07:00 77 18 155/87 99 Room Air 08/28/25 06:00 75 100 149/72 97 Room Air 08/28/25 05:55 Room Air* 0 08/28/25 05:00 71 16 142/51 (81) 97 150/66 (94) LABS: Laboratory: Test 08/28/25 11:47 08/28/25 04:14 Range/Units White Blood Count 6.3 4.8-10.8 K/uL Red Blood Count 2.63 L 4.50-6.20 MIL/uL Hemoglobin 8.2 L 14.0-18.0 g/dL Hematocrit 24.0 L 42-54 % Mean Corpuscular Volume 91.3 79-99 fL Mean Corpuscular Hemoglobin 31.2 27.0-33.0 pg Mean Corpuscular Hemoglobin Concent 34.2 32.0-36.0 g/dL Red Cell Distribution Width 16.5 H 11.0-15.5 % Platelet Count 150 130-400 K/uL Mean Platelet Volume 10.1 7.5-10.5 fL Nucleated Red Blood Cells 0.0 0.0-0.19 % Sodium Level 136 136-145 mmol/L Potassium Level 3.9 3.5-5.1 mmol/L Chloride Level 96 L 101-111 mmol/L Carbon Dioxide Level 24 21-32 mmol/L Blood Urea Nitrogen 74 H 7-18 mg/dL Creatinine 10.3 *H 0.5-1.3 mg/dL Glomerular Filtration Rate Calc 5 >90 mL/min Random Glucose 94 70-105 mg/dL Total Calcium 8.0 L 8.5-10.1 mg/dL Magnesium Level 2.40 1.80-2.40 mg/dL Total Bilirubin 0.4 0.2-1.0 mg/dL Aspartate Amino Transf (AST/SGOT) 30 10-37 U/L Alanine Aminotransferase (ALT/SGPT) 6 L 12-78 U/L Alkaline Phosphatase 76 50-136 U/L Total Protein 5.8 L 6.0-8.3 g/dL Albumin 2.3 L 3.5-5.0 g/dL Current Medications Medications (Trade) Dose Ordered Sig/Flavio Route PRN Reason Start Time Stop Time Status Last Admin Dose Admin Acetaminophen (TYLenol 325MG TAB) 650 mg Q4H PRN PO Temp >38.3C(AFTER EXTUBATION) 08/23/25 09:30 09/22/25 09:29 Acetaminophen (TYLenol 325MG TAB) 650 mg Q4HPRN PRN PO FEVER 08/21/25 01:00 08/23/25 09:31 DC 08/23/25 00:01 650 MG Acetaminophen (TYLenol 325MG TAB) 650 mg Q6H PRN PO MILD PAIN (1-3) 08/23/25 09:30 09/22/25 09:29 Acetaminophen (TYLenol 650MG SUPPOSITORY) 650 mg Q4H PRN RC Temp >38.3C WHILE INTUBATED 08/23/25 09:30 09/22/25 09:29 Acetaminophen (acetaMINOPHEN 1,000MG/100ML) 1,000 mg ONCE IV 08/23/25 21:00 08/23/25 23:00 DC 08/23/25 20:54 1,000 MG Acetaminophen (acetaMINOPHEN 1,000MG/100ML) 1,000 mg Q6H6 IV 08/23/25 12:00 08/23/25 18:39 DC 08/23/25 14:24 1,000 MG Acetaminophen (acetaMINOPHEN 1,000MG/100ML) 1,000 mg Q6H6 IV 08/24/25 06:00 09/23/25 05:59 08/27/25 17:35 1,000 MG Acetaminophen/ Hydrocodone Bitart (NORco 5/325MG) 1 tab Q6H PRN PO PAIN 5-10 08/21/25 01:00 08/23/25 09:17 DC 08/22/25 20:29 1 TAB Albumin Human 250 ml @ 0 mls/hr AD PRN IV IF HEMODYNAMICALLY UNSTABLE 08/23/25 09:30 08/23/25 15:43 DC 08/23/25 15:43 2,520 MLS/HR Aminocaproic Acid 06198 mg/Sodium Chloride 310 ml @ 25 mls/hr AD IV 08/23/25 09:30 08/23/25 09:34 DC Aminocaproic Acid 81910 mg/Sodium Chloride 480 ml @ 0 mls/hr AD PRN IV BLEEDING CONTROL 08/23/25 09:00 09/22/25 08:59 Amiodarone HCl (pacERONE 200MG) 200 mg BID PO 08/26/25 14:00 09/25/25 13:59 08/28/25 08:38 200 MG Amiodarone HCl 150 mg/Dextrose 103 ml @ 618 mls/hr ONCE IV 08/25/25 07:30 08/25/25 07:20 DC Amiodarone HCl 360 mg/Dextrose 207.2 ml @ 33.3 mls/hr AD IV 08/25/25 07:30 08/25/25 07:20 DC Amiodarone HCl 540 mg/Dextrose 310.8 ml @ 16.7 mls/hr [id number] IV 08/27/25 01:30 08/28/25 10:54 DC Amiodarone HCl 540 mg/Dextrose 310.8 ml @ 16.7 mls/hr [id number] STAT IV 08/25/25 07:18 08/26/25 01:54 DC 08/25/25 14:04 16.7 MLS/HR Amiodarone HCL/ Dextrose 200 ml @ 33.333 mls/ hr AD IV 08/26/25 18:30 08/27/25 00:29 DC Aspirin (Aspirin 81mg Chew Tab) 81 mg DAILY PO 08/21/25 09:00 08/23/25 14:27 DC 08/22/25 09:19 81 MG Aspirin (Aspirin 81mg Chew Tab) 81 mg HS PO 08/23/25 21:00 09/22/25 20:59 08/27/25 20:10 81 MG Atorvastatin Calcium (LIPItor 40MG) 40 mg HS PO 08/21/25 21:00 09/20/25 20:59 08/27/25 20:10 40 MG Calcium Gluconate 1 gm/Sodium Chloride 60 ml @ 200 mls/hr AD PRN IV HYPOCALCEMIA 08/23/25 09:30 09/22/25 09:29 08/24/25 08:08 200 MLS/HR Carvedilol (Coreg 3.125MG) 3.125 mg BID PO 08/21/25 09:00 08/23/25 09:17 DC 08/23/25 08:10 3.125 MG Cefazolin Sodium (ANCEF 1 gm vial) 2 gm ONCALL IVP 08/22/25 15:30 08/23/25 09:04 DC Cefazolin Sodium (Ancef) 2 gm ONCALL IVP 08/23/25 09:30 08/24/25 09:16 DC Cefazolin Sodium (Ancef) 2 gm Q8H IVPB 08/23/25 14:30 08/23/25 14:37 DC Cefazolin Sodium (Ancef) 2 gm Q8H IVPB 08/23/25 18:00 08/24/25 10:01 DC 08/24/25 09:13 2 GM Cyclobenzaprine HCl (Cyclobenzaprine HCl) 10 mg TID PO 08/21/25 09:00 08/23/25 09:17 DC 08/22/25 21:39 10 MG Dexmedetomidine/ Sodium Chloride (PRECEdex 400MCG/ 100ML-NS) 400 mcg PROTOCOL IV 08/23/25 09:30 08/24/25 09:29 DC Dextrose (D50w) 50 ml AD PRN IV HYPOGLYCEMIA PROTOCOL 08/23/25 09:30 09/22/25 09:29 08/24/25 05:59 50 ML Docusate Sodium (COLace 100MG CAP) 100 mg BID PO 08/23/25 21:00 09/22/25 20:59 08/27/25 20:10 100 MG Enoxaparin Sodium (Lovenox) 30 mg DAILY SQ 08/26/25 09:00 09/25/25 08:59 Epinephrine HCl 10 mg/Sodium Chloride 250 ml @ 0 mls/hr AD PRN IV TITRATE 08/23/25 09:00 09/22/25 08:59 08/25/25 21:53 0 MLS/HR Epinephrine HCl 10 mg/Sodium Chloride 250 ml @ 0 mls/hr AD PRN IV POST-OP CARDIOVASCULAR ORDERS 08/23/25 09:30 08/23/25 09:33 DC Epoetin Melquiades-epbx (Retacrit) 10,000 unit QTUTHSA[DIALYSIS] SQ 08/26/25 14:00 09/25/25 13:59 08/26/25 14:11 10,000 UNIT Famotidine (Pepcid 20mg Vial) 20 mg Q48H IV 08/23/25 21:00 09/22/25 20:59 08/27/25 20:10 20 MG Furosemide (LASix 100MG VIAL) 80 mg BID IV 08/21/25 09:00 08/21/25 18:47 DC Furosemide (LASix 20MG TAB) 20 mg Q12H PO 08/25/25 09:30 09/24/25 09:29 08/28/25 08:38 20 MG Furosemide (LASix 20MG VIAL) 20 mg Q12H IV 08/24/25 09:30 08/25/25 09:29 DC 08/24/25 19:41 20 MG Glucagon (Glucagon 1mg Kit) 1 mg AD PRN IM HYPOGLYCEMIA PROTOCOL 08/23/25 09:30 09/22/25 09:29 Heparin Sodium/ Dextrose 250 ml @ 0 mls/hr Q6H IV 08/21/25 02:00 08/23/25 09:17 DC 08/21/25 23:18 10.04 MLS/HR Heparin Sodium/ Dextrose (HEParin 25,000 UNITS/250ML D5W) 25,000 units AD IV 08/21/25 01:00 08/21/25 01:07 DC Hydralazine HCl (APRESOLine 20MG INJ) 10 mg ONCE PRN IV IF SBP GREATER THAN 180 08/21/25 01:30 08/23/25 09:17 DC Hydralazine HCl (APRESOLine 20MG INJ) 10 mg Q6H PRN IV For:SBP above 160;DBP above 90 08/21/25 01:30 08/23/25 09:17 DC Hydromorphone HCl (DiLAUDid 0.5MG INJ) 0.25 mg Q4H PRN IVP SEVERE PAIN (7-10) 08/21/25 01:30 08/23/25 09:17 DC 08/23/25 07:13 0.25 MG Insulin Human Regular 100 unit/ Sodium Chloride 100 ml @ 0 mls/hr AD IV 08/23/25 09:30 08/25/25 09:29 DC 08/23/25 14:27 1.5 MLS/HR Lactulose (Constulose 20gm/ 30ml Udcup) 20 gm BID PRN PO CONSTIPATION 08/23/25 09:30 09/22/25 09:29 Lidocaine (Lidoderm Patch 5%) 1 patch DAILY TP 08/21/25 09:00 09/20/25 08:59 08/28/25 08:38 1 PATCH Magnesium Hydroxide (Milk Of Magnesium 30ml) 30 ml DAILY PRN PO CONSTIPATION 08/23/25 09:30 09/22/25 09:29 Magnesium Sulfate 50 ml @ 12.5 mls/hr AD PRN IV MAG LEVEL LESS THAN 2.0 08/23/25 09:30 09/22/25 09:29 08/23/25 14:27 12.5 MLS/HR Metoprolol Tartrate (loprESSOR) 12.5 mg BID PO 08/25/25 09:00 08/26/25 17:08 DC Metoprolol Tartrate (loprESSOR) 25 mg BID PO 08/26/25 17:30 09/25/25 17:29 08/27/25 20:10 25 MG Morphine Sulfate (morPHINE 4MG SYG) 0.5 mg Q2H PRN IV MODERATE PAIN (4-6) 08/23/25 10:00 08/30/25 09:59 Morphine Sulfate (morPHINE 4MG SYG) 1 mg Q2H PRN IV SEVERE PAIN (7-10) 08/23/25 09:30 08/24/25 09:29 DC Nifedipine (adALAT 30MG) 60 mg DAILY PO 08/21/25 09:00 08/23/25 09:17 DC 08/22/25 09:19 60 MG Nitroglycerin/ Dextrose 0 ml @ 0 mls/hr AD IV 08/23/25 09:30 08/26/25 09:29 DC Norepinephrine Bitartrate 250 ml @ 0 mls/hr AD PRN IV TITRATE 08/23/25 09:00 09/22/25 08:59 08/24/25 07:24 2.9 MLS/HR Norepinephrine Bitartrate 8 mg/ Dextrose 250 ml @ 0 mls/hr AD PRN IV POST-OP CARDIOVASCULAR ORDERS 08/23/25 09:30 08/23/25 09:33 DC Ondansetron HCl (zoFRAN 4MG INJ) 4 mg Q6H PRN IV NAUSEA/VOMITING 08/21/25 01:30 08/23/25 09:17 DC Ondansetron HCl (zoFRAN 4MG INJ) 4 mg Q6H PRN IV NAUSEA/VOMITING 08/23/25 09:30 09/22/25 09:29 08/24/25 19:49 4 MG Ondansetron HCl (zoFRAN 4MG INJ) 4 mg TID PRN IV NAUSEA/VOMITING 08/21/25 01:00 08/21/25 01:14 DC Pantoprazole Sodium (PROTonix 40MG INJ) 40 mg DAILY IVP 08/21/25 09:00 08/23/25 09:17 DC 08/23/25 08:10 40 MG Potassium Phosphate 250 ml @ 42 mls/hr AD PRN IV LOW PHOS LEVEL 08/23/25 09:30 09/22/25 09:29 Potassium Chloride 100 ml @ 100 mls/hr AD PRN IV HYPOKALEMIA 08/23/25 09:30 09/22/25 09:29 Propofol 100 ml @ 0 mls/hr AD PRN IV SEDATION 08/23/25 09:30 08/27/25 09:29 DC Sevelamer HCl (RENAgel 800 MG TAB) 3,200 mg TIDMEALS PO 08/21/25 08:00 09/20/25 07:59 08/27/25 16:56 3,200 MG Sodium Bicarbonate (Sodium Bicarb 50meq 50ml Vial) 50 meq AD PRN IV OTHER[SEE DOSING INSTRUCTIONS] 08/23/25 09:30 08/26/25 09:29 DC 08/23/25 16:21 50 MEQ Sodium Chloride 500 ml @ 0 mls/hr AD IV 08/23/25 09:30 09/22/25 09:29 08/23/25 19:39 3 MLS/HR Sodium Chloride 1,000 ml @ 0 mls/hr ONCE IV 08/22/25 17:30 08/22/25 21:30 DC 08/22/25 17:40 1,000 MLS/HR Sodium Chloride 1,000 ml @ 0 mls/hr ONCE IV 08/28/25 11:30 09/27/25 11:29 Sodium Chloride 1,000 ml @ 10 mls/hr ONCE IV 08/23/25 09:30 08/24/25 09:29 DC 08/23/25 14:25 10 MLS/HR Sodium Chloride (NS Flush 10ml) 10 ml Q8H PRN IVP IV LINE FLUSH 08/23/25 09:30 09/22/25 09:29 Tramadol HCl (UltRAM) 25 mg Q6H PRN PO MODERATE PAIN (4-6) 08/23/25 09:30 08/28/25 09:29 DC 08/24/25 08:09 25 MG Tramadol HCl (UltRAM) 50 mg Q6H PRN PO SEVERE PAIN (7-10) 08/23/25 09:30 08/28/25 09:29 DC 08/26/25 14:19 50 MG DIAGNOSTICS / RADIOLOGY: [ ] ASSESSMENT: Severe multivessel disease, POA NSTEMI, POA status post CABG x3 with the AtriClip 08/23/2025. ESRD on HD Hyperlipidemia Hypertension CHF with LVEF 50-55% by 2D echo, diastolic dysfunction on 08/20/2025 PLAN: patient remains admitted to the ICU, seen and examined at bedside, continue hemodialysis, tolerating well, he remains alert and oriented x3, hemodynamically stable. Off epinephrine drip per discussion with the RN. Denies chest pain, shortness shortness for breath, no nausea, no vomiting, no abdominal discomfort. Chest tube in place. Further recommendations from Cardiothoracic surgeon. Possible downgraded to the PCU. Follow a.m. labs. Discussed with the patient. NEURO: Minimize central acting medications as possible. Fall Precautions. Well lighted room through the day and minimize interruptions through the night to prevent acute delirium. PULMONARY: Supplemental 02 as needed BiPAP as necessary, for respiratory distress Titrate Fio2 to keep Spo2 > or = 90% DuoNebs and CPT as needed IS hourly while awake for pulmonary hygiene prn Out of bed to chair as tolerated Maintain aspiration precautions at all times CARDIOVASCULAR: Follow hemodynamics. Vital signs per facility protocol GI & NUTRITION: Continue nutritional support Aspirations precautions Prokinetic agents and laxatives as needed KIDNEYS & ELECTROLYTES: Strict monitoring of intake and output Daily weights Avoid nephrotoxic agents Monitor electrolytes and replace as needed Goal urine output of 30mL/hr or 0.5mL/kg/hr Medications to be dosed according to renal function. Avoid contrast if possible ENDOCRINE: Maintain blood glucose between 100-180 at all times. Insulin sliding scale for blood glucose management Hypoglycemia and hyperglycemia protocol in place INFECTIOUS DISEASE: Trend temperature, WBC and procalcitonin level Follow cultures, deescalate antibiotics as soon as possible. Panculture if new onset fever HEMATOLOGY & COAGULATION: Monitor H&H. Keep Hgb > 7 Transfuse 1 unit of PRBC for Hgb < 7 Transfuse 1 pack of platelets of platelets < 20, 000 Watch for any signs and symptoms of bleeding SKIN: Pressure ulcer prevention per facility protocol Specialty mattress as needed ORTHO/REHAB Continue PT/OT PRN: MEDICATIONS Tylenol 650 mg po every 4 hrs for fever zofran 4 mg IV every 6 hrs for n/v Hydralazine 5 mg IV every 4 hrs systolic pressure > 160 bowel regiment: lactulose 20 gm PO BID PRN constipation Supportive measures: Continue GI and DVT prophylaxis Disposition: Pending improvement in clinical condition All questions answered time spent: > 35 min MICHAEL INTERIANO MD Aug 28, 2025 12:27
[2025-08-28] MEDS: 0.9%NACL 1000ML 1,000 ML IV SCH (14:27)
--- NOTE | 2025-08-28 16:17 | NUR ---
Patient converted to atrial fibrillation during hemodialysis, rate sustaining from low 100s to 110s, blood pressure within normal limits. Dr. Cosme notified of event, states to call him if heart rate sustains >110. Nursing communication ordered, no further needs noted.
[2025-08-28] MEDS: AMIOdarone 150MG/100ML BAG 100 ML IV ONE (18:34)
[2025-08-29] VITALS (19 sets, daily range): BP systolic 89–137; BP diastolic 44–81; PULSE 73–102; RESP 11–21; TEMP 97.6–99.2; O2SAT 95–99
--- NOTE | 2025-08-29 03:19 | PN ---
TIME: 12:00 p.m. SUBJECTIVE: Mr. Jp Yi is a 60-year-old gentleman status post coronary artery bypass grafting. No major events overnight, recovering well. He is getting dialysis today per routine. PHYSICAL EXAMINATION: NEUROLOGIC: Alert and oriented. CARDIAC: S1, S2. Regular rate and rhythm. RESPIRATORY: Clear to auscultation bilaterally. Incision is clean, dry and intact. ASSESSMENT AND PLAN: * Coronary artery disease status post coronary artery bypass grafting, on aspirin, statin, beta-graeme, or off all pressors. * End-stage renal disease. The patient is receiving hemodialysis, management per Nephrology. * Acute blood loss anemia, status post surgery. No evidence of active bleeding at this time. We will continue to monitor and transfuse for hemoglobin less than 7. TID: [id number] RECEIPT: [id number]
[2025-08-29 05:08] LABS: NUCLEATED RED BLOOD CELLS 0.3 % (0.0-0.19); PLATELET COUNT (AUTO) 154.0 K/uL (130-400); RED BLOOD CELL COUNT(AUTO) 2.51 MIL/uL (4.50-6.20); RED CELL DISTRIBUTION WIDTH 16.3 % (11.0-15.5); WHITE BLOOD COUNT (AUTO) 7.1 K/uL (4.8-10.8)
[2025-08-29 05:24] LABS: ASPARTATE AMINOTRANSFERASE 30 U/L (10-37); GLOMERULAR FILTR. RATE CALC 7 mL/min (>90); GLUCOSE,RANDOM 92 mg/dL (70-105); SODIUM SERUM 135 mmol/L (136-145); TOTAL PROTEIN, SERUM 5.9 g/dL (6.0-8.3); UREA NITROGEN, BLOOD 55 mg/dL (7-18)
[2025-08-29 05:27] LABS: CREATININE 8.5 mg/dL (0.5-1.3)
--- NOTE | 2025-08-29 06:23 | PN ---
NEPHROLOGY NOTE SUBJECTIVE: The patient has been evaluated and seen for dialysis and seen several times. The patient has no fevers, chills, or rigors. No cough, expectoration or hemoptysis. No abdominal pain. No nausea or vomiting. No chest pain. No orthopnea or PND. No other associated findings. No other aggravating or relieving factors. The patient is generally weak. The patient has been evaluated and seen for dialysis multiple times. PLAN: Condition remained critically guarded. The patient was seen several times today. We will be monitoring the overall status closely. Nephrotoxic insults will be avoided. Doses of medicine to be adjusted and continued followup. The patient was seen and evaluated on dialysis and seen multiple times today. The patient's heart rate has gone up. I have discussed with the team physician and surgical team. TID: [id number] RECEIPT: [id number]
--- NOTE | 2025-08-29 06:41 | PN ---
NEPHROLOGY NOTE SUBJECTIVE: The patient has been evaluated and seen several times for dialysis. No fevers, chills, or rigors. No cough, expectoration or hemoptysis. . The patient has been evaluated and seen in ICU, seen for dialysis. Heart rate is elevated. He is in atrial fibrillation. The patient has some soft blood pressure. No fevers, chills, or rigors. He remains in ICU, status post CABG. He has end-stage renal disease on dialysis and on schedule of Tuesdays, , and Saturdays. No other associated findings. No other aggravating . No other associated findings. PHYSICAL EXAMINATION: GENERAL: Pale, no other distress or deformities, laying in bed. VITAL SIGNS: Blood pressure is 118/70, . NECK: Without masses or bruits. Thyroid is palpable. Neck has no bruits. LUNGS: Shows equal thoracic percussion note being resonant in all areas. CARDIAC: Regular rhythm. No rub. No S3, S4. No parasternal heaves. ABDOMEN: No guarding, tenderness. Bowel sounds . LABORATORY DATA: Have been reviewed and old records reviewed. . Anemia has been present. PROBLEMS: * Renal failure. * Anemia. * Atrial fibrillation. * Status post coronary artery bypass graft. PLAN: Dialysis to continue. The patient is seen for dialysis. Seen in ICU. Intake, output, weight will be monitored. Nonsteroidal drugs will be avoided. Dose of medicine will be adjusted and we will follow up closely. I have discussed with other team physicians in detail. I thank you for this patient. The patient is seen in ICU. TID: [id number] RECEIPT: [id number]
--- NOTE | 2025-08-29 11:32 | PN ---
NEPHROLOGY PROGRESS NOTE Date/Time Patient Seen: Aug 29, 2025 SUBJECTIVE: Patient was transferred from [facility] for cardiovascular surgery Service. Patient was admitted to [facility] on 08/19/2025 with a chief complaint of chest pain. Patient was diagnosed with a NSTEMI Patient had a left heart catheterization on 08/20/2025 that showed severe multivessel disease. 2D echo on 08/20/2025 showed diastolic dysfunction with LVEF 50-55%. Cardiology recommended transferring to a facility with the cardiovascular surgery service S/P Off-pump coronary artery bypass grafting x3 vessels on 08/23 Hemoglobin was noted, S/p PRBC transfusion. Tolerated dialysis without difficulty yesterday. Dialysis planned for tomorrow. He was seen in the ICU, in no acute distress REVIEW OF SYSTEMS: GENERAL: Positive for generalized weakness NEUROLOGIC: Negative for any blurry vision, blind spots, double vision, facial asymmetry, dysphagia, dysarthria, hemiparesis, hemisensory deficits, vertigo, ataxia. HEENT: Negative for any head trauma, neck trauma, neck stiffness, photophobia, phonophobia, sinusitis, rhinitis. CARDIAC: Negative for any chest pain, dyspnea on exertion, paroxysmal nocturnal dyspnea, peripheral edema. PULMONARY: Negative for any shortness of breath, wheezing, COPD, or TB exposure. GASTROINTESTINAL: Negative for any abdominal pain, nausea, vomiting, bright red blood per rectum, melena. GENITOURINARY: Negative for any dysuria, hematuria, incontinence. INTEGUMENTARY: Negative for any rashes, cuts, insect bites. RHEUMATOLOGIC: Negative for any joint pains, photosensitive rashes, history of vasculitis or kidney problems. HEMATOLOGIC: Negative for any abnormal bruising, frequent infections or bleeding. Vital Signs (last 8hr) Date Time Temp Pulse Resp B/P (MAP) Pulse Ox O2 Delivery O2 Flow Rate FiO2 08/29/25 07:54 96 Room Air* 0 21 08/29/25 07:00 97.5 73 19 111/77 99 Room Air 08/29/25 06:00 74 17 120/81 08/29/25 05:00 74 17 101/57 99 08/29/25 04:00 98.1 77 17 112/60 82 Room Air 08/29/25 04:00 95 Room Air* 0 21 PHYSICAL EXAM: GENERAL: Pale, acutely ill male, lethargic, no acute distress. Well-nourished. EYES: EOMI. Anicteric. HENT: Moist mucous membranes. No scleral icterus. No cervical lymphadenopathy. LUNGS: Clear to auscultation bilaterally. No accessory muscle use. CARDIOVASCULAR: Regular rate and rhythm. No murmur. No JVD. ABDOMEN: Soft, non-tender and non-distended. No palpable masses. EXTREMITIES: No edema. Non-tender. SKIN: No rashes or lesions. Warm. NEUROLOGIC: No focal neurological deficits. CN II-XII grossly intact, but not individually tested. PSYCHIATRIC: Cooperative. Appropriate mood and affect. Current Medications Medications (Trade) Dose Ordered Sig/Flavio Route Start Time Stop Time Status Last Admin Dose Admin Acetaminophen (acetaMINOPHEN 1,000MG/100ML) 1,000 mg ONCE IV 08/23/25 21:00 08/23/25 23:00 DC 08/23/25 20:54 1,000 MG Acetaminophen (acetaMINOPHEN 1,000MG/100ML) 1,000 mg Q6H6 IV 08/23/25 12:00 08/23/25 18:39 DC 08/23/25 14:24 1,000 MG Acetaminophen (acetaMINOPHEN 1,000MG/100ML) 1,000 mg Q6H6 IV 08/24/25 06:00 09/23/25 05:59 08/27/25 12:20 1,000 MG Aminocaproic Acid 62667 mg/Sodium Chloride 310 ml @ 25 mls/hr AD IV 08/23/25 09:30 08/23/25 09:34 DC Amiodarone HCl (pacERONE 200MG) 200 mg BID PO 08/26/25 14:00 09/25/25 13:59 08/27/25 08:09 200 MG Amiodarone HCl 150 mg/Dextrose 103 ml @ 618 mls/hr ONCE IV 08/25/25 07:30 08/25/25 07:20 DC Amiodarone HCl 360 mg/Dextrose 207.2 ml @ 33.3 mls/hr AD IV 08/25/25 07:30 08/25/25 07:20 DC Amiodarone HCl 540 mg/Dextrose 310.8 ml @ 16.7 mls/hr [id number] IV 08/27/25 01:30 09/26/25 01:29 Amiodarone HCl 540 mg/Dextrose 310.8 ml @ 16.7 mls/hr [id number] STAT IV 08/25/25 07:18 08/26/25 01:54 DC 08/25/25 14:04 16.7 MLS/HR Amiodarone HCL/ Dextrose 200 ml @ 33.333 mls/ hr AD IV 08/26/25 18:30 08/27/25 00:29 DC Aspirin (Aspirin 81mg Chew Tab) 81 mg DAILY PO 08/21/25 09:00 08/23/25 14:27 DC 08/22/25 09:19 81 MG Aspirin (Aspirin 81mg Chew Tab) 81 mg HS PO 08/23/25 21:00 09/22/25 20:59 08/26/25 20:40 81 MG Atorvastatin Calcium (LIPItor 40MG) 40 mg HS PO 08/21/25 21:00 09/20/25 20:59 08/26/25 20:39 40 MG Carvedilol (Coreg 3.125MG) 3.125 mg BID PO 08/21/25 09:00 08/23/25 09:17 DC 08/23/25 08:10 3.125 MG Cefazolin Sodium (ANCEF 1 gm vial) 2 gm ONCALL IVP 08/22/25 15:30 08/23/25 09:04 DC Cefazolin Sodium (Ancef) 2 gm ONCALL IVP 08/23/25 09:30 08/24/25 09:16 DC Cefazolin Sodium (Ancef) 2 gm Q8H IVPB 08/23/25 14:30 08/23/25 14:37 DC Cefazolin Sodium (Ancef) 2 gm Q8H IVPB 08/23/25 18:00 08/24/25 10:01 DC 08/24/25 09:13 2 GM Cyclobenzaprine HCl (Cyclobenzaprine HCl) 10 mg TID PO 08/21/25 09:00 08/23/25 09:17 DC 08/22/25 21:39 10 MG Dexmedetomidine/ Sodium Chloride (PRECEdex 400MCG/ 100ML-NS) 400 mcg PROTOCOL IV 08/23/25 09:30 08/24/25 09:29 DC Docusate Sodium (COLace 100MG CAP) 100 mg BID PO 08/23/25 21:00 09/22/25 20:59 08/27/25 08:09 100 MG Enoxaparin Sodium (Lovenox) 30 mg DAILY SQ 08/26/25 09:00 09/25/25 08:59 Epoetin Melquiades-epbx (Retacrit) 10,000 unit QTUTHSA[DIALYSIS] SQ 08/26/25 14:00 09/25/25 13:59 08/26/25 14:11 10,000 UNIT Famotidine (Pepcid 20mg Vial) 20 mg Q48H IV 08/23/25 21:00 09/22/25 20:59 08/25/25 20:40 20 MG Furosemide (LASix 100MG VIAL) 80 mg BID IV 08/21/25 09:00 08/21/25 18:47 DC Furosemide (LASix 20MG TAB) 20 mg Q12H PO 08/25/25 09:30 09/24/25 09:29 08/26/25 20:39 20 MG Furosemide (LASix 20MG VIAL) 20 mg Q12H IV 08/24/25 09:30 08/25/25 09:29 DC 08/24/25 19:41 20 MG Heparin Sodium/ Dextrose 250 ml @ 0 mls/hr Q6H IV 08/21/25 02:00 08/23/25 09:17 DC 08/21/25 23:18 10.04 MLS/HR Heparin Sodium/ Dextrose (HEParin 25,000 UNITS/250ML D5W) 25,000 units AD IV 08/21/25 01:00 08/21/25 01:07 DC Insulin Human Regular 100 unit/ Sodium Chloride 100 ml @ 0 mls/hr AD IV 08/23/25 09:30 08/25/25 09:29 DC 08/23/25 14:27 1.5 MLS/HR Lidocaine (Lidoderm Patch 5%) 1 patch DAILY TP 08/21/25 09:00 09/20/25 08:59 08/27/25 08:11 1 PATCH Metoprolol Tartrate (loprESSOR) 12.5 mg BID PO 08/25/25 09:00 08/26/25 17:08 DC Metoprolol Tartrate (loprESSOR) 25 mg BID PO 08/26/25 17:30 09/25/25 17:29 08/26/25 20:39 25 MG Nifedipine (adALAT 30MG) 60 mg DAILY PO 08/21/25 09:00 08/23/25 09:17 DC 08/22/25 09:19 60 MG Nitroglycerin/ Dextrose 0 ml @ 0 mls/hr AD IV 08/23/25 09:30 08/26/25 09:29 DC Pantoprazole Sodium (PROTonix 40MG INJ) 40 mg DAILY IVP 08/21/25 09:00 08/23/25 09:17 DC 08/23/25 08:10 40 MG Sevelamer HCl (RENAgel 800 MG TAB) 3,200 mg TIDMEALS PO 08/21/25 08:00 09/20/25 07:59 08/27/25 08:09 3,200 MG Sodium Chloride 500 ml @ 0 mls/hr AD IV 08/23/25 09:30 09/22/25 09:29 08/23/25 19:39 3 MLS/HR Sodium Chloride 1,000 ml @ 0 mls/hr ONCE IV 08/22/25 17:30 08/22/25 21:30 DC 08/22/25 17:40 1,000 MLS/HR Sodium Chloride 1,000 ml @ 10 mls/hr ONCE IV 08/23/25 09:30 08/24/25 09:29 DC 08/23/25 14:25 10 MLS/HR LABORATORY: [ ] Hematology Labs: Test 08/29/25 04:24 Range/Units White Blood Count 7.1 4.8-10.8 K/uL Red Blood Count 2.51 L 4.50-6.20 MIL/uL Hemoglobin 7.8 L 14.0-18.0 g/dL Hematocrit 23.5 L 42-54 % Mean Corpuscular Volume 93.6 79-99 fL Mean Corpuscular Hemoglobin 31.1 27.0-33.0 pg Mean Corpuscular Hemoglobin Concent 33.2 32.0-36.0 g/dL Red Cell Distribution Width 16.3 H 11.0-15.5 % Platelet Count 154 130-400 K/uL Mean Platelet Volume 10.3 7.5-10.5 fL Nucleated Red Blood Cells 0.3 H 0.0-0.19 % Chemistry Labs: Test 08/29/25 04:24 Range/Units Sodium Level 135 L 136-145 mmol/L Potassium Level 3.9 3.5-5.1 mmol/L Chloride Level 95 L 101-111 mmol/L Carbon Dioxide Level 31 21-32 mmol/L Blood Urea Nitrogen 55 H 7-18 mg/dL Creatinine 8.5 *H 0.5-1.3 mg/dL Glomerular Filtration Rate Calc 7 >90 mL/min Random Glucose 92 70-105 mg/dL Total Calcium 7.9 L 8.5-10.1 mg/dL Magnesium Level 2.30 1.80-2.40 mg/dL Total Bilirubin 0.5 0.2-1.0 mg/dL Aspartate Amino Transf (AST/SGOT) 30 10-37 U/L Alanine Aminotransferase (ALT/SGPT) < 6 L 12-78 U/L Alkaline Phosphatase 91 50-136 U/L Total Protein 5.9 L 6.0-8.3 g/dL Albumin 2.3 L 3.5-5.0 g/dL DIAGNOSTICS / RADIOLOGY: [address] [address] IMAGING REPORT Signed PATIENT: KHLOE SALAZAR MR#: [id number] : 1965 SEX: M AGE: 60 LOCATION: 2B ORDER 2300 STATUS: ADM IN REPORT#: [id number] SERVICE 0400 REASON: s/p CABG ORDERING PHYSICIAN: PALAK FULLER MD PROCEDURE: CXR1VW - CHEST 1VW EXAM: CR Chest, 1 View. CLINICAL HISTORY: s/p CABG COMPARISON: 08/27/2025 FINDINGS: LUNGS: Persistent small bilateral pleural effusions and adjacent lung atelectasis. No new lung infiltrates. PLEURAL SPACES: No pneumothorax. MEDIASTINUM: Mild bilateral central pulmonary vascular congestion, new since the prior. The cardiac size is stable. Median sternotomy status. A left internal jugular central venous sheath is seen. Redemonstrated right chest drains. BONES: No aggressive appearing osseous lesion seen. IMPRESSION: 1. Small bilateral pleural effusions with adjacent atelectasis, unchanged. 2. New mild bilateral central pulmonary vascular congestion. /[place] DICTATED BY: JACK ARCHER Jr., MD DATE: 08/28/251154 ELECTRONICALLY SIGNED BY: JACK ARCHER Jr., MD DATE: 08/28/251154 PATIENT: KHLOE SALAZAR MR#: [id number] : 1965 SEX: M AGE: 60 LOCATION: 2BH ORDER 99 STATUS: ADM IN REPORT#: [id number] SERVICE 9 REASON: s/p CABG ORDERING PHYSICIAN: PALAK FULLER MD PROCEDURE: CXR1VW - CHEST 1VW EXAM: CR Chest, 1 View. CLINICAL HISTORY: s/p CABG. COMPARISON: CHEST 1VW dated on 08/26/2025. FINDINGS: LUNGS: Small bilateral pleural effusions and adjacent lung atelectasis are re-demonstrated. No consolidation. PLEURAL SPACES: No pneumothorax. HEART: The cardiac size is stable. There are two right side chest tubes seen. A left internal jugular central venous sheath is seen. BONES: Median sternotomy sutures. No acute osseous abnormality. IMPRESSION: 1.Small bilateral pleural effusions with adjacent subsegmental atelectasis. 2.Two right side chest tubes seen. 3.Postoperative changes consistent with prior CABG and median sternotomy, with stable cardiac silhouette. 4.No significant interval change compared to the prior CR: CHEST dated 08/26/2025. /[place] DICTATED BY: OFELIA SHARIF MD DATE: 08/27/251653 ELECTRONICALLY SIGNED BY: OFELIA SHARIF MD DATE: 08/27/251653 PATIENT: KHLOE SALAZAR MR#: [id number] : 1965 SEX: M AGE: 60 LOCATION: 2BH ORDER 99 STATUS: ADM IN REPORT#: [id number] SERVICE 9 REASON: s/p CABG ORDERING PHYSICIAN: PALAK FULLER MD PROCEDURE: CXR1VW - CHEST 1VW EXAM: CR Chest, 1 View. CLINICAL HISTORY: s/p CABG COMPARISON: 08/25/2025 FINDINGS: The [place] catheter tip overlies the right pulmonary artery. LUNGS: Small bilateral pleural effusions with adjacent lung atelectasis, slightly increased on the left. PLEURAL SPACES: No pneumothorax. MEDIASTINUM: The cardiac size is stable. Median sternotomy status. BONES: No acute osseous abnormality. IMPRESSION: 1. Small bilateral pleural effusions with adjacent lung atelectasis, slightly increased on the left. 2. [place] catheter tip overlies the right pulmonary artery. /[place] DICTATED BY: JACK ARCHER Jr., MD DATE: 08/26/251518 ELECTRONICALLY SIGNED BY: JACK ARCHER Jr., MD DATE: 08/26/251518 PATIENT: KHLOE SALAZAR MR#: [id number] : 1965 SEX: M AGE: 60 LOCATION: 2CV ORDER 2300 STATUS: ADM IN REPORT#: [id number] SERVICE 0400 REASON: s/p CABG ORDERING PHYSICIAN: PALAK FULLER MD PROCEDURE: CXR1VW - CHEST 1VW EXAM: CR Chest, 1 View. CLINICAL HISTORY: s/p CABG COMPARISON: 08/24/2025 FINDINGS: The [place] catheter tip is in the right pulmonary artery. LUNGS: Persistent left lower lobar opacities, mostly due to congestion. PLEURAL SPACES: No pneumothorax. Questionable bilateral small pleural effusion. MEDIASTINUM: Cardiac size is stable. Status post CABG changes. BONES: No aggressive appearing osseous lesion seen. IMPRESSION: 1. Persistent left lower lobar opacities, likely due to congestion. 2. Questionable bilateral small pleural effusion. 3. [place] catheter tip in the right pulmonary artery. /[place] DICTATED BY: JACK ARCHER Jr., MD DATE: 08/25/251535 ELECTRONICALLY SIGNED BY: JACK ARCHER Jr., MD DATE: 08/25/251535 PATIENT: KHLOE SALAZAR MR#: [id number] : 1965 SEX: M AGE: 60 LOCATION: 2CV ORDER 230 STATUS: ADM IN REPORT#: [id number] SERVICE 0400 REASON: s/p CABG ORDERING PHYSICIAN: PALAK FULLER MD PROCEDURE: CXR1VW - CHEST 1VW EXAM: CR CHEST, 1 VIEW CLINICAL HISTORY: chest x-ray dated 08/23/2025 COMPARISON: CABG TECHNIQUE: Single frontal radiograph of the chest was obtained. FINDINGS: Lines/Devices:[place] catheter is seen with its tip at the right pulmonary artery. Lungs: Left lower lobar faint opacity, mostly congestion. No consolidation or ground-glass opacities are observed. There is no pleural effusion. There is no pneumothorax. Mediastinum and cardiovascular structures:The cardiac silhouette is not enlarged. The central airway and mediastinal contours are unremarkable.Bones and soft tissues: Evidence of sternotomy suture is present.Radiodense surgical prosthesis at the retrocardiac region, mostly representing dorsal spine internal fixation. IMPRESSION: 1. Left lower lobar faint opacity, mostly congestion 2. Evidence of sternotomy sutures. 3. [place] catheter with tip at the right pulmonary artery 4. As compared to the previous chest x-ray dated 08/23/2025, the current study reveals no time interval changes as regards the [place] Hi[place] catheter with its tip at the right pulmonary artery.The previously noted nasogastric tube as well as the endotracheal tube are not visualized in today's study mostly removed.Left lower lobar faint opacity is noted again mostly representing congestion. /[place] DICTATED BY: OFELIA SHARIF MD DATE: 08/24/251600 ELECTRONICALLY SIGNED BY: OFELIA SHARIF MD DATE: 08/24/25 160 PATIENT: KHLOE SALAZAR MR#: [id number] : 1965 SEX: M AGE: 60 LOCATION: 2CV ORDER 1324 STATUS: ADM IN REPORT#: [id number] SERVICE 1323 REASON: S/P REPOSITIONING OF ET TUBE ORDERING PHYSICIAN: PALAK FULLER MD PROCEDURE: CXR1VW - CHEST 1VW EXAM: CR Chest, 1 View. CLINICAL HISTORY: S/P REPOSITIONING OF ET TUBE COMPARISON: None provided. FINDINGS: LUNGS: Endotracheal tube midline above zarina. [place] catheter right pulmonary artery PLEURAL SPACES: No evidence of pleural effusion or pneumothorax. MEDIASTINUM: Cardiac size and mediastinal contours within normal limits. BONES: No acute osseous abnormality. MISCELLANEOUS: Nasogastric tube below diaphragm IMPRESSION: 1. Endotracheal tube midline above zarina. 2. [place] catheter right pulmonary artery 3. Nasogastric tube below diaphragm /[place] DICTATED BY: DAVEY LU MD DATE: 08/23/251519 ELECTRONICALLY SIGNED BY: DAVEY LU MD DATE: 08/23/251519 PATIENT: KHLOE SALAZAR MR#: [id number] : 1965 SEX: M AGE: 60 LOCATION: 2CV ORDER 0924 STATUS: ADM IN REPORT#: [id number] SERVICE 1200 REASON: s/p CABG ORDERING PHYSICIAN: PALAK FULLER MD PROCEDURE: CXR1VW - CHEST 1VW EXAM: CR Chest, 2 View. CLINICAL HISTORY: s/p CABG COMPARISON: None provided. FINDINGS: LUNGS: Endotracheal tube midline above zarina at the mid clavicle level [place] catheter right pulmonary artery PLEURAL SPACES: No pleural effusion or pneumothorax. MEDIASTINUM: The cardiomediastinal silhouette is within normal limits. BONES: No acute osseous abnormality. MISCELLANEOUS: Nasogastric tube below diaphragm Patchy bilateral infiltrates IMPRESSION: 1. Endotracheal tube midline above zarina at the mid clavicle level 2. Nasogastric tube below diaphragm 3. [place] catheter right pulmonary artery 4. Patchy bilateral infiltrates /[place] DICTATED BY: DAVEY LU MD DATE: 08/23/251519 ELECTRONICALLY SIGNED BY: DAVEY LU MD DATE: 08/23/251519 PATIENT: KHLOE SALAZAR MR#: [id number] : 1965 SEX: M AGE: 60 LOCATION: [facility] ORDER 3 STATUS: ADM IN REPORT#: [id number] SERVICE 2 REASON: preop CABG ORDERING PHYSICIAN: PALAK FULLER MD PROCEDURE: ECHO CMP - ECHO 2-D COMPLETE APPROVED REPORT EXAM: Two-dimensional and M-mode echocardiogram with Doppler and color Doppler. INDICATION ICD: pre-op CABG 2D Dimensions RVDd 4.7 cm LVEF(%) 41.0 (>50%) LVED Vol(simp.) 173.9 mL IVSd 0.9 (0.7-1.1cm) FS(%) 20 % LVES Vol(simp.) 92.2 mL LVDd 4.9 (3.8-5.6cm) LA (2D) 4.5 (1.6-4.0cm) LVEF(%, simp.) 47 % PWd 1.2 (0.7-1.1cm) Ao Root(2D) 3.3 (2.0-3.7cm) LA ESV INDEX (BP) 38.01 mL/m2 LVDs 3.9 (2.5-4.0cm) LVOT diam 2.4 (1.8-2.4cm) Deformation Strain Apical 4 -15.4 % Apical 2 -14.0 % Apical 3 -14.4 % Global Strain -14.6 % M-Mode Dimensions EPSS 1.2 cm LA (MM) 4.2 (1.6-4.0cm) Ao Root(MM) 3.5 (2.0-3.7cm) Aortic Valve AoV Vmax 1.9 m/s Ao Peak GR 14.1 mmHg LVOT Vmax 1.1 m/s AoV VTI 0.4 m Ao Mean GR 8.6 mmHg LVOT VTI 0.26 m KRISTEN (VMAX) 2.87 cm2 Al P1/2T 392 ms KRISTEN (VTI) 3.1 cm2 Mitral Valve MV E Vmax 117.9 cm/s DECEL Time 220 ms MV A Vmax 115.4 cm/s P 1/2 T 65 ms E/A ratio 1.0 MVA (PHT) 3.4 cm2 TDI E/E' Medial 21.2 E/E' Lateral 12.7 Medial E' Peak V 5.56 cm/s Lateral E' Peak V 9.27 cm/s Pulmonary Valve PV Vmax 1.1 m/s PV VTI 0.25 m PV Mean GR 2.9 mmHg PV Peak GR 5.0 mmHg Tricuspid Valve TR Vmax 2.3 m/s RVSP 21.9 mmHg TR Peak GR 21.9 mmHg Left Ventricle Left ventricular cavity size is normal. There is global hypokinesis of the left ventricle. There is normal left ventricular wall thickness. LVEF is 45-50%. Stage II diastolic dysfunction. Right Ventricle The right ventricle is normal size. The right ventricular systolic function is normal. Atria The left atrium is mildly dilated. The right atrium size is normal. Aortic Valve The aortic valve is normal in structure. Trace aortic regurgitation. There is no aortic valvular stenosis. Mitral Valve The mitral valve is normal in structure. Posterior leaflet is mildly thickened. Mitral regurgitation is mild. There is no mitral valve stenosis. Tricuspid Valve The tricuspid valve is normal in structure. There is trace tricuspid valve regurgitation noted. Pulmonic Valve Pulmonic valve is not well visualized. There is no pulmonic valvular regurgitation. Great Vessels The aortic root is normal in size. The IVC is normal in size and collapses >50% with inspiration. Pericardium There is no pericardial effusion. Other Information Quality : Average Conclusion Left ventricular cavity size is normal. LVEF is 45-50% with global hypokinesis of the left ventricle. Stage II diastolic dysfunction. The right ventricular systolic function is normal. The left atrium is mildly dilated. No hemodynamically significant valvular abnormalities. There is no pericardial effusion. DICTATED BY: DAVEY BRANCH MD DATE: 08/21/25 0952 ELECTRONICALLY SIGNED BY: DAVEY BRANCH MD DATE: 08/21/25 1854PATIENT: KHLOE SALAZAR MR#: [id number] : 1965 SEX: M AGE: 60 LOCATION: 2AH ORDER 3 STATUS: ADM IN [facility] REPORT#: [id number] SERVICE 2 REASON: preop CABG ORDERING PHYSICIAN: PALAK FULLER MD PROCEDURE: CAROTID - US CAROTID DUPLEX STUDY: CAROTID DUPLEX ULTRASOUND CLINICAL INFORMATION: Preoperative evaluation prior to coronary artery bypass grafting (CABG). TECHNIQUE: Grayscale, color Doppler, and spectral Doppler ultrasound of the bilateral carotid and vertebral arteries was performed, including peak systolic velocity measurements. COMPARISON: None provided. FINDINGS: RIGHT CAROTID SYSTEM: Peak systolic velocity (PSV) in the right common carotid artery (CCA) measures approximately 99 cm/s. Peak systolic velocity in the right internal carotid artery (ICA) measures approximately 90 cm/s, with a right ICA/CCA PSV ratio of 0.9. Peak systolic velocity in the right external carotid artery (ECA) is approximately 86 cm/s. Calcified plaques are present in the distal right CCA and carotid bulb. No hemodynamically significant elevation of ICA velocity is demonstrated to suggest high-grade right ICA stenosis. LEFT CAROTID SYSTEM: Peak systolic velocity in the left CCA measures approximately 81 cm/s. Peak systolic velocity in the left ICA measures approximately 95 cm/s, with a left ICA/CCA PSV ratio of 1.2. Peak systolic velocity in the left ECA is approximately 86 cm/s. Calcified plaques are present in the distal left CCA and carotid bulb. No hemodynamically significant elevation of ICA velocity is demonstrated to suggest high-grade left ICA stenosis. VERTEBRAL ARTERIES: Right vertebral artery demonstrates antegrade flow with peak systolic velocity of approximately 71 cm/s. Left vertebral artery demonstrates antegrade flow with peak systolic velocity of approximately 39 cm/s. No evidence of vertebral artery flow reversal is identified. IMPRESSION: * Calcified atherosclerotic plaques in the bilateral distal common carotid arteries and carotid bulbs, with internal carotid artery peak systolic velocities and ICA/CCA ratios consistent with no hemodynamically significant carotid stenosis by duplex criteria. * Bilateral vertebral arteries with antegrade flow, without sonographic evidence of subclavian steal or vertebral artery occlusion. * From a carotid duplex perspective, no high-grade carotid stenosis is identified that would typically preclude or delay CABG; continued medical optimization of atherosclerotic risk factors is recommended in coordination with cardiology and vascular teams. /[place] DICTATED BY: OFELIA SHARIF MD DATE: 08/23/25158 ELECTRONICALLY SIGNED BY: OFELIA SHARIF MD DATE: 08/23/25158 ASSESSMENT: Severe multivessel disease Anemia Acute on chronic diastolic heart failure NSTEMI, POA ESRD on HD Hyperlipidemia Hypertension CHF with LVEF 50-55% by 2D echo, diastolic dysfunction on 08/20/2025 PLAN: Labs and Diagnostics/ Radiology personally reviewed and interpreted by myself and supervising physician We have reviewed dialysis and external records in detail Continue dialysis schedule Monday 1.5 L fluid restriction Continue to monitor H&H BiPAP, for respiratory distress Epogen on dialysis days, as needed Continue with frequent monitoring of renal function, anemia, and electrolytes Order CBC, CMP, and electrolytes in the morning May use Dilaudid 0.5 mg IV every 6 hours as needed for severe pain Monitor blood pressure adjust medication doses as needed Maintain normotensive state Strict intake, output, and daily weight should be monitored Please renally adjust medications. Avoid nephrotoxics and nonsteroidal drugs. We will continue to monitor the patient closely We have discussed with the other team physicians in detail about the care plan Total critical care time spent with patient, nursing staff, critical care team over 35 minutes ATTESTATION BY PHYSICIAN I have seen and examined the patient. I reviewed the documentation, medical decision making, and treatment plan as noted by the mid-level provider above. I agree with the findings and plan of care. GERRI MIGUEL MD, [facility] Aug 29, 2025 11:31
--- NOTE | 2025-08-29 11:32 | PN ---
[facility] PROGRESS NOTE Date Patient Seen: Aug 29, 2025 Time of Visit: 11:30 Supervising Physician: Dr Andrade Vang Primary Care Physician: [Dr. Prince ] Outpatient Specialists: [ ] Inpatient Consults: [ ] PROBLEM LIST: Acute non STEMI Status post CABG X 3 with ligation of Atrial Appendage (08/23) ESRD on HD Acute on chronic diastolic heart failure T2DM HTN Atherosclerosis Obesity, BMI 36 Hyperlipidemia INTERVAL HISTORY: Patient was seen and examined all labs and imaging have been reviewed Tolerating hemodialysis yesterday Chest x-ray improved Expecting chest tubes come out today. He is tolerating his diet Vitals are stable Pain controlled Plan: Follow nephrology recs, HD Following cardiology recs, Aspirin, statin Follow Cardiothoracic postop protocol PT/OT, ambulation, Total critical care time spent greater than 40 minutes, this excludes any procedures performed or any time spent in educational or teaching. REVIEW OF SYSTEMS: 12 point ROS reviewed with patient. Pertinent positives mentioned above. Otherwise negative. PHYSICAL EXAM: GENERAL: alert, weak, awake oriented x 3 HEENT: EOMI, Sclera non icteric, moist mucosa NECK: Supple, no JVD, trachea midline LUNGS: Clear breath sounds bilaterally. No wheezes CT X2 in place HEART: Regular rate and rhythm. Normal S1 and S2, without murmurs. sternotomy noted intact. ABD: Abdomen soft, nontender. Bowel sounds present EXT: No clubbing cyanosis or edema NEURO: Alert and oriented to person, follows commands Vital Signs (last 8hr) Date Time Temp Pulse Resp B/P (MAP) Pulse Ox O2 Delivery O2 Flow Rate FiO2 08/29/25 07:54 96 Room Air* 0 21 08/29/25 07:00 97.5 73 19 111/77 99 Room Air 08/29/25 06:00 74 17 120/81 08/29/25 05:00 74 17 101/57 99 08/29/25 04:00 98.1 77 17 112/60 82 Room Air 08/29/25 04:00 95 Room Air* 0 21 LABS: Hematology Labs: Test 08/29/25 04:24 Range/Units White Blood Count 7.1 4.8-10.8 K/uL Red Blood Count 2.51 L 4.50-6.20 MIL/uL Hemoglobin 7.8 L 14.0-18.0 g/dL Hematocrit 23.5 L 42-54 % Mean Corpuscular Volume 93.6 79-99 fL Mean Corpuscular Hemoglobin 31.1 27.0-33.0 pg Mean Corpuscular Hemoglobin Concent 33.2 32.0-36.0 g/dL Red Cell Distribution Width 16.3 H 11.0-15.5 % Platelet Count 154 130-400 K/uL Mean Platelet Volume 10.3 7.5-10.5 fL Nucleated Red Blood Cells 0.3 H 0.0-0.19 % Chemistry Labs: Test 08/29/25 04:24 Range/Units Sodium Level 135 L 136-145 mmol/L Potassium Level 3.9 3.5-5.1 mmol/L Chloride Level 95 L 101-111 mmol/L Carbon Dioxide Level 31 21-32 mmol/L Blood Urea Nitrogen 55 H 7-18 mg/dL Creatinine 8.5 *H 0.5-1.3 mg/dL Glomerular Filtration Rate Calc 7 >90 mL/min Random Glucose 92 70-105 mg/dL Total Calcium 7.9 L 8.5-10.1 mg/dL Magnesium Level 2.30 1.80-2.40 mg/dL Total Bilirubin 0.5 0.2-1.0 mg/dL Aspartate Amino Transf (AST/SGOT) 30 10-37 U/L Alanine Aminotransferase (ALT/SGPT) < 6 L 12-78 U/L Alkaline Phosphatase 91 50-136 U/L Total Protein 5.9 L 6.0-8.3 g/dL Albumin 2.3 L 3.5-5.0 g/dL DIAGNOSTICS / RADIOLOGY RESULTS: [ ] PLAN NEURO: Minimize central acting medications as possible. Fall Precautions. Well lighted room through the day and minimize interruptions through the night to prevent acute delirium. PULMONARY: Supplemental 02 as needed Titrate Fio2 to keep Spo2 > or = 90% DuoNebs and CPT as needed IS hourly while awake for pulmonary hygiene Out of bed to chair as tolerated VAP Bundle Vent/BIPAP Settings: [ ] Driving pressure: [ ] P Plat: [ ] Static C: [ ] Static R: [ ] P/F Ratio: [ ] CARDIOVASCULAR: Follow hemodynamics. Titrate vasopressor to keep MAP >65 or systolic blood pressure >95mmHg DIPS: [ ] LINES: [ ] GI & NUTRITION: Continue nutritional support Aspirations precautions Prokinetic agents and laxatives as needed KIDNEYS & ELECTROLYTES: Strict monitoring of intake and output Daily weights Avoid nephrotoxic agents Monitor electrolytes and replace as needed Goal urine output of 30mL/hr or 0.5mL/kg/hr Urine output: [ ] Fluid Balance: [ ] ENDOCRINE: Maintain blood glucose between 100-180 at all times. Insulin sliding scale for blood glucose management INFECTIOUS DISEASE: Trend temperature. Mary-culture if febrile. Micro: [ ] Antibiotics: [ ] HEMATOLOGY & COAGULATION: Monitor H&H. Keep Hgb > 7 Transfuse 1 unit of PRBC for Hgb < 7 Transfuse 1 pack of platelets of platelets < 20, 000 Watch for any signs and symptoms of bleeding SKIN: Pressure ulcer prevention per facility protocol Rehab: PT/OT Prophylaxis: GI: [ ] DVT: [ ] Code Status: Full Resuscitation Disposition: [ ] PHILIPPE CHANEY [facility] Aug 29, 2025 11:32
--- NOTE | 2025-08-29 11:57 | NUR ---
[facility] ICU Skin Assessment: Patient assessed by wound healing team. Patient with no wounds or skin breakdown noted. Assessment and recommendations provided to primary nurse. Education provided.
--- NOTE | 2025-08-29 14:59 | PN ---
[facility] CARDIOLOGY PROGRESS NOTE Date Patient Seen: Aug 29, 2025 Time of Visit: 14:57 Interval History: [ No acute events overnight. Minimal output in the chest tubes around 64 mL overnight, blood pressure has been stable, atrial fibrillation on midnight as reported by telemetry, that converted to sinus rhythm in the 80s, blood pressure has been soft Physical Examination: GENERAL: [No acute distress.] HEAD: [Normal with no signs of head trauma.] EYES: [PERRLA, EOMI, conjunctiva and sclera normal.] ENT: [Hearing grossly intact, normal oropharynx.] NECK: [Supple without JVD. There is no tenderness, lymphadenopathy, or masses. No thyromegaly. Normal carotid upstrokes without bruits.] LUNGS: [Clear breath sounds bilaterally.. No wheezes, or rhonchi. Chest tubes in and functional] HEART: [Normal rate and rhythm. Normal S1 and S2 without murmurs, gallop or r ub.] VASC: [Peripheral pulses +2 bilaterally.] ABD: [Bowel sounds normal, soft, nontender, no masses, no organomegaly. No audible bruits.] : [Not examined] LYMPH: [No lymphadenopathy noted.] EXT: [No clubbing, cyanosis or edema.] SKIN: [examination of left groin access site appears to be clean with no evidence of hematoma or active bleeding.] NEURO: [Awake, alert, and oriented x3. No focal sensory or strength deficits noted.] Laboratory: [ ] Hematology Labs: Test 08/29/25 04:24 Range/Units White Blood Count 7.1 4.8-10.8 K/uL Red Blood Count 2.51 L 4.50-6.20 MIL/uL Hemoglobin 7.8 L 14.0-18.0 g/dL Hematocrit 23.5 L 42-54 % Mean Corpuscular Volume 93.6 79-99 fL Mean Corpuscular Hemoglobin 31.1 27.0-33.0 pg Mean Corpuscular Hemoglobin Concent 33.2 32.0-36.0 g/dL Red Cell Distribution Width 16.3 H 11.0-15.5 % Platelet Count 154 130-400 K/uL Mean Platelet Volume 10.3 7.5-10.5 fL Nucleated Red Blood Cells 0.3 H 0.0-0.19 % Chemistry Labs: Test 08/29/25 04:24 Range/Units Sodium Level 135 L 136-145 mmol/L Potassium Level 3.9 3.5-5.1 mmol/L Chloride Level 95 L 101-111 mmol/L Carbon Dioxide Level 31 21-32 mmol/L Blood Urea Nitrogen 55 H 7-18 mg/dL Creatinine 8.5 *H 0.5-1.3 mg/dL Glomerular Filtration Rate Calc 7 >90 mL/min Random Glucose 92 70-105 mg/dL Total Calcium 7.9 L 8.5-10.1 mg/dL Magnesium Level 2.30 1.80-2.40 mg/dL Total Bilirubin 0.5 0.2-1.0 mg/dL Aspartate Amino Transf (AST/SGOT) 30 10-37 U/L Alanine Aminotransferase (ALT/SGPT) < 6 L 12-78 U/L Alkaline Phosphatase 91 50-136 U/L Total Protein 5.9 L 6.0-8.3 g/dL Albumin 2.3 L 3.5-5.0 g/dL Diagnostics / Radiology: [Copy/Paste Echos/Imaging Report here] Impression and Plan: [1. Non-STEMI. 2. Multivessel coronary disease. 3. Hypertension. 4. Hyperlipidemia. 5. End-stage renal disease on hemodialysis. 6. Hyperkalemia. #CAD s/p 3v CABG ( PORTILLO-LAD, SVG- OM2, SVG-PDA ) on 08-23-[address] Hackett Admitted [facility] on 08/19/2025 for chest pain Troponin peaked at 3703 2D echocardiogram (08/20/2025) LVEF 50-55%, per report Coronary angiogram (08/20/2025) revealing severe multivessel CAD (per report), examination of left groin access site appears to be clean with no evidence of hematoma or active bleeding. Patient was transferred from [facility] for CABG evaluation Hemoglobin dropped 5.8, patient received1 unit of PRBCs repeat hemoglobin 7.5 g No urine output due to ESRD. Minimal chest tube output around 64 mL; continue Lasix 20 mg every 12 hours Continue [id number] mg daily, and atorvastatin 40 mg daily Lopressor is being held due to soft blood pressures Once chest tubes are out recommend initiating [id number] mg daily ] #atrial fibrillation Patient developed atrial fibrillation with RVR postoperatively Patient completed amiodarone bolus and infusion We will continue with the amiodarone 200 mg every12 hours for seven days, and then we will continue amiodarone 200 mg daily after that Atrial fibrillation on midnight as reported by telemetry, that converted to sinus rhythm in the 80s Please keep on telemetry, monitor/replace electrolytes as needed Lopressor is being held due to soft blood pressures Continue heparin infusion per PPX Prior to discharge we will transition to Eliquis 5 mg every 12 hours Thank you for this consult cardiology will continue to follow along postoperatively Chucho montanez MD ATTESTATION BY PHYSICIAN I have seen and examined the patient, reviewed the above documentation, participated in medical decision making, made necessary modifications, and agree with the treatment plan as documented by my mid-level provider above. MD SARINA Cuba JAMES R MD Aug 29, 2025 14:59
[2025-08-30] VITALS (24 sets, daily range): BP systolic 122–155; BP diastolic 57–118; PULSE 70–98; RESP 12–54; TEMP 97.3–99; O2SAT 98–99
[2025-08-30 04:20] LABS: NUCLEATED RED BLOOD CELLS 0.3 % (0.0-0.19); PLATELET COUNT (AUTO) 176 K/uL (130-400); RED BLOOD CELL COUNT(AUTO) 2.42 MIL/uL (4.50-6.20); RED CELL DISTRIBUTION WIDTH 16.5 % (11.0-15.5); WHITE BLOOD COUNT (AUTO) 7.8 K/uL (4.8-10.8)
[2025-08-30 04:46] LABS: ASPARTATE AMINOTRANSFERASE 28.0 U/L (10-37); GLOMERULAR FILTR. RATE CALC 5.0 mL/min (>90); GLUCOSE,RANDOM 110.0 mg/dL (70-105); PHOSPHORUS 5.5 mg/dL (2.5-4.9); SODIUM SERUM 133.0 mmol/L (136-145); TOTAL PROTEIN, SERUM 6.0 g/dL (6.0-8.3)
[2025-08-30 04:48] LABS: CREATININE 10.3 mg/dL (0.5-1.3); UREA NITROGEN, BLOOD 78.0 mg/dL (7-18)
[2025-08-30 04:49] LABS: EOSINOPHILS % (MANUAL) 5 % (1-6); LYMPHOCYTES % (MANUAL) 19 % (22-44); MAN.DIFF COMMENT-IMPRESSION MANUAL DIFFERENTIAL; MONOCYTES % (MANUAL) 9 % (2-9); REACTIVE LYMPHOCYTES 1 % (0-0); SEGMENTED NEUTROPHILS % 66 % (40-70)
[2025-08-30 04:50] LABS: PLATELET MORPHOLOGY COMMENT ADEQUATE
--- NOTE | 2025-08-30 08:08 | PN ---
[facility] CARDIOLOGY PROGRESS NOTE Cardiology progress note dictated for Zita Graham MD Date Patient Seen: Aug 30, 2025 Time of Visit: 07:54 Interval History: Patient is up to chair. Bedside telemetry currently demonstrating normal sinus rhythm heart rates in the 70s. Mediastinal chest tube in place draining serosanguineous fluid, documented output of 60 mL. HGB 7.6, HCT 22.5, platelet 170. Overnight systolic ranged 122-132 mmHg. Physical Examination: GENERAL: No acute distress. HEAD: Normal with no signs of head trauma. EYES: Conjunctiva and sclera normal. NECK: Supple without JVD. LUNGS: Diminished breath sounds to bases. HEART: Normal rate and rhythm. Normal S1 and S2 without murmurs, gallop or rub. EXT: No clubbing, cyanosis or edema. NEURO: Drowsy, alert, and oriented x3. No focal neurological deficits noted. Laboratory: Hematology Labs: Test 08/30/25 04:10 Range/Units White Blood Count 7.8 4.8-10.8 K/uL Red Blood Count 2.42 L 4.50-6.20 MIL/uL Hemoglobin 7.6 L 14.0-18.0 g/dL Hematocrit 22.5 L 42-54 % Mean Corpuscular Volume 93.0 79-99 fL Mean Corpuscular Hemoglobin 31.4 27.0-33.0 pg Mean Corpuscular Hemoglobin Concent 33.8 32.0-36.0 g/dL Red Cell Distribution Width 16.5 H 11.0-15.5 % Platelet Count 176 130-400 K/uL Mean Platelet Volume 10.2 7.5-10.5 fL Segmented Neutrophils % 66 40-70 % Lymphocytes % (Manual) 19 L 22-44 % Monocytes % (Manual) 9 2-9 % Eosinophils % (Manual) 5 1-6 % Nucleated Red Blood Cells 0.3 H 0.0-0.19 % Differential Comment MANUAL DIFFERENTIAL Reactive Lymphocytes 1 H 0-0 % White Cell Morphology Comment See comments Platelet Morphology Comment ADEQUATE Red Blood Cell Morphology See comments Chemistry Labs: Test 08/30/25 04:10 Range/Units Sodium Level 133 L 136-145 mmol/L Potassium Level 3.7 3.5-5.1 mmol/L Chloride Level 93 L 101-111 mmol/L Carbon Dioxide Level 25 21-32 mmol/L Blood Urea Nitrogen 78 #*H 7-18 mg/dL Creatinine 10.3 *H 0.5-1.3 mg/dL Glomerular Filtration Rate Calc 5 >90 mL/min Random Glucose 110 H 70-105 mg/dL Total Calcium 7.8 L 8.5-10.1 mg/dL Phosphorus Level 5.5 H 2.5-4.9 mg/dL Magnesium Level 2.30 1.80-2.40 mg/dL Total Bilirubin 0.5 0.2-1.0 mg/dL Aspartate Amino Transf (AST/SGOT) 28 10-37 U/L Alanine Aminotransferase (ALT/SGPT) 6 L 12-78 U/L Alkaline Phosphatase 113 50-136 U/L Total Protein 6.0 6.0-8.3 g/dL Albumin 2.4 L 3.5-5.0 g/dL Diagnostics / Radiology: Impression and Plan: 1. Non-STEMI. 2. Multivessel coronary disease. 3. Ischemic cardiomyopathy 4. Hypertension. 5. Hyperlipidemia. 6. End-stage renal disease on hemodialysis. 7. Hyperkalemia. #CAD s/p 3v CABG (PORTILLO-LAD, SVG- OM2, SVG-PDA) with Ligation of left atrial appendage with a 25 mm AtriCure clip on 08-23-[address] Hackett Admitted [facility] on 08/19/2025 for chest pain, ACS-NSTEMI 2D echocardiogram (08/21/25) at this facility EF 45-50% Coronary angiogram (08/20/2025) revealing severe multivessel CAD (per report) Patient was transferred from [facility] for CABG evaluation Postoperative blood loss requiring blood transfusion No urine output due to ESRD on Lasix 20 mg po q 12 hours Continue aspirin 81 mg daily, atorvastatin 40 mg daily and metoprolol tartrate 25 mg b.i.d. 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 Hold therapeutic anticoagulation at this time due to chest tube remaining in place. YOCASTA [facility] Aug 30, 2025 08:08 ZITA GRAHAM DO Aug 30, 2025 12:02
--- NOTE | 2025-08-30 09:48 | PN ---
[facility] PROGRESS NOTE Date Patient Seen: Aug 30, 2025 Time of Visit: 09:48 Supervising Physician: Dr Andrade Vang Primary Care Physician: [Dr. Prince ] Outpatient Specialists: [ ] Inpatient Consults: [ ] PROBLEM LIST: Acute non STEMI Status post CABG X 3 with ligation of Atrial Appendage (08/23) ESRD on HD Acute on chronic diastolic heart failure T2DM HTN Atherosclerosis Obesity, BMI 36 Hyperlipidemia INTERVAL HISTORY: Patient was seen and examined all labs and imaging have been reviewed Hemodialysis today, plan is 1-2 L, patient awake alert and oriented, tolerating thus far Chest x-ray continues to improve Minimal output by chest tube Tolerating diet Nursing reports no acute events overnight Pain controlled Afebrile Plan: Follow nephrology recs, HD Following cardiology recs, Aspirin, statin Follow Cardiothoracic postop protocol PT/OT, ambulation, Total critical care time spent greater than 40 minutes, this excludes any procedures performed or any time spent in educational or teaching. REVIEW OF SYSTEMS: 12 point ROS reviewed with patient. Pertinent positives mentioned above. Otherwise negative. PHYSICAL EXAM: GENERAL: alert, weak, awake oriented x 3 HEENT: EOMI, Sclera non icteric, moist mucosa NECK: Supple, no JVD, trachea midline LUNGS: Clear breath sounds bilaterally. No wheezes CT X2 in place HEART: Regular rate and rhythm. Normal S1 and S2, without murmurs. sternotomy noted intact. ABD: Abdomen soft, nontender. Bowel sounds present EXT: No clubbing cyanosis or edema NEURO: Alert and oriented to person, follows commands Vital Signs (last 8hr) Date Time Temp Pulse Resp B/P (MAP) Pulse Ox O2 Delivery O2 Flow Rate FiO2 08/30/25 09:15 72 16 127/64 100 Room Air 08/30/25 09:00 71 16 123/62 100 Room Air 08/30/25 08:45 72 16 151/118 100 Room Air 08/30/25 08:30 74 18 140/73 100 Room Air 08/30/25 08:20 99.0 75 18 138/65 98 Room Air 08/30/25 07:50 99.0 75 12 125/66 Room Air 2.0 08/30/25 07:15 98.6 98 20 129/66 98 08/30/25 04:00 98.6 75 19 122/69 99 Room Air LABS: Hematology Labs: Test 08/30/25 04:10 Range/Units White Blood Count 7.8 4.8-10.8 K/uL Red Blood Count 2.42 L 4.50-6.20 MIL/uL Hemoglobin 7.6 L 14.0-18.0 g/dL Hematocrit 22.5 L 42-54 % Mean Corpuscular Volume 93.0 79-99 fL Mean Corpuscular Hemoglobin 31.4 27.0-33.0 pg Mean Corpuscular Hemoglobin Concent 33.8 32.0-36.0 g/dL Red Cell Distribution Width 16.5 H 11.0-15.5 % Platelet Count 176 130-400 K/uL Mean Platelet Volume 10.2 7.5-10.5 fL Segmented Neutrophils % 66 40-70 % Lymphocytes % (Manual) 19 L 22-44 % Monocytes % (Manual) 9 2-9 % Eosinophils % (Manual) 5 1-6 % Nucleated Red Blood Cells 0.3 H 0.0-0.19 % Differential Comment MANUAL DIFFERENTIAL Reactive Lymphocytes 1 H 0-0 % White Cell Morphology Comment See comments Platelet Morphology Comment ADEQUATE Red Blood Cell Morphology See comments Chemistry Labs: Test 08/30/25 04:10 Range/Units Sodium Level 133 L 136-145 mmol/L Potassium Level 3.7 3.5-5.1 mmol/L Chloride Level 93 L 101-111 mmol/L Carbon Dioxide Level 25 21-32 mmol/L Blood Urea Nitrogen 78 #*H 7-18 mg/dL Creatinine 10.3 *H 0.5-1.3 mg/dL Glomerular Filtration Rate Calc 5 >90 mL/min Random Glucose 110 H 70-105 mg/dL Total Calcium 7.8 L 8.5-10.1 mg/dL Phosphorus Level 5.5 H 2.5-4.9 mg/dL Magnesium Level 2.30 1.80-2.40 mg/dL Total Bilirubin 0.5 0.2-1.0 mg/dL Aspartate Amino Transf (AST/SGOT) 28 10-37 U/L Alanine Aminotransferase (ALT/SGPT) 6 L 12-78 U/L Alkaline Phosphatase 113 50-136 U/L Total Protein 6.0 6.0-8.3 g/dL Albumin 2.4 L 3.5-5.0 g/dL DIAGNOSTICS / RADIOLOGY RESULTS: [ ] PLAN NEURO: Minimize central acting medications as possible. Fall Precautions. Well lighted room through the day and minimize interruptions through the night to prevent acute delirium. PULMONARY: Supplemental 02 as needed Titrate Fio2 to keep Spo2 > or = 90% DuoNebs and CPT as needed IS hourly while awake for pulmonary hygiene Out of bed to chair as tolerated VAP Bundle Vent/BIPAP Settings: [ ] Driving pressure: [ ] P Plat: [ ] Static C: [ ] Static R: [ ] P/F Ratio: [ ] CARDIOVASCULAR: Follow hemodynamics. Titrate vasopressor to keep MAP >65 or systolic blood pressure >95mmHg DIPS: [ ] LINES: [ ] GI & NUTRITION: Continue nutritional support Aspirations precautions Prokinetic agents and laxatives as needed KIDNEYS & ELECTROLYTES: Strict monitoring of intake and output Daily weights Avoid nephrotoxic agents Monitor electrolytes and replace as needed Goal urine output of 30mL/hr or 0.5mL/kg/hr Urine output: [ ] Fluid Balance: [ ] ENDOCRINE: Maintain blood glucose between 100-180 at all times. Insulin sliding scale for blood glucose management INFECTIOUS DISEASE: Trend temperature. Mary-culture if febrile. Micro: [ ] Antibiotics: [ ] HEMATOLOGY & COAGULATION: Monitor H&H. Keep Hgb > 7 Transfuse 1 unit of PRBC for Hgb < 7 Transfuse 1 pack of platelets of platelets < 20, 000 Watch for any signs and symptoms of bleeding SKIN: Pressure ulcer prevention per facility protocol Rehab: PT/OT Prophylaxis: GI: [ ] DVT: [ ] Code Status: Full Resuscitation Disposition: [ ] PHILIPPE CHANEY PAC Aug 30, 2025 09:48
--- NOTE | 2025-08-30 13:01 | PN ---
[facility] PROGRESS NOTE Date of Service: Aug 30, 2025 Time of Service: 13:00 SUBJECTIVE: 08/22 patient remains admitted to the PCU, comfortably in bed, alert and oriented x3, on heparin drip. Denies chest pain, shortness shortness for breath, no nausea, no vomiting, no abdominal discomfort. He remains hemodynamically stable, afebrile, saturating normal on room air. Mild drop in hemoglobin to 9.8 with a hematocrit 29.6, no signs of GI bleed. Patient evaluated by Cardiothoracic surgeon, pending further recommendations in terms of CABG. Follow CBC in a.m. and transfuse as needed. Discussed with the patient, in agreement, all questions answered. 08/23 patient remains admitted to the PCU, comfortably in bed, alert and oriented x3, denies chest pain, shortness shortness for breath, no nausea, no vomiting, no abdominal discomfort. He remains hemodynamically stable, afebrile, saturating normal on room air. Patient evaluated by Cardiothoracic surgeon, case discussed, plan for CABG today. 08/24 patient remains admitted to the ICU, status post CABG, 08/23/2025, postoperative day 1. Patient is successfully extubated, Awake, following comman ds, on insulin and epinephrine drip, chest tube in place. BP 118/47, afebrile, WBC 13.1, hemoglobin 7.2, hematocrit 21.4, platelet count of 151, sodium 140, potassium 6.0, BUN of 60, creatinine 9.5, carbon dioxide 24. ABG pH 7.41, PO2 119.4, pCO2 38, bicarbonate of 23.5. Continue to follow Cardiothoracic input recommendation, continue aspirin 81 mg p.o. daily, atorvastatin 40 mg p.o. daily, furosemide 20 mg IV q.12 hours. Follow a.m. labs.Continue hemodialysis per Nephrology recommendation. 08/25 patient remains admitted to the ICU, awake, following commands, getting 1 unit of PRBC during my visit, BP 143/48, heart rate of 125, saturating 99% 2 L nasal cannula. CBC shows hemoglobin 5.8, hematocrit 70.6, WBC of 12.6, platelet count of 153. CMP with sodium 140, potassium 4.7, BUN 46, creatinine 8.7. Chest x-ray 08/24/2025 showing left lower lobe opacity, mostly congestion, shanthi dence of sternotomy sutures, Kadoka-Hiren catheter with tip by right pulmonary artery, as compared to prior x-ray, currently study reveals no interval change as regards to psoas CAD catheter. Chest x-ray today pending. Continue to follow CT surgery input recommendation critical care input recommendation. Follow CBC post transfusion. 08/26 patient remains admitted to the ICU, comfortably bed, hemodynamically stable, afebrile, saturating normal on room air, he is getting hemodialysis during my visit. Chest tube in place. The patient on epinephrine drip, to be weaned off today. Blood pressure 141/50, afebrile, hemoglobin improved to 8.1, hematocrit 23.9 after transfusion of 1 unit of PRBC. Continue to follow hemodialysis per Nephrology recommendation, continue to follow Cardiothoracic input recommendation, follow a.m. labs. 08/27 patient remains admitted to the ICU, seen and examined at bedside, getting up from the chair with the help of the physical therapist, he remains alert and oriented x3, hemodynamically stable. Off epinephrine drip per discussion with the RN. Denies chest pain, shortness shortness for breath, no nausea, no vomiting, no abdominal discomfort. Chest tube in place. Further recommendations from Cardiothoracic surgeon. Possible downgraded to the PCU. Follow a.m. labs. Discussed with the patient. 08/28 patient remains admitted to the ICU, seen and examined at bedside, continue hemodialysis, tolerating well, he remains alert and oriented x3, hemodynamically stable. Off epinephrine drip per discussion with the RN. Denies chest pain, shortness shortness for breath, no nausea, no vomiting, no abdominal discomfort. Chest tube in place. Further recommendations from Cardiothoracic surgeon. Possible downgraded to the PCU. Follow a.m. labs. Discussed with the patient. 08/29 patient remains admitted to the ICU, seen and examined at bedside, continue hemodialysis, tolerating well, he remains alert and oriented x3, hemodynamically stable. At the time my visit the patient is sitting comfortably in the chair, chest tube has been removed. He is eating lunch, tolerating well, no chest pain, shortness shortness for breath, no nausea, no vomiting, no abdominal discomfort. Patient to be downgraded to the PCU. Continue to follow Cardiothoracic input recommendation. Follow a.m. labs. Discussed with the patient, in agreement REVIEW OF SYSTEMS CONSTITUTIONAL: Denies fevers, chills, or night sweats. No unintentional weight loss reported. NEUROLOGICAL: Denies headache, amaurosis fugax, motor weakness, sensory deficit, vertigo/spinning sensation, gait abnormalities, or tremors. ENT: No hearing loss, otalgia, otorrhea, rhinitis, rhinorrhea, hoarseness, or so re throat. CARDIOVASCULAR: Denies any exertional angina, dyspnea on exertion, orthopnea, paroxysmal nocturnal dyspnea, palpitations, life-threatening arrhythmias, claudication. PULMONARY: Denies any shortness of breath, cough, phlegm/sputum, hemoptysis, pleuritic chest pain. SLEEP: Denies morning headaches, daytime somnolence or napping. Denies difficulty falling asleep, staying asleep, waking from sleep. Denies knowledge of snoring. GASTROINTESTINAL: Denies any type of dysphagia to either liquids or solids. Denies nausea, vomiting, pyrosis, early satiety, abdominal pain, diarrhea, constipation, or changes in stool consistency or caliber. Denies coffee-ground emesis, hematemesis, hematochezia, or melanotic stools. GENITOURINARY: Denies frequency, urgency, nocturia, hematuria or incontinence (Storage/Irritative symptoms.) Low urinary stream, straining to void, urinary intermittency or hesitancy, splitting of the voiding stream, terminal dribbling. ENDOCRINOLOGIC: Denies polyuria, polydipsia, polyphagia or heat/cold intolerances. HEMATOLOGIC: Denies thrombophilia/previous clots, or coagulopathy/bleeding disorders. ONCOLOGIC: Denies personal history of malignancy. DERMATOLOGIC: Denies rashes or pruritus. PSYCHIATRIC: Denies any suicidal or homicidal ideation. Denies hallucinations. PHYSICAL EXAM GENERAL APPEARANCE: The patient is awake, alert, and oriented, in no acute cardiopulmonary distress. NEUROLOGICAL: Cranial nerves II-XII grossly intact. Motor is 5/5 in bilateral upper and lower extremities proximal to distal. No sensory deficits. HEENT: Face is symmetric. Pupils are equal and reactive. Extraocular movements are intact. NECK: Supple. No JVD. No thyromegaly. No submental, submandibular, pre- /postauricular, occipital or supraclavicular lymphadenopathy. CHEST: Normal chest expansion. No Telemetry. LUNGS: Absence of any rales, rhonchi or any wheezing. CARDIOVASCULAR: Regular. S1 and S2 normal. No appreciable rubs, murmurs or gallops. ABDOMEN: Soft, nontender, and nondistended. There is no rebound, voluntary guarding, or rigidity. : Deferred. No Soliz. EXTREMITIES: Non-edematous and not cyanotic. No clubbing. Good capillary refill. SKIN: No skin breakdown. Vital Signs (last 8hr) Date Time Temp Pulse Resp B/P (MAP) Pulse Ox O2 Delivery O2 Flow Rate FiO2 08/30/25 11:44 97.3 79 16 147/78 100 Room Air 08/30/25 11:22 97.9 80 54 155/73 97 Room Air 08/30/25 11:15 77 16 152/78 100 Room Air 08/30/25 11:07 78 54 147/72 99 Room Air 08/30/25 11:00 74 16 150/78 100 Room Air 08/30/25 10:45 72 16 141/69 100 Room Air 08/30/25 10:30 73 16 141/70 100 Room Air 08/30/25 10:15 73 16 141/74 100 Room Air 08/30/25 10:00 71 16 141/73 100 Room Air 08/30/25 09:45 71 16 129/65 100 Room Air 08/30/25 09:30 70 16 126/60 100 Room Air 08/30/25 09:15 72 16 127/64 100 Room Air 08/30/25 09:00 71 16 123/62 100 Room Air 08/30/25 08:45 72 16 151/118 100 Room Air 08/30/25 08:30 74 18 140/73 100 Room Air 08/30/25 08:20 99.0 75 18 138/65 98 Room Air 08/30/25 07:50 99.0 75 12 125/66 Room Air 2.0 08/30/25 07:15 98.6 98 20 129/66 98 LABS: Laboratory: Test 08/30/25 04:10 Range/Units White Blood Count 7.8 4.8-10.8 K/uL Red Blood Count 2.42 L 4.50-6.20 MIL/uL Hemoglobin 7.6 L 14.0-18.0 g/dL Hematocrit 22.5 L 42-54 % Mean Corpuscular Volume 93.0 79-99 fL Mean Corpuscular Hemoglobin 31.4 27.0-33.0 pg Mean Corpuscular Hemoglobin Concent 33.8 32.0-36.0 g/dL Red Cell Distribution Width 16.5 H 11.0-15.5 % Platelet Count 176 130-400 K/uL Mean Platelet Volume 10.2 7.5-10.5 fL Segmented Neutrophils % 66 40-70 % Lymphocytes % (Manual) 19 L 22-44 % Monocytes % (Manual) 9 2-9 % Eosinophils % (Manual) 5 1-6 % Nucleated Red Blood Cells 0.3 H 0.0-0.19 % Differential Comment MANUAL DIFFERENTIAL Reactive Lymphocytes 1 H 0-0 % White Cell Morphology Comment See comments Platelet Morphology Comment ADEQUATE Red Blood Cell Morphology See comments Sodium Level 133 L 136-145 mmol/L Potassium Level 3.7 3.5-5.1 mmol/L Chloride Level 93 L 101-111 mmol/L Carbon Dioxide Level 25 21-32 mmol/L Blood Urea Nitrogen 78 #*H 7-18 mg/dL Creatinine 10.3 *H 0.5-1.3 mg/dL Glomerular Filtration Rate Calc 5 >90 mL/min Random Glucose 110 H 70-105 mg/dL Total Calcium 7.8 L 8.5-10.1 mg/dL Phosphorus Level 5.5 H 2.5-4.9 mg/dL Magnesium Level 2.30 1.80-2.40 mg/dL Total Bilirubin 0.5 0.2-1.0 mg/dL Aspartate Amino Transf (AST/SGOT) 28 10-37 U/L Alanine Aminotransferase (ALT/SGPT) 6 L 12-78 U/L Alkaline Phosphatase 113 50-136 U/L Total Protein 6.0 6.0-8.3 g/dL Albumin 2.4 L 3.5-5.0 g/dL Current Medications Medications (Trade) Dose Ordered Sig/Flavio Route PRN Reason Start Time Stop Time Status Last Admin Dose Admin Acetaminophen (TYLenol 325MG TAB) 650 mg Q4H PRN PO Temp >38.3C(AFTER EXTUBATION) 08/23/25 09:30 09/22/25 09:29 Acetaminophen (TYLenol 325MG TAB) 650 mg Q4HPRN PRN PO FEVER 08/21/25 01:00 08/23/25 09:31 DC 08/23/25 00:01 650 MG Acetaminophen (TYLenol 325MG TAB) 650 mg Q6H PRN PO MILD PAIN (1-3) 08/23/25 09:30 09/22/25 09:29 08/28/25 18:06 650 MG Acetaminophen (TYLenol 650MG SUPPOSITORY) 650 mg Q4H PRN RC Temp >38.3C WHILE INTUBATED 08/23/25 09:30 09/22/25 09:29 Acetaminophen (acetaMINOPHEN 1,000MG/100ML) 1,000 mg ONCE IV 08/23/25 21:00 08/23/25 23:00 DC 08/23/25 20:54 1,000 MG Acetaminophen (acetaMINOPHEN 1,000MG/100ML) 1,000 mg Q6H6 IV 08/23/25 12:00 08/23/25 18:39 DC 08/23/25 14:24 1,000 MG Acetaminophen (acetaMINOPHEN 1,000MG/100ML) 1,000 mg Q6H6 IV 08/24/25 06:00 09/23/25 05:59 08/30/25 11:21 1,000 MG Acetaminophen/ Hydrocodone Bitart (NORco 5/325MG) 1 tab Q6H PRN PO PAIN 5-10 08/21/25 01:00 08/23/25 09:17 DC 08/22/25 20:29 1 TAB Albumin Human 250 ml @ 0 mls/hr AD PRN IV IF HEMODYNAMICALLY UNSTABLE 08/23/25 09:30 08/23/25 15:43 DC 08/23/25 15:43 2,520 MLS/HR Aminocaproic Acid 08993 mg/Sodium Chloride 310 ml @ 25 mls/hr AD IV 08/23/25 09:30 08/23/25 09:34 DC Aminocaproic Acid 92392 mg/Sodium Chloride 480 ml @ 0 mls/hr AD PRN IV BLEEDING CONTROL 08/23/25 09:00 09/22/25 08:59 Amiodarone HCl (pacERONE 200MG) 200 mg BID PO 08/26/25 14:00 09/25/25 13:59 08/30/25 11:18 200 MG Amiodarone HCl 150 mg/Dextrose 103 ml @ 618 mls/hr ONCE IV 08/25/25 07:30 08/25/25 07:20 DC Amiodarone HCl 150 mg/Dextrose 103 ml @ 618 mls/hr ONCE IV 08/28/25 18:30 08/28/25 18:23 DC Amiodarone HCl 360 mg/Dextrose 207.2 ml @ 33.3 mls/hr AD IV 08/25/25 07:30 08/25/25 07:20 DC Amiodarone HCl 540 mg/Dextrose 310.8 ml @ 16.7 mls/hr [id number] IV 08/27/25 01:30 08/28/25 10:54 DC Amiodarone HCl 540 mg/Dextrose 310.8 ml @ 16.7 mls/hr [id number] STAT IV 08/25/25 07:18 08/26/25 01:54 DC 08/25/25 14:04 16.7 MLS/HR Amiodarone HCL/ Dextrose 200 ml @ 33.333 mls/ hr AD IV 08/26/25 18:30 08/27/25 00:29 DC Aspirin (Aspirin 81mg Chew Tab) 81 mg DAILY PO 08/21/25 09:00 08/23/25 14:27 DC 08/22/25 09:19 81 MG Aspirin (Aspirin 81mg Chew Tab) 81 mg HS PO 08/23/25 21:00 09/22/25 20:59 08/29/25 20:47 81 MG Atorvastatin Calcium (LIPItor 40MG) 40 mg HS PO 08/21/25 21:00 09/20/25 20:59 08/29/25 20:47 40 MG Calcium Gluconate 1 gm/Sodium Chloride 60 ml @ 200 mls/hr AD PRN IV HYPOCALCEMIA 08/23/25 09:30 09/22/25 09:29 08/24/25 08:08 200 MLS/HR Carvedilol (Coreg 3.125MG) 3.125 mg BID PO 08/21/25 09:00 08/23/25 09:17 DC 08/23/25 08:10 3.125 MG Cefazolin Sodium (ANCEF 1 gm vial) 2 gm ONCALL IVP 08/22/25 15:30 08/23/25 09:04 DC Cefazolin Sodium (Ancef) 2 gm ONCALL IVP 08/23/25 09:30 08/24/25 09:16 DC Cefazolin Sodium (Ancef) 2 gm Q8H IVPB 08/23/25 14:30 08/23/25 14:37 DC Cefazolin Sodium (Ancef) 2 gm Q8H IVPB 08/23/25 18:00 08/24/25 10:01 DC 08/24/25 09:13 2 GM Cyclobenzaprine HCl (Cyclobenzaprine HCl) 10 mg TID PO 08/21/25 09:00 08/23/25 09:17 DC 08/22/25 21:39 10 MG Dexmedetomidine/ Sodium Chloride (PRECEdex 400MCG/ 100ML-NS) 400 mcg PROTOCOL IV 08/23/25 09:30 08/24/25 09:29 DC Dextrose (D50w) 50 ml AD PRN IV HYPOGLYCEMIA PROTOCOL 08/23/25 09:30 09/22/25 09:29 08/24/25 05:59 50 ML Docusate Sodium (COLace 100MG CAP) 100 mg BID PO 08/23/25 21:00 09/22/25 20:59 08/30/25 11:18 100 MG Enoxaparin Sodium (Lovenox) 30 mg DAILY SQ 08/26/25 09:00 09/25/25 08:59 08/30/25 12:04 30 MG Epinephrine HCl 10 mg/Sodium Chloride 250 ml @ 0 mls/hr AD PRN IV TITRATE 08/23/25 09:00 09/22/25 08:59 08/25/25 21:53 0 MLS/HR Epinephrine HCl 10 mg/Sodium Chloride 250 ml @ 0 mls/hr AD PRN IV POST-OP CARDIOVASCULAR ORDERS 08/23/25 09:30 08/23/25 09:33 DC Epoetin Melquiades-epbx (Retacrit) 10,000 unit QTUTHSA[DIALYSIS] SQ 08/26/25 14:00 09/25/25 13:59 08/30/25 12:09 10,000 UNIT Famotidine (Pepcid 20mg Vial) 20 mg Q48H IV 08/23/25 21:00 09/22/25 20:59 08/29/25 20:47 20 MG Furosemide (LASix 100MG VIAL) 80 mg BID IV 08/21/25 09:00 08/21/25 18:47 DC Furosemide (LASix 20MG TAB) 20 mg Q12H PO 08/25/25 09:30 09/24/25 09:29 08/30/25 11:18 20 MG Furosemide (LASix 20MG VIAL) 20 mg Q12H IV 08/24/25 09:30 08/25/25 09:29 DC 08/24/25 19:41 20 MG Glucagon (Glucagon 1mg Kit) 1 mg AD PRN IM HYPOGLYCEMIA PROTOCOL 08/23/25 09:30 09/22/25 09:29 Heparin Sodium/ Dextrose 250 ml @ 0 mls/hr Q6H IV 08/21/25 02:00 08/23/25 09:17 DC 08/21/25 23:18 10.04 MLS/HR Heparin Sodium/ Dextrose (HEParin 25,000 UNITS/250ML D5W) 25,000 units AD IV 08/21/25 01:00 08/21/25 01:07 DC Hydralazine HCl (APRESOLine 20MG INJ) 10 mg ONCE PRN IV IF SBP GREATER THAN 180 08/21/25 01:30 08/23/25 09:17 DC Hydralazine HCl (APRESOLine 20MG INJ) 10 mg Q6H PRN IV For:SBP above 160;DBP above 90 08/21/25 01:30 08/23/25 09:17 DC Hydromorphone HCl (DiLAUDid 0.5MG INJ) 0.25 mg Q4H PRN IVP SEVERE PAIN (7-10) 08/21/25 01:30 08/23/25 09:17 DC 08/23/25 07:13 0.25 MG Insulin Human Regular 100 unit/ Sodium Chloride 100 ml @ 0 mls/hr AD IV 08/23/25 09:30 08/25/25 09:29 DC 08/23/25 14:27 1.5 MLS/HR Lactulose (Constulose 20gm/ 30ml Udcup) 20 gm BID PRN PO CONSTIPATION 08/23/25 09:30 09/22/25 09:29 Lidocaine (Lidoderm Patch 5%) 1 patch DAILY TP 08/21/25 09:00 09/20/25 08:59 08/30/25 11:18 1 PATCH Magnesium Hydroxide (Milk Of Magnesium 30ml) 30 ml DAILY PRN PO CONSTIPATION 08/23/25 09:30 09/22/25 09:29 Magnesium Sulfate 50 ml @ 12.5 mls/hr AD PRN IV MAG LEVEL LESS THAN 2.0 08/23/25 09:30 09/22/25 09:29 08/23/25 14:27 12.5 MLS/HR Metoprolol Tartrate (loprESSOR) 12.5 mg BID PO 08/25/25 09:00 08/26/25 17:08 DC Metoprolol Tartrate (loprESSOR) 25 mg BID PO 08/26/25 17:30 09/25/25 17:29 08/30/25 11:18 25 MG Morphine Sulfate (morPHINE 4MG SYG) 0.5 mg Q2H PRN IV MODERATE PAIN (4-6) 08/23/25 10:00 08/28/25 12:59 DC Morphine Sulfate (morPHINE 4MG SYG) 1 mg Q2H PRN IV SEVERE PAIN (7-10) 08/23/25 09:30 08/24/25 09:29 DC Nifedipine (adALAT 30MG) 60 mg DAILY PO 08/21/25 09:00 08/23/25 09:17 DC 08/22/25 09:19 60 MG Nitroglycerin/ Dextrose 0 ml @ 0 mls/hr AD IV 08/23/25 09:30 08/26/25 09:29 DC Norepinephrine Bitartrate 250 ml @ 0 mls/hr AD PRN IV TITRATE 08/23/25 09:00 09/22/25 08:59 08/24/25 07:24 2.9 MLS/HR Norepinephrine Bitartrate 8 mg/ Dextrose 250 ml @ 0 mls/hr AD PRN IV POST-OP CARDIOVASCULAR ORDERS 08/23/25 09:30 08/23/25 09:33 DC Ondansetron HCl (zoFRAN 4MG INJ) 4 mg Q6H PRN IV NAUSEA/VOMITING 08/21/25 01:30 08/23/25 09:17 DC Ondansetron HCl (zoFRAN 4MG INJ) 4 mg Q6H PRN IV NAUSEA/VOMITING 08/23/25 09:30 09/22/25 09:29 08/24/25 19:49 4 MG Ondansetron HCl (zoFRAN 4MG INJ) 4 mg TID PRN IV NAUSEA/VOMITING 08/21/25 01:00 08/21/25 01:14 DC Pantoprazole Sodium (PROTonix 40MG INJ) 40 mg DAILY IVP 08/21/25 09:00 08/23/25 09:17 DC 08/23/25 08:10 40 MG Potassium Phosphate 250 ml @ 42 mls/hr AD PRN IV LOW PHOS LEVEL 08/23/25 09:30 09/22/25 09:29 Potassium Chloride 100 ml @ 100 mls/hr AD PRN IV HYPOKALEMIA 08/23/25 09:30 09/22/25 09:29 Propofol 100 ml @ 0 mls/hr AD PRN IV SEDATION 08/23/25 09:30 08/27/25 09:29 DC Sevelamer HCl (RENAgel 800 MG TAB) 3,200 mg TIDMEALS PO 08/21/25 08:00 09/20/25 07:59 08/30/25 11:22 3,200 MG Sodium Bicarbonate (Sodium Bicarb 50meq 50ml Vial) 50 meq AD PRN IV OTHER[SEE DOSING INSTRUCTIONS] 08/23/25 09:30 08/26/25 09:29 DC 08/23/25 16:21 50 MEQ Sodium Chloride 500 ml @ 0 mls/hr AD IV 08/23/25 09:30 09/22/25 09:29 08/23/25 19:39 3 MLS/HR Sodium Chloride 1,000 ml @ 0 mls/hr ONCE IV 08/22/25 17:30 08/22/25 21:30 DC 08/22/25 17:40 1,000 MLS/HR Sodium Chloride 1,000 ml @ 0 mls/hr ONCE IV 08/28/25 11:30 09/27/25 11:29 08/28/25 14:27 100 MLS/HR Sodium Chloride 1,000 ml @ 10 mls/hr ONCE IV 08/23/25 09:30 08/24/25 09:29 DC 08/23/25 14:25 10 MLS/HR Sodium Chloride (NS Flush 10ml) 10 ml Q8H PRN IVP IV LINE FLUSH 08/23/25 09:30 09/22/25 09:29 Tramadol HCl (UltRAM) 25 mg Q6H PRN PO MODERATE PAIN (4-6) 08/23/25 09:30 08/28/25 09:29 DC 08/24/25 08:09 25 MG Tramadol HCl (UltRAM) 50 mg Q6H PRN PO SEVERE PAIN (7-10) 08/23/25 09:30 08/28/25 09:29 DC 08/26/25 14:19 50 MG DIAGNOSTICS / RADIOLOGY: [ ] ASSESSMENT: Severe multivessel disease, POA NSTEMI, POA status post CABG x3 with the AtriClip 08/23/2025. ESRD on HD Hyperlipidemia Hypertension CHF with LVEF 50-55% by 2D echo, diastolic dysfunction on 08/20/2025 PLAN: patient remains admitted to the ICU, seen and examined at bedside, continue hemodialysis, tolerating well, he remains alert and oriented x3, hemodynamically stable. At the time my visit the patient is sitting comfortably in the chair, chest tube has been removed. He is eating lunch, tolerating well, no chest pain, shortness shortness for breath, no nausea, no vomiting, no abdominal discomfort. Patient to be downgraded to the PCU. Continue to follow Cardiothoracic input recommendation. Follow a.m. labs. Discussed with the patient, in agreement NEURO: Minimize central acting medications as possible. Fall Precautions. Well lighted room through the day and minimize interruptions through the night to prevent acute delirium. PULMONARY: Supplemental 02 as needed BiPAP as necessary, for respiratory distress Titrate Fio2 to keep Spo2 > or = 90% DuoNebs and CPT as needed IS hourly while awake for pulmonary hygiene prn Out of bed to chair as tolerated Maintain aspiration precautions at all times CARDIOVASCULAR: Follow hemodynamics. Vital signs per facility protocol GI & NUTRITION: Continue nutritional support Aspirations precautions Prokinetic agents and laxatives as needed KIDNEYS & ELECTROLYTES: Strict monitoring of intake and output Daily weights Avoid nephrotoxic agents Monitor electrolytes and replace as needed Goal urine output of 30mL/hr or 0.5mL/kg/hr Medications to be dosed according to renal function. Avoid contrast if possible ENDOCRINE: Maintain blood glucose between 100-180 at all times. Insulin sliding scale for blood glucose management Hypoglycemia and hyperglycemia protocol in place INFECTIOUS DISEASE: Trend temperature, WBC and procalcitonin level Follow cultures, deescalate antibiotics as soon as possible. Panculture if new onset fever HEMATOLOGY & COAGULATION: Monitor H&H. Keep Hgb > 7 Transfuse 1 unit of PRBC for Hgb < 7 Transfuse 1 pack of platelets of platelets < 20, 000 Watch for any signs and symptoms of bleeding SKIN: Pressure ulcer prevention per facility protocol Specialty mattress as needed ORTHO/REHAB Continue PT/OT PRN: MEDICATIONS Tylenol 650 mg po every 4 hrs for fever zofran 4 mg IV every 6 hrs for n/v Hydralazine 5 mg IV every 4 hrs systolic pressure > 160 bowel regiment: lactulose 20 gm PO BID PRN constipation Supportive measures: Continue GI and DVT prophylaxis Disposition: Pending improvement in clinical condition All questions answered time spent: > 35 min MICHAEL INTERIANO MD Aug 30, 2025 13:01
--- NOTE | 2025-08-30 15:25 | NUR ---
RECEIVED PATIENT FROM ROOM 209. APPEARS COMFORTABLE. TELEMETRY READING SR HR 88. WILL CONTINUE WITH PLAN OF CARE.
--- NOTE | 2025-08-30 19:24 | PN ---
FOLLOWUP PROGRESS NOTE SUBJECTIVE: The patient seen and evaluated in hemodialysis. Prescriptions noted. PHYSICAL EXAMINATION: VITAL SIGNS: Blood pressure is 141/74. CARDIOVASCULAR: Regular. LUNGS: Coarse. IMPRESSION: Endstage renal disease. PLAN: The patient will continue with maximum ultrafiltration blood pressure allows. Cardiovascular workup is ongoing. Once the patient is discharged, the patient will follow up at the dialysis unit. TID: [id number] RECEIPT: [id number]
[2025-08-31] VITALS (8 sets, daily range): BP systolic 126–143; BP diastolic 63–87; PULSE 65–80; RESP 18; TEMP 97.8–98.7; O2SAT 99–100
[2025-08-31 04:54] LABS: NUCLEATED RED BLOOD CELLS 0.0 % (0.0-0.19); PLATELET COUNT (AUTO) 233.0 K/uL (130-400); RED BLOOD CELL COUNT(AUTO) 2.64 MIL/uL (4.50-6.20); RED CELL DISTRIBUTION WIDTH 16.7 % (11.0-15.5); WHITE BLOOD COUNT (AUTO) 9.2 K/uL (4.8-10.8)
[2025-08-31 05:14] LABS: ASPARTATE AMINOTRANSFERASE 33 U/L (10-37); GLOMERULAR FILTR. RATE CALC 7 mL/min (>90); GLUCOSE,RANDOM 97 mg/dL (70-105); SODIUM SERUM 133 mmol/L (136-145); TOTAL PROTEIN, SERUM 6.5 g/dL (6.0-8.3); UREA NITROGEN, BLOOD 57 mg/dL (7-18)
[2025-08-31 05:17] LABS: CREATININE 8.5 mg/dL (0.5-1.3)
--- NOTE | 2025-08-31 08:04 | PN ---
[facility] PROGRESS NOTE Date of Service: Aug 31, 2025 Time of Service: 08:01 SUBJECTIVE: 08/22 patient remains admitted to the PCU, comfortably in bed, alert and oriented x3, on heparin drip. Denies chest pain, shortness shortness for breath, no nausea, no vomiting, no abdominal discomfort. He remains hemodynamically stable, afebrile, saturating normal on room air. Mild drop in hemoglobin to 9.8 with a hematocrit 29.6, no signs of GI bleed. Patient evaluated by Cardiothoracic surgeon, pending further recommendations in terms of CABG. Follow CBC in a.m. and transfuse as needed. Discussed with the patient, in agreement, all questions answered. 08/23 patient remains admitted to the PCU, comfortably in bed, alert and oriented x3, denies chest pain, shortness shortness for breath, no nausea, no vomiting, no abdominal discomfort. He remains hemodynamically stable, afebrile, saturating normal on room air. Patient evaluated by Cardiothoracic surgeon, case discussed, plan for CABG today. 08/24 patient remains admitted to the ICU, status post CABG, 08/23/2025, postoperative day 1. Patient is successfully extubated, Awake, following comman ds, on insulin and epinephrine drip, chest tube in place. BP 118/47, afebrile, WBC 13.1, hemoglobin 7.2, hematocrit 21.4, platelet count of 151, sodium 140, potassium 6.0, BUN of 60, creatinine 9.5, carbon dioxide 24. ABG pH 7.41, PO2 119.4, pCO2 38, bicarbonate of 23.5. Continue to follow Cardiothoracic input recommendation, continue aspirin 81 mg p.o. daily, atorvastatin 40 mg p.o. daily, furosemide 20 mg IV q.12 hours. Follow a.m. labs.Continue hemodialysis per Nephrology recommendation. 08/25 patient remains admitted to the ICU, awake, following commands, getting 1 unit of PRBC during my visit, BP 143/48, heart rate of 125, saturating 99% 2 L nasal cannula. CBC shows hemoglobin 5.8, hematocrit 70.6, WBC of 12.6, platelet count of 153. CMP with sodium 140, potassium 4.7, BUN 46, creatinine 8.7. Chest x-ray 08/24/2025 showing left lower lobe opacity, mostly congestion, shanthi dence of sternotomy sutures, [place]-Hiren catheter with tip by right pulmonary artery, as compared to prior x-ray, currently study reveals no interval change as regards to psoas CAD catheter. Chest x-ray today pending. Continue to follow CT surgery input recommendation critical care input recommendation. Follow CBC post transfusion. 08/26 patient remains admitted to the ICU, comfortably bed, hemodynamically stable, afebrile, saturating normal on room air, he is getting hemodialysis during my visit. Chest tube in place. The patient on epinephrine drip, to be weaned off today. Blood pressure 141/50, afebrile, hemoglobin improved to 8.1, hematocrit 23.9 after transfusion of 1 unit of PRBC. Continue to follow hemodialysis per Nephrology recommendation, continue to follow Cardiothoracic input recommendation, follow a.m. labs. 08/27 patient remains admitted to the ICU, seen and examined at bedside, getting up from the chair with the help of the physical therapist, he remains alert and oriented x3, hemodynamically stable. Off epinephrine drip per discussion with the RN. Denies chest pain, shortness shortness for breath, no nausea, no vomiting, no abdominal discomfort. Chest tube in place. Further recommendations from Cardiothoracic surgeon. Possible downgraded to the PCU. Follow a.m. labs. Discussed with the patient. 08/28 patient remains admitted to the ICU, seen and examined at bedside, continue hemodialysis, tolerating well, he remains alert and oriented x3, hemodynamically stable. Off epinephrine drip per discussion with the RN. Denies chest pain, shortness shortness for breath, no nausea, no vomiting, no abdominal discomfort. Chest tube in place. Further recommendations from Cardiothoracic surgeon. Possible downgraded to the PCU. Follow a.m. labs. Discussed with the patient. 08/29 patient remains admitted to the ICU, seen and examined at bedside, continue hemodialysis, tolerating well, he remains alert and oriented x3, hemodynamically stable. At the time my visit the patient is sitting comfortably in the chair, chest tube has been removed. He is eating lunch, tolerating well, no chest pain, shortness shortness for breath, no nausea, no vomiting, no abdominal discomfort. Patient to be downgraded to the PCU. Continue to follow Cardiothoracic input recommendation. Follow a.m. labs. Discussed with the patient, in agreement. 08/31 60-year-old male, transferred from [facility] 08/21/2025 where he was diagnosed with a non-STEMI. Left heart catheterization done on 08/20/2025 shows severe multivessel disease. 2D echo on 08/20/2025 showed diastolic dysfunction with LVEF 50-55%. Cardiology recommended transferring to a facility with the cardiovascular surgery service. status post CABG x3 with the AtriClip 08/23/2025. Chest tube removed 08/30/2025. Patient downgraded to the PCU. Continue to follow Cardiothoracic input recommendation. Continue hemodialysis per Nephrology. Continue with physical therapy. Case management consulted for discharge plan home versus rehab. At the time of my visit the patient is comfortably sitting in the chair, alert oriented x3, no chest pain, shortness shortness for breath, no nausea, no vomiting, no abdominal discomfort. He is scheduled for hemodialysis today. REVIEW OF SYSTEMS CONSTITUTIONAL: Denies fevers, chills, or night sweats. No unintentional weight loss reported. NEUROLOGICAL: Denies headache, amaurosis fugax, motor weakness, sensory deficit, vertigo/spinning sensation, gait abnormalities, or tremors. ENT: No hearing loss, otalgia, otorrhea, rhinitis, rhinorrhea, hoarseness, or sore throat. CARDIOVASCULAR: Denies any exertional angina, dyspnea on exertion, orthopnea, paroxysmal nocturnal dyspnea, palpitations, life-threatening arrhythmias, claudication. PULMONARY: Denies any shortness of breath, cough, phlegm/sputum, hemoptysis, pleuritic chest pain. SLEEP: Denies morning headaches, daytime somnolence or napping. Denies difficulty falling asleep, staying asleep, waking from sleep. Denies knowledge of snoring. GASTROINTESTINAL: Denies any type of dysphagia to either liquids or solids. Denies nausea, vomiting, pyrosis, early satiety, abdominal pain, diarrhea, constipation, or changes in stool consistency or caliber. Denies coffee-ground emesis, hematemesis, hematochezia, or melanotic stools. GENITOURINARY: Denies frequency, urgency, nocturia, hematuria or incontinence (Storage/Irritative symptoms.) Low urinary stream, straining to void, urinary intermittency or hesitancy, splitting of the voiding stream, terminal dribbling. ENDOCRINOLOGIC: Denies polyuria, polydipsia, polyphagia or heat/cold intolerances. HEMATOLOGIC: Denies thrombophilia/previous clots, or coagulopathy/bleeding disorders. ONCOLOGIC: Denies personal history of malignancy. DERMATOLOGIC: Denies rashes or pruritus. PSYCHIATRIC: Denies any suicidal or homicidal ideation. Denies hallucinations. PHYSICAL EXAM GENERAL APPEARANCE: The patient is awake, alert, and oriented, in no acute cardiopulmonary distress. NEUROLOGICAL: Cranial nerves II-XII grossly intact. Motor is 5/5 in bilateral upper and lower extremities proximal to distal. No sensory deficits. HEENT: Face is symmetric. Pupils are equal and reactive. Extraocular movements are intact. NECK: Supple. No JVD. No thyromegaly. No submental, submandibular, pre- /postauricular, occipital or supraclavicular lymphadenopathy. CHEST: Normal chest expansion. No Telemetry. LUNGS: Absence of any rales, rhonchi or any wheezing. CARDIOVASCULAR: Regular. S1 and S2 normal. No appreciable rubs, murmurs or gallops. ABDOMEN: Soft, nontender, and nondistended. There is no rebound, voluntary gu arding, or rigidity. : Deferred. No Soliz. EXTREMITIES: Non-edematous and not cyanotic. No clubbing. Good capillary refill. SKIN: No skin breakdown. Vital Signs (last 8hr) Date Time Temp Pulse Resp B/P (MAP) Pulse Ox O2 Delivery O2 Flow Rate FiO2 08/31/25 07:38 98.1 65 18 127/66 98 Room Air 21 08/31/25 04:00 98.2 78 18 142/72 99 Room Air 08/31/25 00:30 98.8 75 18 138/79 96 Room Air LABS: Laboratory: Test 08/31/25 04:02 08/30/25 04:10 Range/Units White Blood Count 9.2 4.8-10.8 K/uL Red Blood Count 2.64 L 4.50-6.20 MIL/uL Hemoglobin 8.3 L 14.0-18.0 g/dL Hematocrit 25.0 L 42-54 % Mean Corpuscular Volume 94.7 79-99 fL Mean Corpuscular Hemoglobin 31.4 27.0-33.0 pg Mean Corpuscular Hemoglobin Concent 33.2 32.0-36.0 g/dL Red Cell Distribution Width 16.7 H 11.0-15.5 % Platelet Count 233 # 130-400 K/uL Mean Platelet Volume 10.4 7.5-10.5 fL Nucleated Red Blood Cells 0.0 0.0-0.19 % Sodium Level 133 L 136-145 mmol/L Potassium Level 4.4 3.5-5.1 mmol/L Chloride Level 95 L 101-111 mmol/L Carbon Dioxide Level 28 21-32 mmol/L Blood Urea Nitrogen 57 #H 7-18 mg/dL Creatinine 8.5 *H 0.5-1.3 mg/dL Glomerular Filtration Rate Calc 7 >90 mL/min Random Glucose 97 70-105 mg/dL Total Calcium 8.1 L 8.5-10.1 mg/dL Magnesium Level 2.20 1.80-2.40 mg/dL Total Bilirubin 0.7 # 0.2-1.0 mg/dL Aspartate Amino Transf (AST/SGOT) 33 10-37 U/L Alanine Aminotransferase (ALT/SGPT) < 5 L 12-78 U/L Alkaline Phosphatase 101 50-136 U/L Total Protein 6.5 6.0-8.3 g/dL Albumin 2.6 L 3.5-5.0 g/dL Segmented Neutrophils % 66 40-70 % Lymphocytes % (Manual) 19 L 22-44 % Monocytes % (Manual) 9 2-9 % Eosinophils % (Manual) 5 1-6 % Differential Comment MANUAL DIFFERENTIAL Reactive Lymphocytes 1 H 0-0 % White Cell Morphology Comment See comments Platelet Morphology Comment ADEQUATE Red Blood Cell Morphology See comments Phosphorus Level 5.5 H 2.5-4.9 mg/dL Current Medications Medications (Trade) Dose Ordered Sig/Flavio Route PRN Reason Start Time Stop Time Status Last Admin Dose Admin Acetaminophen (TYLenol 325MG TAB) 650 mg Q4H PRN PO Temp >38.3C(AFTER EXTUBATION) 08/23/25 09:30 09/22/25 09:29 Acetaminophen (TYLenol 325MG TAB) 650 mg Q4HPRN PRN PO FEVER 08/21/25 01:00 08/23/25 09:31 DC 08/23/25 00:01 650 MG Acetaminophen (TYLenol 325MG TAB) 650 mg Q6H PRN PO MILD PAIN (1-3) 08/23/25 09:30 09/22/25 09:29 08/28/25 18:06 650 MG Acetaminophen (TYLenol 650MG SUPPOSITORY) 650 mg Q4H PRN RC Temp >38.3C WHILE INTUBATED 08/23/25 09:30 09/22/25 09:29 Acetaminophen (acetaMINOPHEN 1,000MG/100ML) 1,000 mg ONCE IV 08/23/25 21:00 08/23/25 23:00 DC 08/23/25 20:54 1,000 MG Acetaminophen (acetaMINOPHEN 1,000MG/100ML) 1,000 mg Q6H6 IV 08/23/25 12:00 08/23/25 18:39 DC 08/23/25 14:24 1,000 MG Acetaminophen (acetaMINOPHEN 1,000MG/100ML) 1,000 mg Q6H6 IV 08/24/25 06:00 08/30/25 19:40 DC 08/30/25 17:08 1,000 MG Acetaminophen/ Hydrocodone Bitart (NORco 5/325MG) 1 tab Q6H PRN PO PAIN 5-10 08/21/25 01:00 08/23/25 09:17 DC 08/22/25 20:29 1 TAB Albumin Human 250 ml @ 0 mls/hr AD PRN IV IF HEMODYNAMICALLY UNSTABLE 08/23/25 09:30 08/23/25 15:43 DC 08/23/25 15:43 2,520 MLS/HR Aminocaproic Acid 41932 mg/Sodium Chloride 310 ml @ 25 mls/hr AD IV 08/23/25 09:30 08/23/25 09:34 DC Aminocaproic Acid 90010 mg/Sodium Chloride 480 ml @ 0 mls/hr AD PRN IV BLEEDING CONTROL 08/23/25 09:00 08/30/25 14:48 DC Amiodarone HCl (pacERONE 200MG) 200 mg BID PO 08/26/25 14:00 09/25/25 13:59 08/30/25 21:18 200 MG Amiodarone HCl 150 mg/Dextrose 103 ml @ 618 mls/hr ONCE IV 08/25/25 07:30 08/25/25 07:20 DC Amiodarone HCl 150 mg/Dextrose 103 ml @ 618 mls/hr ONCE IV 08/28/25 18:30 08/28/25 18:23 DC Amiodarone HCl 360 mg/Dextrose 207.2 ml @ 33.3 mls/hr AD IV 08/25/25 07:30 08/25/25 07:20 DC Amiodarone HCl 540 mg/Dextrose 310.8 ml @ 16.7 mls/hr [id number] IV 08/27/25 01:30 08/28/25 10:54 DC Amiodarone HCl 540 mg/Dextrose 310.8 ml @ 16.7 mls/hr [id number] STAT IV 08/25/25 07:18 08/26/25 01:54 DC 08/25/25 14:04 16.7 MLS/HR Amiodarone HCL/ Dextrose 200 ml @ 33.333 mls/ hr AD IV 08/26/25 18:30 08/27/25 00:29 DC Aspirin (Aspirin 81mg Chew Tab) 81 mg DAILY PO 08/21/25 09:00 08/23/25 14:27 DC 08/22/25 09:19 81 MG Aspirin (Aspirin 81mg Chew Tab) 81 mg HS PO 08/23/25 21:00 09/22/25 20:59 08/30/25 21:18 81 MG Atorvastatin Calcium (LIPItor 40MG) 40 mg HS PO 08/21/25 21:00 09/20/25 20:59 08/30/25 21:18 40 MG Calcium Gluconate 1 gm/Sodium Chloride 60 ml @ 200 mls/hr AD PRN IV HYPOCALCEMIA 08/23/25 09:30 09/22/25 09:29 08/24/25 08:08 200 MLS/HR Carvedilol (Coreg 3.125MG) 3.125 mg BID PO 08/21/25 09:00 08/23/25 09:17 DC 08/23/25 08:10 3.125 MG Cefazolin Sodium (ANCEF 1 gm vial) 2 gm ONCALL IVP 08/22/25 15:30 08/23/25 09:04 DC Cefazolin Sodium (Ancef) 2 gm ONCALL IVP 08/23/25 09:30 08/24/25 09:16 DC Cefazolin Sodium (Ancef) 2 gm Q8H IVPB 08/23/25 14:30 08/23/25 14:37 DC Cefazolin Sodium (Ancef) 2 gm Q8H IVPB 08/23/25 18:00 08/24/25 10:01 DC 08/24/25 09:13 2 GM Cyclobenzaprine HCl (Cyclobenzaprine HCl) 10 mg TID PO 08/21/25 09:00 08/23/25 09:17 DC 08/22/25 21:39 10 MG Dexmedetomidine/ Sodium Chloride (PRECEdex 400MCG/ 100ML-NS) 400 mcg PROTOCOL IV 08/23/25 09:30 08/24/25 09:29 DC Dextrose (D50w) 50 ml AD PRN IV HYPOGLYCEMIA PROTOCOL 08/23/25 09:30 09/22/25 09:29 08/24/25 05:59 50 ML Docusate Sodium (COLace 100MG CAP) 100 mg BID PO 08/23/25 21:00 09/22/25 20:59 08/30/25 21:18 100 MG Enoxaparin Sodium (Lovenox) 30 mg DAILY SQ 08/26/25 09:00 09/25/25 08:59 08/30/25 12:04 30 MG Epinephrine HCl 10 mg/Sodium Chloride 250 ml @ 0 mls/hr AD PRN IV TITRATE 08/23/25 09:00 08/30/25 14:48 DC 08/25/25 21:53 0 MLS/HR Epinephrine HCl 10 mg/Sodium Chloride 250 ml @ 0 mls/hr AD PRN IV POST-OP CARDIOVASCULAR ORDERS 08/23/25 09:30 08/23/25 09:33 DC Epoetin Melquiades-epbx (Retacrit) 10,000 unit QTUTHSA[DIALYSIS] SQ 08/26/25 14:00 09/25/25 13:59 08/30/25 12:09 10,000 UNIT Famotidine (Pepcid 20mg Vial) 20 mg Q48H IV 08/23/25 21:00 09/22/25 20:59 08/29/25 20:47 20 MG Furosemide (LASix 100MG VIAL) 80 mg BID IV 08/21/25 09:00 08/21/25 18:47 DC Furosemide (LASix 20MG TAB) 20 mg Q12H PO 08/25/25 09:30 09/24/25 09:29 08/30/25 21:18 20 MG Furosemide (LASix 20MG VIAL) 20 mg Q12H IV 08/24/25 09:30 08/25/25 09:29 DC 08/24/25 19:41 20 MG Glucagon (Glucagon 1mg Kit) 1 mg AD PRN IM HYPOGLYCEMIA PROTOCOL 08/23/25 09:30 09/22/25 09:29 Heparin Sodium/ Dextrose 250 ml @ 0 mls/hr Q6H IV 08/21/25 02:00 08/23/25 09:17 DC 08/21/25 23:18 10.04 MLS/HR Heparin Sodium/ Dextrose (HEParin 25,000 UNITS/250ML D5W) 25,000 units AD IV 08/21/25 01:00 08/21/25 01:07 DC Hydralazine HCl (APRESOLine 20MG INJ) 10 mg ONCE PRN IV IF SBP GREATER THAN 180 08/21/25 01:30 08/23/25 09:17 DC Hydralazine HCl (APRESOLine 20MG INJ) 10 mg Q6H PRN IV For:SBP above 160;DBP above 90 08/21/25 01:30 08/23/25 09:17 DC Hydromorphone HCl (DiLAUDid 0.5MG INJ) 0.25 mg Q4H PRN IVP SEVERE PAIN (7-10) 08/21/25 01:30 08/23/25 09:17 DC 08/23/25 07:13 0.25 MG Insulin Human Regular 100 unit/ Sodium Chloride 100 ml @ 0 mls/hr AD IV 08/23/25 09:30 08/25/25 09:29 DC 08/23/25 14:27 1.5 MLS/HR Lactulose (Constulose 20gm/ 30ml Udcup) 20 gm BID PRN PO CONSTIPATION 08/23/25 09:30 09/22/25 09:29 Lidocaine (Lidoderm Patch 5%) 1 patch DAILY TP 08/21/25 09:00 09/20/25 08:59 08/30/25 11:18 1 PATCH Magnesium Hydroxide (Milk Of Magnesium 30ml) 30 ml DAILY PRN PO CONSTIPATION 08/23/25 09:30 09/22/25 09:29 Magnesium Sulfate 50 ml @ 12.5 mls/hr AD PRN IV MAG LEVEL LESS THAN 2.0 08/23/25 09:30 09/22/25 09:29 08/23/25 14:27 12.5 MLS/HR Metoprolol Tartrate (loprESSOR) 12.5 mg BID PO 08/25/25 09:00 08/26/25 17:08 DC Metoprolol Tartrate (loprESSOR) 25 mg BID PO 08/26/25 17:30 09/25/25 17:29 08/30/25 21:18 25 MG Morphine Sulfate (morPHINE 4MG SYG) 0.5 mg Q2H PRN IV MODERATE PAIN (4-6) 08/23/25 10:00 08/28/25 12:59 DC Morphine Sulfate (morPHINE 4MG SYG) 1 mg Q2H PRN IV SEVERE PAIN (7-10) 08/23/25 09:30 08/24/25 09:29 DC Nifedipine (adALAT 30MG) 60 mg DAILY PO 08/21/25 09:00 08/23/25 09:17 DC 08/22/25 09:19 60 MG Nitroglycerin/ Dextrose 0 ml @ 0 mls/hr AD IV 08/23/25 09:30 08/26/25 09:29 DC Norepinephrine Bitartrate 250 ml @ 0 mls/hr AD PRN IV TITRATE 08/23/25 09:00 08/30/25 14:48 DC 08/24/25 07:24 2.9 MLS/HR Norepinephrine Bitartrate 8 mg/ Dextrose 250 ml @ 0 mls/hr AD PRN IV POST-OP CARDIOVASCULAR ORDERS 08/23/25 09:30 08/23/25 09:33 DC Ondansetron HCl (zoFRAN 4MG INJ) 4 mg Q6H PRN IV NAUSEA/VOMITING 08/21/25 01:30 08/23/25 09:17 DC Ondansetron HCl (zoFRAN 4MG INJ) 4 mg Q6H PRN IV NAUSEA/VOMITING 08/23/25 09:30 09/22/25 09:29 08/24/25 19:49 4 MG Ondansetron HCl (zoFRAN 4MG INJ) 4 mg TID PRN IV NAUSEA/VOMITING 08/21/25 01:00 08/21/25 01:14 DC Pantoprazole Sodium (PROTonix 40MG INJ) 40 mg DAILY IVP 08/21/25 09:00 08/23/25 09:17 DC 08/23/25 08:10 40 MG Potassium Phosphate 250 ml @ 42 mls/hr AD PRN IV LOW PHOS LEVEL 08/23/25 09:30 08/30/25 14:48 DC Potassium Chloride 100 ml @ 100 mls/hr AD PRN IV HYPOKALEMIA 08/23/25 09:30 09/22/25 09:29 Propofol 100 ml @ 0 mls/hr AD PRN IV SEDATION 08/23/25 09:30 08/27/25 09:29 DC Sevelamer HCl (RENAgel 800 MG TAB) 3,200 mg TIDMEALS PO 08/21/25 08:00 09/20/25 07:59 08/30/25 17:08 3,200 MG Sodium Bicarbonate (Sodium Bicarb 50meq 50ml Vial) 50 meq AD PRN IV OTHER[SEE DOSING INSTRUCTIONS] 08/23/25 09:30 08/26/25 09:29 DC 08/23/25 16:21 50 MEQ Sodium Chloride 500 ml @ 0 mls/hr AD IV 08/23/25 09:30 08/30/25 14:48 DC 08/23/25 19:39 3 MLS/HR Sodium Chloride 1,000 ml @ 0 mls/hr ONCE IV 08/22/25 17:30 08/22/25 21:30 DC 08/22/25 17:40 1,000 MLS/HR Sodium Chloride 1,000 ml @ 0 mls/hr ONCE IV 08/28/25 11:30 08/30/25 14:48 DC 08/28/25 14:27 100 MLS/HR Sodium Chloride 1,000 ml @ 10 mls/hr ONCE IV 08/23/25 09:30 08/24/25 09:29 DC 08/23/25 14:25 10 MLS/HR Sodium Chloride (NS Flush 10ml) 10 ml Q8H PRN IVP IV LINE FLUSH 08/23/25 09:30 09/22/25 09:29 Tramadol HCl (UltRAM) 25 mg Q6H PRN PO MODERATE PAIN (4-6) 08/23/25 09:30 08/28/25 09:29 DC 08/24/25 08:09 25 MG Tramadol HCl (UltRAM) 50 mg Q6H PRN PO SEVERE PAIN (7-10) 08/23/25 09:30 08/28/25 09:29 DC 08/26/25 14:19 50 MG DIAGNOSTICS / RADIOLOGY: [ ] ASSESSMENT: Severe multivessel disease, POA NSTEMI, POA status post CABG x3 with the AtriClip 08/23/2025. ESRD on HD Hyperlipidemia Hypertension CHF with LVEF 50-55% by 2D echo, diastolic dysfunction on 08/20/2025 PLAN: 60-year-old male, transferred from [facility] 08/21/2025 where he was diagnosed with a non-STEMI. Left heart catheterization done on 08/20/2025 shows severe multivessel disease. 2D echo on 08/20/2025 showed diastolic dysfunction with LVEF 50-55%. Cardiology recommended transferring to a facility with the cardiovascular surgery service. status post CABG x3 with the AtriClip 08/23/2025. Chest tube removed 08/30/2025. Patient downgraded to the PCU. Continue to follow Cardiothoracic input recommendation. Continue hemodialysis per Nephrology. Continue with physical therapy. Case management consulted for discharge plan home versus rehab. NEURO: Minimize central acting medications as possible. Fall Precautions. Well lighted room through the day and minimize interruptions through the night to prevent acute delirium. PULMONARY: Supplemental 02 as needed BiPAP as necessary, for respiratory distress Titrate Fio2 to keep Spo2 > or = 90% DuoNebs and CPT as needed IS hourly while awake for pulmonary hygiene prn Out of bed to chair as tolerated Maintain aspiration precautions at all times CARDIOVASCULAR: Follow hemodynamics. Vital signs per facility protocol GI & NUTRITION: Continue nutritional support Aspirations precautions Prokinetic agents and laxatives as needed KIDNEYS & ELECTROLYTES: Strict monitoring of intake and output Daily weights Avoid nephrotoxic agents Monitor electrolytes and replace as needed Goal urine output of 30mL/hr or 0.5mL/kg/hr Medications to be dosed according to renal function. Avoid contrast if possible ENDOCRINE: Maintain blood glucose between 100-180 at all times. Insulin sliding scale for blood glucose management Hypoglycemia and hyperglycemia protocol in place INFECTIOUS DISEASE: Trend temperature, WBC and procalcitonin level Follow cultures, deescalate antibiotics as soon as possible. Panculture if new onset fever HEMATOLOGY & COAGULATION: Monitor H&H. Keep Hgb > 7 Transfuse 1 unit of PRBC for Hgb < 7 Transfuse 1 pack of platelets of platelets < 20, 000 Watch for any signs and symptoms of bleeding SKIN: Pressure ulcer prevention per facility protocol Specialty mattress as needed ORTHO/REHAB Continue PT/OT PRN: MEDICATIONS Tylenol 650 mg po every 4 hrs for fever zofran 4 mg IV every 6 hrs for n/v Hydralazine 5 mg IV every 4 hrs systolic pressure > 160 bowel regiment: lactulose 20 gm PO BID PRN constipation Supportive measures: Continue GI and DVT prophylaxis Disposition: Pending improvement in clinical condition All questions answered time spent: > 35 min MICHAEL INTERIANO MD Aug 31, 2025 08:04
--- NOTE | 2025-08-31 09:59 | PN ---
[facility] CARDIOLOGY PROGRESS NOTE Cardiology progress note dictated for Zita Graham MD Date Patient Seen: Aug 31, 2025 Time of Visit: 09:56 Interval History: Patient is up to chair. Telemetry currently demonstrating normal sinus rhythm heart rates in the 70s. Chest tube has been discontinued. Physical Examination: GENERAL: No acute distress. HEAD: Normal with no signs of head trauma. EYES: Conjunctiva and sclera normal. NECK: Supple without JVD. LUNGS: Diminished breath sounds to bases, poor inspiratory effort. HEART: Normal rate and rhythm. Normal S1 and S2 without murmurs, gallop or rub. EXT: No clubbing, cyanosis or edema. NEURO: Awake, alert, and oriented x3. No focal neurological deficits noted. Laboratory: Hematology Labs: Test 08/31/25 04:02 08/30/25 04:10 Range/Units White Blood Count 9.2 4.8-10.8 K/uL Red Blood Count 2.64 L 4.50-6.20 MIL/uL Hemoglobin 8.3 L 14.0-18.0 g/dL Hematocrit 25.0 L 42-54 % Mean Corpuscular Volume 94.7 79-99 fL Mean Corpuscular Hemoglobin 31.4 27.0-33.0 pg Mean Corpuscular Hemoglobin Concent 33.2 32.0-36.0 g/dL Red Cell Distribution Width 16.7 H 11.0-15.5 % Platelet Count 233 # 130-400 K/uL Mean Platelet Volume 10.4 7.5-10.5 fL Nucleated Red Blood Cells 0.0 0.0-0.19 % Segmented Neutrophils % 66 40-70 % Lymphocytes % (Manual) 19 L 22-44 % Monocytes % (Manual) 9 2-9 % Eosinophils % (Manual) 5 1-6 % Differential Comment MANUAL DIFFERENTIAL Reactive Lymphocytes 1 H 0-0 % White Cell Morphology Comment See comments Platelet Morphology Comment ADEQUATE Red Blood Cell Morphology See comments Chemistry Labs: Test 08/31/25 04:02 08/30/25 04:10 Range/Units Sodium Level 133 L 136-145 mmol/L Potassium Level 4.4 3.5-5.1 mmol/L Chloride Level 95 L 101-111 mmol/L Carbon Dioxide Level 28 21-32 mmol/L Blood Urea Nitrogen 57 #H 7-18 mg/dL Creatinine 8.5 *H 0.5-1.3 mg/dL Glomerular Filtration Rate Calc 7 >90 mL/min Random Glucose 97 70-105 mg/dL Total Calcium 8.1 L 8.5-10.1 mg/dL Magnesium Level 2.20 1.80-2.40 mg/dL Total Bilirubin 0.7 # 0.2-1.0 mg/dL Aspartate Amino Transf (AST/SGOT) 33 10-37 U/L Alanine Aminotransferase (ALT/SGPT) < 5 L 12-78 U/L Alkaline Phosphatase 101 50-136 U/L Total Protein 6.5 6.0-8.3 g/dL Albumin 2.6 L 3.5-5.0 g/dL Phosphorus Level 5.5 H 2.5-4.9 mg/dL Diagnostics / Radiology: Impression and Plan: 1. Non-STEMI. 2. Multivessel coronary disease. 3. Ischemic cardiomyopathy 4. Hypertension. 5. Hyperlipidemia. 6. End-stage renal disease on hemodialysis. 7. Hyperkalemia. #CAD s/p 3v CABG (PORTILLO-LAD, SVG- OM2, SVG-PDA) with Ligation of left atrial appendage with a 25 mm AtriCure clip on 08-23-[address] Hackett Admitted [facility] on 08/19/2025 for chest pain, ACS-NSTEMI 2D echocardiogram (08/21/25) at this facility EF 45-50% Coronary angiogram (08/20/2025) revealing severe multivessel CAD (per report) Patient was transferred from [facility] for CABG evaluation Postoperative blood loss requiring blood transfusion No urine output due to ESRD on Lasix 20 mg po q 12 hours Continue aspirin 81 mg daily, atorvastatin 40 mg daily and metoprolol tartrate 25 mg b.i.d. #Atrial fibrillation, now in NSR Patient developed atrial fibrillation with RVR postoperatively Patient completed amiodarone bolus and infusion. 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 Chest tube discontinued this morning, likely initiation of anticoagulation tomorrow if stable. YOCASTA LEMUS [facility] Aug 31, 2025 09:59 ZITA GRAHAM DO Aug 31, 2025 12:26
--- NOTE | 2025-08-31 11:49 | PN ---
FOLLOWUP PROGRESS NOTE SUBJECTIVE: This is a followup from a 60-year-old male with a history of diabetes mellitus, hypertension. He has a history of end-stage renal disease, on dialysis 3 times per week. The patient did receive dialysis yesterday without difficulty. The patient had initially admitted with coronary artery disease, status post cardiovascular graft surgery. The patient has been transferred out to a medical floor and he is being seen as a followup visit for all of the above. REVIEW OF SYSTEMS: GENERAL: The patient is feeling weak and tired. HEENT: No change in vision. No change in hearing. CARDIOVASCULAR: There is no current chest pain or palpitations. PULMONARY: No shortness of breath. GASTROINTESTINAL: The patient is tolerating diet. MUSCULOSKELETAL: Complaints of weakness. PHYSICAL EXAMINATION: VITAL SIGNS: Blood pressure 127/66, pulse in the 60s. GENERAL: Chronically ill male, older than appearing. HEENT: Atraumatic. Pupils are equal, round, and reactive to light. Oropharynx is without exudate. Nares clear. NECK: There is no JVP. There is no thyromegaly. No masses. CARDIOVASCULAR: Regular. There is no S3 or S4 gallop. LUNGS: Coarse with equal thoracic movement. ABDOMEN: Abdomen is soft, nontender, and nontender. EXTREMITIES: Extremities reveal no clubbing, no cyanosis. NEUROLOGICAL: He is awake. He is alert. LABORATORY DATA: Hemoglobin 8.3, hematocrit 25, white blood cell count is 9000. BUN 57, creatinine is 8, sodium is 133. IMPRESSION: * Coronary artery disease, status post coronary artery bypass graft. * Diabetes mellitus * Hypertension. * End-stage renal disease. PLAN: The patient has done well postoperatively. The patient has been transferred out to the medical floor. The patient does continue dialysis on a Monday, , and Monday schedule. Blood pressure is under adequate control. We will continue to follow closely. Workup as ongoing per Cardiology. Once the patient is discharged, the patient will follow up in the dialysis unit. TID: [id number] RECEIPT: [id number]
--- NOTE | 2025-08-31 13:17 | PN ---
[facility] PROGRESS NOTE Date Patient Seen: Aug 31, 2025 Time of Visit: 13:14 Supervising Physician: [Dr. Giles ] Primary Care Physician: [Dr. Prince ] Outpatient Specialists: [ ] Inpatient Consults: [ ] PROBLEM LIST: Acute non STEMI Status post CABG X 3 with ligation of Atrial Appendage (08/23) ESRD on HD Acute on chronic diastolic heart failure T2DM HTN Atherosclerosis Obesity, BMI 36 Hyperlipidemia INTERVAL HISTORY: Patient was seen and examined all labs and imaging have been reviewed Nursing reports no acute events overnight. Patient remains afebrile Patient had hemodialysis yesterday with 1.5L removed tolerated well Chest x-ray improved CT has been removed Plan: Following cardiology recs, Aspirin, statin Follow Cardiothoracic postop protocol PT/OT, ambulation, Encourage IS REVIEW OF SYSTEMS: 12 point ROS reviewed with patient. Pertinent positives mentioned above. Otherwise negative. PHYSICAL EXAM: GENERAL: alert, weak, awake oriented x 3 HEENT: EOMI, Sclera non icteric, moist mucosa NECK: Supple, no JVD, trachea midline LUNGS: Clear breath sounds bilaterally. No wheezes CT X2 in place HEART: Regular rate and rhythm. Normal S1 and S2, without murmurs. sternotomy noted intact. ABD: Abdomen soft, nontender. Bowel sounds present EXT: No clubbing cyanosis or edema NEURO: Alert and oriented to person, follows commands Vital Signs (last 8hr) Date Time Temp Pulse Resp B/P (MAP) Pulse Ox O2 Delivery O2 Flow Rate FiO2 08/31/25 11:16 98.1 72 18 130/87 93 Room Air 21 08/31/25 09:47 99 Room Air* 0 21 08/31/25 07:38 98.1 65 18 127/66 98 Room Air 21 LABS: Hematology Labs: Test 08/31/25 04:02 08/30/25 04:10 Range/Units White Blood Count 9.2 4.8-10.8 K/uL Red Blood Count 2.64 L 4.50-6.20 MIL/uL Hemoglobin 8.3 L 14.0-18.0 g/dL Hematocrit 25.0 L 42-54 % Mean Corpuscular Volume 94.7 79-99 fL Mean Corpuscular Hemoglobin 31.4 27.0-33.0 pg Mean Corpuscular Hemoglobin Concent 33.2 32.0-36.0 g/dL Red Cell Distribution Width 16.7 H 11.0-15.5 % Platelet Count 233 # 130-400 K/uL Mean Platelet Volume 10.4 7.5-10.5 fL Nucleated Red Blood Cells 0.0 0.0-0.19 % Segmented Neutrophils % 66 40-70 % Lymphocytes % (Manual) 19 L 22-44 % Monocytes % (Manual) 9 2-9 % Eosinophils % (Manual) 5 1-6 % Differential Comment MANUAL DIFFERENTIAL Reactive Lymphocytes 1 H 0-0 % White Cell Morphology Comment See comments Platelet Morphology Comment ADEQUATE Red Blood Cell Morphology See comments Chemistry Labs: Test 08/31/25 04:02 08/30/25 04:10 Range/Units Sodium Level 133 L 136-145 mmol/L Potassium Level 4.4 3.5-5.1 mmol/L Chloride Level 95 L 101-111 mmol/L Carbon Dioxide Level 28 21-32 mmol/L Blood Urea Nitrogen 57 #H 7-18 mg/dL Creatinine 8.5 *H 0.5-1.3 mg/dL Glomerular Filtration Rate Calc 7 >90 mL/min Random Glucose 97 70-105 mg/dL Total Calcium 8.1 L 8.5-10.1 mg/dL Magnesium Level 2.20 1.80-2.40 mg/dL Total Bilirubin 0.7 # 0.2-1.0 mg/dL Aspartate Amino Transf (AST/SGOT) 33 10-37 U/L Alanine Aminotransferase (ALT/SGPT) < 5 L 12-78 U/L Alkaline Phosphatase 101 50-136 U/L Total Protein 6.5 6.0-8.3 g/dL Albumin 2.6 L 3.5-5.0 g/dL Phosphorus Level 5.5 H 2.5-4.9 mg/dL DIAGNOSTICS / RADIOLOGY RESULTS: [ ] PLAN NEURO: Minimize central acting medications as possible. Maintain fall precautions, adequate lighting during the day PULMONARY: Supplemental 02 as needed. Maintain aspiration precautions at all times CARDIOVASCULAR: Follow hemodynamics. Vital signs per facility protocol GI & NUTRITION: Continue with nutritional support. Continue stool softeners and laxatives as needed. KIDNEYS & ELECTROLYTES: Strict monitoring of intake, output and overall fluid balance. Avoid nephrotoxic medications to the extent possible. Medications to be dosed according to renal function. Monitor electrolytes and replace as needed ENDOCRINE: Maintain blood glucose between 100-180 at all times. Hypoglycemia protocol in place INFECTIOUS DISEASE: Trend temperature, WBC and procalcitonin level Follow cultures, deescalate antibiotics as soon as possible. Panculture if new onset fever ONCOLOGY/HEMATOLOGY/COAGULATION: Monitor for s/s of bleeding Monitor hemoglobin, coagulation studies as needed SKIN: Pressure ulcer prevention per facility protocol Specialty mattress ORTHO/REHAB: Continue PT/OT Prophylaxis: Continue GI and DVT prophylaxis Code Status: Full Resuscitation Disposition: TATIANA SOLANO AGACN Aug 31, 2025 13:17
--- NOTE | 2025-08-31 18:07 | PN ---
TIME: 3:00 p.m. SUBJECTIVE: The patient is a 60-year-old gentleman, status post CABG. No major events overnight. Underwent dialysis session yesterday. PHYSICAL EXAMINATION: NEUROLOGIC: Alert and oriented. No deficits. CARDIAC: S1 and S2, regular rate and rhythm. RESPIRATORY: Clear to auscultation bilaterally. ASSESSMENT AND PLAN: * Coronary artery disease, status post coronary artery bypass graft, on aspirin, statin, beta-graeme. Not on any pressors. * Volume overload. The patient has end-stage renal disease. He is on hemodialysis, management per Nephrology. * Acute blood loss anemia, status post surgery. The patient has no evidence of active bleeding at this time. We will continue to monitor and transfuse if hemoglobin less than 7. TID: [id number] RECEIPT: [id number]
[2025-09-01] VITALS: BP 123/70; PULSE 73; RESP 18; TEMP 98.1
[2025-09-01 04:00] VITALS: BP 154/73; PULSE 76; RESP 18; TEMP 98
[2025-09-01 05:23] LABS: NUCLEATED RED BLOOD CELLS 0.0 % (0.0-0.19); PLATELET COUNT (AUTO) 277.0 K/uL (130-400); RED BLOOD CELL COUNT(AUTO) 2.72 MIL/uL (4.50-6.20); RED CELL DISTRIBUTION WIDTH 17.1 % (11.0-15.5); WHITE BLOOD COUNT (AUTO) 9.6 K/uL (4.8-10.8)
[2025-09-01 05:37] LABS: ASPARTATE AMINOTRANSFERASE 32 U/L (10-37); GLOMERULAR FILTR. RATE CALC 5 mL/min (>90); GLUCOSE,RANDOM 94 mg/dL (70-105); SODIUM SERUM 131 mmol/L (136-145); TOTAL PROTEIN, SERUM 6.8 g/dL (6.0-8.3); UREA NITROGEN, BLOOD 71 mg/dL (7-18)
[2025-09-01 06:13] LABS: CREATININE 10.4 mg/dL (0.5-1.3)
[2025-09-01 08:00] VITALS: BP 150/79; PULSE 76; RESP 18; TEMP 98.8
--- NOTE | 2025-09-01 08:31 | PN ---
[facility] CARDIOLOGY PROGRESS NOTE Date Patient Seen: Sep 01, 2025 Time of Visit: 08:29 Interval History: [ No acute events overnight. Patient denies any cardiac symptoms or anginal equivalents. Physical Examination: GENERAL: [No acute distress.] HEAD: [Normal with no signs of head trauma.] EYES: [PERRLA, EOMI, conjunctiva and sclera normal.] ENT: [Hearing grossly intact, normal oropharynx.] NECK: [Supple without JVD. There is no tenderness, lymphadenopathy, or masses. No thyromegaly. Normal carotid upstrokes without bruits.] LUNGS: [Clear breath sounds bilaterally.. No wheezes, or rhonchi. Chest tubes in and functional] HEART: [Normal rate and rhythm. Normal S1 and S2 without murmurs, gallop or rub.] VASC: [Peripheral pulses +2 bilaterally.] ABD: [Bowel sounds normal, soft, nontender, no masses, no organomegaly. No audible bruits.] : [Not examined] LYMPH: [No lymphadenopathy noted.] EXT: [No clubbing, cyanosis or edema.] SKIN: [examination of left groin access site appears to be clean with no evidence of hematoma or active bleeding.] NEURO: [Awake, alert, and oriented x3. No focal sensory or strength deficits noted.] Laboratory: [ ] Hematology Labs: Test 09/01/25 04:58 Range/Units White Blood Count 9.6 4.8-10.8 K/uL Red Blood Count 2.72 L 4.50-6.20 MIL/uL Hemoglobin 8.4 L 14.0-18.0 g/dL Hematocrit 26.1 L 42-54 % Mean Corpuscular Volume 96.0 79-99 fL Mean Corpuscular Hemoglobin 30.9 27.0-33.0 pg Mean Corpuscular Hemoglobin Concent 32.2 32.0-36.0 g/dL Red Cell Distribution Width 17.1 H 11.0-15.5 % Platelet Count 277 130-400 K/uL Mean Platelet Volume 10.0 7.5-10.5 fL Nucleated Red Blood Cells 0.0 0.0-0.19 % Chemistry Labs: Test 09/01/25 04:58 Range/Units Sodium Level 131 L 136-145 mmol/L Potassium Level 4.2 3.5-5.1 mmol/L Chloride Level 93 L 101-111 mmol/L Carbon Dioxide Level 26 21-32 mmol/L Blood Urea Nitrogen 71 H 7-18 mg/dL Creatinine 10.4 *H 0.5-1.3 mg/dL Glomerular Filtration Rate Calc 5 >90 mL/min Random Glucose 94 70-105 mg/dL Total Calcium 8.4 L 8.5-10.1 mg/dL Magnesium Level 2.30 1.80-2.40 mg/dL Total Bilirubin 0.7 0.2-1.0 mg/dL Aspartate Amino Transf (AST/SGOT) 32 10-37 U/L Alanine Aminotransferase (ALT/SGPT) < 6 L 12-78 U/L Alkaline Phosphatase 103 50-136 U/L Total Protein 6.8 6.0-8.3 g/dL Albumin 2.7 L 3.5-5.0 g/dL Diagnostics / Radiology: [Copy/Paste Echos/Imaging Report here] Impression and Plan: [1. Non-STEMI. 2. Multivessel coronary disease. 3. Hypertension. 4. Hyperlipidemia. 5. End-stage renal disease on hemodialysis. 6. Hyperkalemia. #CAD s/p 3v CABG ( PORTILLO-LAD, SVG- OM2, SVG-PDA ) on 08-23-[address] Hackett Admitted [facility] on 08/19/2025 for chest pain Troponin peaked at 3703 2D echocardiogram (08/20/2025) LVEF 50-55%, per report Coronary angiogram (08/20/2025) revealing severe multivessel CAD (per report), examination of left groin access site appears to be clean with no evidence of hematoma or active bleeding. Patient was transferred from [facility] for CABG evaluation Hemoglobin dropped 5.8, patient received1 unit of PRBCs repeat hemoglobin 8.4 g No urine output due to ESRD. Lasix 20 mg p.o. every 12 hours DAPT for12 months ([id number] mg daily, [id number] mg daily) and atorvastatin 40 mg daily Initiate Toprol-XL 50 mg daily #atrial fibrillation Patient developed atrial fibrillation with RVR postoperatively Patient completed amiodarone bolus and infusion Continue amiodarone 200 mg daily Please keep on telemetry, monitor/replace electrolytes as needed Start Toprol-XL 50 mg daily Prior to discharge we will transition to Eliquis 5 mg every 12 hours Thank you for this consult cardiology will sign off at this time the patient will follow up in clinic 1-2 weeks after discharge Chucho montanez MD ATTESTATION BY PHYSICIAN I have seen and examined the patient, reviewed the above documentation, participated in medical decision making, made necessary modifications, and agree with the treatment plan as documented by my mid-level provider above. MD SARINA Cuba JAMES R MD Sep 01, 2025 08:31
--- NOTE | 2025-09-01 10:54 | PN ---
[facility] PROGRESS NOTE Date Patient Seen: Sep 01, 2025 Time of Visit: 10:54 Supervising Physician: Dr. Giles Primary Care Physician: [Dr. Prince ] Outpatient Specialists: [ ] Inpatient Consults: [ ] PROBLEM LIST: Acute non STEMI Status post CABG X 3 with ligation of Atrial Appendage (08/23) ESRD on HD Acute on chronic diastolic heart failure T2DM HTN Atherosclerosis Obesity, BMI 36 Hyperlipidemia INTERVAL HISTORY: Patient is seen at bedside today, sitting up in his chair and tolerating his lunch. Patient has no acute complaints at this time. No acute overnight events reported. Patient is tolerating his physical therapy, continues on hemodialysis. Patient with wishes to go home, declining rehab disposition at this time. Disposition per primary. Plan: Following cardiology recs, Aspirin, statin Follow Cardiothoracic postop protocol PT/OT, ambulation, Encourage IS REVIEW OF SYSTEMS: 12 point ROS reviewed with patient. Pertinent positives mentioned above. Otherwise negative. PHYSICAL EXAM: GENERAL: alert, weak, awake oriented x 3 HEENT: EOMI, Sclera non icteric, moist mucosa NECK: Supple, no JVD, trachea midline LUNGS: Clear breath sounds bilaterally. No wheezes CT X2 in place HEART: Regular rate and rhythm. Normal S1 and S2, without murmurs. sternotomy noted intact. ABD: Abdomen soft, nontender. Bowel sounds present EXT: No clubbing cyanosis or edema NEURO: Alert and oriented to person, follows commands Vital Signs (last 8hr) Date Time Temp Pulse Resp B/P (MAP) Pulse Ox O2 Delivery O2 Flow Rate FiO2 09/01/25 08:00 98.8 76 18 150/79 98 Room Air 09/01/25 04:00 98.1 76 18 154/73 98 Room Air LABS: Hematology Labs: Test 09/01/25 04:58 Range/Units White Blood Count 9.6 4.8-10.8 K/uL Red Blood Count 2.72 L 4.50-6.20 MIL/uL Hemoglobin 8.4 L 14.0-18.0 g/dL Hematocrit 26.1 L 42-54 % Mean Corpuscular Volume 96.0 79-99 fL Mean Corpuscular Hemoglobin 30.9 27.0-33.0 pg Mean Corpuscular Hemoglobin Concent 32.2 32.0-36.0 g/dL Red Cell Distribution Width 17.1 H 11.0-15.5 % Platelet Count 277 130-400 K/uL Mean Platelet Volume 10.0 7.5-10.5 fL Nucleated Red Blood Cells 0.0 0.0-0.19 % Chemistry Labs: Test 09/01/25 04:58 Range/Units Sodium Level 131 L 136-145 mmol/L Potassium Level 4.2 3.5-5.1 mmol/L Chloride Level 93 L 101-111 mmol/L Carbon Dioxide Level 26 21-32 mmol/L Blood Urea Nitrogen 71 H 7-18 mg/dL Creatinine 10.4 *H 0.5-1.3 mg/dL Glomerular Filtration Rate Calc 5 >90 mL/min Random Glucose 94 70-105 mg/dL Total Calcium 8.4 L 8.5-10.1 mg/dL Magnesium Level 2.30 1.80-2.40 mg/dL Total Bilirubin 0.7 0.2-1.0 mg/dL Aspartate Amino Transf (AST/SGOT) 32 10-37 U/L Alanine Aminotransferase (ALT/SGPT) < 6 L 12-78 U/L Alkaline Phosphatase 103 50-136 U/L Total Protein 6.8 6.0-8.3 g/dL Albumin 2.7 L 3.5-5.0 g/dL DIAGNOSTICS / RADIOLOGY RESULTS: [ ] PLAN NEURO: Minimize central acting medications as possible. Fall Precautions. Well lighted room through the day and minimize interruptions through the night to prevent acute delirium. PULMONARY: Supplemental 02 as needed Titrate Fio2 to keep Spo2 > or = 90% DuoNebs and CPT as needed IS hourly while awake for pulmonary hygiene Out of bed to chair as tolerated VAP Bundle Vent/BIPAP Settings: [ ] Driving pressure: [ ] P Plat: [ ] Static C: [ ] Static R: [ ] P/F Ratio: [ ] CARDIOVASCULAR: Follow hemodynamics. Titrate vasopressor to keep MAP >65 or systolic blood pressure >95mmHg DIPS: [ ] LINES: [ ] GI & NUTRITION: Continue nutritional support Aspirations precautions Prokinetic agents and laxatives as needed KIDNEYS & ELECTROLYTES: Strict monitoring of intake and output Daily weights Avoid nephrotoxic agents Monitor electrolytes and replace as needed Goal urine output of 30mL/hr or 0.5mL/kg/hr Urine output: [ ] Fluid Balance: [ ] ENDOCRINE: Maintain blood glucose between 100-180 at all times. Insulin sliding scale for blood glucose management INFECTIOUS DISEASE: Trend temperature. Mary-culture if febrile. Micro: [ ] Antibiotics: [ ] HEMATOLOGY & COAGULATION: Monitor H&H. Keep Hgb > 7 Transfuse 1 unit of PRBC for Hgb < 7 Transfuse 1 pack of platelets of platelets < 20, 000 Watch for any signs and symptoms of bleeding SKIN: Pressure ulcer prevention per facility protocol Rehab: PT/OT Prophylaxis: GI: [ ] DVT: [ ] Code Status: Full Resuscitation Disposition: [ ] GIDEON GARCIA PAC Sep 01, 2025 10:54
[2025-09-01 11:30] VITALS: O2SAT 100
[2025-09-01 11:47] VITALS: BP 152/77; PULSE 78; RESP 20; TEMP 98.6
[2025-09-01] MEDS ORDERED: AMIO200T73 PO (14:02)
[2025-09-01] MEDS ORDERED: CLOP75TA32 PO (14:06)
[2025-09-01] MEDS ORDERED: FURO20TA4 PO (14:06)
[2025-09-01] MEDS ORDERED: METO-391 PO (14:06)
[2025-09-01] MEDS ORDERED: DOCU100C33 PO (14:06)
--- NOTE | 2025-09-01 14:40 | NUR ---
CALLED IN PRESCRIPTIONS TO [facility] IN [place].
--- NOTE | 2025-09-01 21:29 | PN ---
FOLLOWUP PROGRESS NOTE SUBJECTIVE: A 60-year-old male with a history of diabetes mellitus and hypertension. The patient has a history of known coronary artery disease status post CABG. The patient has done well postoperatively. The patient has been transferred out to a medical floor and he is being seen as a followup visit for all of the above. He remains on dialysis on a Monday, , and Monday schedule. REVIEW OF SYSTEMS: GENERAL: The patient is feeling weak and tired. HEENT: No change in vision. No change in hearing. CARDIOVASCULAR: There is no current chest pain or palpitations. PULMONARY: He denies any shortness of breath. GASTROINTESTINAL: The patient is tolerating a diet. MUSCULOSKELETAL: Complains of weakness. PHYSICAL EXAMINATION: VITAL SIGNS: Blood pressure is 154/73, pulse in the 70s. GENERAL: Chronically ill male lying in bed on the medical floor. HEENT: Head is atraumatic. Pupils equal, round, and reactive to light. Oropharynx is without exudate. Nares clear. NECK: There is no JVP. No thyromegaly. CARDIOVASCULAR: Regular. There is no S3 or S4 gallop. LUNGS: Coarse with equal thoracic movement. ABDOMEN: Soft, nondistended, and nontender. EXTREMITIES: Reveal no clubbing, no cyanosis. NEUROLOGICAL: He is awake. He is alert. LABORATORY DATA: Sodium 131, potassium 4.2, BUN 71, creatinine is 10. Hematocrit is 26. IMPRESSION: * Coronary artery disease status post coronary artery bypass grafting. * Diabetes mellitus. * Hypertension. * Anemia. * End-stage renal disease. PLAN: The patient has done well postoperatively. The patient could safely be discharged from a renal standpoint. The patient will follow up at the dialysis unit. The patient continues with Epogen for the anemia. We will continue to follow closely patient and family at the bedside. Multiple questions were all answered. TID: [id number] RECEIPT: [id number]
== END 2025-09-01 16:30 | disposition home or self-care (01) | DRG 235 ==
LOC: 2AH 23:46 → 2CV 08-23 09:32 → 2BH 08-25 18:08 → 2DH 08-30 15:36
PROVIDERS: ADMIT Internal Medicine; ATTEND Internal Medicine
PROC: 5A1D70Z Performance of Urinary Filtration, Intermittent, Less than 6 Hours Per Day (ICD-10-PCS; 2025-08-22)
PROC: 02L70CK Occlusion of Left Atrial Appendage with Extraluminal Device, Open Approach (ICD-10-PCS; 2025-08-23)
PROC: 30233N1 Transfusion of Nonautologous Red Blood Cells into Peripheral Vein, Percutaneous Approach (ICD-10-PCS; 2025-08-23)
PROC: 02100Z9 Bypass Coronary Artery, One Artery from Left Internal Mammary, Open Approach (ICD-10-PCS; principal; 2025-08-23 09:00)
PROC: 021109W Bypass Coronary Artery, Two Arteries from Aorta with Autologous Venous Tissue, Open Approach (ICD-10-PCS; 2025-08-23 09:00)
PROC: 0PH000Z Insertion of Rigid Plate Internal Fixation Device into Sternum, Open Approach (ICD-10-PCS; 2025-08-23 09:00)
PROC: 06BQ4ZZ Excision of Left Saphenous Vein, Percutaneous Endoscopic Approach (ICD-10-PCS; 2025-08-23 09:00)
PROC: 5A1D70Z Performance of Urinary Filtration, Intermittent, Less than 6 Hours Per Day (ICD-10-PCS; 2025-08-24)
PROC: 5A1D70Z Performance of Urinary Filtration, Intermittent, Less than 6 Hours Per Day (ICD-10-PCS; 2025-08-26)
PROC: 5A1D70Z Performance of Urinary Filtration, Intermittent, Less than 6 Hours Per Day (ICD-10-PCS; 2025-08-28)
PROC: 5A1D70Z Performance of Urinary Filtration, Intermittent, Less than 6 Hours Per Day (ICD-10-PCS; 2025-08-30)
DX: I21.4 Non-ST elevation (NSTEMI) myocardial infarction (principal); I50.33 Acute on chronic diastolic (congestive) heart failure; J95.1 Acute pulmonary insufficiency following thoracic surgery; N18.6 End stage renal disease; I13.2 Hypertensive heart and chronic kidney disease with heart failure and with stage 5 chronic kidney disease, or end stage renal disease; Z99.2 Dependence on renal dialysis; E11.22 Type 2 diabetes mellitus with diabetic chronic kidney disease; E66.01 Morbid (severe) obesity due to excess calories; J98.11 Atelectasis; D62 Acute posthemorrhagic anemia; I25.10 Atherosclerotic heart disease of native coronary artery without angina pectoris; E87.5 Hyperkalemia; I48.91 Unspecified atrial fibrillation; E78.00 Pure hypercholesterolemia, unspecified; Z79.82 Long term (current) use of aspirin; Z79.899 Other long term (current) drug therapy; Z87.891 Personal history of nicotine dependence; I25.2 Old myocardial infarction; Z68.37 Body mass index [BMI] 37.0-37.9, adult
CPT/HCPCS: 36415; 36430; 36600; 71045; 80048; 80053; 80061; 82330; 82435; 82728; 82803; 82947; 82948; 83036; 83540; 83550; 83605; 83735; 84100; 84132; 84295; 85014; 85018; 85025; 85027; 85347; 85610; 85730; 86704; 86706; 86850; 86900; 86901; 86923; 87340; 87641; 90935; 93005; 93306; 93312; 93325; 93880; 94002; 94010; 97161; A4344; A4450; A7048; G0378; J0169; J0282; J0612; J0690; J1171; J1644; J1650; J1815; J1938; J2003; J2250; J2405; J2440; J2470; J2704; J2720; J3010; J3475; J3480; J3490; J7030; J7040; J7050; J7060; J7070; J7120; P9016; P9045; P9046; A4215; A4649; A4930; A6204; C1713; C1776; C1887; J0283; J1308; Q5106